=== PATIENT | male | born 1960 | race African-American/Black ===

== ENCOUNTER 2019-06-09 19:47 | Emergency (ER) | payer OTHER ==
--- OUTSIDE RECORDS SUMMARY | 2019-06-09 19:51 | XMS REPORT | Summary of Care ---
:1960 Author Organization [facility] [place] [address] Care Team Providers Name Role Phone Negro Harkins MD Primary Care Provider Reason for Visit Reason Comments Prostate Cancer Encounter Details Date Type Department Care Team Description 01/19/2019 Office Visit [facility] Blas Murillo MD Prostate Cancer Medicine Urology [address] [place] [address] [address]LO[address], [address], [place] [address] [place] [id number] Allergies No Known Allergiesdocumented as of this encounter (statuses as of 01/19/2019) Medications Medication Sig Dispensed Refills Start Date End Date Status losartan (COZAAR) 25 MG Take 25 mg by 0 Active tablet mouth. tadalafil (CIALIS) 5 MG Take 1 Tab by 30 Tab 5 12/05/2018 Active tablet mouth daily. documented as of this encounter (statuses as of 01/19/2019) Active Problems Not on filedocumented as of this encounter (statuses as of 01/19/2019) Social History Tobacco Use Types Packs/Day Years Used Date Current Every Day Smoker Cigarettes 30 Smokeless Tobacco: Never Used Alcohol Use Drinks/Week oz/Week Comments Yes 24 Standard drinks or equivalent 14.4 Sex Assigned at Date Recorded Not on file Job Start Date Occupation Industry Not on file Not on file Not on file Travel History Travel Start Travel End No recent travel history available. documented as of this encounter Last Filed Vital Signs Not on filedocumented in this encounter Progress Notes Blas Murillo MD - 01/19/2019 1:45 PM CDT12/27/2018 - RALP + PLND, DK / Morris A, 2+ / 2+ PATH - GL 3+4, 40 G prostate, 15% cancer ( - ) LN - 0 / 16 ( - ) SV ( + ) SM - apex Post - op - Shelley fell out and replaced by nurse at local ER Came back to the hospital with genital swelling and extravasation from the anastomosis on CG All this resolved Cystogram in the office today - 120 ml contrast - no extravasation ( received Gentamicin 160 mg IM pre study ) Shelley removed Levaquin Rx for 3 days P: FU - 3 months documented in this encounter Plan of Treatment Date Type Specialty Care Team Description 02/06/2019 Office Visit Urology Dov Francois PA [id number] [id number] [phone] 04/20/2019 Office Visit Urology Blas Murillo MD [address] [facility] [address], [address] [place], [place] [id number] Health Maintenance Due Date Last Done Comments COLON CANCER SCREENING: COLONOSCOPY 1960 MEDICARE AWV 1960 TETANUS SHOT (ADULT) 12/01/1975 BMI FOLLOW UP PLAN 1978 HEPATITIS C SCREENING 1978 HIV SCREENING 1978 FLU VACCINE > 6 MONTHS 01/04/2019 documented as of this encounter Results Not on filedocumented in this encounter Visit Diagnoses Diagnosis Prostate cancer - Primary Malignant neoplasm of prostate documented in this encounter Insurance Payer Benefit Plan / Subscriber ID Effective Phone Address Type Group Dates [place] [employer] xxxxxxxxxxx 2018-Pres [address] [employer] - ent [id number] [place] [address] MEDICAID [facility]-MEDICAID - xxxxxxxxx 2014-Pres [address] Medicaid MEDICAID ent [id number] [place] [address] documented as of this encounter
--- OUTSIDE RECORDS SUMMARY | 2019-06-09 19:51 | XMS REPORT ---
:1960 [facility] [address] [place] [address] Care Team Providers Name Role Phone MATTI ANDERSON Unavailable Unavailable ROXANNE, BLAS Unavailable Unavailable Payers Payer Name Policy Type Policy Number Effective Date Expiration Date Problems This patient has no known problems. Allergies, Adverse Reactions, Alerts Allergy Allergy Status Severity Reaction(s) Onset Inactive Treating Comments Name Type Date Date Clinician No Known DA Active U 2018-12 Allergies 28 00:00:0 0 Medications This patient has no known medications. Results Test Description Test Time Test Comments Text Results Atomic Results Result Comments BASIC METABOLIC PANEL 2019-01-08 06:51:00 Test Item Value Reference Range Comments SODIUM (BEAKER) (test 138 meq/L 136-145 yrvn=409) POTASSIUM (BEAKER) (test 3.8 meq/L 3.5-5.1 eele=374) CHLORIDE (BEAKER) (test 106 meq/L 98-107 cebt=079) CO2 (BEAKER) (test 23 meq/L 22-29 ddzu=607) BLOOD UREA NITROGEN 8 mg/dL 7-21 (BEAKER) (test zzsm=949) CREATININE (BEAKER) (test 0.79 mg/dL 0.57-1.25 kaur=186) GLUCOSE RANDOM (BEAKER) 98 mg/dL 70-105 (test sztu=527) CALCIUM (BEAKER) (test 9.0 mg/dL 8.4-10.2 wfsu=752) EGFR (BEAKER) (test 122 mL/min/1.73 sq m ESTIMATED GFR IS NOT hzaf=4847) ACCURATE CREATININE CLEARANCE IN PREDICTING GLOMERULAR FILTRATION RATE. ESTIMATED GFR IS NOT APPLICABLE FOR DIALYSIS PATIENTS. CBC (HEMOGRAM ONLY)2019-01-08 05:48:00 Test Item Value Reference Range Comments WHITE BLOOD CELL COUNT (BEAKER) (test hvry=810) 8.4 K/ L 3.5-10.5 RED BLOOD CELL COUNT (BEAKER) (test ridt=351) 3.09 M/ L 4.63-6.08 HEMOGLOBIN (BEAKER) (test dtwf=890) 10.5 GM/DL 13.7-17.5 HEMATOCRIT (BEAKER) (test kfhv=622) 32.1 % 40.1-51.0 MEAN CORPUSCULAR VOLUME (BEAKER) (test kncd=419) 103.9 fL 79.0-92.2 MEAN CORPUSCULAR HEMOGLOBIN (BEAKER) (test 34.0 pg 25.7-32.2 vvdy=073) MEAN CORPUSCULAR HEMOGLOBIN CONC (BEAKER) (test 32.7 GM/DL 32.3-36.5 ywjv=334) RED CELL DISTRIBUTION WIDTH (BEAKER) (test 13.7 % 11.6-14.4 qumy=233) PLATELET COUNT (BEAKER) (test gbxu=150) 433 K/CU MM 150-450 MEAN PLATELET VOLUME (BEAKER) (test vvce=342) 9.0 fL 9.4-12.4 NUCLEATED RED BLOOD CELLS (BEAKER) (test 0 /100 WBC 0-0 polr=472) BASIC METABOLIC [id number] 10:29:00 Test Item Value Reference Range Comments SODIUM (BEAKER) (test 138 meq/L 136-145 vpmr=523) POTASSIUM (BEAKER) (test 4.1 meq/L 3.5-5.1 Specimen slightly mwir=851) hemolyzed CHLORIDE (BEAKER) (test 104 meq/L 98-107 aydt=268) CO2 (BEAKER) (test 25 meq/L 22-29 jxrh=654) BLOOD UREA NITROGEN 10 mg/dL 7-21 (BEAKER) (test auzc=161) CREATININE (BEAKER) (test 0.84 mg/dL 0.57-1.25 Specimen slightly hsxz=235) hemolyzed GLUCOSE RANDOM (BEAKER) 131 mg/dL 70-105 (test fyys=779) CALCIUM (BEAKER) (test 9.4 mg/dL 8.4-10.2 etwr=721) EGFR (BEAKER) (test 114 mL/min/1.73 sq m ESTIMATED GFR IS NOT mela=4594) ACCURATE CREATININE CLEARANCE IN PREDICTING GLOMERULAR FILTRATION RATE. ESTIMATED GFR IS NOT APPLICABLE FOR DIALYSIS PATIENTS. CBC (HEMOGRAM ONLY)2019-01-07 06:52:00 Test Item Value Reference Range Comments WHITE BLOOD CELL COUNT (BEAKER) (test uwoi=021) 7.7 K/ L 3.5-10.5 RED BLOOD CELL COUNT (BEAKER) (test qcwr=349) 2.98 M/ L 4.63-6.08 HEMOGLOBIN (BEAKER) (test eczq=427) 10.3 GM/DL 13.7-17.5 HEMATOCRIT (BEAKER) (test sepn=476) 31.1 % 40.1-51.0 MEAN CORPUSCULAR VOLUME (BEAKER) (test smek=810) 104.4 fL 79.0-92.2 MEAN CORPUSCULAR HEMOGLOBIN (BEAKER) (test 34.6 pg 25.7-32.2 fbmc=903) MEAN CORPUSCULAR HEMOGLOBIN CONC (BEAKER) (test 33.1 GM/DL 32.3-36.5 ggfm=079) RED CELL DISTRIBUTION WIDTH (BEAKER) (test 13.3 % 11.6-14.4 xuyu=154) PLATELET COUNT (BEAKER) (test vzre=129) 385 K/CU MM 150-450 MEAN PLATELET VOLUME (BEAKER) (test fjrc=455) 9.1 fL 9.4-12.4 NUCLEATED RED BLOOD CELLS (BEAKER) (test 0 /100 WBC 0-0 jemc=314) CBC (HEMOGRAM ONLY)2019-01-06 06:40:00 Test Item Value Reference Range Comments WHITE BLOOD CELL COUNT (BEAKER) (test angt=228) 7.1 K/ L 3.5-10.5 RED BLOOD CELL COUNT (BEAKER) (test xlua=624) 3.16 M/ L 4.63-6.08 HEMOGLOBIN (BEAKER) (test gfnx=352) 10.8 GM/DL 13.7-17.5 HEMATOCRIT (BEAKER) (test kqow=129) 33.7 % 40.1-51.0 MEAN CORPUSCULAR VOLUME (BEAKER) (test uolz=293) 106.6 fL 79.0-92.2 MEAN CORPUSCULAR HEMOGLOBIN (BEAKER) (test 34.2 pg 25.7-32.2 vnta=283) MEAN CORPUSCULAR HEMOGLOBIN CONC (BEAKER) (test 32.0 GM/DL 32.3-36.5 uzcm=168) RED CELL DISTRIBUTION WIDTH (BEAKER) (test 13.1 % 11.6-14.4 renx=821) PLATELET COUNT (BEAKER) (test expn=498) 322 K/CU MM 150-450 MEAN PLATELET VOLUME (BEAKER) (test uwck=583) 9.3 fL 9.4-12.4 NUCLEATED RED BLOOD CELLS (BEAKER) (test 0 /100 WBC 0-0 sunn=766) BASIC METABOLIC [id number] 07:16:00 Test Item Value Reference Range Comments SODIUM (BEAKER) (test 138 meq/L 136-145 adto=905) POTASSIUM (BEAKER) (test 3.2 meq/L 3.5-5.1 mcwt=202) CHLORIDE (BEAKER) (test 102 meq/L 98-107 wdoc=387) CO2 (BEAKER) (test 30 meq/L 22-29 dfqi=014) BLOOD UREA NITROGEN 5 mg/dL 7-21 (BEAKER) (test ntjy=816) CREATININE (BEAKER) (test 0.81 mg/dL 0.57-1.25 zblk=594) GLUCOSE RANDOM (BEAKER) 96 mg/dL 70-105 (test vpts=343) CALCIUM (BEAKER) (test 8.7 mg/dL 8.4-10.2 acrx=440) EGFR (BEAKER) (test 119 mL/min/1.73 sq m ESTIMATED GFR IS NOT rhly=1673) ACCURATE CREATININE CLEARANCE IN PREDICTING GLOMERULAR FILTRATION RATE. ESTIMATED GFR IS NOT APPLICABLE FOR DIALYSIS PATIENTS. CBC (HEMOGRAM ONLY)2019-01-05 05:18:00 Test Item Value Reference Range Comments WHITE BLOOD CELL COUNT (BEAKER) (test oyjy=379) 7.1 K/ L 3.5-10.5 RED BLOOD CELL COUNT (BEAKER) (test nrto=299) 3.00 M/ L 4.63-6.08 HEMOGLOBIN (BEAKER) (test oczh=711) 10.2 GM/DL 13.7-17.5 HEMATOCRIT (BEAKER) (test raqk=885) 31.4 % 40.1-51.0 MEAN CORPUSCULAR VOLUME (BEAKER) (test bymd=913) 104.7 fL 79.0-92.2 MEAN CORPUSCULAR HEMOGLOBIN (BEAKER) (test 34.0 pg 25.7-32.2 udew=241) MEAN CORPUSCULAR HEMOGLOBIN CONC (BEAKER) (test 32.5 GM/DL 32.3-36.5 nqip=270) RED CELL DISTRIBUTION WIDTH (BEAKER) (test 12.8 % 11.6-14.4 clfl=791) PLATELET COUNT (BEAKER) (test majr=072) 287 K/CU MM 150-450 MEAN PLATELET VOLUME (BEAKER) (test krka=273) 9.1 fL 9.4-12.4 NUCLEATED RED BLOOD CELLS (BEAKER) (test 0 /100 WBC 0-0 xlnq=328) BASIC METABOLIC [id number] 06:42:00 Test Item Value Reference Range Comments SODIUM (BEAKER) (test 134 meq/L 136-145 qwen=086) POTASSIUM (BEAKER) (test 3.3 meq/L 3.5-5.1 hcfc=213) CHLORIDE (BEAKER) (test 100 meq/L 98-107 urcm=009) CO2 (BEAKER) (test 29 meq/L 22-29 ayun=472) BLOOD UREA NITROGEN 5 mg/dL 7-21 (BEAKER) (test mdsv=924) CREATININE (BEAKER) (test 0.77 mg/dL 0.57-1.25 qeoc=919) GLUCOSE RANDOM (BEAKER) 96 mg/dL 70-105 (test rcch=134) CALCIUM (BEAKER) (test 8.1 mg/dL 8.4-10.2 uoqr=886) EGFR (BEAKER) (test 126 mL/min/1.73 sq m ESTIMATED GFR IS NOT uduk=0490) ACCURATE CREATININE CLEARANCE IN PREDICTING GLOMERULAR FILTRATION RATE. ESTIMATED GFR IS NOT APPLICABLE FOR DIALYSIS PATIENTS. CBC (HEMOGRAM ONLY)2019-01-04 05:36:00 Test Item Value Reference Range Comments WHITE BLOOD CELL COUNT (BEAKER) (test aswp=297) 6.9 K/ L 3.5-10.5 RED BLOOD CELL COUNT (BEAKER) (test ydbc=143) 2.93 M/ L 4.63-6.08 HEMOGLOBIN (BEAKER) (test vhfe=824) 10.4 GM/DL 13.7-17.5 HEMATOCRIT (BEAKER) (test gwxw=961) 31.2 % 40.1-51.0 MEAN CORPUSCULAR VOLUME (BEAKER) (test lloh=282) 106.5 fL 79.0-92.2 MEAN CORPUSCULAR HEMOGLOBIN (BEAKER) (test 35.5 pg 25.7-32.2 eghk=009) MEAN CORPUSCULAR HEMOGLOBIN CONC (BEAKER) (test 33.3 GM/DL 32.3-36.5 bbts=908) RED CELL DISTRIBUTION WIDTH (BEAKER) (test 12.8 % 11.6-14.4 gxcc=755) PLATELET COUNT (BEAKER) (test scwm=686) 264 K/CU MM 150-450 MEAN PLATELET VOLUME (BEAKER) (test vgpw=990) 9.0 fL 9.4-12.4 NUCLEATED RED BLOOD CELLS (BEAKER) (test 0 /100 WBC 0-0 zugv=801) FL, CYSTOGRAM, [id number] 15:59:00Reason for exam:->concern for urine leakFINAL REPORT Cystogram Clinical History: concern for urine leak Discussion: Approximately 120 cc of Isovue 300 is infused into the bladder via gravity through patient's indwelling Shelley catheter. Sequential images are obtained. There is contrast extravasation at the inferior aspect of the bladder primarily into extraperitoneal space, and there appears to be trace contrast entering the peritoneal space. Bladder contour is grossly normal. No vesicoureteral reflux is noted. Urethra is not evaluated. Note is also made of subcutaneous emphysema in the lower pelvic and perineal region. Fluoro time: 0.55 minutes Number of images obtained: 10 Impression: Contrast extravasation as described. Signed: Janey Iglesiasort Verified Date/Time: 01/03/2019 15:59: 13 Reading Location: [address] Consult Reading Room [id number] 08:26:00 Test Item Value Reference Range Comments PHOSPHORUS (BEAKER) (test vadw=962) 3.1 mg/dL 2.3-4.7 [id number] 08:26:00 Test Item Value Reference Range Comments MAGNESIUM (BEAKER) (test ppqj=154) 1.9 mg/dL 1.6-2.6 BASIC METABOLIC [id number] 08:26:00 Test Item Value Reference Range Comments SODIUM (BEAKER) (test 132 meq/L 136-145 ljur=632) POTASSIUM (BEAKER) (test 3.2 meq/L 3.5-5.1 owhm=607) CHLORIDE (BEAKER) (test 99 meq/L 98-107 swxc=235) CO2 (BEAKER) (test 27 meq/L 22-29 zeck=449) BLOOD UREA NITROGEN 7 mg/dL 7-21 (BEAKER) (test rxgc=700) CREATININE (BEAKER) (test 0.80 mg/dL 0.57-1.25 qpsy=042) GLUCOSE RANDOM (BEAKER) 108 mg/dL 70-105 (test nedp=109) CALCIUM (BEAKER) (test 8.5 mg/dL 8.4-10.2 eikm=295) EGFR (BEAKER) (test 120 mL/min/1.73 sq m ESTIMATED GFR IS NOT qdsj=5590) ACCURATE CREATININE CLEARANCE IN PREDICTING GLOMERULAR FILTRATION RATE. ESTIMATED GFR IS NOT APPLICABLE FOR DIALYSIS PATIENTS. CBC (HEMOGRAM ONLY)2019-01-03 06:57:00 Test Item Value Reference Range Comments WHITE BLOOD CELL COUNT (BEAKER) (test xgdq=159) 9.2 K/ L 3.5-10.5 RED BLOOD CELL COUNT (BEAKER) (test kkln=437) 3.03 M/ L 4.63-6.08 HEMOGLOBIN (BEAKER) (test rete=904) 10.5 GM/DL 13.7-17.5 HEMATOCRIT (BEAKER) (test vyhe=826) 32.3 % 40.1-51.0 MEAN CORPUSCULAR VOLUME (BEAKER) (test iupo=747) 106.6 fL 79.0-92.2 MEAN CORPUSCULAR HEMOGLOBIN (BEAKER) (test 34.7 pg 25.7-32.2 xwih=841) MEAN CORPUSCULAR HEMOGLOBIN CONC (BEAKER) (test 32.5 GM/DL 32.3-36.5 vimv=910) RED CELL DISTRIBUTION WIDTH (BEAKER) (test 12.9 % 11.6-14.4 mypj=088) PLATELET COUNT (BEAKER) (test zsax=705) 251 K/CU MM 150-450 MEAN PLATELET VOLUME (BEAKER) (test htds=816) 9.6 fL 9.4-12.4 NUCLEATED RED BLOOD CELLS (BEAKER) (test 0 /100 WBC 0-0 moik=971) TISSUE [id number] 17:00:00Surgical Pathology Report Case: [id number] Authorizing Provider: Blas Murillo MD Collected: 12/27/2018 1005 Ordering Location: [facility] Received: 12/27/2018 1445 SERVICES Pathologist: Nikita Mahajan MD Specimens: A) - Lymph Node, Periprostatic B) - Lymph Node, Pelvic, Right C) - LymphNode, Pelvic, Left D) - Soft Tissue, Other, Bladder Neck E) - Prostate, Prostate and Seminal Vesicles A. SOFT TISSUE, LABELED "KAMERON-PROSTATIC LYMPH NODE", EXCISION:- ADIPOSE TISSUE, NO LYMPH NODE SEENB. LYMPH NODES, PELVIC, RIGHT, DISSECTION:- ELEVEN BENIGN LYMPH NODES (0/11)C. LYMPH NODES, PELVIC, LEFT, DISSECTION:- FIVE BENIGN LYMPH NODES (0/5)D. SOFT TISSUE, BLADDER NECK, EXCISION:- FIBROADIPOSE TISSUE- NO MALIGNANCY SEENE. PROSTATE, RADICAL RETROPUBIC PROSTATECTOMY:- ADENOCARCINOMA , IMANI 3+4=7, FOCAL EXTRAPROSTATIC EXTENSION, SURGICAL MARGINS POSITIVE AT APEX SEMINAL VESICLES, RADICAL RETROPUBIC PROSTATECTOMY: - NO PATHOLOGIC DIAGNOSIS Signing Pathologist Direct Phone Line: Preliminary result electronically signed by Nikita Mahajan MD on at 4:01 PMSections show a very large bilateral anterior transition zone cancer with bilateral peripheral zone cancers. Tumor extends from the apex to the base and there is a positive surgical margin over a linear distance of organ confined tumor at the apical shave margin. Excellent preservation of the neurovascular bundles is noted from examination of the surgical sepcimen.PROSTATE GLAND: Radical Prostatectomy (Prostate Res - All Specimens) SPECIMEN Procedure: Radical prostatectomy Prostate Size: Prostate Weight (g): 40 g Prostate Greatest Dimension in Centimeters (cm) : 4.8 Centimeters (cm) Additional Dimension in Centimeters (cm): 3.4 Centimeters (cm) Additional Dimension in Centimeters (cm): 2.6 Centimeters (cm)TUMOR Histologic Type: Acinar adenocarcinoma Histologic Grade: Imani Pattern:Percentage of Pattern 4: 30 % Percentage of Pattern 5: 1 % Primary [place] Pattern: Pattern 3 Secondary Imani Pattern: Pattern 4 Tertiary Imani Pattern: Pattern 5 Total Imani Score: 7 Grade Group: 2 Intraductal Carcinoma (IDC): Present Tumor Extent: Tumor Quantitation: Estimated percentage of prostate involved by tumor: 15% % Extraprostatic Extension (EPE): Present, focal Location of Extraprostatic Extension: Left posterior Urinary Bladder Neck Invasion: Not identified Seminal Vesicle Invasion: Not identified Accessory Findings: Treatment Effect: No known presurgical therapy Lymphovascular Invasion: Not Identified Perineural Invasion: Present MARGINS Margins: Involved by invasive carcinoma : Non- limited (>=3 mm) Linear Length of Positive Margin(s) in Millimeters (mm) : 5 Millimeters (mm) Focality: Unifocal Location of Positive Margin(s): Right apical Location of Positive Margin(s): Left apical Margin Positivity in Area of Extraprostatic Extension (EPE): Not identified Imani Pattern at Positive Margin(s): Pattern 3 LYMPH NODES Number of Lymph Nodes Involved: 0 Number of Lymph Nodes Examined: 16 PATHOLOGIC STAGE CLASSIFICATION (pTNM, AJCC 8th Edition) TNM Descriptors: Not applicable Primary Tumor (pT): pT3a Regional Lymph Nodes (pN): pN0 Distant Metastasis (pM): Not applicable - pM cannot be determined from the submitted specimen(s) ADDITIONAL FINDINGS Additional Pathologic Findings: High-grade prostatic intraepithelial neoplasia (PIN) Additional Pathologic Findings: Nodular prostatic hyperplasia 92884, 53636 x 2, 51477 X 2Prostate cancerA. Periprostatic lymph node. B. Right pelvic lymph node. C. Left pelvic lymph node. D. Bladder neck. E. Prostate and seminal vesiclesA. Received in formalin labeled with the patient's name and "periprostatic lymph node" are four fibrofatty tissue fragments measuring in aggregate 5.5 x 2.5 x 1 cm disclosing a possible lymph node. The specimen is entirely submitted in A1- A3.B. Received in formalin labeled with the patient's name and "right pelvic lymph node" are two fibrofatty tissue fragments measuring in aggregate 4.5 x 4 x 1 cm disclosing multiple lymph nodes. Sections are submitted as follows:B1, one lymph node, bisected; B2, three lymph nodes; B3-B5, remainder, entirely submitted.C. Received in formalin labeled with the patient's name and "left pelvic lymph node" are two fibrofatty tissue fragments measuring in aggregate 5 x 3 x 1.2 cm disclosing two lymph nodes. Sections are submitted asfollows: C1, one lymph node bisected; C2-C3, one lymph node serially sectioned; C4-C5, remainder, entirely submitted.D. Received in formalin labeled with the patient' s name and "bladder neck" is a dark-brown tissue fragment measuring 0.6 x 0.5 x 0.3 cm; entirely submitted in D1. ?/ewSpecimen E: Received is a radical prostatectomy specimen in formalin with the patient's name (Christen Sheffield) with accession number [id number] is a prostate with bilateral seminal vesicles and vas deferentia.The prostate weighs 40.0 gm and measures 3.4 cm apex to base , 4.8 cm transversely and 2.6 cm anterior to posterior. The right and left seminal vesicles measure 4.0 x 2.0 x 0.5 cm and 3.5 x 2.0 x 1.0 cm respectively.The right and left vasa deferentia measure 7.0 cm and 5.0 cm in length respectively and 0.5 cm in diameter. The capsular surface of the prostate is purple-fuller to red, dusky, and focally ragged. Ink code: Right-black , left-blue. The prostate is serially sectioned from apex to base in entirety. The total number of slices including seminal vesicles and vas deferentia are 11.The sectioning of the prostate reveals pink-fuller to matos-white, homogeneous, focally nodular prostatic parenchyma throughout. No discrete masses are identified. The sectioning of the seminal vesicles reveals a pink-fuller unremarkable cut surface. Section code: Apical margins are submitted in cassette E1, bladder neck margins are submitted in cassette E2. The prostate slices are submitted as follows: Segment 1 in cassette E3, segment 2 in cassette E4, segment 3 subdivided, left cassette E5 and right portion submitted in cassette E6, segment 4 subdivided, left portion in cassette E7 and portion in cassette E8, segment 5 subdivided, left portion in cassette E9 and right portion in cassette E10, segment 6 submitted in cassette E11.Right and left seminal vesicles at the base of the prostate are submitted in cassette E12, seminal vesicle tips along with vas deferentia are submitted in cassette E13. SDH/ewPerformed.CT, [id number] 13:19:00Patient with significant scrotal swelling and subcutaneous air, also with ileus. Please perform withIV and PO contrastFINAL REPORT TECHNIQUE: CT of the abdomen and pelvis WITH intravenous contrast and WITHOUT oral contrast. Dose modulation, iterative reconstruction, and/or weight-based adjustment of the mA/kV was utilized to reduce the radiation dose to as low as reasonably achievable. INDICATION: 58-year-old man with postoperative infection. COMPARISON: Abdomen and pelvis CT 12/31/2018. FINDINGS: LOWER THORAX: Mild atelectasis in both lung bases. HEPATOBILIARY: No focal hepatic lesions. Gallbladder is unremarkable. No biliary ductal dilatation.SPLEEN: No splenomegaly.PANCREAS: No focal masses or ductal dilatation. ADRENALS: No adrenal nodules.KIDNEYS/URETERS: No hydronephrosis, stones, or solid mass lesions.PELVIC ORGANS/BLADDER: Recent prostatectomy. Catheter terminates in the urinary bladder. Air within the bladder, likely from catheterization. PERITONEUM/RETROPERITONEUM: Trace amount of air and fluid in the pelvis. Air and fluid collections along the pelvic side lee measure 3.9 x 2.2 cm on the right and 7.1 x 4 cm on the left; these collections exert mass effect on the adjacent bladder. Trace free fluid and free air in the abdomen.LYMPH NODES: Recent bilateral pelvic lymphadenectomies. No lymphadenopathy.VESSELS: Unremarkable. GI TRACT: Distention of the right colon up to 7.8 cmin diameter without transition point. No bowel wall thickening. BONES AND SOFT TISSUES: Bones are unremarkable. Diffuse scrotal wall edema. Air within the soft tissues of the abdominal wall tracks inferiorly into the inguinal canals bilaterally and surrounds the testicles. Air within the soft tissues of the penis. Mild soft tissue edema in the abdominal wall, groin, and bilateral proximal thighs. IMPRESSION:Soft tissue air and edema in the abdomen, groin, scrotum, and penis, likely related to recent prostatectomy. Trace ascites and pneumoperitoneum, also likely related to recent prostatectomy. Air- and fluid-containing collections along the pelvic sidewalls bilaterally, likely seromas or lymphoceles. Distention of the right colon without transition point, suggestive of ileus. Signed: Gayathri Bailey MDReport Verified Date/Time: 01/02/2019 13:19:12 Reading Location: [facility] ReadingRoom [id number] 07:00:00 Test Item Value Reference Range Comments PHOSPHORUS (BEAKER) (test kvjx=458) 3.3 mg/dL 2.3-4.7 [id number] 07:00:00 Test Item Value Reference Range Comments MAGNESIUM (BEAKER) (test vlda=547) 1.9 mg/dL 1.6-2.6 BASIC METABOLIC [id number] 07:00:00 Test Item Value Reference Range Comments SODIUM (BEAKER) (test 134 meq/L 136-145 gtct=477) POTASSIUM (BEAKER) (test 3.4 meq/L 3.5-5.1 gisj=763) CHLORIDE (BEAKER) (test 98 meq/L 98-107 blso=674) CO2 (BEAKER) (test 29 meq/L 22-29 ccbk=640) BLOOD UREA NITROGEN 8 mg/dL 7-21 (BEAKER) (test jkwa=687) CREATININE (BEAKER) (test 1.03 mg/dL 0.57-1.25 pfvq=227) GLUCOSE RANDOM (BEAKER) 115 mg/dL 70-105 (test zpjs=631) CALCIUM (BEAKER) (test 9.3 mg/dL 8.4-10.2 naam=483) EGFR (BEAKER) (test 90 mL/min/1.73 sq m ESTIMATED GFR IS NOT mukj=4840) ACCURATE CREATININE CLEARANCE IN PREDICTING GLOMERULAR FILTRATION RATE. ESTIMATED GFR IS NOT APPLICABLE FOR DIALYSIS PATIENTS. [id number] 04:40:00 Test Item Value Reference Range Comments PHOSPHORUS (BEAKER) (test bfnv=610) 2.9 mg/dL 2.3-4.7 [id number] 04:40:00 Test Item Value Reference Range Comments MAGNESIUM (BEAKER) (test gtkz=341) 1.8 mg/dL 1.6-2.6 BASIC METABOLIC [id number] 04:40:00 Test Item Value Reference Range Comments SODIUM (BEAKER) (test 136 meq/L 136-145 heyi=447) POTASSIUM (BEAKER) (test 3.6 meq/L 3.5-5.1 rsuy=031) CHLORIDE (BEAKER) (test 103 meq/L 98-107 gkmx=423) CO2 (BEAKER) (test 26 meq/L 22-29 zyti=113) BLOOD UREA NITROGEN 8 mg/dL 7-21 (BEAKER) (test filw=145) CREATININE (BEAKER) (test 0.75 mg/dL 0.57-1.25 fbco=289) GLUCOSE RANDOM (BEAKER) 107 mg/dL 70-105 (test cgwg=864) CALCIUM (BEAKER) (test 8.6 mg/dL 8.4-10.2 gmnl=121) EGFR (BEAKER) (test 130 mL/min/1.73 sq m ESTIMATED GFR IS NOT eufm=3637) ACCURATE CREATININE CLEARANCE IN PREDICTING GLOMERULAR FILTRATION RATE. ESTIMATED GFR IS NOT APPLICABLE FOR DIALYSIS PATIENTS. CBC W/PLT COUNT & AUTO [id number] 04:10:00 Test Item Value Reference Range Comments WHITE BLOOD CELL COUNT (BEAKER) (test vmxg=542) 7.8 K/ L 3.5-10.5 RED BLOOD CELL COUNT (BEAKER) (test lljl=589) 2.80 M/ L 4.63-6.08 HEMOGLOBIN (BEAKER) (test eode=119) 9.8 GM/DL 13.7-17.5 HEMATOCRIT (BEAKER) (test yfez=153) 29.2 % 40.1-51.0 MEAN CORPUSCULAR VOLUME (BEAKER) (test ozjh=616) 104.3 fL 79.0-92.2 MEAN CORPUSCULAR HEMOGLOBIN (BEAKER) (test 35.0 pg 25.7-32.2 fbxr=776) MEAN CORPUSCULAR HEMOGLOBIN CONC (BEAKER) (test 33.6 GM/DL 32.3-36.5 nfnk=638) RED CELL DISTRIBUTION WIDTH (BEAKER) (test 13.1 % 11.6-14.4 logi=162) PLATELET COUNT (BEAKER) (test fakk=805) 176 K/CU MM 150-450 MEAN PLATELET VOLUME (BEAKER) (test krgw=870) 9.5 fL 9.4-12.4 NUCLEATED RED BLOOD CELLS (BEAKER) (test 0 /100 WBC 0-0 xrkz=274) NEUTROPHILS RELATIVE PERCENT (BEAKER) (test 71 % hljw=923) LYMPHOCYTES RELATIVE PERCENT (BEAKER) (test 15 % jsme=987) MONOCYTES RELATIVE PERCENT (BEAKER) (test 11 % drsn=283) EOSINOPHILS RELATIVE PERCENT (BEAKER) (test 2 % mioq=190) BASOPHILS RELATIVE PERCENT (BEAKER) (test 0 % lbmk=573) NEUTROPHILS ABSOLUTE COUNT (BEAKER) (test 5.51 K/ L 1.78-5.38 otmp=652) LYMPHOCYTES ABSOLUTE COUNT (BEAKER) (test 1.20 K/ L 1.32-3.57 xfqm=051) MONOCYTES ABSOLUTE COUNT (BEAKER) (test 0.83 K/ L 0.30-0.82 opgz=316) EOSINOPHILS ABSOLUTE COUNT (BEAKER) (test 0.17 K/ L 0.04-0.54 rmuo=696) BASOPHILS ABSOLUTE COUNT (BEAKER) (test 0.03 K/ L 0.01-0.08 scfr=678) IMMATURE GRANULOCYTES-RELATIVE PERCENT (BEAKER) 0 % 0-1 (test gcip=1665) URINALYSIS W/ REFLEX URINE [id number] 18:55:00 Test Item Value Reference Range Comments COLOR (BEAKER) (test ryrg=929) Yellow CLARITY (BEAKER) (test otok=767) Hazy SPECIFIC GRAVITY UA (BEAKER) (test uivs=923) 1.016 1.001-1.035 PH UA (BEAKER) (test yccr=949) 6.0 5.0-8.0 PROTEIN UA (BEAKER) (test hhcw=365) 20 mg/dL Negative GLUCOSE UA (BEAKER) (test qwov=305) Negative Negative KETONES UA (BEAKER) (test uiuz=958) Negative Negative BILIRUBIN UA (BEAKER) (test ynln=885) Negative Negative BLOOD UA (BEAKER) (test xmjw=033) Moderate Negative NITRITE UA (BEAKER) (test bgjp=760) Negative Negative LEUKOCYTE ESTERASE UA (BEAKER) (test dfxv=029) Large Negative UROBILINOGEN UA (BEAKER) (test zaiy=048) 2.0 mg/dL 0.2-1.0 RBC UA (BEAKER) (test fkmm=037) 6 /HPF WBC UA (BEAKER) (test cvhl=461) 7 /HPF BACTERIA (BEAKER) (test rzev=541) Occasional MUCUS (BEAKER) (test xplw=3131) Few SQUAMOUS EPITHELIAL (BEAKER) (test ujbt=807) < /HPF SOURCE(BEAKER) (test yvqo=3854) CT, [id number] 18:21:00Reason for exam:->ABDOMINAL PAINWhat is the patient's sedation requirement?->No SedationFINAL REPORT CT, ABDOMEN \\T\\ PELVIS, WITHOUT IV CONTRAST CLINICAL HISTORY: Abdominal pain, unspecifiedABDOMINAL PAIN Technique: Multiple axial images of the abdomen and pelvis were performed without contrast. Coronal and sagittal reformats obtained. Oral contrast was not administered. This exam was performed according to our departmental dose-optimization program, which includes automated exposure control, adjustment of the mA and/or kV according to patient size and/or use of the iterative reconstruction technique. COMPARISON: None. FINDINGS:LOWER CHEST: By basilar subsegmental atelectasis. LIVER: No parenchymal abnormality.BILIARY SYSTEM: No abnormal ductal dilatation.PANCREAS: No acute findings. SPLEEN: No acute findings.ADRENAL GLANDS: Unremarkable.KIDNEYS URETERS: No acute findings. GASTROINTESTINAL/MESENTERY: No bowel obstruction or abnormal wall thickening. The stomach is unremarkable. URINARY BLADDER: Decompressed around Shelley catheter.REPRODUCTIVE ORGANS: Prostatectomy changes with complex collection within the prostate bed. PERITONEUM/RETROPERITONEUM: Retrovesicular space rim-enhancing collection 4 x 3 x 4.6 cm. Left pelvic sidewall poorly organized collection with punctate foci of trapped gas, 7.5 x 2.9 x 5 cm. Right pelvic sidewall collection, 4.2 x 2.2 x 4.2 cm with trapped gas and "fecal like "appearance. Scattered fluid and small volume pneumoperitoneum present.VESSELS: Within normal limits. LYMPH NODES: No abdominal or pelvic lymphadenopathy.SOFT TISSUES: Subcutaneous and intramuscular gas extends bilaterally through the inguinal region into the scrotum with moderate edema.BONES: No suspicious osseous lesion. Other: None IMPRESSION:Intra-abdominal/pelvic complex fluid collections concerning for abscesses. Rectovesicular space complex collection concerning for abscess versus postoperative hematoma/seroma. Subcutaneous edema, emphysema extending into the scrotum concerning for necrotizing fasciitis, gangrene versus postoperative gas. Small volume free fluid and pneumoperitoneum. Absence of IV contrast limits sensitivity of the examination. Findings discussed with the patient's care provider, MATTI ANDERSON, on 12/31/2018 6:18 PM. Signed: Archie Gibbsort Verified Date/Time: 12/31/2018 18:21:28 [facility] METABOLIC [id number] 18:15:00 Test Item Value Reference Range Comments SODIUM (BEAKER) (test 135 meq/L 136-145 pikd=920) POTASSIUM (BEAKER) (test 3.0 meq/L 3.5-5.1 htcq=980) CHLORIDE (BEAKER) (test 99 meq/L 98-107 yoie=124) CO2 (BEAKER) (test 27 meq/L 22-29 bdpk=833) BLOOD UREA NITROGEN 7 mg/dL 7-21 (BEAKER) (test tuyp=593) CREATININE (BEAKER) (test 0.93 mg/dL 0.57-1.25 bkoz=909) GLUCOSE RANDOM (BEAKER) 90 mg/dL 70-105 (test elrq=772) CALCIUM (BEAKER) (test 9.5 mg/dL 8.4-10.2 agck=693) EGFR (BEAKER) (test 101 mL/min/1.73 sq m ESTIMATED GFR IS NOT huxd=8321) ACCURATE CREATININE CLEARANCE IN PREDICTING GLOMERULAR FILTRATION RATE. ESTIMATED GFR IS NOT APPLICABLE FOR DIALYSIS PATIENTS. CBC W/PLT COUNT & AUTO [id number] 17:59:00 Test Item Value Reference Range Comments WHITE BLOOD CELL COUNT (BEAKER) (test sslk=753) 11.1 K/ L 3.5-10.5 RED BLOOD CELL COUNT (BEAKER) (test rcbg=158) 3.18 M/ L 4.63-6.08 HEMOGLOBIN (BEAKER) (test jdyl=320) 11.2 GM/DL 13.7-17.5 HEMATOCRIT (BEAKER) (test stnw=158) 33.4 % 40.1-51.0 MEAN CORPUSCULAR VOLUME (BEAKER) (test wkkd=050) 105.0 fL 79.0-92.2 MEAN CORPUSCULAR HEMOGLOBIN (BEAKER) (test 35.2 pg 25.7-32.2 vryh=815) MEAN CORPUSCULAR HEMOGLOBIN CONC (BEAKER) (test 33.5 GM/DL 32.3-36.5 lsba=789) RED CELL DISTRIBUTION WIDTH (BEAKER) (test 13.0 % 11.6-14.4 xdlv=975) PLATELET COUNT (BEAKER) (test cdws=392) 202 K/CU MM 150-450 MEAN PLATELET VOLUME (BEAKER) (test vgxe=336) 8.9 fL 9.4-12.4 NUCLEATED RED BLOOD CELLS (BEAKER) (test 0 /100 WBC 0-0 tlzo=179) NEUTROPHILS RELATIVE PERCENT (BEAKER) (test 77 % jaht=759) LYMPHOCYTES RELATIVE PERCENT (BEAKER) (test 13 % zxly=090) MONOCYTES RELATIVE PERCENT (BEAKER) (test 7 % lteh=152) EOSINOPHILS RELATIVE PERCENT (BEAKER) (test 2 % fuiq=776) BASOPHILS RELATIVE PERCENT (BEAKER) (test 0 % vaue=640) NEUTROPHILS ABSOLUTE COUNT (BEAKER) (test 8.61 K/ L 1.78-5.38 chla=275) LYMPHOCYTES ABSOLUTE COUNT (BEAKER) (test 1.45 K/ L 1.32-3.57 yphw=573) MONOCYTES ABSOLUTE COUNT (BEAKER) (test 0.78 K/ L 0.30-0.82 izkb=007) EOSINOPHILS ABSOLUTE COUNT (BEAKER) (test 0.19 K/ L 0.04-0.54 yilc=766) BASOPHILS ABSOLUTE COUNT (BEAKER) (test 0.04 K/ L 0.01-0.08 aexs=158) IMMATURE GRANULOCYTES-RELATIVE PERCENT (BEAKER) 1 % 0-1 (test riqw=1151) UA RFLX MICR CULT IF [id number] 08:59:00 Test Item Value Reference Range Comments UA COLOR (test code=COLU) YELLOW YELLOW UA APPEARANCE (test code=APPU) CLEAR CLEAR UA GLUCOSE DIPSTICK (test NORMAL MG/DL NORMAL code=DGLUU) UA BILIRUBIN DIPSTICK (test NEGATIVE MG/DL NEGATIVE code=BILU) UA KETONE DIPSTICK (test NEGATIVE MG/DL NEGATIVE code=KETU) UA SPECIFIC GRAVITY (test 1.025 1.003-1.030 code=SGU) UA BLOOD DIPSTICK (test code=AYSEHA) 250 Mayo/mm3 NEGATIVE UA PH DIPSTICK (test code=OLY) 5.0 5.0-9.0 UA PROTEIN DIPSTICK (test 30 MG/DL NEGATIVE code=PROU) UA UROBILINIOGEN DIPSTICK (test NORMAL MG/DL NORMAL code=URO) UA NITRITE DIPSTICK (test NEGATIVE NEGATIVE code=BEST) UA LEUKOCYTE ESTERASE DIPSTICK 100 /mm3 NEGATIVE (test code=LEUU) UA CULTURE NEEDED? (test YES,WBC>10 & EPI<25 Culture Chk code=UACULT) Criteria SOURCE OF URINE: CLEAN CATCHIndication for culture: Dysuria/FrequencyUA [id number] 08:59:00 Test Item Value Reference Range Comments UA RBC (test code=RBCU) 20-30 RBC/HPF 0-3 UA WBC (test code=XWBCU) 20-30 WBC/HPF 0-5 UA EPITHELIAL CELLS (test code=EPIU) FEW EPI/HPF FEW UA BACTERIA (test code=XBACU) FEW NONE SOURCE OF URINE: CLEAN CATCHIndication for culture: Dysuria/FrequencyUA RFLX MICR CULT IF [id number] 08:50:00 Test Item Value Reference Range Comments UA COLOR (test code=COLU) YELLOW YELLOW UA APPEARANCE (test code=APPU) CLEAR CLEAR UA GLUCOSE DIPSTICK (test code=DGLUU) NORMAL MG/DL NORMAL UA BILIRUBIN DIPSTICK (test code=BILU) NEGATIVE MG/DL NEGATIVE UA KETONE DIPSTICK (test code=KETU) NEGATIVE MG/DL NEGATIVE UA SPECIFIC GRAVITY (test code=SGU) 1.025 1.003-1.030 UA BLOOD DIPSTICK (test code=AYESHA) 250 Mayo/mm3 NEGATIVE UA PH DIPSTICK (test code=OLY) 5.0 5.0-9.0 UA PROTEIN DIPSTICK (test code=PROU) 30 MG/DL NEGATIVE UA UROBILINIOGEN DIPSTICK (test code=URO) NORMAL MG/DL NORMAL UA NITRITE DIPSTICK (test code=BEST) NEGATIVE NEGATIVE UA LEUKOCYTE ESTERASE DIPSTICK (test 100 /mm3 NEGATIVE code=LEUU) UA CULTURE NEEDED? (test code=UACULT) Criteria Culture Chk SOURCE OF URINE: CLEAN CATCHIndication for culture: Dysuria/FrequencyUA [id number] 08:50:00 Test Item Value Reference Range Comments UA RBC (test code=RBCU) RBC/HPF 0-3 UA WBC (test code=XWBCU) WBC/HPF 0-5 UA EPITHELIAL CELLS (test code=EPIU) EPI/HPF FEW UA BACTERIA (test code=XBACU) NONE SOURCE OF URINE: CLEAN CATCHIndication for culture: Dysuria/FrequencyUA RFLX MICR CULT IF [id number] 08:50:00 Test Item Value Reference Range Comments UA COLOR (test code=COLU) YELLOW YELLOW UA APPEARANCE (test code=APPU) CLEAR CLEAR UA GLUCOSE DIPSTICK (test code=DGLUU) NORMAL MG/DL NORMAL UA BILIRUBIN DIPSTICK (test code=BILU) NEGATIVE MG/DL NEGATIVE UA KETONE DIPSTICK (test code=KETU) NEGATIVE MG/DL NEGATIVE UA SPECIFIC GRAVITY (test code=SGU) 1.025 1.003-1.030 UA BLOOD DIPSTICK (test code=AYESHA) 250 Mayo/mm3 NEGATIVE UA PH DIPSTICK (test code=OLY) 5.0 5.0-9.0 UA PROTEIN DIPSTICK (test code=PROU) 30 MG/DL NEGATIVE UA UROBILINIOGEN DIPSTICK (test code=URO) NORMAL MG/DL NORMAL UA NITRITE DIPSTICK (test code=BEST) NEGATIVE NEGATIVE UA LEUKOCYTE ESTERASE DIPSTICK (test 100 /mm3 NEGATIVE code=LEUU) UA CULTURE NEEDED? (test code=UACULT) Criteria Culture Chk SOURCE OF URINE: CLEAN CATCHIndication for culture: Dysuria/FrequencyUA [id number] 08:50:00 Test Item Value Reference Range Comments UA RBC (test code=RBCU) RBC/HPF 0-3 UA WBC (test code=XWBCU) WBC/HPF 0-5 UA EPITHELIAL CELLS (test code=EPIU) EPI/HPF FEW UA BACTERIA (test code=XBACU) NONE SOURCE OF URINE: CLEAN CATCHIndication for culture: Dysuria/ FrequencyCREATININE, BODY [id number] 12:28:00 Test Item Value Reference Range Comments CREATININE FLUID (BEAKER) (test cnsy=107) 0.60 mg/dL Reference Range: No Normals Assay performance has not been validated for this type of specimen.BASIC METABOLIC [id number] 06:24:00 Test Item Value Reference Range Comments SODIUM (BEAKER) (test 135 meq/L 136-145 kkrz=188) POTASSIUM (BEAKER) (test 3.7 meq/L 3.5-5.1 kuxs=550) CHLORIDE (BEAKER) (test 104 meq/L 98-107 icda=649) CO2 (BEAKER) (test 26 meq/L 22-29 boxh=696) BLOOD UREA NITROGEN 4 mg/dL 7-21 (BEAKER) (test ylrg=797) CREATININE (BEAKER) (test 0.75 mg/dL 0.57-1.25 zwpk=395) GLUCOSE RANDOM (BEAKER) 110 mg/dL 70-105 (test mvqu=624) CALCIUM (BEAKER) (test 8.3 mg/dL 8.4-10.2 yicp=032) EGFR (BEAKER) (test 130 mL/min/1.73 sq m ESTIMATED GFR IS NOT wiex=5514) ACCURATE CREATININE CLEARANCE IN PREDICTING GLOMERULAR FILTRATION RATE. ESTIMATED GFR IS NOT APPLICABLE FOR DIALYSIS PATIENTS. HEMOGLOBIN AND [id number] 05:28:00 Test Item Value Reference Range Comments HEMOGLOBIN (BEAKER) (test ytar=462) 10.5 GM/DL 13.7-17.5 HEMATOCRIT (BEAKER) (test zlsh=704) 31.9 % 40.1-51.0 BASIC METABOLIC [id number] 07:27:00 Test Item Value Reference Range Comments SODIUM (BEAKER) (test 134 meq/L 136-145 pugi=893) POTASSIUM (BEAKER) (test 3.0 meq/L 3.5-5.1 zlbv=539) CHLORIDE (BEAKER) (test 102 meq/L 98-107 ksgz=811) CO2 (BEAKER) (test 26 meq/L 22-29 wlps=516) BLOOD UREA NITROGEN 4 mg/dL 7-21 (BEAKER) (test rbss=376) CREATININE (BEAKER) (test 0.79 mg/dL 0.57-1.25 gojc=286) GLUCOSE RANDOM (BEAKER) 117 mg/dL 70-105 (test lmhx=235) CALCIUM (BEAKER) (test 7.9 mg/dL 8.4-10.2 oxqs=673) EGFR (BEAKER) (test 122 mL/min/1.73 sq m ESTIMATED GFR IS NOT nsqa=4571) ACCURATE CREATININE CLEARANCE IN PREDICTING GLOMERULAR FILTRATION RATE. ESTIMATED GFR IS NOT APPLICABLE FOR DIALYSIS PATIENTS. HEMOGLOBIN AND [id number] 06:44:00 Test Item Value Reference Range Comments HEMOGLOBIN (BEAKER) (test uwea=026) 10.8 GM/DL 13.7-17.5 HEMATOCRIT (BEAKER) (test ftwq=031) 32.2 % 40.1-51.0 BASIC METABOLIC [id number] 07:35:00 Test Item Value Reference Range Comments SODIUM (BEAKER) (test 136 meq/L 136-145 cwbh=091) POTASSIUM (BEAKER) (test 3.7 meq/L 3.5-5.1 afwo=843) CHLORIDE (BEAKER) (test 105 meq/L 98-107 lcjd=772) CO2 (BEAKER) (test 24 meq/L 22-29 aslc=604) BLOOD UREA NITROGEN 7 mg/dL 7-21 (BEAKER) (test wsem=923) CREATININE (BEAKER) (test 0.96 mg/dL 0.57-1.25 dltd=094) GLUCOSE RANDOM (BEAKER) 106 mg/dL 70-105 (test hjel=644) CALCIUM (BEAKER) (test 7.6 mg/dL 8.4-10.2 zbwg=350) EGFR (BEAKER) (test 98 mL/min/1.73 sq m ESTIMATED GFR IS NOT syaf=8582) ACCURATE CREATININE CLEARANCE IN PREDICTING GLOMERULAR FILTRATION RATE. ESTIMATED GFR IS NOT APPLICABLE FOR DIALYSIS PATIENTS. HEMOGLOBIN AND [id number] 06:43:00 Test Item Value Reference Range Comments HEMOGLOBIN (BEAKER) (test wybn=391) 11.8 GM/DL 13.7-17.5 HEMATOCRIT (BEAKER) (test kbgd=675) 36.2 % 40.1-51.0 HEMOGLOBIN AND [id number] 15:37:00 Test Item Value Reference Range Comments HEMOGLOBIN (BEAKER) (test gnqh=204) 13.6 GM/DL 13.7-17.5 HEMATOCRIT (BEAKER) (test esxf=914) 41.9 % 40.1-51.0 BASIC METABOLIC [id number] 15:25:00 Test Item Value Reference Range Comments SODIUM (BEAKER) (test 143 meq/L 136-145 ttvo=054) POTASSIUM (BEAKER) (test 4.3 meq/L 3.5-5.1 Specimen slightly ntkz=548) hemolyzed CHLORIDE (BEAKER) (test 110 meq/L 98-107 ehey=228) CO2 (BEAKER) (test 24 meq/L 22-29 bezw=636) BLOOD UREA NITROGEN 13 mg/dL 7-21 (BEAKER) (test ivvy=716) CREATININE (BEAKER) (test 1.10 mg/dL 0.57-1.25 Specimen slightly wisl=028) hemolyzed GLUCOSE RANDOM (BEAKER) 102 mg/dL 70-105 (test xejw=493) CALCIUM (BEAKER) (test 8.0 mg/dL 8.4-10.2 cfre=600) EGFR (BEAKER) (test 83 mL/min/1.73 sq m ESTIMATED GFR IS NOT ulag=9202) ACCURATE CREATININE CLEARANCE IN PREDICTING GLOMERULAR FILTRATION RATE. ESTIMATED GFR IS NOT APPLICABLE FOR DIALYSIS PATIENTS. BASIC METABOLIC [id number] 07:20:00 Test Item Value Reference Range Comments SODIUM (BEAKER) (test 143 meq/L 136-145 focb=957) POTASSIUM (BEAKER) (test 4.0 meq/L 3.5-5.1 Specimen slightly ycib=742) hemolyzed CHLORIDE (BEAKER) (test 110 meq/L 98-107 jjun=223) CO2 (BEAKER) (test 23 meq/L 22-29 jjay=864) BLOOD UREA NITROGEN 11 mg/dL 7-21 (BEAKER) (test abxd=834) CREATININE (BEAKER) (test 0.89 mg/dL 0.57-1.25 Specimen slightly gain=785) hemolyzed GLUCOSE RANDOM (BEAKER) 86 mg/dL 70-105 (test blwv=713) CALCIUM (BEAKER) (test 9.0 mg/dL 8.4-10.2 bmvr=524) EGFR (BEAKER) (test 106 mL/min/1.73 sq m ESTIMATED GFR IS NOT vceg=8628) ACCURATE CREATININE CLEARANCE IN PREDICTING GLOMERULAR FILTRATION RATE. ESTIMATED GFR IS NOT APPLICABLE FOR DIALYSIS PATIENTS. COMPREHENSIVE METABOLIC [id number] 15:49:00 Test Item Value Reference Range Comments TOTAL PROTEIN (BEAKER) 8.3 gm/dL 6.0-8.3 Specimen markedly (test vzlf=823) hemolyzed ALBUMIN (BEAKER) (test 4.0 g/dL 3.5-5.0 Specimen markedly jtnj=4920) hemolyzed ALKALINE PHOSPHATASE 57 U/L 40-150 (BEAKER) (test fkyx=478) BILIRUBIN TOTAL (BEAKER) 0.3 mg/dL 0.2-1.2 Specimen markedly (test zccr=986) hemolyzed SODIUM (BEAKER) (test 136 meq/L 136-145 bago=576) POTASSIUM (BEAKER) (test 4.7 meq/L 3.5-5.1 Specimen markedly hcbd=978) hemolyzed CHLORIDE (BEAKER) (test 103 meq/L 98-107 bfor=332) CO2 (BEAKER) (test 21 meq/L 22-29 cbgm=835) BLOOD UREA NITROGEN 10 mg/dL 7-21 (BEAKER) (test pcyq=154) CREATININE (BEAKER) (test 1.05 mg/dL 0.57-1.25 Specimen markedly odpk=865) hemolyzed GLUCOSE RANDOM (BEAKER) 97 mg/dL 70-105 (test qyyb=993) CALCIUM (BEAKER) (test 8.9 mg/dL 8.4-10.2 zcqm=126) AST (SGOT) (BEAKER) (test 42 U/L 5-34 Specimen markedly gejp=596) hemolyzed ALT (SGPT) (BEAKER) (test 20 U/L 6-55 Specimen markedly leel=288) hemolyzed EGFR (BEAKER) (test 88 mL/min/1.73 sq m ESTIMATED GFR IS NOT zkpu=4354) ACCURATE CREATININE CLEARANCE IN PREDICTING GLOMERULAR FILTRATION RATE. ESTIMATED GFR IS NOT APPLICABLE FOR DIALYSIS PATIENTS. Specimen slightly [id number] 13:53:00 Test Item Value Reference Range Comments PARTIAL THROMBOPLASTIN TIME (BEAKER) (test 25.8 seconds 22.5-36.0 umgk=615) PROTHROMBIN TIME/[id number] 13:52:00 Test Item Value Reference Range Comments PROTIME (BEAKER) (test hqum=774) 13.7 seconds 11.9-14.2 INR (BEAKER) (test rcfu=462) 1.1 <=5.9 Effective 11/01/2018: PT Reference Range ChangeNew: 11.9-14.2 Previous: 11.7- 14.7RECOMMENDED COUMADIN/WARFARIN INR THERAPY RANGESSTANDARD DOSE: 2.0-3.0 Includes: PROPHYLAXIS for venous thrombosis, systemic embolization; TREATMENT for venous thrombosis and/or pulmonary embolus.HIGH RISK: Target INR is2.5-3.5 for patients wiht mechanical heart valves.BASIC METABOLIC [id number] 13:51: 00 Test Item Value Reference Range Comments SODIUM (BEAKER) (test 134 meq/L 136-145 isuf=819) POTASSIUM (BEAKER) (test 4.6 meq/L 3.5-5.1 Specimen markedly pyxb=651) hemolyzed CHLORIDE (BEAKER) (test 102 meq/L 98-107 nlip=163) CO2 (BEAKER) (test 21 meq/L 22-29 czkv=344) BLOOD UREA NITROGEN 10 mg/dL 7-21 (BEAKER) (test rzyv=395) CREATININE (BEAKER) (test 1.04 mg/dL 0.57-1.25 Specimen markedly hbvl=087) hemolyzed GLUCOSE RANDOM (BEAKER) 96 mg/dL 70-105 (test lrrq=261) CALCIUM (BEAKER) (test 8.9 mg/dL 8.4-10.2 emlp=696) EGFR (BEAKER) (test 89 mL/min/1.73 sq m ESTIMATED GFR IS NOT ncga=3305) ACCURATE CREATININE CLEARANCE IN PREDICTING GLOMERULAR FILTRATION RATE. ESTIMATED GFR IS NOT APPLICABLE FOR DIALYSIS PATIENTS. CBC W/PLT COUNT & AUTO [id number] 13:35:00 Test Item Value Reference Range Comments WHITE BLOOD CELL COUNT (BEAKER) (test ijzp=617) 8.4 K/ L 3.5-10.5 RED BLOOD CELL COUNT (BEAKER) (test jeso=975) 3.93 M/ L 4.63-6.08 HEMOGLOBIN (BEAKER) (test xmow=157) 13.3 GM/DL 13.7-17.5 HEMATOCRIT (BEAKER) (test vmze=269) 39.2 % 40.1-51.0 MEAN CORPUSCULAR VOLUME (BEAKER) (test hvao=142) 99.7 fL 79.0-92.2 MEAN CORPUSCULAR HEMOGLOBIN (BEAKER) (test 33.8 pg 25.7-32.2 aaul=508) MEAN CORPUSCULAR HEMOGLOBIN CONC (BEAKER) (test 33.9 GM/DL 32.3-36.5 lzbk=133) RED CELL DISTRIBUTION WIDTH (BEAKER) (test 13.2 % 11.6-14.4 ikwf=319) PLATELET COUNT (BEAKER) (test bktu=139) 190 K/CU MM 150-450 MEAN PLATELET VOLUME (BEAKER) (test vdpy=017) 9.0 fL 9.4-12.4 NUCLEATED RED BLOOD CELLS (BEAKER) (test 0 /100 WBC 0-0 qjcp=050) NEUTROPHILS RELATIVE PERCENT (BEAKER) (test 70 % upik=014) LYMPHOCYTES RELATIVE PERCENT (BEAKER) (test 21 % vbhl=503) MONOCYTES RELATIVE PERCENT (BEAKER) (test 6 % tfwy=345) EOSINOPHILS RELATIVE PERCENT (BEAKER) (test 2 % mttz=212) BASOPHILS RELATIVE PERCENT (BEAKER) (test 1 % xzzb=151) NEUTROPHILS ABSOLUTE COUNT (BEAKER) (test 5.93 K/ L 1.78-5.38 ados=660) LYMPHOCYTES ABSOLUTE COUNT (BEAKER) (test 1.81 K/ L 1.32-3.57 slus=009) MONOCYTES ABSOLUTE COUNT (BEAKER) (test 0.51 K/ L 0.30-0.82 vacg=111) EOSINOPHILS ABSOLUTE COUNT (BEAKER) (test 0.13 K/ L 0.04-0.54 ykdo=500) BASOPHILS ABSOLUTE COUNT (BEAKER) (test 0.04 K/ L 0.01-0.08 duqg=458) IMMATURE GRANULOCYTES-RELATIVE PERCENT (BEAKER) 0 % 0-1 (test aqwi=9360)
--- OUTSIDE RECORDS SUMMARY | 2019-06-09 19:51 | XMS REPORT | Summary of Care ---
:1960 Author Organization [facility] Address [address] [id number] Care Team Providers Name Role Phone Negro Harkins MD Primary Care Provider Reason for Referral Radiology Services (Routine) Status Reason Specialty Diagnoses / Referred By Contact Referred To Contact Procedures Pending Radiology Diagnoses Prostate cancer Blas Murillo MD Kristie, Radiology Procedures [place] CYSTOGRAM [facility] [address], [place] [address] Reason for Visit Reason Comments Post-op Follow-up Consult, Test & Treat (Routine) Status Reason Specialty Diagnoses / Referred By Referred To Contact Procedures Contact Incomplete Urology Diagnoses hospital follow up- prostate cancer Negro Harkins Kadmon, Dov, MD Procedures ESTABLISHED OFFICE VISIT [address] [place] [address] [address], [place] [id number] Phone: Encounter Details Date Type Department Care Team Description 01/15/2019 Office Visit [place] Department of Blas Murillo MD Post-op Follow-up Urology at [address], [address] [place] [address] [place] [address], [address] [phone] [place] [id number] [phone] Allergies No Known Allergiesdocumented as of this encounter (statuses as of 01/15/2019) Medications Medication Sig Dispensed Refills Start Date End Date Status losartan (COZAAR) 25 MG Take 25 mg by 0 Active tablet mouth. tadalafil (CIALIS) 5 MG Take 1 Tab by 30 Tab 5 12/05/2018 Active tablet mouth daily. documented as of this encounter (statuses as of 01/15/2019) Active Problems Not on filedocumented as of this encounter (statuses as of 01/15/2019) Social History Tobacco Use Types Packs/Day Years [...] of this encounter Last Filed Vital Signs Vital Sign Reading Time Taken Comments Blood Pressure 134/75 01/15/2019 3:28 PM CDT Pulse 99 01/15/2019 3:28 PM CDT Temperature - - Respiratory Rate - - Oxygen Saturation - - Inhaled Oxygen Concentration - - Weight 83.9 kg (185 lb) 01/15/2019 3:28 PM CDT Height 180.3 cm (5' 11") 01/15/2019 3:28 PM CDT Body Mass Index 25.8 01/15/2019 3:28 PM CDT documented in this encounter Progress Notes Blas Murillo MD - 01/15/2019 3:30 PM CDTHere for post - op check Urine per Shelley - clear GI function - normal Genital swelling - resolved P: Cystogram Tuesday, if OK - DC Shelley Will come upstairs for IM Gentamicin 160 mg prior to cystogram documented in this encounter Plan of Treatment Date Type Specialty Care Team Description 01/19/2019 Office Visit Urology Blas Murillo MD [address] [facility] [address], [place] [address] 02/06/2019 Office Visit Urology Dov Francois PA [address] [place] [address] [phone] Name Type Priority Associated Diagnoses Order Schedule [place] CYSTOGRAM Imaging Routine Prostate cancer Expected: 01/19/2019, Expires: 08/16/2019 Health Maintenance Due Date Last Done Comments [...] 2018-Pres [address] [employer] - ent [id number] [place] [address] MEDICAID [facility]-MEDICAID - xxxxxxxxx 2014-Pres [address] Medicaid MEDICAID ent [id number] [place] [address] documented as of this encounter
[2019-06-09] MEDS ORDERED: IBUPROFEN 200 MG TAB PO ONE (21:30)
[2019-06-09] MEDS ORDERED: IBUPROFEN 400 MG TAB ONE (21:30)
[2019-06-09] MEDS ORDERED: HYDROCODONE/APAP 10/325 TAB ONE (21:30)
--- NOTE | 2019-06-09 21:56 | EDPHYS ---
Physician Documentation [facility] Name: Arturo Harkins Age: 58 yrs Sex: Male : 1960 Arrival Date: 06/09/2019 Time: 19:49 Bed 10 Private MD: ED Physician Darryl Hester HPI: 06/09 21:16 This 58 yrs old Black Male presents to ER via Wheelchair with complaints of Left Knee pm1 Injury, Right Ankle Injury. 21:16 The patient presents with pain, that is acute. The complaints affect the left knee, pm1 right ankle. Context: The problem was sustained at a sports field or court, resulted from playing sports, basketball, the patient can partially bear weight, Walking on right leg with turned ankle. Pain to left knee with bearing weight. Onset: The symptoms/episode began/occurred today. Modifying factors: The symptoms are alleviated by elevating leg, the symptoms are aggravated by weight bearing. Associated signs and symptoms: Pertinent positives: swelling, Pertinent negatives calf tenderness, numbness, tingling. Treatment prior to arrival includes: no previous treatment. Severity of symptoms: in the emergency department the symptoms are unchanged. fracture to right ankle in the past. It is unknown whether or not the patient has recently seen a physician. 21:19 Patient taking a jump shot and then landed wrong on his right ankle, turning inward and pm1 then he felt his left knee buckle. Historical: - Allergies: 20:38 No Known Allergies; ph - PMHx: 20:38 Hypertension; ph - PSHx: 20:38 prostate; ph - Immunization history:: Adult Immunizations unknown. - Social history:: Smoking status: Patient uses tobacco products, unknown amount. - Ebola Screening: : Patient negative for fever greater than or equal to 101.5 degrees Fahrenheit, and additional compatible Ebola Virus Disease symptoms Patient denies exposure to infectious person Patient denies travel to an Ebola-affected area in the 21 days before illness onset No symptoms or risks identified at this time. ROS: 21:16 Constitutional: Negative for fever, chills, and weight loss, Cardiovascular: Negative pm1 for chest pain, palpitations, and edema, Respiratory: Negative for shortness of breath, cough, wheezing, and pleuritic chest pain, Abdomen/GI: Negative for abdominal pain, nausea, vomiting, diarrhea, and constipation, Back: Negative for injury and pain. 21:16 Skin: Negative for injury, rash, and discoloration, Neuro: Negative for headache, weakness, numbness, tingling, and seizure. 21:16 MS/extremity: Positive for pain, swelling, of the right ankle, pain to left knee, Negative for deformity. Exam: 21:16 Constitutional: This is a well developed, well nourished patient who is awake, alert, pm1 and in no acute distress. Head/Face: Normocephalic, atraumatic. Neck: Trachea midline, no thyromegaly or masses palpated, and no cervical lymphadenopathy. Supple, full range of motion without nuchal rigidity, or vertebral point tenderness. No Meningismus. Chest/axilla: Normal chest wall appearance and motion. Nontender with no deformity. No lesions are appreciated. Cardiovascular: Regular rate and rhythm with a normal S1 and S2. No gallops, murmurs, or rubs. Normal PMI, no JVD. No pulse deficits. Respiratory: Lungs have equal breath sounds bilaterally, clear to auscultation and percussion. No rales, rhonchi or wheezes noted. No increased work of breathing, no retractions or nasal flaring. Back: No spinal tenderness. No costovertebral tenderness. Full range of motion. Skin: Warm, dry with normal turgor. Normal color with no rashes, no lesions, and no evidence of cellulitis. 21:16 Musculoskeletal/extremity: Extremities: grossly normal except: noted in the right ankle: swelling, tenderness, There is no evidence of deformity, noted in the left knee: tenderness, no evidence of decreased ROM, deformity. 21:16 Neuro: Orientation: is normal, Motor: is normal, moves all fours, Sensation: is normal, no obvious gross deficits. Vital Signs: 20:38 BP 154 / 82; Pulse 81; Resp 18; Temp 98.4; Pulse Ox 97% on R/A; Weight 81.65 kg; Height ph 5 ft. 8 in. (172.72 cm); Pain 9/10; 20:38 Body Mass Index 27.37 (81.65 kg, 172.72 cm) ph MDM: 21:04 Patient medically screened. pm1 21:19 Data reviewed: vital signs. Data interpreted: Pulse oximetry: on room air is 97 %. pm1 Interpretation: normal. 21:53 Counseling: I had a detailed discussion with the patient and/or guardian regarding: the pm1 historical points, exam findings, and any diagnostic results supporting the discharge/admit diagnosis, radiology results, the need for outpatient follow up, for definitive care, a orthopedic surgeon, to return to the emergency department if symptoms worsen or persist or if there are any questions or concerns that arise at home. 06/09 21:04 Order name: Ankle Right 3 View XRAY pm1 06/09 21:04 Order name: Knee Left 3 View XRAY pm1 06/09 21:10 Order name: Crutches; Complete Time: 22:15 pm1 06/09 21:10 Order name: Jorge Wrap: right ankle; Complete Time: 22:15 pm1 06/09 21:11 Order name: Knee Immobilizer: Left knee; Complete Time: 22:15 pm1 Administered Medications: 21:30 Drug: [place] 10 mg-325 mg 1 tabs Route: PO; dm5 06/10 05:49 Follow up: Response: No adverse reaction; Pain is decreased; RASS on admin - Alertcalm 0dm5 06/09 21:30 Drug: Ibuprofen 600 mg Route: PO; dm5 22:10 Follow up: Response: No adverse reaction; Pain is decreased dm5 06/10 05:49 Follow up: Response: No adverse reaction; Pain is decreased dm5 Disposition: 07:00 Co-signature as Attending Physician, Darryl Hester MD Available for consultation at ps1 all times. Signing chart for administrative purposes. Not an endorsement of care. . Disposition: 06/09/19 21:54 Discharged to Home. Impression: Pain in left knee, Pain in right ankle and joints of right foot. - Condition is Stable. - Discharge Instructions: Elastic Bandage and RICE, Cast or Splint Care, Adult, Crutch Use, Knee Immobilizer, Knee Pain, Ankle Pain. - Prescriptions for Diclofenac Sodium 75 mg Oral Tablet Sustained Release - take 1 tablet by ORAL route 2 times per day; 30 tablet. Tramadol 50 mg Oral Tablet - take 1 tablet by ORAL route every 8 hours as needed; 20 tablet. - Work release form, Medication Reconciliation Form, Thank You Letter, Antibiotic Education, Prescription Opioid Use form. - Follow up: Emergency Department; When: As needed; Reason: Worsening of condition. Follow up: Private Physician; When: 2 - 3 days; Reason: Recheck today's complaints, Continuance of care, Re-evaluation by your physician. Follow up: Maximo Mcgarry MD; When: 2 - 3 days; Reason: Recheck today's complaints, Continuance of care, Re-evaluation by your physician. - Problem is new. - Symptoms have improved. Signatures: Dispatcher [employer] EDMN Anita Conti RN RN dm5 Julia Ospina RN RN Jesse Mckeon, CLOTH PICKER CLOTH PICKER pm1 Darryl Hester MD MD ps1 Corrections: (The following items were deleted from the chart) 06/09 22:44 21:54 06/09/2019 21:54 Discharged to Home. Impression: Pain in left knee; Pain in right dm5 ankle and joints of right foot. Condition is Stable. Forms are Medication Reconciliation Form, Thank You Letter, Antibiotic Education, Prescription Opioid Use. Follow up: Emergency Department; When: As needed; Reason: Worsening of condition. Follow up: Private Physician; When: 2 - 3 days; Reason: Recheck today's complaints, Continuance of care, Re-evaluation by your physician. Follow up: Dr. Maximo Mcgarry; When: 2 - 3 days; Reason: Recheck today's complaints, Continuance of care, Re-evaluation by your physician. Problem is new. Symptoms have improved. pm1
--- NOTE | 2019-06-09 21:56 | ER ---
Nurse's Notes [facility] Name: Arturo Harkins Age: 58 yrs Sex: Male : 1960 Arrival Date: 06/09/2019 Time: 19:49 Bed 10 Private MD: Diagnosis: Pain in left knee;Pain in right ankle and joints of right foot Presentation: 06/09 20:35 Presenting complaint: Patient states: Injured R ankle and L knee while playing ph basketball. Transition of care: patient was not received from another setting of care. Onset of symptoms was June 09, 2019. Risk Assessment: Do you want to hurt yourself or someone else? Patient reports no desire to harm self or others. Initial Sepsis Screen: Does the patient meet any 2 criteria? No. Patient's initial sepsis screen is negative. Does the patient have a suspected source of infection? No. Patient's initial sepsis screen is negative. Care prior to arrival: None. 20:35 Method Of Arrival: Wheelchair ph 20:35 Acuity: RICHAR 4 ph Triage Assessment: 21:45 General: Appears in no apparent distress. Behavior is calm, cooperative. Injury dm5 Description: possible soft tissue damage. Historical: - Allergies: 20:38 No Known Allergies; ph - PMHx: 20:38 Hypertension; ph - PSHx: 20:38 prostate; ph - Immunization history:: Adult Immunizations unknown. - Social history:: Smoking status: Patient uses tobacco products, unknown amount. - Ebola Screening: : Patient negative for fever greater than or equal to 101.5 degrees Fahrenheit, and additional compatible Ebola Virus Disease symptoms Patient denies exposure to infectious person Patient denies travel to an Ebola-affected area in the 21 days before illness onset No symptoms or risks identified at this time. Screenin:15 Abuse screen: Denies threats or abuse. Denies injuries from another. Nutritional dm5 screening: No deficits noted. Tuberculosis screening: No symptoms or risk factors identified. Fall Risk Fall in past 12 months (25 points). No secondary diagnosis (0 pts). No IV (0 pts). Ambulatory Aid- Crutches/Cane/Walker (15 pts). Gait- Impaired (20 pts.). Mental Status- Oriented to own ability (0 pts). Total Figueroa Fall Scale indicates High Risk Score (45 or more points). Family Present and informed to notify staff if the need to leave the bedside As available patient and family educated on Fall Prevention Program and Strategies. Assessment: 21:15 General: Appears in no apparent distress. uncomfortable, Behavior is calm, cooperative. dm5 Pain: Complains of pain in left knee and right ankle Pain currently is 9 out of 10 on a pain scale. Neuro: Level of Consciousness is awake, alert, obeys commands, Oriented to person, place, time. Respiratory: Airway is patent Respiratory effort is even, unlabored, relaxed, Respiratory pattern is regular, symmetrical. Musculoskeletal: Circulation, motion, and sensation intact. Range of motion: intact in all extremities, Swelling present in left knee Reports pain in right ankle and left knee. Vital Signs: 20:38 BP 154 / 82; Pulse 81; Resp 18; Temp 98.4; Pulse Ox 97% on R/A; Weight 81.65 kg; Height ph 5 ft. 8 in. (172.72 cm); Pain 9/10; 20:38 Body Mass Index 27.37 (81.65 kg, 172.72 cm) ph ED Course: 19:49 Patient arrived in ED. cf2 20:37 Triage completed. ph 21:04 Jeses Mckeon NP is PHCP. pm1 21:04 Darryl Hester MD is Attending Physician. pm1 21:15 Patient has correct armband on for positive identification. dm5 21:15 No provider procedures requiring assistance completed. Patient did not have IV access dm5 during this emergency room visit. 21:17 Anita Conti, RN is Primary Nurse. dm5 21:44 Ankle Right 3 View XRAY In Process Unspecified. EDMS 21:44 Knee Left 3 View XRAY In Process Unspecified. EDMS 21:45 Arm band placed on. dm5 21:54 Maximo Mcgarry MD is Referral Physician. pm1 Administered Medications: 21:30 Drug: [place] 10 mg-325 mg 1 tabs Route: PO; dm5 06/10 05:49 Follow up: Response: No adverse reaction; Pain is decreased; RASS on admin - [place]calm 0dm5 06/09 21:30 Drug: Ibuprofen 600 mg Route: PO; dm5 22:10 Follow up: Response: No adverse reaction; Pain is decreased dm5 06/10 05:49 Follow up: Response: No adverse reaction; Pain is decreased dm5 Intake: Outcome: 06/09 21:54 Discharge ordered by MD. pm1 22:44 Patient left the ED. dm5 22:44 Discharged to home with crutches, with family. dm5 22:44 Condition: good 22:44 Discharge instructions given to patient, family, Instructed on discharge instructions, follow up and referral plans. medication usage, crutch walking, Demonstrated understanding of instructions, follow-up care, medications, crutch walking, Prescriptions given X 2. Signatures: Dispatcher [employer] Anita Raymundo RN RN dm5 Julia Ospina RN RN ph Marinas, Patrick, LIS LINTER OPERATOR pm1 Sandra Clayton 2
[2019-06-09 22:52] VITALS: BP 154/82; TEMP 98.4; O2SAT 97
--- NOTE | 2019-06-10 11:32 | RAD REPORT ---
EXAM DESCRIPTION: RAD - Knee Left 3 View - 06/09/2019 9:47 pm CLINICAL HISTORY: PAIN COMPARISON: No comparisons FINDINGS: No acute fracture or dislocation is seen. Small suprapatellar joint effusion.
--- NOTE | 2019-06-10 11:36 | RAD REPORT ---
EXAM DESCRIPTION: RAD - Ankle Right 3 View - 06/09/2019 9:49 pm CLINICAL HISTORY: PAIN COMPARISON: No comparisons FINDINGS: No fracture or dislocation seen. Small calcaneal spur is evident.
== END 2019-06-09 22:44 | disposition home or self-care (01) ==
LOC: ER 19:47
DX: M25.562 Pain in left knee (principal); M25.571 Pain in right ankle and joints of right foot; Y93.67 Activity, basketball; Z72.0 Tobacco use
CPT/HCPCS: 99284

== ENCOUNTER 2019-08-01 20:12 | Emergency (ER) | payer OTHER ==
--- OUTSIDE RECORDS SUMMARY | 2019-08-01 20:15 | XMS REPORT | Summary of Care ---
:1960 Author Organization [facility] Address [address] [place] [id number] Care Team Providers Name Role Phone Pcp, Patient Does Not Have A Primary Care Provider Reason for Referral MRI/CAT Scan (Routine) Status Reason Specialty Diagnoses / Referred By Referred To Procedures Contact Contact Closed Diagnostic Diagnoses Acute pain of right knee Miah Elam Radiology Procedures MR KNEE LEFT WO CONTRAST MD Maxine [address] [place] [address] Reason for Visit MRI/CAT Scan (Routine) Status Reason Specialty Diagnoses / Referred By Referred To Procedures Contact Contact Closed Diagnostic Diagnoses Acute pain of right knee Miah Elam Radiology Procedures MR KNEE LEFT WO CONTRAST MD Maxine [address] [place] [address] Encounter Details Date Type Department Care Team Description 07/26/2019 Hospital Encounter [facility] Miah Elam, Camila Gilbert MRI [address] [facility] [address] [place] [address] [address] [phone] [place] [address] Allergies No Known Allergiesdocumented as of this encounter (statuses as of 07/27/2019) Medications Medication Sig Dispensed Refills Start Date End Date Status tiZANidine (ZANAFLEX) TK 1 T PO HS PRF 1 03/03/2016 Active 4 mg tablet MUSCLE SPASM. HYDROcodone-acetaminop TK 1 T PO QID FOR 0 03/29/2016 Active hen (NORCO) 10-325 mg PAIN tablet LYRICA 75 mg capsule TK 1 C PO HS. 1 03/03/2016 Active DULoxetine (CYMBALTA) TK 1 C PO BID. 1 03/03/2016 Active 60 mg capsule losartan 25 mg tablet Take 25 mg by 0 Active mouth daily. diclofenac 75 mg EC 0 06/12/2019 Active tablet omeprazole 40 mg Take 40 mg by 0 Active capsule mouth. tadalafil 5 mg tablet Take 5 mg by 0 12/05/2018 Active mouth. traMADol 50 mg tablet 0 06/12/2019 Active losartan 50 mg tablet Take 50 mg by 0 Active mouth. documented as of this encounter (statuses as of 07/27/2019) Active Problems Not on filedocumented as of this encounter (statuses as of 07/27/2019) Social History Tobacco Use Types Packs/Day Years Used Date Current Every Day Smoker Smokeless Tobacco: Never Used Alcohol Use Drinks/Week oz/Week Comments Not Asked 0 Standard drinks or equivalent 0.0 Sex Assigned at Date Recorded Not on file Job Start Date Occupation Industry Not on file Not on file Not on file Travel History Travel Start Travel End No recent travel history available. documented as of this encounter Last Filed Vital Signs Not on filedocumented in this encounter Plan of Treatment Date Type Specialty Care Team Description 07/27/2019 Office Visit Orthopedic Surgery Miah Elam MD [address] [place] [id number] Health Maintenance Due Date Last Done Comments HEPATITIS C (HCV) SCREEN 1960 PNEUMOCOCCAL 0-64 YEARS COMBINED 1966 SERIES (1 of 1 - PPSV23) DTaP,Tdap,and Td Vaccines (1 - Tdap) 12/01/1971 Zoster Recombinant Vaccine 2010 (SHINGRIX) (1 of 2) LUNG CANCER SCREEN: Recommended for 12/01/2015 age 55-80 with 30 + pack year history INFLUENZA VACCINE (#1) 2019 COLONOSCOPY Discontinued 01/17/1917 (Previously completed) documented as of this encounter Procedures Procedure Name Priority Date/Time Associated Diagnosis Comments MR KNEE LEFT WO Routine 07/26/2019 9:40 AM Acute pain of right Results for this CONTRAST ENTERPRISE SYSTEMS ENGINEER knee procedure are in the results section. documented in this encounter Results MR KNEE LEFT WO CONTRAST (07/26/2019 9:40 AM ENTERPRISE SYSTEMS ENGINEER) Specimen Narrative Performed At HISTORY: Pain in the left knee. PACS/VR/DOSE TECHNIQUE: MR imaging of the left knee was done in multiple projections using 1.5T MR unit and standard protocol. FINDINGS: BONE AND JOINT: Patellar tendon is very long, resulting in to high riding laterally tracking patella lula with focal grade III\grade IV chondromalacia patella noted near the apex. Fixating also seen in the cartilage lining in the apex of the patella. Mild, grade III chondromalacia detected in the lateral knee. Minimal chondromalacia seen in the medial knee joint. Small knee joint effusion is present with an irregular shaped 3 x less than 1 cm Lua's cyst. MENISCI: Medial meniscus showed no displaced tear. Lateral meniscus showed linear, horizontal tear with minimal deformity noted in the tibial surface of the posterior horn of the lateral meniscus at the tear site. LIGAMENTS AND TENDONS: Patellar tendon, quadriceps complex, cruciate ligaments and collateral ligaments are intact. Subcentimeter synovial cysts are seen intertwined between ACL and PCL. CONCLUSIONS: 1. Small left knee joint effusion, small irregular shaped Lua's cyst, high riding laterally tracking patella lula with fissuring of the cartilage lining in the apex of the patella, up to grade IV chondromalacia patella, less severe chondromalacia in the lateral knee joint. Minimal chondromalacia in the rest of the knee. 2. Nondisplaced tear in the posterior horn of the lateral meniscus. Procedure Note [facility], Radiant Results Inft User - 07/26/2019 10:25 AM ENTERPRISE SYSTEMS ENGINEER HISTORY: Pain in the left knee. TECHNIQUE: MR imaging of the left knee was done in multiple projections using 1.5T MR unit and standard protocol. FINDINGS: BONE AND JOINT: Patellar tendon is very long, resulting in to high riding laterally tracking patella lula with focal grade III\grade IV chondromalacia patella noted near the apex. Fixating also seen in the cartilage lining in the apex of the patella. Mild, grade III chondromalacia detected in the lateral knee. Minimal chondromalacia seen in the medial knee joint. Small knee joint effusion is present with an irregular shaped 3 x less than 1 cm Lua's cyst. MENISCI: Medial meniscus showed no displaced tear. Lateral meniscus showed linear, horizontal tear with minimal deformity noted in the tibial surface of the posterior horn of the lateral meniscus at the tear site. LIGAMENTS AND TENDONS: Patellar tendon, quadriceps complex, cruciate ligaments and collateral ligaments are intact. Subcentimeter synovial cysts are seen intertwined between ACL and PCL. CONCLUSIONS: 1. Small left knee joint effusion, small irregular shaped Lua's cyst, high riding laterally tracking patella lula with fissuring of the cartilage lining in the apex of the patella, up to grade IV chondromalacia patella, less severe chondromalacia in the lateral knee joint. Minimal chondromalacia in the rest of the knee. 2. Nondisplaced tear in the posterior horn of the lateral meniscus. Performing Organization Address City/State/Zipcode Phone Number PACS/VR/DOSE documented in this encounter Visit Diagnoses Diagnosis Acute pain of right knee documented in this encounter Insurance Payer Benefit Plan Subscriber ID Effective Phone Address Type / Group Dates [employer] [id number] 2015-Prese Medicare [facility] MEDICAID OF xxxxxxxxx 2016-Pres [phone] Medicaid [place] [id number] [place] [address] documented as of this encounter
--- OUTSIDE RECORDS SUMMARY | 2019-08-01 20:15 | XMS REPORT ---
:1960 [facility] Address [address] [place] [address] Care Team Providers Name Role Phone MATTI [...] Comments SODIUM (BEAKER) (test 138 meq/L 136-145 vizx=253) POTASSIUM (BEAKER) (test 3.8 meq/L 3.5-5.1 eqwp=392) CHLORIDE (BEAKER) (test 106 meq/L 98-107 usvc=881) CO2 (BEAKER) (test 23 meq/L 22-29 hpgu=609) BLOOD UREA NITROGEN 8 mg/dL 7-21 (BEAKER) (test gzsx=596) CREATININE (BEAKER) (test 0.79 mg/dL 0.57-1.25 hkaw=794) GLUCOSE RANDOM (BEAKER) 98 mg/dL 70-105 (test axny=003) CALCIUM (BEAKER) (test 9.0 mg/dL 8.4-10.2 tzpr=845) EGFR (BEAKER) (test 122 mL/min/1.73 sq m ESTIMATED GFR IS NOT bxxg=5172) ACCURATE CREATININE CLEARANCE IN PREDICTING GLOMERULAR FILTRATION RATE. ESTIMATED GFR IS NOT APPLICABLE FOR DIALYSIS PATIENTS. CBC (HEMOGRAM ONLY)2019-01-08 05:48:00 Test Item Value Reference Range Comments WHITE BLOOD CELL COUNT (BEAKER) (test boja=462) 8.4 K/ L 3.5-10.5 RED BLOOD CELL COUNT (BEAKER) (test cbla=396) 3.09 M/ L 4.63-6.08 HEMOGLOBIN (BEAKER) (test akfv=493) 10.5 GM/DL 13.7-17.5 HEMATOCRIT (BEAKER) (test acca=884) 32.1 % 40.1-51.0 MEAN CORPUSCULAR VOLUME (BEAKER) (test vbuk=502) 103.9 fL 79.0-92.2 MEAN CORPUSCULAR HEMOGLOBIN (BEAKER) (test 34.0 pg 25.7-32.2 fhcd=314) MEAN CORPUSCULAR HEMOGLOBIN CONC (BEAKER) (test 32.7 GM/DL 32.3-36.5 radv=189) RED CELL DISTRIBUTION WIDTH (BEAKER) (test 13.7 % 11.6-14.4 pzle=253) PLATELET COUNT (BEAKER) (test yrzn=808) 433 K/CU MM 150-450 MEAN PLATELET VOLUME (BEAKER) (test afsf=255) 9.0 fL 9.4-12.4 NUCLEATED RED BLOOD CELLS (BEAKER) (test 0 /100 WBC 0-0 srwe=785) BASIC METABOLIC [id number] 10:29:00 Test Item Value Reference Range Comments SODIUM (BEAKER) (test 138 meq/L 136-145 swxj=318) POTASSIUM (BEAKER) (test 4.1 meq/L 3.5-5.1 Specimen slightly ixtp=436) hemolyzed CHLORIDE (BEAKER) (test 104 meq/L 98-107 xqji=787) CO2 (BEAKER) (test 25 meq/L 22-29 yrgh=540) BLOOD UREA NITROGEN 10 mg/dL 7-21 (BEAKER) (test othk=335) CREATININE (BEAKER) (test 0.84 mg/dL 0.57-1.25 Specimen slightly hjxj=486) hemolyzed GLUCOSE RANDOM (BEAKER) 131 mg/dL 70-105 (test ijbe=937) CALCIUM (BEAKER) (test 9.4 mg/dL 8.4-10.2 zrqr=747) EGFR (BEAKER) (test 114 mL/min/1.73 sq m ESTIMATED GFR IS NOT zvvs=8939) ACCURATE CREATININE CLEARANCE IN PREDICTING GLOMERULAR FILTRATION RATE. ESTIMATED GFR IS NOT APPLICABLE FOR DIALYSIS PATIENTS. CBC (HEMOGRAM ONLY)2019-01-07 06:52:00 Test Item Value Reference Range Comments WHITE BLOOD CELL COUNT (BEAKER) (test lonu=534) 7.7 K/ L 3.5-10.5 RED BLOOD CELL COUNT (BEAKER) (test bikz=721) 2.98 M/ L 4.63-6.08 HEMOGLOBIN (BEAKER) (test kxnt=985) 10.3 GM/DL 13.7-17.5 HEMATOCRIT (BEAKER) (test plbi=375) 31.1 % 40.1-51.0 MEAN CORPUSCULAR VOLUME (BEAKER) (test qmue=272) 104.4 fL 79.0-92.2 MEAN CORPUSCULAR HEMOGLOBIN (BEAKER) (test 34.6 pg 25.7-32.2 ylhx=600) MEAN CORPUSCULAR HEMOGLOBIN CONC (BEAKER) (test 33.1 GM/DL 32.3-36.5 lxll=291) RED CELL DISTRIBUTION WIDTH (BEAKER) (test 13.3 % 11.6-14.4 kthk=095) PLATELET COUNT (BEAKER) (test vgim=409) 385 K/CU MM 150-450 MEAN PLATELET VOLUME (BEAKER) (test qkgm=382) 9.1 fL 9.4-12.4 NUCLEATED RED BLOOD CELLS (BEAKER) (test 0 /100 WBC 0-0 sbwy=958) CBC (HEMOGRAM ONLY)2019-01-06 06:40:00 Test Item Value Reference Range Comments WHITE BLOOD CELL COUNT (BEAKER) (test vwrn=920) 7.1 K/ L 3.5-10.5 RED BLOOD CELL COUNT (BEAKER) (test odia=499) 3.16 M/ L 4.63-6.08 HEMOGLOBIN (BEAKER) (test wzdc=994) 10.8 GM/DL 13.7-17.5 HEMATOCRIT (BEAKER) (test dews=706) 33.7 % 40.1-51.0 MEAN CORPUSCULAR VOLUME (BEAKER) (test onoz=670) 106.6 fL 79.0-92.2 MEAN CORPUSCULAR HEMOGLOBIN (BEAKER) (test 34.2 pg 25.7-32.2 mvci=929) MEAN CORPUSCULAR HEMOGLOBIN CONC (BEAKER) (test 32.0 GM/DL 32.3-36.5 igmk=464) RED CELL DISTRIBUTION WIDTH (BEAKER) (test 13.1 % 11.6-14.4 qted=331) PLATELET COUNT (BEAKER) (test horn=262) 322 K/CU MM 150-450 MEAN PLATELET VOLUME (BEAKER) (test oral=234) 9.3 fL 9.4-12.4 NUCLEATED RED BLOOD CELLS (BEAKER) (test 0 /100 WBC 0-0 poas=079) BASIC METABOLIC [id number] 07:16:00 Test Item Value Reference Range Comments SODIUM (BEAKER) (test 138 meq/L 136-145 pkas=413) POTASSIUM (BEAKER) (test 3.2 meq/L 3.5-5.1 qcfs=129) CHLORIDE (BEAKER) (test 102 meq/L 98-107 ryog=210) CO2 (BEAKER) (test 30 meq/L 22-29 wkjm=650) BLOOD UREA NITROGEN 5 mg/dL 7-21 (BEAKER) (test ohoy=136) CREATININE (BEAKER) (test 0.81 mg/dL 0.57-1.25 kazs=063) GLUCOSE RANDOM (BEAKER) 96 mg/dL 70-105 (test noye=065) CALCIUM (BEAKER) (test 8.7 mg/dL 8.4-10.2 ydsr=237) EGFR (BEAKER) (test 119 mL/min/1.73 sq m ESTIMATED GFR IS NOT jscr=7231) ACCURATE CREATININE CLEARANCE IN PREDICTING GLOMERULAR FILTRATION RATE. ESTIMATED GFR IS NOT APPLICABLE FOR DIALYSIS PATIENTS. CBC (HEMOGRAM ONLY)2019-01-05 05:18:00 Test Item Value Reference Range Comments WHITE BLOOD CELL COUNT (BEAKER) (test ffzk=369) 7.1 K/ L 3.5-10.5 RED BLOOD CELL COUNT (BEAKER) (test qpaa=127) 3.00 M/ L 4.63-6.08 HEMOGLOBIN (BEAKER) (test tqfu=471) 10.2 GM/DL 13.7-17.5 HEMATOCRIT (BEAKER) (test ocok=109) 31.4 % 40.1-51.0 MEAN CORPUSCULAR VOLUME (BEAKER) (test wwwd=912) 104.7 fL 79.0-92.2 MEAN CORPUSCULAR HEMOGLOBIN (BEAKER) (test 34.0 pg 25.7-32.2 rizq=489) MEAN CORPUSCULAR HEMOGLOBIN CONC (BEAKER) (test 32.5 GM/DL 32.3-36.5 vrtd=081) RED CELL DISTRIBUTION WIDTH (BEAKER) (test 12.8 % 11.6-14.4 oblp=199) PLATELET COUNT (BEAKER) (test snim=614) 287 K/CU MM 150-450 MEAN PLATELET VOLUME (BEAKER) (test qnnm=482) 9.1 fL 9.4-12.4 NUCLEATED RED BLOOD CELLS (BEAKER) (test 0 /100 WBC 0-0 bnnd=186) BASIC METABOLIC [id number] 06:42:00 Test Item Value Reference Range Comments SODIUM (BEAKER) (test 134 meq/L 136-145 pbaa=790) POTASSIUM (BEAKER) (test 3.3 meq/L 3.5-5.1 vhtt=003) CHLORIDE (BEAKER) (test 100 meq/L 98-107 fdib=326) CO2 (BEAKER) (test 29 meq/L 22-29 zvka=756) BLOOD UREA NITROGEN 5 mg/dL 7-21 (BEAKER) (test fkfz=600) CREATININE (BEAKER) (test 0.77 mg/dL 0.57-1.25 ldef=053) GLUCOSE RANDOM (BEAKER) 96 mg/dL 70-105 (test npzu=359) CALCIUM (BEAKER) (test 8.1 mg/dL 8.4-10.2 zzsj=430) EGFR (BEAKER) (test 126 mL/min/1.73 sq m ESTIMATED GFR IS NOT ankk=8828) ACCURATE CREATININE CLEARANCE IN PREDICTING GLOMERULAR FILTRATION RATE. ESTIMATED GFR IS NOT APPLICABLE FOR DIALYSIS PATIENTS. CBC (HEMOGRAM ONLY)2019-01-04 05:36:00 Test Item Value Reference Range Comments WHITE BLOOD CELL COUNT (BEAKER) (test mcip=131) 6.9 K/ L 3.5-10.5 RED BLOOD CELL COUNT (BEAKER) (test sjvp=878) 2.93 M/ L 4.63-6.08 HEMOGLOBIN (BEAKER) (test oacs=385) 10.4 GM/DL 13.7-17.5 HEMATOCRIT (BEAKER) (test sdtz=729) 31.2 % 40.1-51.0 MEAN CORPUSCULAR VOLUME (BEAKER) (test nxkt=199) 106.5 fL 79.0-92.2 MEAN CORPUSCULAR HEMOGLOBIN (BEAKER) (test 35.5 pg 25.7-32.2 jnbz=079) MEAN CORPUSCULAR HEMOGLOBIN CONC (BEAKER) (test 33.3 GM/DL 32.3-36.5 wrlx=154) RED CELL DISTRIBUTION WIDTH (BEAKER) (test 12.8 % 11.6-14.4 brrl=030) PLATELET COUNT (BEAKER) (test imwa=776) 264 K/CU MM 150-450 MEAN PLATELET VOLUME (BEAKER) (test xplj=935) 9.0 fL 9.4-12.4 NUCLEATED RED BLOOD CELLS (BEAKER) (test 0 /100 WBC 0-0 ntqf=540) FL, CYSTOGRAM, [id number] 15:59:00Reason for exam:->concern for urine leakFINAL REPORT [...] Date/Time: 01/03/2019 15:59: 13 Reading Location: [address] Consult Reading Room [id number] 08:26:00 Test Item Value Reference Range Comments PHOSPHORUS (BEAKER) (test kvvc=346) 3.1 mg/dL 2.3-4.7 [id number] 08:26:00 Test Item Value Reference Range Comments MAGNESIUM (BEAKER) (test tglc=849) 1.9 mg/dL 1.6-2.6 BASIC METABOLIC [id number] 08:26:00 Test Item Value Reference Range Comments SODIUM (BEAKER) (test 132 meq/L 136-145 jzia=865) POTASSIUM (BEAKER) (test 3.2 meq/L 3.5-5.1 wipi=745) CHLORIDE (BEAKER) (test 99 meq/L 98-107 xpmo=284) CO2 (BEAKER) (test 27 meq/L 22-29 fbon=676) BLOOD UREA NITROGEN 7 mg/dL 7-21 (BEAKER) (test qgop=258) CREATININE (BEAKER) (test 0.80 mg/dL 0.57-1.25 tqby=625) GLUCOSE RANDOM (BEAKER) 108 mg/dL 70-105 (test jlii=440) CALCIUM (BEAKER) (test 8.5 mg/dL 8.4-10.2 ujpb=521) EGFR (BEAKER) (test 120 mL/min/1.73 sq m ESTIMATED GFR IS NOT pqxl=8380) ACCURATE CREATININE CLEARANCE IN PREDICTING GLOMERULAR FILTRATION RATE. ESTIMATED GFR IS NOT APPLICABLE FOR DIALYSIS PATIENTS. CBC (HEMOGRAM ONLY)2019-01-03 06:57:00 Test Item Value Reference Range Comments WHITE BLOOD CELL COUNT (BEAKER) (test tnnm=188) 9.2 K/ L 3.5-10.5 RED BLOOD CELL COUNT (BEAKER) (test alzm=438) 3.03 M/ L 4.63-6.08 HEMOGLOBIN (BEAKER) (test qnfo=869) 10.5 GM/DL 13.7-17.5 HEMATOCRIT (BEAKER) (test xdub=460) 32.3 % 40.1-51.0 MEAN CORPUSCULAR VOLUME (BEAKER) (test mcsu=194) 106.6 fL 79.0-92.2 MEAN CORPUSCULAR HEMOGLOBIN (BEAKER) (test 34.7 pg 25.7-32.2 shkb=829) MEAN CORPUSCULAR HEMOGLOBIN CONC (BEAKER) (test 32.5 GM/DL 32.3-36.5 tnxe=506) RED CELL DISTRIBUTION WIDTH (BEAKER) (test 12.9 % 11.6-14.4 qfzh=083) PLATELET COUNT (BEAKER) (test twvd=712) 251 K/CU MM 150-450 MEAN PLATELET VOLUME (BEAKER) (test brld=408) 9.6 fL 9.4-12.4 NUCLEATED RED BLOOD CELLS (BEAKER) (test 0 /100 WBC 0-0 nscf=457) TISSUE [id number] 17:00:00Surgical Pathology Report Case: [id number] Authorizing Provider: Blas Murillo MD Collected: 12/27/2018 1005 Ordering Location: [facility] Received: 12/27/2018 1445 SERVICES Pathologist: Nikita [...] Percentage of Pattern 5: 1 % Primary Imani Pattern: Pattern 3 Secondary Whitehall Pattern: Pattern 4 Tertiary Whitehall Pattern: Pattern 5 Total Whitehall Score: 7 Grade Group: 2 Intraductal Carcinoma [...] (PIN) Additional Pathologic Findings: Nodular prostatic hyperplasia 02274, 31359 x 2, 72906 X 2Prostate cancerA. Periprostatic lymph node. B. [...] patient's name (Christen Sheffield) with accession number [id number] is a prostate with bilateral seminal vesicles [...] deferentia are submitted in cassette E13. SDH/ewPerformed.CT, [id number] 13:19:00Patient with significant scrotal swelling and subcutaneous [...] MDReport Verified Date/Time: 01/02/2019 13:19:12 Reading Location: [facility] C013Y NC Body ReadingRoom [id number] 07:00:00 Test Item Value Reference Range Comments PHOSPHORUS (BEAKER) (test scsz=516) 3.3 mg/dL 2.3-4.7 [id number] 07:00:00 Test Item Value Reference Range Comments MAGNESIUM (BEAKER) (test nlte=539) 1.9 mg/dL 1.6-2.6 BASIC METABOLIC [id number] 07:00:00 Test Item Value Reference Range Comments SODIUM (BEAKER) (test 134 meq/L 136-145 tcgp=344) POTASSIUM (BEAKER) (test 3.4 meq/L 3.5-5.1 xfkk=571) CHLORIDE (BEAKER) (test 98 meq/L 98-107 jhch=639) CO2 (BEAKER) (test 29 meq/L 22-29 tqjg=335) BLOOD UREA NITROGEN 8 mg/dL 7-21 (BEAKER) (test mppb=467) CREATININE (BEAKER) (test 1.03 mg/dL 0.57-1.25 omja=533) GLUCOSE RANDOM (BEAKER) 115 mg/dL 70-105 (test psdo=259) CALCIUM (BEAKER) (test 9.3 mg/dL 8.4-10.2 nnhr=184) EGFR (BEAKER) (test 90 mL/min/1.73 sq m ESTIMATED GFR IS NOT cjze=0714) ACCURATE CREATININE CLEARANCE IN PREDICTING GLOMERULAR FILTRATION RATE. ESTIMATED GFR IS NOT APPLICABLE FOR DIALYSIS PATIENTS. [id number] 04:40:00 Test Item Value Reference Range Comments PHOSPHORUS (BEAKER) (test lxbv=308) 2.9 mg/dL 2.3-4.7 [id number] 04:40:00 Test Item Value Reference Range Comments MAGNESIUM (BEAKER) (test dnic=821) 1.8 mg/dL 1.6-2.6 BASIC METABOLIC [id number] 04:40:00 Test Item Value Reference Range Comments SODIUM (BEAKER) (test 136 meq/L 136-145 lurg=062) POTASSIUM (BEAKER) (test 3.6 meq/L 3.5-5.1 rire=473) CHLORIDE (BEAKER) (test 103 meq/L 98-107 pcci=147) CO2 (BEAKER) (test 26 meq/L 22-29 vtjl=372) BLOOD UREA NITROGEN 8 mg/dL 7-21 (BEAKER) (test qfxk=262) CREATININE (BEAKER) (test 0.75 mg/dL 0.57-1.25 gtmd=717) GLUCOSE RANDOM (BEAKER) 107 mg/dL 70-105 (test ugab=132) CALCIUM (BEAKER) (test 8.6 mg/dL 8.4-10.2 bxyy=286) EGFR (BEAKER) (test 130 mL/min/1.73 sq m ESTIMATED GFR IS NOT bjrk=0962) ACCURATE CREATININE CLEARANCE IN PREDICTING GLOMERULAR FILTRATION RATE. ESTIMATED GFR IS NOT APPLICABLE FOR DIALYSIS PATIENTS. CBC W/PLT COUNT & AUTO [id number] 04:10:00 Test Item Value Reference Range Comments WHITE BLOOD CELL COUNT (BEAKER) (test dqca=782) 7.8 K/ L 3.5-10.5 RED BLOOD CELL COUNT (BEAKER) (test uhlx=055) 2.80 M/ L 4.63-6.08 HEMOGLOBIN (BEAKER) (test udao=841) 9.8 GM/DL 13.7-17.5 HEMATOCRIT (BEAKER) (test rble=200) 29.2 % 40.1-51.0 MEAN CORPUSCULAR VOLUME (BEAKER) (test qgan=563) 104.3 fL 79.0-92.2 MEAN CORPUSCULAR HEMOGLOBIN (BEAKER) (test 35.0 pg 25.7-32.2 lucm=593) MEAN CORPUSCULAR HEMOGLOBIN CONC (BEAKER) (test 33.6 GM/DL 32.3-36.5 cnux=862) RED CELL DISTRIBUTION WIDTH (BEAKER) (test 13.1 % 11.6-14.4 ujsq=985) PLATELET COUNT (BEAKER) (test rcex=041) 176 K/CU MM 150-450 MEAN PLATELET VOLUME (BEAKER) (test zvtp=006) 9.5 fL 9.4-12.4 NUCLEATED RED BLOOD CELLS (BEAKER) (test 0 /100 WBC 0-0 hvze=280) NEUTROPHILS RELATIVE PERCENT (BEAKER) (test 71 % zipa=296) LYMPHOCYTES RELATIVE PERCENT (BEAKER) (test 15 % kyzf=251) MONOCYTES RELATIVE PERCENT (BEAKER) (test 11 % yjqr=294) EOSINOPHILS RELATIVE PERCENT (BEAKER) (test 2 % mqws=281) BASOPHILS RELATIVE PERCENT (BEAKER) (test 0 % mhag=432) NEUTROPHILS ABSOLUTE COUNT (BEAKER) (test 5.51 K/ L 1.78-5.38 kknt=282) LYMPHOCYTES ABSOLUTE COUNT (BEAKER) (test 1.20 K/ L 1.32-3.57 sxgs=334) MONOCYTES ABSOLUTE COUNT (BEAKER) (test 0.83 K/ L 0.30-0.82 jwvy=500) EOSINOPHILS ABSOLUTE COUNT (BEAKER) (test 0.17 K/ L 0.04-0.54 vwpy=952) BASOPHILS ABSOLUTE COUNT (BEAKER) (test 0.03 K/ L 0.01-0.08 nzhl=328) IMMATURE GRANULOCYTES-RELATIVE PERCENT (BEAKER) 0 % 0-1 (test mqsw=6918) URINALYSIS W/ REFLEX URINE [id number] 18:55:00 Test Item Value Reference Range Comments COLOR (BEAKER) (test evmq=119) Yellow CLARITY (BEAKER) (test zszg=177) Hazy SPECIFIC GRAVITY UA (BEAKER) (test crvp=330) 1.016 1.001-1.035 PH UA (BEAKER) (test caal=413) 6.0 5.0-8.0 PROTEIN UA (BEAKER) (test hpsn=116) 20 mg/dL Negative GLUCOSE UA (BEAKER) (test gtng=897) Negative Negative KETONES UA (BEAKER) (test nfni=240) Negative Negative BILIRUBIN UA (BEAKER) (test hyha=688) Negative Negative BLOOD UA (BEAKER) (test hjap=787) Moderate Negative NITRITE UA (BEAKER) (test trck=973) Negative Negative LEUKOCYTE ESTERASE UA (BEAKER) (test mvkr=982) Large Negative UROBILINOGEN UA (BEAKER) (test lkgs=566) 2.0 mg/dL 0.2-1.0 RBC UA (BEAKER) (test mgnu=051) 6 /HPF WBC UA (BEAKER) (test ehrq=161) 7 /HPF BACTERIA (BEAKER) (test bzwm=724) Occasional MUCUS (BEAKER) (test odec=8427) Few SQUAMOUS EPITHELIAL (BEAKER) (test khle=475) < /HPF SOURCE(BEAKER) (test rvcq=6206) CT, [id number] 18:21:00Reason for exam:->ABDOMINAL PAINWhat is the patient's [...] Signed: Archie Gibbsort Verified Date/Time: 12/31/2018 18:21:28 [facility] METABOLIC [id number] 18:15:00 Test Item Value Reference Range Comments SODIUM (BEAKER) (test 135 meq/L 136-145 ddli=376) POTASSIUM (BEAKER) (test 3.0 meq/L 3.5-5.1 paxn=377) CHLORIDE (BEAKER) (test 99 meq/L 98-107 izvd=648) CO2 (BEAKER) (test 27 meq/L 22-29 sqot=429) BLOOD UREA NITROGEN 7 mg/dL 7-21 (BEAKER) (test nniu=349) CREATININE (BEAKER) (test 0.93 mg/dL 0.57-1.25 tymb=636) GLUCOSE RANDOM (BEAKER) 90 mg/dL 70-105 (test neqj=137) CALCIUM (BEAKER) (test 9.5 mg/dL 8.4-10.2 zxdy=819) EGFR (BEAKER) (test 101 mL/min/1.73 sq m ESTIMATED GFR IS NOT adcw=0160) ACCURATE CREATININE CLEARANCE IN PREDICTING GLOMERULAR FILTRATION RATE. ESTIMATED GFR IS NOT APPLICABLE FOR DIALYSIS PATIENTS. CBC W/PLT COUNT & AUTO [id number] 17:59:00 Test Item Value Reference Range Comments WHITE BLOOD CELL COUNT (BEAKER) (test fsch=487) 11.1 K/ L 3.5-10.5 RED BLOOD CELL COUNT (BEAKER) (test ndml=235) 3.18 M/ L 4.63-6.08 HEMOGLOBIN (BEAKER) (test czsh=194) 11.2 GM/DL 13.7-17.5 HEMATOCRIT (BEAKER) (test uywe=480) 33.4 % 40.1-51.0 MEAN CORPUSCULAR VOLUME (BEAKER) (test ksbz=732) 105.0 fL 79.0-92.2 MEAN CORPUSCULAR HEMOGLOBIN (BEAKER) (test 35.2 pg 25.7-32.2 eqdo=857) MEAN CORPUSCULAR HEMOGLOBIN CONC (BEAKER) (test 33.5 GM/DL 32.3-36.5 vzul=441) RED CELL DISTRIBUTION WIDTH (BEAKER) (test 13.0 % 11.6-14.4 judd=744) PLATELET COUNT (BEAKER) (test gzqo=790) 202 K/CU MM 150-450 MEAN PLATELET VOLUME (BEAKER) (test hwhw=662) 8.9 fL 9.4-12.4 NUCLEATED RED BLOOD CELLS (BEAKER) (test 0 /100 WBC 0-0 nplg=520) NEUTROPHILS RELATIVE PERCENT (BEAKER) (test 77 % vkbr=509) LYMPHOCYTES RELATIVE PERCENT (BEAKER) (test 13 % zvue=376) MONOCYTES RELATIVE PERCENT (BEAKER) (test 7 % rhqq=061) EOSINOPHILS RELATIVE PERCENT (BEAKER) (test 2 % wvoy=209) BASOPHILS RELATIVE PERCENT (BEAKER) (test 0 % oort=093) NEUTROPHILS ABSOLUTE COUNT (BEAKER) (test 8.61 K/ L 1.78-5.38 ccqc=453) LYMPHOCYTES ABSOLUTE COUNT (BEAKER) (test 1.45 K/ L 1.32-3.57 jhvk=205) MONOCYTES ABSOLUTE COUNT (BEAKER) (test 0.78 K/ L 0.30-0.82 disg=216) EOSINOPHILS ABSOLUTE COUNT (BEAKER) (test 0.19 K/ L 0.04-0.54 rqli=544) BASOPHILS ABSOLUTE COUNT (BEAKER) (test 0.04 K/ L 0.01-0.08 yzok=260) IMMATURE GRANULOCYTES-RELATIVE PERCENT (BEAKER) 1 % 0-1 (test bctr=1660) UA RFLX MICR CULT IF [id number] 08:59:00 Test Item Value Reference Range Comments UA COLOR (test code=COLU) YELLOW YELLOW UA APPEARANCE (test code=APPU) CLEAR CLEAR UA GLUCOSE DIPSTICK (test NORMAL MG/DL NORMAL code=DGLUU) UA BILIRUBIN DIPSTICK (test NEGATIVE MG/DL NEGATIVE code=BILU) UA KETONE DIPSTICK (test NEGATIVE MG/DL NEGATIVE code=KETU) UA SPECIFIC GRAVITY (test 1.025 1.003-1.030 code=SGU) UA BLOOD DIPSTICK (test code=AYESHA) 250 Mayo/mm3 [...] OF URINE: CLEAN CATCHIndication for culture: Dysuria/FrequencyUA [id number] 08:59:00 Test Item Value Reference Range Comments UA RBC (test code=RBCU) 20-30 RBC/HPF 0-3 UA WBC (test code=XWBCU) 20-30 WBC/HPF 0-5 UA EPITHELIAL CELLS (test code=EPIU) FEW EPI/HPF FEW UA BACTERIA (test code=XBACU) FEW NONE SOURCE OF URINE: CLEAN CATCHIndication for culture: Dysuria/FrequencyUA RFLX MICR CULT IF [id number] 08:50:00 Test Item Value Reference Range Comments [...] OF URINE: CLEAN CATCHIndication for culture: Dysuria/FrequencyUA [id number] 08:50:00 Test Item Value Reference Range Comments UA RBC (test code=RBCU) RBC/HPF 0-3 UA WBC (test code=XWBCU) WBC/HPF 0-5 UA EPITHELIAL CELLS (test code=EPIU) EPI/HPF FEW UA BACTERIA (test code=XBACU) NONE SOURCE OF URINE: CLEAN CATCHIndication for culture: Dysuria/FrequencyUA RFLX MICR CULT IF [id number] 08:50:00 Test Item Value Reference Range Comments [...] OF URINE: CLEAN CATCHIndication for culture: Dysuria/FrequencyUA [id number] 08:50:00 Test Item Value Reference Range Comments UA RBC (test code=RBCU) RBC/HPF 0-3 UA WBC (test code=XWBCU) WBC/HPF 0-5 UA EPITHELIAL CELLS (test code=EPIU) EPI/HPF FEW UA BACTERIA (test code=XBACU) NONE SOURCE OF URINE: CLEAN CATCHIndication for culture: Dysuria/ FrequencyCREATININE, BODY [id number] 12:28:00 Test Item Value Reference Range Comments CREATININE FLUID (BEAKER) (test cfdi=841) 0.60 mg/dL Reference Range: No Normals Assay performance has not been validated for this type of specimen.BASIC METABOLIC [id number] 06:24:00 Test Item Value Reference Range Comments SODIUM (BEAKER) (test 135 meq/L 136-145 tkza=109) POTASSIUM (BEAKER) (test 3.7 meq/L 3.5-5.1 qbzq=733) CHLORIDE (BEAKER) (test 104 meq/L 98-107 snos=208) CO2 (BEAKER) (test 26 meq/L 22-29 pcfe=290) BLOOD UREA NITROGEN 4 mg/dL 7-21 (BEAKER) (test gike=522) CREATININE (BEAKER) (test 0.75 mg/dL 0.57-1.25 mptf=382) GLUCOSE RANDOM (BEAKER) 110 mg/dL 70-105 (test pesa=652) CALCIUM (BEAKER) (test 8.3 mg/dL 8.4-10.2 qgvw=712) EGFR (BEAKER) (test 130 mL/min/1.73 sq m ESTIMATED GFR IS NOT srvm=7160) ACCURATE CREATININE CLEARANCE IN PREDICTING GLOMERULAR FILTRATION RATE. ESTIMATED GFR IS NOT APPLICABLE FOR DIALYSIS PATIENTS. HEMOGLOBIN AND [id number] 05:28:00 Test Item Value Reference Range Comments HEMOGLOBIN (BEAKER) (test ikxm=715) 10.5 GM/DL 13.7-17.5 HEMATOCRIT (BEAKER) (test alni=054) 31.9 % 40.1-51.0 BASIC METABOLIC [id number] 07:27:00 Test Item Value Reference Range Comments SODIUM (BEAKER) (test 134 meq/L 136-145 gxsu=543) POTASSIUM (BEAKER) (test 3.0 meq/L 3.5-5.1 cmvy=391) CHLORIDE (BEAKER) (test 102 meq/L 98-107 qait=472) CO2 (BEAKER) (test 26 meq/L 22-29 dmoj=834) BLOOD UREA NITROGEN 4 mg/dL 7-21 (BEAKER) (test oulq=813) CREATININE (BEAKER) (test 0.79 mg/dL 0.57-1.25 zplo=028) GLUCOSE RANDOM (BEAKER) 117 mg/dL 70-105 (test eiud=266) CALCIUM (BEAKER) (test 7.9 mg/dL 8.4-10.2 obbp=084) EGFR (BEAKER) (test 122 mL/min/1.73 sq m ESTIMATED GFR IS NOT xvca=9546) ACCURATE CREATININE CLEARANCE IN PREDICTING GLOMERULAR FILTRATION RATE. ESTIMATED GFR IS NOT APPLICABLE FOR DIALYSIS PATIENTS. HEMOGLOBIN AND [id number] 06:44:00 Test Item Value Reference Range Comments HEMOGLOBIN (BEAKER) (test hopc=610) 10.8 GM/DL 13.7-17.5 HEMATOCRIT (BEAKER) (test uyrs=729) 32.2 % 40.1-51.0 BASIC METABOLIC [id number] 07:35:00 Test Item Value Reference Range Comments SODIUM (BEAKER) (test 136 meq/L 136-145 dolm=885) POTASSIUM (BEAKER) (test 3.7 meq/L 3.5-5.1 xcxj=888) CHLORIDE (BEAKER) (test 105 meq/L 98-107 hedd=743) CO2 (BEAKER) (test 24 meq/L 22-29 gwso=039) BLOOD UREA NITROGEN 7 mg/dL 7-21 (BEAKER) (test vqhb=495) CREATININE (BEAKER) (test 0.96 mg/dL 0.57-1.25 baow=431) GLUCOSE RANDOM (BEAKER) 106 mg/dL 70-105 (test mxcq=282) CALCIUM (BEAKER) (test 7.6 mg/dL 8.4-10.2 ookn=407) EGFR (BEAKER) (test 98 mL/min/1.73 sq m ESTIMATED GFR IS NOT wrrz=4182) ACCURATE CREATININE CLEARANCE IN PREDICTING GLOMERULAR FILTRATION RATE. ESTIMATED GFR IS NOT APPLICABLE FOR DIALYSIS PATIENTS. HEMOGLOBIN AND [id number] 06:43:00 Test Item Value Reference Range Comments HEMOGLOBIN (BEAKER) (test vskd=616) 11.8 GM/DL 13.7-17.5 HEMATOCRIT (BEAKER) (test rmbq=759) 36.2 % 40.1-51.0 HEMOGLOBIN AND [id number] 15:37:00 Test Item Value Reference Range Comments HEMOGLOBIN (BEAKER) (test xfjo=448) 13.6 GM/DL 13.7-17.5 HEMATOCRIT (BEAKER) (test uprq=897) 41.9 % 40.1-51.0 BASIC METABOLIC [id number] 15:25:00 Test Item Value Reference Range Comments SODIUM (BEAKER) (test 143 meq/L 136-145 lqvy=026) POTASSIUM (BEAKER) (test 4.3 meq/L 3.5-5.1 Specimen slightly zamy=527) hemolyzed CHLORIDE (BEAKER) (test 110 meq/L 98-107 pcwn=047) CO2 (BEAKER) (test 24 meq/L 22-29 rujg=011) BLOOD UREA NITROGEN 13 mg/dL 7-21 (BEAKER) (test tcax=787) CREATININE (BEAKER) (test 1.10 mg/dL 0.57-1.25 Specimen slightly chzg=786) hemolyzed GLUCOSE RANDOM (BEAKER) 102 mg/dL 70-105 (test hzqk=323) CALCIUM (BEAKER) (test 8.0 mg/dL 8.4-10.2 tlaz=879) EGFR (BEAKER) (test 83 mL/min/1.73 sq m ESTIMATED GFR IS NOT ifsn=9802) ACCURATE CREATININE CLEARANCE IN PREDICTING GLOMERULAR FILTRATION RATE. ESTIMATED GFR IS NOT APPLICABLE FOR DIALYSIS PATIENTS. BASIC METABOLIC [id number] 07:20:00 Test Item Value Reference Range Comments SODIUM (BEAKER) (test 143 meq/L 136-145 pajz=546) POTASSIUM (BEAKER) (test 4.0 meq/L 3.5-5.1 Specimen slightly bmlx=187) hemolyzed CHLORIDE (BEAKER) (test 110 meq/L 98-107 iahj=771) CO2 (BEAKER) (test 23 meq/L 22-29 jzrt=042) BLOOD UREA NITROGEN 11 mg/dL 7-21 (BEAKER) (test jtwr=633) CREATININE (BEAKER) (test 0.89 mg/dL 0.57-1.25 Specimen slightly zkuc=996) hemolyzed GLUCOSE RANDOM (BEAKER) 86 mg/dL 70-105 (test gdua=260) CALCIUM (BEAKER) (test 9.0 mg/dL 8.4-10.2 bedl=829) EGFR (BEAKER) (test 106 mL/min/1.73 sq m ESTIMATED GFR IS NOT fbdn=7937) ACCURATE CREATININE CLEARANCE IN PREDICTING GLOMERULAR FILTRATION RATE. ESTIMATED GFR IS NOT APPLICABLE FOR DIALYSIS PATIENTS. COMPREHENSIVE METABOLIC [id number] 15:49:00 Test Item Value Reference Range Comments TOTAL PROTEIN (BEAKER) 8.3 gm/dL 6.0-8.3 Specimen markedly (test tofs=597) hemolyzed ALBUMIN (BEAKER) (test 4.0 g/dL 3.5-5.0 Specimen markedly tbqu=5415) hemolyzed ALKALINE PHOSPHATASE 57 U/L 40-150 (BEAKER) (test pirp=577) BILIRUBIN TOTAL (BEAKER) 0.3 mg/dL 0.2-1.2 Specimen markedly (test hmpj=421) hemolyzed SODIUM (BEAKER) (test 136 meq/L 136-145 dmmb=164) POTASSIUM (BEAKER) (test 4.7 meq/L 3.5-5.1 Specimen markedly qngx=015) hemolyzed CHLORIDE (BEAKER) (test 103 meq/L 98-107 lywk=298) CO2 (BEAKER) (test 21 meq/L 22-29 ehdu=381) BLOOD UREA NITROGEN 10 mg/dL 7-21 (BEAKER) (test sumc=481) CREATININE (BEAKER) (test 1.05 mg/dL 0.57-1.25 Specimen markedly oycp=352) hemolyzed GLUCOSE RANDOM (BEAKER) 97 mg/dL 70-105 (test gqnk=159) CALCIUM (BEAKER) (test 8.9 mg/dL 8.4-10.2 scqj=504) AST (SGOT) (BEAKER) (test 42 U/L 5-34 Specimen markedly ysom=429) hemolyzed ALT (SGPT) (BEAKER) (test 20 U/L 6-55 Specimen markedly jcdl=186) hemolyzed EGFR (BEAKER) (test 88 mL/min/1.73 sq m ESTIMATED GFR IS NOT nlxc=9422) ACCURATE CREATININE CLEARANCE IN PREDICTING GLOMERULAR FILTRATION RATE. ESTIMATED GFR IS NOT APPLICABLE FOR DIALYSIS PATIENTS. Specimen slightly [id number] 13:53:00 Test Item Value Reference Range Comments PARTIAL THROMBOPLASTIN TIME (BEAKER) (test 25.8 seconds 22.5-36.0 qmgy=612) PROTHROMBIN TIME/[id number] 13:52:00 Test Item Value Reference Range Comments PROTIME (BEAKER) (test tnvz=737) 13.7 seconds 11.9-14.2 INR (BEAKER) (test cdtp=609) 1.1 <=5.9 Effective 11/01/2018: PT Reference Range ChangeNew: 11.9-14.2 Previous: 11.7- 14.7RECOMMENDED COUMADIN/WARFARIN INR THERAPY RANGESSTANDARD DOSE: 2.0-3.0 Includes: PROPHYLAXIS for venous thrombosis, systemic embolization; TREATMENT for venous thrombosis and/or pulmonary embolus.HIGH RISK: Target INR is2.5-3.5 for patients wiht mechanical heart valves.BASIC METABOLIC [id number] 13:51: 00 Test Item Value Reference Range Comments SODIUM (BEAKER) (test 134 meq/L 136-145 fjca=845) POTASSIUM (BEAKER) (test 4.6 meq/L 3.5-5.1 Specimen markedly gqee=592) hemolyzed CHLORIDE (BEAKER) (test 102 meq/L 98-107 joty=869) CO2 (BEAKER) (test 21 meq/L 22-29 menj=928) BLOOD UREA NITROGEN 10 mg/dL 7-21 (BEAKER) (test plge=279) CREATININE (BEAKER) (test 1.04 mg/dL 0.57-1.25 Specimen markedly yjjt=555) hemolyzed GLUCOSE RANDOM (BEAKER) 96 mg/dL 70-105 (test pyau=877) CALCIUM (BEAKER) (test 8.9 mg/dL 8.4-10.2 svvt=911) EGFR (BEAKER) (test 89 mL/min/1.73 sq m ESTIMATED GFR IS NOT tfum=4976) ACCURATE CREATININE CLEARANCE IN PREDICTING GLOMERULAR FILTRATION RATE. ESTIMATED GFR IS NOT APPLICABLE FOR DIALYSIS PATIENTS. CBC W/PLT COUNT & AUTO [id number] 13:35:00 Test Item Value Reference Range Comments WHITE BLOOD CELL COUNT (BEAKER) (test wlqe=897) 8.4 K/ L 3.5-10.5 RED BLOOD CELL COUNT (BEAKER) (test keop=347) 3.93 M/ L 4.63-6.08 HEMOGLOBIN (BEAKER) (test qxfk=755) 13.3 GM/DL 13.7-17.5 HEMATOCRIT (BEAKER) (test fqfc=213) 39.2 % 40.1-51.0 MEAN CORPUSCULAR VOLUME (BEAKER) (test ubxi=095) 99.7 fL 79.0-92.2 MEAN CORPUSCULAR HEMOGLOBIN (BEAKER) (test 33.8 pg 25.7-32.2 qdnr=852) MEAN CORPUSCULAR HEMOGLOBIN CONC (BEAKER) (test 33.9 GM/DL 32.3-36.5 enqi=826) RED CELL DISTRIBUTION WIDTH (BEAKER) (test 13.2 % 11.6-14.4 ylvt=835) PLATELET COUNT (BEAKER) (test hamu=915) 190 K/CU MM 150-450 MEAN PLATELET VOLUME (BEAKER) (test squl=924) 9.0 fL 9.4-12.4 NUCLEATED RED BLOOD CELLS (BEAKER) (test 0 /100 WBC 0-0 uyxa=759) NEUTROPHILS RELATIVE PERCENT (BEAKER) (test 70 % tzxw=826) LYMPHOCYTES RELATIVE PERCENT (BEAKER) (test 21 % hzzx=637) MONOCYTES RELATIVE PERCENT (BEAKER) (test 6 % avka=526) EOSINOPHILS RELATIVE PERCENT (BEAKER) (test 2 % gqnk=421) BASOPHILS RELATIVE PERCENT (BEAKER) (test 1 % mnxv=625) NEUTROPHILS ABSOLUTE COUNT (BEAKER) (test 5.93 K/ L 1.78-5.38 cbji=555) LYMPHOCYTES ABSOLUTE COUNT (BEAKER) (test 1.81 K/ L 1.32-3.57 piqv=646) MONOCYTES ABSOLUTE COUNT (BEAKER) (test 0.51 K/ L 0.30-0.82 ifkh=543) EOSINOPHILS ABSOLUTE COUNT (BEAKER) (test 0.13 K/ L 0.04-0.54 esfw=574) BASOPHILS ABSOLUTE COUNT (BEAKER) (test 0.04 K/ L 0.01-0.08 unkr=560) IMMATURE GRANULOCYTES-RELATIVE PERCENT (BEAKER) 0 % 0-1 (test rssy=6063)
[2019-08-01] MEDS ORDERED: FLUORESCEIN SODIUM 1 MG/WRAP ONE (20:55)
[2019-08-01] MEDS ORDERED: TETRACAINE HCL 0.5% 4ML OPTH ONE (20:55)
[2019-08-01] MEDS ORDERED: HYDROCODONE/APAP 10/325 TAB ONE (21:24)
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
[2019-08-01 22:50] VITALS: TEMP 97.6; O2SAT 99
[2019-08-01 22:52] VITALS: BP 110/74
--- NOTE | 2019-08-02 10:04 | RAD REPORT ---
EXAM DESCRIPTION: CT - Orbits Wo Con W/ Mpr - 08/02/2019 6:56 am CLINICAL HISTORY: 58 years Male eye pain/trauma, pain with EOM COMPARISON: None TECHNIQUE: Images were obtained in axial, sagittal, and coronal planes. This exam was performed according to our departmental dose-optimization program which includes use of Automated Exposure Control, adjustment of the mA and/or kV according to patient size and/or use of i terative reconstruction technique. FINDINGS: Mild left periorbital soft tissue swelling. No radiopaque foreign body seen. Intact lobes bilaterally. No intraconal or extraconal abnormalities bilaterally. Optic nerves intact bilaterally. No abnormal fluid collections seen. Unremarkable lateral glands bilaterally. No abnormal subperiosteal fluid collections within the orbits bilaterally. Mild mucosal thickening et hmoid sinuses bilaterally. Otherwise unremarkable paranasal sinuses. No air-fluid levels seen. Mild mucosal thickening nasal turbinates bilaterally. No acute fracture seen. IMPRESSION: Mild left periorbital soft tissue swelling. No radiopaque foreign body seen. No fracture or dislocation noted. No abnormal fluid collections seen. No abnormality extra ocular musculature bilaterally. Electronically signed by: Jazlyn Dahl MD 08/01/2019 9:41 PM [facility] Due to temporary technical issues with the PACS/Fluency reporting system, reports are being signed by the in house radiologist as a courtesy to ensure prompt reporting. The interpreting radiologist is f ully responsible for the content of the report.
== END 2019-08-01 22:39 | disposition home or self-care (01) ==
LOC: ER 20:12
DX: S05.01XA Injury of conjunctiva and corneal abrasion without foreign body, right eye, initial encounter (principal); W22.8XXA Striking against or struck by other objects, initial encounter; Y93.89 Activity, other specified; Y92.9 Unspecified place or not applicable; I10 Essential (primary) hypertension; F17.210 Nicotine dependence, cigarettes, uncomplicated
CPT/HCPCS: 70480; 76377; 99283

== ENCOUNTER 2019-10-23 09:23 | Emergency (ER) | payer OTHER ==
[2019-10-23] MEDS ORDERED: TETRACAINE HCL 0.5% 4ML OPTH ONE (10:01)
[2019-10-23] MEDS ORDERED: FLUORESCEIN SODIUM 1 MG/WRAP ONE (10:01)
[2019-10-23] MEDS ORDERED: FENTANYL CITR 100 MCG/2 ML ONE (10:16)
--- NOTE | 2019-10-23 10:21 | EDPHYS ---
Physician Documentation [facility] Name: Arturo Harkins Age: 58 yrs Sex: Male : 1960 Arrival Date: 10/23/2019 Time: : Bed 16 Private MD: Negro Harkins E ED Physician Huseyin Victor HPI: 10/22 10:15 This 58 yrs old Black Male presents to ER via Ambulatory with complaints of Eye Problem.snw 10:15 The patient is experiencing blurred vision, pain, redness, tearing, The patient snw sustained None. to the right eye, caused by an unknown mechanism. Onset: The symptoms/episode began/occurred suddenly, today. Duration: the symptoms are continuous. Aggravated by blinking, light, opening eye, pressure. Associated signs and symptoms: Pertinent positives: None. Patient does not utilize any form of vision correction. Severity of symptoms: At their worst the symptoms were severe in the emergency department the symptoms are unchanged Pain is currently a 10 / 10. The patient has not experienced similar symptoms in the past. sees Dr. Harkins. hx of htn, never been dx with glaucoma, denies trauma. Historical: - Allergies: 09:48 No Known Allergies; ph - PMHx: 09:47 Hypertension; ph 09:48 Cancer, Prostate; ph - PSHx: 09:47 prostate; ph - Immunization history:: Adult Immunizations unknown. - Social history:: Smoking status: Patient reports the use of cigarette tobacco products, smokes one-half pack cigarettes per day. ROS: 10:14 Constitutional: Negative for fever, chills, and weight loss, Eyes: right eye tearing, snw unable to see, extremely painful ENT: Negative for injury, pain, and discharge, Neck: Negative for injury, pain, and swelling, Cardiovascular: Negative for chest pain, palpitations, and edema, Respiratory: Negative for shortness of breath, cough, wheezing, and pleuritic chest pain, Abdomen/GI: Negative for abdominal pain, nausea, vomiting, diarrhea, and constipation, Back: Negative for injury and pain, : Negative for injury, bleeding, discharge, and swelling, MS/Extremity: Negative for injury and deformity, Skin: Negative for injury, rash, and discoloration, Neuro: Negative for headache, weakness, numbness, tingling, and seizure, Psych: Negative for depression, anxiety, suicide ideation, homicidal ideation, and hallucinations. Exam: 10:11 Visual Acuity: unable to see chart with right. snw 10:11 Constitutional: This is a well developed, well nourished patient who is awake, alert, and in no acute distress. Head/Face: Normocephalic, atraumatic. ENT: Nares patent. No nasal discharge, no septal abnormalities noted. Tympanic membranes are normal and external auditory canals are clear. Oropharynx with no redness, swelling, or masses, exudates, or evidence of obstruction, uvula midline. Mucous membranes moist. Neck: Trachea midline, no thyromegaly or masses palpated, and no cervical lymphadenopathy. Supple, full range of motion without nuchal rigidity, or vertebral point tenderness. No Meningismus. Chest/axilla: Normal chest wall appearance and motion. Nontender with no deformity. No lesions are appreciated. Cardiovascular: Regular rate and rhythm with a normal S1 and S2. No gallops, murmurs, or rubs. Normal PMI, no JVD. No pulse deficits. Respiratory: Lungs have equal breath sounds bilaterally, clear to auscultation and percussion. No rales, rhonchi or wheezes noted. No increased work of breathing, no retractions or nasal flaring. Abdomen/GI: Soft, non-tender, with normal bowel sounds. No distension or tympany. No guarding or rebound. No evidence of tenderness throughout. Back: No spinal tenderness. No costovertebral tenderness. Full range of motion. Skin: Warm, dry with normal turgor. Normal color with no rashes, no lesions, and no evidence of cellulitis. MS/ Extremity: Pulses equal, no cyanosis. Neurovascular intact. Full, normal range of motion. Neuro: Awake and alert, GCS 15, oriented to person, place, time, and situation. Cranial nerves II-XII grossly intact. Motor strength 5/5 in all extremities. Sensory grossly intact. Cerebellar exam normal. Normal gait. Psych: Awake, alert, with orientation to person, place and time. Behavior, mood, and affect are within normal limits. 10:11 Eyes: Periorbital structures: appear normal, Pupils: right pupil is approximately 2 mm(s), left pupil is approximately 2 mm(s), Extraocular movements: significantly painful to right , Conjunctiva: injected, bilaterally, greater on the right, tearing noted, in right eye, Corneas: a fluorescein strip employed to appreciate the findings, Sclera: area between sclera and iris blurred, oval black area at 10 o'clock next to iris, Nystagmus: is not appreciated, Intraocular pressure: right eye = 21mmHg. 10:11 ENT: External ear(s): are unremarkable, Ear canal(s): are normal. Vital Signs: 09:46 BP 165 / 87; Pulse 83; Resp 18; Temp 97.3; Pulse Ox 100% on R/A; Weight 84.82 kg; ph Height 5 ft. 11 in. (180.34 cm); 09:46 Body Mass Index 26.08 (84.82 kg, 180.34 cm) ph MDM: 09:44 Patient medically screened. snw 10:17 Data reviewed: vital signs, nurses notes. Data interpreted: Pulse oximetry: on room air snw is 100 %. Interpretation: normal. Counseling: I had a detailed discussion with the patient and/or guardian regarding: the historical points, exam findings, and any diagnostic results supporting the discharge/admit diagnosis, the need for outpatient follow up, for definitive care, an opthalmologist, arrangements made to go to Dr. Fuchs's office now. Physician consultation: arrangements for Dr. Escobedo's staff to fax referral to Dr. Fuchs's for appt now. Special discussion: I have referred the patient to see his PCP for further evaluation of high blood pressure. Based on the history and exam findings, there is no indication for further emergent testing or inpatient evaluation. I discussed with the patient/guardian the need to see the opthamologist for further evaluation of the symptoms. 10/22 09:52 Order name: Eye Tray; Complete Time: 10:00 snw Administered Medications: 09:59 Drug: Fluorescein Strip 1 strip Route: Ophthalmic; Site: right eye; tw2 10:30 Drug: fentaNYL (PF) 50 mcg {Note: RASS 0.} Route: IM; Site: right deltoid; tw2 10:56 Follow up: Response: No adverse reaction; Pain is decreased; RASS: Alert and Calm (0) tw2 Disposition: 16:12 Co-signature as Attending Physician, Huseyin Victor MD I agree with the assessment and kdr plan of care. Disposition: 10/23/19 10:20 Discharged to Home. Impression: Ocular pain, right eye. - Condition is Stable. - Discharge Instructions: Pain Without a Known Cause. - Medication Reconciliation Form, Thank You Letter, Antibiotic Education, Prescription Opioid Use form. - Follow up: Miah Fuchs MD; When: now; Reason: Recheck today's complaints, Continuance of care. Signatures: Huseyin Victor MD MD kdr Therrien, Shelly, CONTACT CENTER SPECIALIST-C CONTACT CENTER SPECIALIST-Csnw Julia Ospina, RN RN Aida Shirley RN RN tw2 Corrections: (The following items were deleted from the chart) 10:58 10:20 10/23/2019 10:20 Discharged to Home. Impression: Ocular pain, right eye. tw2 Condition is Stable. Forms are Medication Reconciliation Form, Thank You Letter, Antibiotic Education, Prescription Opioid Use. Follow up: Miah Fuchs; When: now; Reason: Recheck today's complaints, Continuance of care. snw
--- NOTE | 2019-10-23 10:21 | ER ---
Nurse's Notes [facility] Name: Arturo Harkins Age: 58 yrs Sex: Male : 1960 Arrival Date: 10/23/2019 Time: : Bed 16 Private MD: Negro Harkins E Diagnosis: Ocular pain, right eye Presentation: 10/22 09:46 Chief complaint: Patient states: R eye pain, watering, and photosensitivity since last ph night, redness noted. Coronavirus screen: Patient denies a cough. Patient denies shortness of breath or difficulty breathing. Patient denies measured and/or subjective temperature greater than 100.4F prior to today's visit. Patient denies travel on a cruise ship or to a country the [facility] currently lists as an affected area. Patient denies contact with known and/or suspected case of COVID-19. Ebola Screen: No symptoms or risks identified at this time. Initial Sepsis Screen: Does the patient meet any 2 criteria? No. Patient's initial sepsis screen is negative. Does the patient have a suspected source of infection? No. Patient's initial sepsis screen is negative. Risk Assessment: Do you want to hurt yourself or someone else? Patient reports no desire to harm self or others. Onset of symptoms was October 23, 2019. 09:46 Method Of Arrival: Ambulatory ph 09:46 Acuity: RICHAR 4 ph Historical: - Allergies: 09:48 No Known Allergies; ph - PMHx: 09:47 Hypertension; ph 09:48 Cancer, Prostate; ph - PSHx: 09:47 prostate; ph - Immunization history:: Adult Immunizations unknown. - Social history:: Smoking status: Patient reports the use of cigarette tobacco products, smokes one-half pack cigarettes per day. Screenin:56 Abuse screen: Denies threats or abuse. Nutritional screening: No deficits noted. tw2 Tuberculosis screening: No symptoms or risk factors identified. Fall Risk None identified. Assessment: 10:00 General: Appears uncomfortable, well groomed, Behavior is calm, cooperative, tw2 appropriate for age. Pain: Complains of pain in right eye. Neuro: Level of Consciousness is awake, alert, obeys commands, Oriented to person, place. Cardiovascular: Patient's skin is warm and dry. Respiratory: Airway is patent Respiratory effort is even, unlabored, Respiratory pattern is regular, symmetrical. GI: No signs and/or symptoms were reported involving the gastrointestinal system. EENT: redness noted to right eye, pt states it is very painful and light sensitive, pt states it started bothering him last night and has just gotten worse.. Musculoskeletal: Range of motion: intact in all extremities. 15:54 Reassessment: Patient appears in no apparent distress at this time. Patient and/or tw2 family updated on plan of care and expected duration. Pain level reassessed. Patient is alert, oriented x 3, equal unlabored respirations, skin warm/dry/pink. Patient states feeling better. Vital Signs: 09:46 BP 165 / 87; Pulse 83; Resp 18; Temp 97.3; Pulse Ox 100% on R/A; Weight 84.82 kg; ph Height 5 ft. 11 in. (180.34 cm); 09:46 Body Mass Index 26.08 (84.82 kg, 180.34 cm) ph ED Course: 09:27 Patient arrived in ED. mr 09:27 Negro Harkins MD is Private Physician. mr 09:35 Bed in low position. Call light in reach. tw2 09:44 Tali Boswell FNP-C is [facility]. snw 09:44 Huseyin Victor MD is Attending Physician. snw 09:47 Triage completed. ph 09:48 Arm band placed on Patient placed in an exam room. ph 09:59 Aida Shirley, LIOR is Primary Nurse. tw2 10:19 Miah Fuchs MD is Referral Physician. snw 10:56 No provider procedures requiring assistance completed. Patient did not have IV access tw2 during this emergency room visit. Administered Medications: 09:59 Drug: Fluorescein Strip 1 strip Route: Ophthalmic; Site: right eye; tw2 10:30 Drug: fentaNYL (PF) 50 mcg {Note: RASS 0.} Route: IM; Site: right deltoid; tw2 10:56 Follow up: Response: No adverse reaction; Pain is decreased; RASS: Alert and Calm (0) tw2 Outcome: 10:20 Discharge ordered by . snw 10:56 Discharged to home ambulatory. tw2 10:56 Condition: stable 10:56 Discharge instructions given to patient, family, Instructed on discharge instructions, follow up and referral plans. to go directly to Dr. Fuchs's office, address given, pt states is driving him Demonstrated understanding of instructions, follow-up care. 10:58 Patient left the ED. tw2 Signatures: Tali Boswell, HENNY GRAPHIC USER INTERFACE DESIGNER-Pattiew Karen العلي mr Julia Ospina, RN RN Shirley, Aida RN RN tw2
--- OUTSIDE RECORDS SUMMARY | 2019-10-23 10:22 | XMS REPORT | Continuity of Care Document ---
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 ARM PAIN Active 04/18/20 [facility] 18 Noe Chest pain, 11/03/19 11/05/[address] unspecified 18 [place] Nicotine 11/03/19 11/05/2017 [facility] dependence, 18 [place] unspecified, uncomplicated Anemia, 11/03/19 11/05/2017 [facility] unspecified 18 [place] Other chest pain 11/03/19 11/05/2017 [facility] 18 [place] CHEST PAIN Active 11/02/19 [facility] [place] Radial styloid 12/17/19 12/19/2016 [place] tenosynovitis [de 17 Quervain] HAND AND KNEE Active 12/16/19 [facility] PAIN 17 [place] Localized 11/05/[address] swelling, mass and lump, left lower limb Essential 11/05/2018 (primary) [facility] Personal history 11/05/2018 CARLOS Child of malignant neoplasm of prostate Ingrowing nail Active Problem 05/13/2015 [facility] Onychomycosis Active Problem 05/13/2015 [facility] Abscess/celluliti Active Problem 05/13/2015 [facility] Contusion/hematom Active Problem 05/13/2015 [facility] Medications Medication Details Route Status Patient Ordering Order Source Instructions Provider Date Acetaminophen 1 tab, PO, No Longer 300 MG / Q6H, PRN Active 018 Mateusz Codeine Pain, X 3 Phosphate 30 MG day, # 12 Oral Tablet tab, 0 [Tylenol with Refill(s) Codeine #3] {21 See Active (Methylpredniso Instructions 018 [place] lone 4 MG Oral , PO, Take Tablet by mouth as [Medrol]) } directed on Pack [Medrol label., # 1 Dosepak] Pack, 0 Refill(s) Ibuprofen 800 800 mg = 1 No Longer MH MG Oral Tablet tab, PO, Active 018 [place] [Motrin] Q8H, PRN Pain, Take with food, X 10 day, # 30 tab, 0 Refill(s) Ibuprofen Notes: (Same Inactive as: Motrin) 018 [place] "Do Not Crush" Take with food. Acetaminophen 1 - 2 tab, Active 300 MG / PO, Q6H, PRN 018 [facility] Codeine Pain, X 3 [place] Phosphate 30 MG day, # 15 Oral Tablet tab, 0 [Tylenol with Refill(s) Codeine #3] Methocarbamol 1- 2 tab, Active 750 MG Oral PO, TID, PRN 018 [facility] Tablet Muscle [place] [Robaxin] Spasms, X 5 day, # 20 tab, 0 Refill(s) Acetaminophen 1 tab, Inactive 325 MG / Route: PO, 018 [facility] Hydrocodone Drug Form: [facility] Bitartrate 5 MG TAB, Dosing Oral Tablet Weight [Wirt 5/325] 79.955, kg, ONCE, STAT, Start date: 11/02/17 3:16:00 CDT, Stop date: 11/02/17 3:16:00 CDT Robaxin Notes: (Same Inactive as:Robaxin) 018 [facility] [place] Omnipaque 350 100 mL, Inactive Route: IV, 018 [facility] Dosing [place] Weight 79.955, kg, ONCE, Start date: 11/02/17 2:27:00 CDT, Stop date: 11/02/17 2:27:00 CDT Omnipaque 300 Notes: (Same Inactive as:Omnipaque 018 [facility] 300). [place] WASTE: F/P - Black; E - [facility] Ketorolac 4 days Inactive 018 [facility] MEDICATION [place] WASTE Product Size: 30 mg Product Wasted: ___ mg Zofran ODT Notes: (Same Inactive as: Zofran 018 [facility] ODT) [facility] Morphine Notes: (Same Inactive as:MORPhine 018 [facility] Sulfate) [facility] Sodium Chloride 500 mL, 500 Inactive 0.9% (Bolus) IV ml/hr, 018 [facility] Infuse Over: [place] 1 hr, Route: IV, 500, Drug form: INJ, ONCE, Priority: STAT, Dosing Weight 79.955 kg, Start date: 11/02/17 1:06:00 CDT, Stop date: 11/02/17 1:06:00 CDT Saline Flush Notes: Same No Longer 0.9% as: BD Active 018 [facility] Posiflush [facility] Sterile Motrin 800 mg 800 mg = 1 Active oral tablet tab, PO, 017 [place] Q8H, PRN Pain, Take with food, X 7 day, # 21 tab, 0 Refill(s) Lamisil 1 tablet Orally Active 250 MG Orally [facility] [place] Once a day 015 [facility] Hydrocodone-Jorge Unknown NA Active [facility] taminophen [facility] Lyrica Unknown NA Active [facility] Allergies, Adverse Reactions, Alerts Substance Category Reaction Severity Reaction Status Date Comments S ource type Reported N.K.D.A. Adverse Info Not Adverse Active Spri ng Reaction Available Reaction 5 [facility] No Known Assertion Drug Medication allergy Khadijah and Allergies Immunizations No Data Provided for This Section Results Order Name Results Value Reference Date Interpretation Comments Octavia rce Range CARDIAC Total CK 181 12 - 191 11/02[facility] CARDIAC Troponin-I <0.02 0.00 - 0.40 ENZYMES [facility] CARDIAC CK MB 1.8 0.5 - 3.6 ENZYMES [facility] CARDIAC CK MB Index 1.0 0.0 - 2.5 ENZYMES [facility] CARDIAC CK MB Index 0.9 0.0 - 2.5 ENZYMES 2017 [facility] CARDIAC Total CK 209 12 - 191 ENZYMES 2017 [facility] CARDIAC CK MB 1.9 0.5 - 3.6 ENZYMES 2018 [facility] CARDIAC Troponin-I <0.02 0.00 - 0.40 05 ENZYMES [facility] CHEM PANEL eGFR 80 2017 Comment: The [facility] eGFR is [place] calculated using the CKD-EPI formula. In most young, healthy individuals the eGFR will be >90 mL/min/1.73m2 . The eGFR declines with age. An eGFR of 60-89 may be normal in some populations, particularly the elderly, for whom the CKD-EPI formula has not been extensively validated. Use of the eGFR is not recommended in the following populations:< br/>
Sabi viduals with unstable creatinine concentration s, including patients and those with serious co-morbid conditions.<b r/>
Patie nts with extremes in muscle mass or diet.

The data above are obtained from the National Kidney Disease Education Program (NKDEP) which additionally recommends that when the eGFR is used in patients with extremes of body mass index for purposes of drug dosing, the eGFR should be multiplied by the estimated BMI. CHEM PANEL A/G Ratio 0.9 0.7 - 1.6 [facility] CHEM PANEL ALT 30 0 - 65 [facility] CHEM PANEL Albumin Lvl 3.7 3.5 - 5.0 2017 [facility] CHEM PANEL Calcium Lvl 8.3 8.5 - 10.5 2017 [facility] CHEM PANEL Total Protein 7.6 6.4 - 8.4 2017 [facility] CHEM PANEL CO2 24 24 - 32 2017 [facility] CHEM PANEL Chloride Lvl 106 95 - 109 2017 [facility] CHEM PANEL Globulin 3.9 2.7 - 4.2 2017 [facility] CHEM PANEL AGAP 12.9 10.0 - 20.0 2017 [facility] CHEM PANEL B/C Ratio 16 6 - 25 2017 [facility] CHEM PANEL Alk Phos 57 39 - 136 2017 [facility] CHEM PANEL Bili Total 0.2 0.2 - 1.3 2017 [facility] CHEM PANEL AST 33 0 - 37 2017 [facility] CHEM PANEL BUN 19 7 - 22 2017 [facility] CHEM PANEL Glucose Lvl 103 70 - 99 2017 [facility] CHEM PANEL Creatinine 1.17 0.50 - 1.40 Lvl 2018 [facility] CHEM PANEL Sodium Lvl 139 135 - 145 2017 [facility] CHEM PANEL Potassium Lvl 3.9 3.5 - 5.1 2017 [facility] HEMATOLOGY Lymphocytes # 2.1 1.0 - 5.5 2017 [facility] HEMATOLOGY Eosinophils 2.6 0.0 - 4.0 2017 [facility] HEMATOLOGY Segs-Bands # 4.6 1.5 - 8.1 2017 [facility] HEMATOLOGY Basophils 0.9 0.0 - 1.0 2017 [facility] HEMATOLOGY Monocytes 7.4 2.0 - 12.0 2017 [facility] HEMATOLOGY Eosinophils # 0.2 0.0 - 0.5 2017 [facility] HEMATOLOGY Monocytes # 0.6 0.0 - 0.8 2017 [facility] HEMATOLOGY Macrocyte 1+ None Seen *ABN* 2017 [facility] (11/01/17 11:53 PM) [facility] HEMATOLOGY Basophils # 0.1 0.0 - 0.2 2017 [facility] HEMATOLOGY Segs 60.6 45.0 - 75.0 2017 [facility] HEMATOLOGY Lymphocytes 28.5 20.0 - 40.0 2017 [facility] HEMATOLOGY MCV 101.7 80.0 - 94.0 2017 [facility] HEMATOLOGY Hgb 13.2 14.0 - 18.0 2017 [facility] HEMATOLOGY Hct 37.4 42.0 - 54.0 2017 [facility] HEMATOLOGY WBC 7.5 3.7 - 10.4 2017 [facility] HEMATOLOGY RBC 3.68 4.70 - 6.10 2017 [facility] HEMATOLOGY MCHC 35.4 32.0 - 36.0 2017 [facility] HEMATOLOGY MCH 36.0 27.0 - 31.0 2017 [facility] HEMATOLOGY Platelet 194 133 - 450 2017 [facility] HEMATOLOGY MPV 7.8 7.4 - 10.4 2017 [facility] HEMATOLOGY RDW 13.3 11.5 - 14.5 2017 [facility] Pathology Reports No Data Provided for This Section Diagnostic Reports Report Value Date Source Elbow 3 views DX Left elbow 3 views: There is no fracture or dislocation. There are no other significant osseous, articular or soft tissue abnormalities. 04/18/2018 [facility] IMPRESSION: No acute radiographic abnormalities of the left elbow. SL DLAWRENCE-PC Chest Pulmonary CTA CHEST WITH CONTRAST 11/02/2017 [facility] Embolism CTA INDICATION: Evaluate for PE, - right sided chest pain, rule out PE vs METS - patient is a heavy smoker, CT dose DLP 849.37 COMPARISON: Chest radiograph 11/01/2017 TECHNIQUE: CTA of the chest was performed after administration of intravenous contrast. Coronal, sagittal, and 3-D reformatted images were utilized. DISCUSSION: No pulmonary emboli are visi ble. The ascending aorta is mildly dilated, measuring 3.9 cm in diameter. The aorta is patent, without evidence of dissection. The heart is grossly normal in size. Mild coronary artery calcifications are noted. There is no consolidation, p leural effusion, or pneumothorax. No pulmonary nodules are identified. The trachea and major bronchi are clear. No suspicious lymphadenopathy is seen. Mild bilateral gynecomastia is noted. Limited evaluation of the upper abdominal struct ures is grossly unremarkable. BONES: No acute bony abnormalities are seen. No suspicious osseous lesions are identified. IMPRESSION: 1. No evidence of pulmonary embolism. 2. Mild dilatation of the ascending aorta. 3. Otherwise, no acute intra thoracic abnormalities or metastatic disease are visualized. SL:16 Chest 1view DX Clinical Indication: - chest pain 11/02/2017 [facility] Comparison: None FINDINGS: AP chest radiograph was obtained. MEDIASTINUM: The cardiac mj houette is normal in size. The aorta is unremarkable. LUNGS: Lung volumes are main tained. There are no focal infiltrates or effusions. There are no pneumothoraces noted. BONES: The visualized osseous structures are unr emarkable. IMPRESSION: No acute infiltrates or effusions. SL: [id number] Hand 3 views DX Patient Name: CHRISTEN SHEFFIELD 12/15/2016 [facility] humberto Noe : 1960; Age: 56 years y/o Male MR: [id number] Study: 3 view examination of the left hand dated 12/15/2016. Clinical Indication: Left hand pain no trauma; Comparison: None No fracture, dislocation or radiopaque foreign b bret. SL: CSODERSTROM- Consultation Notes No Data Provided for This Section Discharge Summaries No Data Provided for This Section History and Physicals No Data Provided for This Section Vital Signs Vital Sign Value Date Comments Source Systolic (mm Hg) 138 04/19/2018 [place] Diastolic (mm Hg) 92 04/19/2018 [place] [facility] Heart Rate 90 04/19/2018 [facility] Respitory Rate 16 04/19/2018 [place] Temperature Oral (F) 98.5 F 04/19/2018 [place] Weight 88.01 04/19/2018 [facility] [place] Temperature Oral (F) 98.3 F 04/19/2018 [facility] [place] Respitory Rate 17 04/19/2018 [facility] [place] Heart Rate 89 04/19/2018 [place] Systolic (mm Hg) 124 04/19/2018 [place] Diastolic (mm Hg) 73 04/19/2018 [place] Systolic (mm Hg) 132 11/02/2017 [facility] Diastolic (mm Hg) 91 11/02/2017 [facility] Temperature Oral (F) 98.2 F 11/02/2017 [facility] Respitory Rate 13 11/02/2017 [facility] Respitory Rate 13 11/02/2017 [facility] Systolic (mm Hg) 135 11/02/2017 [facility] [place] Diastolic (mm Hg) 87 11/02/2017 [facility] [place] Systolic (mm Hg) 140 11/02/2017 [facility] [place] Diastolic (mm Hg) 73 11/02/2017 [facility] Respitory Rate 14 11/02/2017 [facility] Temperature Oral (F) 98.3 F 11/02/2017 [facility] Weight 79.955 11/02/2017 [facility] Heart Rate 99 11/02/2017 [facility] [place] Heart Rate 76 12/16/2016 [place] Respitory Rate 15 12/16/2016 [facility] [place] Systolic (mm Hg) 115 12/16/2016 [facility] [place] Diastolic (mm Hg) 84 12/16/2016 [facility] [place] Systolic (mm Hg) 118 12/16/2016 [facility] [place] Diastolic (mm Hg) 72 12/16/2016 [place] Heart Rate 83 12/16/2016 [place] Temperature Oral (F) 98.2 F 12/16/2016 [place] Respitory Rate 16 12/16/2016 [facility] [place] Weight 89.545 12/16/2016 [facility] Weight 190 02/27/2015 [facility] Height 71 02/27/2015 [facility] Heart Rate 81 02/27/2015 [facility] Diastolic (mm Hg) 84 02/27/2015 [facility] Systolic (mm Hg) 132 02/27/2015 [facility] Pod[facility]ry Encounters Location Location Encounter Encounter Reason Attending ADM DC Stat us Source Details Type Number For Provider Date Date Visit [place] NEW PT: [id number] 02/27 02/27 [facility] Possible -[id number] /2014 [facility] In[facility], [id number] Podiatry Rt [facility] [place] NEW PT: [id number] 02/27 02/27 [facility] Possible -[id number] /2014 [facility] Infection, [id number] Podiatry Rt [facility] [place] NEW PT: [id number] 02/27 02/27 [facility] Possible -[id number] /2014 [facility] Infection, [id number] Podiatry Rt [facility] [place] Results: [id number] 03/03 03/03 [facility] LFT's -[id number] /2014 [facility] (Round 1) [id number] P [place]diatry [place] Results: [id number] 03/03 03/03 [facility] LFT's -[id number] /2014 [facility] (Round 1) [id number] [facility] [place] [place] Results: [id number] 03/03 03/03 [facility] LFT's -[id number] /2014 [facility] (Round 1) [id number] [place]di[facility]ry [place] Re-Check: [id number] 04/02 04/02 [place] LFT's -[id number] /2014 [facility] (Round 2) [id number] [facility] [place] [place] Re-Check: [id number] 04/02 04/02 [place] LFT's -[id number] /2014 [facility] (Round 2) [id number] [facility] [place]ry [place] Re-Check: [id number] 04/02 04/02 [place] LFT's -[id number] /2014 [facility] (Round 2) [id number] [place]di[facility]ry [place] Results: [id number] 04/09 04/09 S [facility] LFT's -[id number] /2014 [facility] (Round 2) [id number] [place]di[facility]ry [place] Results: [id number] 04/09 [id number] (Round 2) [id number] [facility] [place]ry [place] Results: [id number] 04/09 04/09 [id number] /2014 [facility] (Round 2) [id number] [place]diatry [place] Re-Check: [id number] 05[facility]12 [id number] (Round 3) [id number] P odiatry [facility] Emergency [id number] Michael Goldberg 12/16 12/16 Noe /2016 [facility] Emergency [id number] Abbie 11/02 11/02 Noe Matias /2017 [facility] Emergency [id number] Terrence Woodruff 04/19 04/19 Noe /2017 [facility] Procedures No Data Provided for This Section Assessment and Plan No Data Provided for This Section Plan of Care No Data Provided for This Section Social History Social History Date Source Social History TypeResponse 04/19/2018 [facility] Smoking Status Never smoker; Concerns about tobacco use in household: No; Exposure to Tobacco Smoke None; Cigarette Smoking Last 365 Days No; Reg Smoking Cessation Counseling No entered on: 04/18/18 Social History TypeResponse 11/02/2017 [facility] Smoking Status Never smoker; Concerns about tobacco use in household: No; Exposure to Tobacco Smoke None; Cigarette Smoking Last 365 Days No; Reg Smoking Cessation Counseling No entered on: 11/02/17 Social History ElementQualifiersDate Reported 02/27/2015 [facility] Tobacco Use: . Are you a:: current smoker Feb 27, 2015 Family History No Data Provided for This Section Advance Directives No Data Provided for This Section Functional Status No Data Provided for This Section
--- OUTSIDE RECORDS SUMMARY | 2019-10-23 10:22 | XMS REPORT | Clinical Summary ---
:1960 Author Organization [facility] Address [address] [place] [address] Care Team Providers Name Role Phone Darien Harkins MD Primary Care Provider Allergies No Known Allergies Medications Medication Sig Dispensed Refills Start Date End Date Status losartan (COZAAR) Take 50 mg by 0 Active 50 MG tablet mouth daily. omeprazole Take 40 mg by 0 Activ e (PRILOSEC) 40 MG mouth daily. capsule tadalafil (CIALIS) Take 5 mg by 0 12/05/2018 Active 5 MG tablet mouth daily. acetaminophen-code Take 1 tablet by 30 tablet 0 12/29/201810/23 ine (TYLENOL #3) mouth every 4 19 300-30 mg per (four) hours as tablet needed for up to 10 days. Max Daily Amount: 6 tablets docusate sodium Take 1 capsule 20 capsule 0 12/29/2018 0 (COLACE) 100 MG (100 mg total) by 19 capsule mouth 2 (two) times daily for 10 days. ciprofloxacin HCl Take 1 tablet 6 tablet 0 12/29/2018 0 Discontinued (CIPRO) 500 MG (500 mg total) by 19 tablet mouth 2 (two) times daily for 3 days Start taking day before follow up appt. oxybutynin Take 1 tablet (5 30 tablet 0 12/29/2018 01/09/20 E xpired (DITROPAN) 5 MG mg total) by 19 tablet mouth 3 (three) times daily as needed (Bladder pain) for up to 10 days. traMADol (ULTRAM) Take 1 tablet (50 30 tablet 0 01/07/2019 50 mg tablet mg total) by 19 mouth every 6 (six) hours as needed for up to 10 days. Max Daily Amount: 200 mg sulfamethoxazole-t Take 1 tablet (80 20 tablet 0 01/07/2019 rimethoprim mg of 19 (BACTRIM,SEPTRA) trimethoprim 400-80 mg per total) by mouth 2 tablet (two) times daily for 10 days. polyethylene Take 17 g by 255 g 0 01/07/2019 01/11/20 Exp ired glycol (GLYCOLAX) mouth daily for 3 19 17 gram/dose days. powder Active Problems Problem Noted Date Penile swelling 01/02/2019 Prostate cancer 12/27/2018 Urinary tract infection without hematuria, site unspec ified 12/27/2018 Malignant neoplasm of prostate 12/27/2018 Encounters Date Type Specialty Care Team Description 01/16/2019 Outside Orders Central Scheduling Blas Murillo MD Pros alberto cancer (HCC) (Primary Dx) 01/15/2019 Outside Orders Central Scheduling Blas Murillo MD Pros alberto cancer (HCC) (Primary Dx) 12/31/2018 - Hospital Encounter General Internal Matti Rivas MD Penile swelling (Primary Dx); 01/08/2019 Medicine Blas Murillo MD Scrotal swel ling; Suprapubic abdo jan pain; S/P prostatecto my; Malignant neopl asm of prostate (HCC); Prostate cancer (HCC); Postoperative i leus (HCC); Current smoker; Hypertension, u nspecified type 12/31/2018 Travel 12/27/2018 Anesthesia Event Norma Munoz MD 12/27/2018 Surgery Blas Murillo MD ROBOTIC LAPAROSCOPY,PRO STATEC MIK W/ PELVIC LYMPH NODE DISSECTION 12/27/2018 - Hospital Encounter General Internal Blas Murillo MD Ur inary tract 12/30/2018 Medicine infection witho ut hematuria, site unspecified (Pr imary Dx) 11/09/2018 Hospital Encounter Pre-Admission Blas Murillo MD Testing 11/08/2018 Hospital Encounter Pre-Admission Testing 11/06/2018 Orders Only Urology Blas Murillo MD Urinary trac t infection witho ut hematuria, site unspecified (Pr imary Dx) after 10/22/2018 Social History Tobacco Use Types Packs/Day Years Used Date Current Every Day Smoker 0.5 40 Smokeless Tobacco: Never Used Alcohol Use Drinks/Week oz/Week Comments Yes 40 Cans of beer 24.0 Sex Assigned at Date Recorded Not on file Job Start Date Occupation Industry Not on file Not on file Not on file Travel History Travel Start Travel End No recent travel history available. Last Filed Vital Signs Vital Sign Reading Time Taken Blood Pressure 118/67 01/08/2019 8:14 AM CDT Pulse 87 01/08/2019 8:14 AM CDT Temperature 36.7 C (98 F) 01/08/2019 8:14 AM CDT Respiratory Rate 18 01/08/2019 8:14 AM CDT Oxygen Saturation 99% 01/08/2019 8:14 AM CDT Inhaled Oxygen Concentration - - Weight 83.9 kg (185 lb) 12/31/2018 9:00 PM CDT Height 180.3 cm (5' 11") 12/31/2018 9:00 PM CDT Body Mass Index 25.8 12/31/2018 9:00 PM CDT Plan of Treatment Not on file Procedures Procedure Name Priority Date/Time Associated Comments Diagnosis BASIC METABOLIC PANEL STAT 01/08/2019 4:23 Re sults for this (7) AM CDT procedure are i n the results section. CBC (HEMOGRAM ONLY) STAT 01/08/2019 4:23 Resu lts for this AM CDT procedure are i n the results section. BASIC METABOLIC PANEL STAT 01/07/2019 9:32 Re sults for this (7) AM CDT procedure are i n the results section. CBC (HEMOGRAM ONLY) STAT 01/07/2019 5:14 Resu lts for this AM CDT procedure are i n the results section. CBC (HEMOGRAM ONLY) STAT 01/06/2019 6:06 Resu lts for this AM CDT procedure are i n the results section. BASIC METABOLIC PANEL STAT 01/05/2019 6:27 Re sults for this (7) AM CDT procedure are i n the results section. CBC (HEMOGRAM ONLY) STAT 01/05/2019 4:34 Resu lts for this AM CDT procedure are i n the results section. BASIC METABOLIC PANEL STAT 01/04/2019 5:48 Re sults for this (7) AM CDT procedure are i n the results section. CBC (HEMOGRAM ONLY) STAT 01/04/2019 4:50 Resu lts for this AM CDT procedure are i n the results section. FL CYSTOGRAM STATIC Routine 01/03/2019 2:35 Resu lts for this PM CDT procedure are i n the results section. CBC (HEMOGRAM ONLY) STAT 01/03/2019 6:03 Resu lts for this AM CDT procedure are i n the results section. PHOSPHORUS Routine 01/03/2019 5:02 Results for this AM CDT procedure are i n the results section. MAGNESIUM Routine 01/03/2019 5:02 Results for this AM CDT procedure are i n the results section. BASIC METABOLIC PANEL Routine 01/03/2019 5:02 Re sults for this (7) AM CDT procedure are i n the results section. CT ABDOMEN/PELVIS SUZANNE 01/02/2019 10:50 Result s for this WITH IV CONTRAST AM CDT procedure a re in the results section. PHOSPHORUS Routine 01/02/2019 5:44 Results for this AM CDT procedure are i n the results section. MAGNESIUM Routine 01/02/2019 5:44 Results for this AM CDT procedure are i n the results section. BASIC METABOLIC PANEL Routine 01/02/2019 5:44 Re sults for this (7) AM CDT procedure are i n the results section. CBC W/PLT COUNT & Routine 01/01/2019 3:31 Result s for this AUTO DIFFERENTIAL AM CDT procedure are in the results section. CBC W/PLT COUNT & Routine 01/01/2019 3:31 Result s for this AUTO DIFFERENTIAL AM CDT procedure are in the results section. PHOSPHORUS Routine 01/01/2019 3:31 Results for this AM CDT procedure are i n the results section. MAGNESIUM Routine 01/01/2019 3:31 Results for this AM CDT procedure are i n the results section. BASIC METABOLIC PANEL Routine 01/01/2019 3:31 Re sults for this (7) AM CDT procedure are i n the results section. URINALYSIS W/ REFLEX STAT 12/31/2018 6:39 Res ults for this URINE CULTURE PM CDT procedure are in the results section. CT ABDOMEN/PELVIS STAT 12/31/2018 6:09 Result s for this WITHOUT IV CONTRAST PM CDT procedur e are in the results section. CBC W/PLT COUNT & STAT 12/31/2018 5:42 Result s for this AUTO DIFFERENTIAL PM CDT procedure are in the results section. BASIC METABOLIC PANEL STAT 12/31/2018 5:42 Re sults for this (7) PM CDT procedure are i n the results section. CBC W/PLT COUNT & STAT 12/31/2018 5:42 Result s for this AUTO DIFFERENTIAL PM CDT procedure are in the results section. CREATININE, BODY STAT 12/30/2018 11:47 Results for this FLUID AM CDT procedure are i n the results section. HEMOGLOBIN AND Routine 12/30/2018 4:57 Results f or this HEMATOCRIT AM CDT procedure are i n the results section. BASIC METABOLIC PANEL Routine 12/30/2018 4:57 Re sults for this (7) AM CDT procedure are i n the results section. HEMOGLOBIN AND Routine 12/29/2018 6:32 Results f or this HEMATOCRIT AM CDT procedure are i n the results section. BASIC METABOLIC PANEL Routine 12/29/2018 6:32 Re sults for this (7) AM CDT procedure are i n the results section. TRANSFUSION SERVICE 12/28/2018 6:00 REPORT - SCAN PM CDT HEMOGLOBIN AND Routine 12/28/2018 6:02 Results f or this HEMATOCRIT AM CDT procedure are i n the results section. BASIC METABOLIC PANEL Routine 12/28/2018 6:02 Re sults for this (7) AM CDT procedure are i n the results section. HEMOGLOBIN AND Routine 12/27/2018 2:50 Results f or this HEMATOCRIT PM CDT procedure are i n the results section. BASIC METABOLIC PANEL Routine 12/27/2018 2:50 Re sults for this (7) PM CDT procedure are i n the results section. TISSUE EXAM AP Routine 12/27/2018 10:05 Results for this AM CDT procedure are i n the results section. PROCEDURE W/ DAVINCI 12/27/2018 8:00 Prostate cancer AM CDT (HCC) Case Notes 4 HRS PER RICO Special Needs (DAVINCI) ROBOTIC LAPAROSCOPY,PROSTATECTOMY W/ 12/27/2018 8:00 AM CDT Prostate cancer PELVIC LYMPH NODE DISSECTION (HCC) Case Notes 4 HRS PER RICO Special Needs (DAVINCI) TYPE AND SCREEN, AUTOMATED STAT 12/27/2018 6:57 AM CDT Results for this procedure are i n the results section . BASIC METABOLIC PANEL (7) STAT 12/27/2018 6:57 AM CDT Results for this procedure are i n the results section . TRANSFUSION SERVICE REPORT - 11/10/2018 5:54 PM CDT SCAN CBC W/PLT COUNT & AUTO Routine 11/09/2018 1:12 PM CDT Results for this DIFFERENTIAL procedure are i n the results section . TYPE AND SCREEN, AUTOMATED Routine 11/09/2018 1:12 PM CDT Results for this procedure are i n the results section . COMPREHENSIVE METABOLIC Routine 11/09/2018 1:12 PM CDT Results for this PANEL procedure are i n the results section . PROTHROMBIN TIME/INR Routine 11/09/2018 1:12 PM CDT Results for this procedure are i n the results section . CBC W/PLT COUNT & AUTO Routine 11/09/2018 1:12 PM CDT Results for this DIFFERENTIAL procedure are i n the results section . BASIC METABOLIC PANEL (7) Routine 11/09/2018 1:12 PM CDT Results for this procedure are i n the results section . APTT Routine 11/09/2018 1:12 PM CDT Resu lts for this procedure are i n the results section . after 10/22/2018 Results CBC (Hemogram only) (01/08/2019 4:23 AM CDT)Only the most recent of6 results within the time period is included. WBC 8.4 3.5 - 10.5 K/L [facility] RBC 3.09 (L) 4.63 - 6.08 M/L [facility] Hemoglobin 10.5 (L) 13.7 - 17.5 GM/DL [facility] Hematocrit 32.1 (L) 40.1 - 51.0 % [facility] MCV 103.9 (H) 79.0 - 92.2 fL [facility] MCH 34.0 (H) 25.7 - 32.2 pg [facility] MCHC 32.7 32.3 - 36.5 GM/DL [facility] RDW 13.7 11.6 - 14.4 % [facility] Platelets 433 150 - 450 K/CU MM [facility] MPV 9.0 (L) 9.4 - 12.4 fL [facility] nRBC 0 0 - 0 /100 WBC [facility] Specimen Blood Performing Organization Address City/[facility]/Zipcode Phone Number [facility] [address] [place] [address] [place] Basic Metabolic Panel (01/08/2019 4:23 AM CDT)Only the most recent of14 results within the time period is included. Sodium 138 136 - 145 meq/L [facility] Potassium 3.8 3.5 - 5.1 meq/L [facility] Chloride 106 98 - 107 meq/L [facility] CO2 23 22 - 29 meq/L [facility] BUN 8 7 - 21 mg/dL [facility] Creatinine 0.79 0.57 - 1.25 mg/dL [facility] Glucose 98 70 - 105 mg/dL [facility] Calcium 9.0 8.4 - 10.2 mg/dL [facility] EGFR 122Comment: ESTIMATED GFR IS mL/min/1.73 sq m CH I [facility] NOT ACCURATE CREATININE [facility] CLEARANCE IN PREDICTING GLOMERULAR FILTRATION RATE. ESTIMATED GFR IS NOT APPLICABLE FOR DIALYSIS PATIENTS. Specimen Blood Performing Organization Address City/[facility]/Zipcode Phone Number [facility] [address] [place] [address] [place] cystogram static (01/03/2019 2:35 PM CDT) Specimen Narrative Performed At FINAL REPORT Viptable Cystogram Clinical History: concern for urine leak Discussion: Approximately 120 cc of Isovue 300 is in fused into the bladder via gravity through patient's indwelling Fol ey catheter. Sequential images are obtained. There is contrast e xtravasation at the inferior aspect of the bladder primarily into ext raperitoneal space, and there appears to be trace contrast entering th e peritoneal space. Bladder contour is grossly normal.No vesicou reteral reflux is noted. Urethra is not evaluated. Note is also made of subcutaneous emphys luc in the lower pelvic and perineal region. Fluoro time:0.55 minutes Number of images obtained: 10 Impression: Contrast extravasation as described. Signed: Janey Iglesias MD Report Verified Date/Time:01/03/2019 15:59:13 Reading Location: [address] Reading Room Procedure Note Interface, External Ris In - 01/03/2019 4:01 PM CDT FINAL REPORT Cystogram Clinical History: concern for urine leak Discussion: Approximately 120 cc of Isovue 300 is in fused into the bladder via gravity through patient's indwelling Fol ey catheter. Sequential images are obtained. There is contrast e xtravasation at the inferior aspect of the bladder primarily into ext raperitoneal space, and there appears to be trace contrast entering th e peritoneal space. Bladder contour is grossly normal. No vesicoure teral reflux is noted. Urethra is not evaluated. Note is also made of subcutaneous emphys luc in the lower pelvic and perineal region. Fluoro time: 0.55 minutes Number of images obtained: 10 Impression: Contrast extravasation as described. Signed: Janey Iglesias MD Report Verified Date/Time: 01/03/2019 1 5:59:13 Reading Location: [facility] C013X [facility] Reading Room Performing Organization Address City/State/Zipcode Phone Number RIS Phosphorus (01/03/2019 5:02 AM CDT)Only the most recent of3 resultswithin the time period is included. Phosphorus 3.1 2.3 - 4.7 mg/dL [facility] Specimen Blood Performing Organization Address City/[facility]/Zipcode Phone Number [facility] [address] [place] [address] CENTER Magnesium (01/03/2019 5:02 AM CDT)Only the most recent of3 resultswithin the time period is included. Magnesium 1.9 1.6 - 2.6 mg/dL [facility] Specimen Blood Performing Organization Address City/State/Zipcode Phone Number [facility] [address] [place] [address] abdomen/pelvis with IV contrast (01/02/2019 10:50 AM CDT) Specimen Narrative Performed At FINAL REPORT Nitric Bio TECHNIQUE: CT of the abdomen and pelvis WITH intravenous contrast and WITHOUT oral contrast. Dose modulation, iterative reconstruction, and/or weight-based adjustment of the mA /kV was utilized to reduce the radiation dose to as low as reasonab ly achievable. INDICATION: 58-year-old man with postope rative infection. COMPARISON: Abdomen and pelvis CT 019. FINDINGS: LOWER THORAX: Mild atelectasis in both l meredith bases. HEPATOBILIARY: No focal hepatic lesions. Gallbladder is unremarkable. No biliary ductal dilatation. SPLEEN: No splenomegaly. PANCREAS: No focal masses or ductal dila tation. ADRENALS: No adrenal nodules. KIDNEYS/URETERS: No hydronephrosis, ston es, or solid mass lesions. PELVIC ORGANS/BLADDER: Recent prostatect audra. Catheter terminates in the urinary bladder. Air within the blad carmen, likely from catheterization. PERITONEUM/RETROPERITONEUM: Trace amount of air and fluid in the pelvis. Air and fluid collections along the pelvic side lee measure 3.9 x 2.2 cm on the right and 7.1 x 4 cm on the left; these collections exert mass effect on the adj acent bladder. Trace free fluid and free air in the abdomen. LYMPH NODES: Recent bilateral pelvic lym phadenectomies. No lymphadenopathy. VESSELS: Unremarkable. GI TRACT: Distention of the right colon up to 7.8 cm in diameter without transition point. No bowel wall thickening. BONES AND SOFT TISSUES: Bones are unrema rkable. Diffuse scrotal wall edema. Air within the soft tissues of th e abdominal wall tracks inferiorly into the inguinal canals bila terally and surrounds the testicles. Air within the soft tissues o f the penis. Mild soft tissue edema in the abdominal wall, groin, and bilateral proximal thighs. IMPRESSION: Soft tissue air and edema in the abdomen , groin, scrotum, and penis, likely related to recent prostatectomy. Trace ascites and pneumoperitoneum, also likely related to recent prostatectomy. Air- and fluid-containing collections al harjit the pelvic sidewalls bilaterally, likely seromas or lymphocel es. Distention of the right colon without tr ansition point, suggestive of ileus. Signed: Gayathri Trinh MD Report Verified Date/Time:01/02/2019 13:19:12 Reading Location: [facility] B1 C013Y CT Body R eading Room Procedure Note Interface, External Ris In - 01/02/2019 1:21 PM CDT FINAL REPORT TECHNIQUE: CT of the abdomen and pelvis WITH intravenous contrast and WITHOUT oral contrast. Dose modulation, iterative reconstruction, and/or weight-based adjustment of the mA /kV was utilized to reduce the radiation dose to as low as reasonab ly achievable. INDICATION: 58-year-old man with postope rative infection. COMPARISON: Abdomen and pelvis CT 019. FINDINGS: LOWER THORAX: Mild atelectasis in both l meredith bases. HEPATOBILIARY: No focal hepatic lesions. Gallbladder is unremarkable. No biliary ductal dilatation. SPLEEN: No splenomegaly. PANCREAS: No focal masses or ductal dila tation. ADRENALS: No adrenal nodules. KIDNEYS/URETERS: No hydronephrosis, ston es, or solid mass lesions. PELVIC ORGANS/BLADDER: Recent prostatect audra. Catheter terminates in the urinary bladder. Air within the blad carmen, likely from catheterization. PERITONEUM/RETROPERITONEUM: Trace amount of air and fluid in the pelvis. Air and fluid collections along the pelvic side lee measure 3.9 x 2.2 cm on the right and 7.1 x 4 cm on the left; these collections exert mass effect on the adj acent bladder. Trace free fluid and free air in the abdomen. LYMPH NODES: Recent bilateral pelvic lym phadenectomies. No lymphadenopathy. VESSELS: Unremarkable. GI TRACT: Distention of the right colon up to 7.8 cm in diameter without transition point. No bowel wall thickening. BONES AND SOFT TISSUES: Bones are unrema rkable. Diffuse scrotal wall edema. Air within the soft tissues of th e abdominal wall tracks inferiorly into the inguinal canals bila terally and surrounds the testicles. Air within the soft tissues o f the penis. Mild soft tissue edema in the abdominal wall, groin, and bilateral proximal thighs. IMPRESSION: Soft tissue air and edema in the abdomen , groin, scrotum, and penis, likely related to recent prostatectomy. Trace ascites and pneumoperitoneum, also likely related to recent prostatectomy. Air- and fluid-containing collections al harjit the pelvic sidewalls bilaterally, likely seromas or lymphocel es. Distention of the right colon without tr ansition point, suggestive of ileus. Signed: Gayathri Trinh MD Report Verified Date/Time: 01/02/2019 1 3:19:12 Reading Location: [facility] B1 C013Y CT Body R eading Room Performing Organization Address City/State/Zipcode Phone Number [facility] RIS CBC with platelet count + automated diff (01/01/2019 3:31 AM CDT)Only the most recent of3 resultswithin the time period is included. WBC 7.8 3.5 - 10.5 K/L [facility] RBC 2.80 (L) 4.63 - 6.08 M/L [facility] Hemoglobin 9.8 (L) 13.7 - 17.5 GM/DL [facility] Hematocrit 29.2 (L) 40.1 - 51.0 % [facility] MCV 104.3 (H) 79.0 - 92.2 fL [facility] MCH 35.0 (H) 25.7 - 32.2 pg [facility] MCHC 33.6 32.3 - 36.5 GM/DL [facility] RDW 13.1 11.6 - 14.4 % [facility] Platelets 176 150 - 450 K/CU MM [facility] MPV 9.5 9.4 - 12.4 fL [facility] nRBC 0 0 - 0 /100 [address] [facility] % Neutros 71 % [facility] % Lymphs 15 % [facility] % Monos 11 % [facility] % Eos 2 % [facility] % Baso 0 % [facility] # Neutros 5.51 (H) 1.78 - 5.38 K/L [facility] # Lymphs 1.20 (L) 1.32 - 3.57 K/L [facility] # Monos 0.83 (H) 0.30 - 0.82 K/L [facility] # Eos 0.17 0.04 - 0.54 K/L [facility] # Baso 0.03 0.01 - 0.08 K/L [facility] Immature 0 0 - 1 % [facility] Granulocytes-Relative MEDICAL CE NTER Specimen Blood Performing Organization Address City/State/Zipcode Phone Number [facility] [address] [place] [address] CENTER Urinalysis w/Microscopic + Reflex to Culture (12/31/2018 6:39 PM CDT) Color, UA Yellow [facility] Clarity, UA Hazy [facility] Specific [place], UA 1.016 1.001 - 1.035 [facility] pH, UA 6.0 5.0 - 8.[address] [facility] Protein, UA 20 mg/dL (A) Negative [facility] Glucose, UA Negative Negative [facility] Ketones, UA Negative Negative [facility] Bilirubin, UA Negative Negative [facility] Blood, UA Moderate (A) Negative [facility] Nitrite, UA Negative Negative [facility] Leukocytes, UA Large (A) Negative [facility] Urobilinogen, UA 2.0 (H) 0.2 - 1.0 mg/dL [facility] RBC, UA 6 /HPF [facility] WBC, UA 7 /HPF [facility] Bacteria, UA Occasional [facility] Mucus Few [facility] Squam Epithel, UA <1 /HPF [facility] Specimen Source [facility] Specimen Urine Performing Organization Address City/State/Zipcode Phone Number [facility] [address] [place] [address] abdomen pelvis without contrast (12/31/2018 6:09 PM CDT) Specimen Narrative Performed At FINAL REPORT [facility] CT, ABDOMEN \\T\\ PELVIS, WITHOUT IV CONTR AST CLINICAL HISTORY: Abdominal pain, unspec ified ABDOMINAL PAIN Technique: Multiple axial images of the abdomen and pelvis were performed without contrast. Coronal and sagittal reformats obtained. Oral contrast was not administered. This exam was performed according to our departmental dose-optimization program, which include s automated exposure control, adjustment of the mA and/or kV according to patient size and/or use of the iterative reconstruction techniqu e. COMPARISON: None. FINDINGS: LOWER CHEST: By basilar subsegmental ate lectasis. LIVER: No parenchymal abnormality. BILIARY SYSTEM: No abnormal ductal dilat ation. PANCREAS: No acute findings. SPLEEN: No acute findings. ADRENAL GLANDS: Unremarkable. KIDNEYS URETERS: No acute findings. GASTROINTESTINAL/MESENTERY: No bowel obs truction or abnormal wall thickening. The stomach is unremarkable. URINARY BLADDER: Decompressed around Fol ey catheter. REPRODUCTIVE ORGANS: Prostatectomy roach es with complex collection within the prostate bed. PERITONEUM/RETROPERITONEUM: Retrovesicul ar space rim-enhancing collection 4 x 3 x 4.6 cm. Left pelvic s idewall poorly organized collection with punctate foci of trapped gas, 7.5 x 2.9 x 5 cm. Right pelvic sidewall collection, 4.2 x 2.2 x 4.2 cm with trapped gas and "fecal like "appearance. Scattered fluid and small volume pneumoperitoneum present. VESSELS: Within normal limits. LYMPH NODES: No abdominal or pelvic lymp hadenopathy. SOFT TISSUES: Subcutaneous and intramusc ular gas extends bilaterally through the inguinal region into the scr otum with moderate edema. BONES: No suspicious osseous lesion. Other: None IMPRESSION: Intra-abdominal/pelvic complex fluid col lections concerning for abscesses. Rectovesicular space complex collection concerning for abscess versus postoperative hematoma/se bailey. Subcutaneous edema, emphysema extending into the scrotum concerning for necrotizing fasciitis, gangrene vers us postoperative gas. Small volume free fluid and pneumoperito neum. Absence of IV contrast limits sensitivit y of the examination. Findings discussed with the patient's ca re provider, MATTI RIVAS, on 12/31/2018 6:18 PM. Signed: Archie Gibbs MD Report Verified Date/Time:12/31/2018 18:21:28 Procedure Note Interface, External Ris In - 12/31/2018 6:[address] PM [address]T FINAL REPORT CT, ABDOMEN \\T\\ PELVIS, WITHOUT IV CONTR AST CLINICAL HISTORY: Abdominal pain, unspec ified ABDOMINAL PAIN Technique: Multiple axial images of the abdomen and pelvis were performed without contrast. Coronal and sagittal reformats obtained. Oral contrast was not administered. This exam was performed according to our departmental dose-optimization program, which include s automated exposure control, adjustment of the mA and/or kV according to patient size and/or use of the iterative reconstruction techniqu e. COMPARISON: None. FINDINGS: LOWER CHEST: By basilar subsegmental ate lectasis. LIVER: No parenchymal abnormality. BILIARY SYSTEM: No abnormal ductal dilat ation. PANCREAS: No acute findings. SPLEEN: No acute findings. ADRENAL GLANDS: Unremarkable. KIDNEYS URETERS: No acute findings. GASTROINTESTINAL/MESENTERY: No bowel obs truction or abnormal wall thickening. The stomach is unremarkable. URINARY BLADDER: Decompressed around Fol ey catheter. REPRODUCTIVE ORGANS: Prostatectomy roach es with complex collection within the prostate bed. PERITONEUM/RETROPERITONEUM: Retrovesicul ar space rim-enhancing collection 4 x 3 x 4.6 cm. Left pelvic s idewall poorly organized collection with punctate foci of trapped gas, 7.5 x 2.9 x 5 cm. Right pelvic sidewall collection, 4.2 x 2.2 x 4.2 cm with trapped gas and "fecal like "appearance. Scattered fluid and small volume pneumoperitoneum present. VESSELS: Within normal limits. LYMPH NODES: No abdominal or pelvic lymp hadenopathy. SOFT TISSUES: Subcutaneous and intramusc ular gas extends bilaterally through the inguinal region into the scr otum with moderate edema. BONES: No suspicious osseous lesion. Other: None IMPRESSION: Intra-abdominal/pelvic complex fluid col lections concerning for abscesses. Rectovesicular space complex collection concerning for abscess versus postoperative hematoma/se bailey. Subcutaneous edema, emphysema extending into the scrotum concerning for necrotizing fasciitis, gangrene vers us postoperative gas. Small volume free fluid and pneumoperito neum. Absence of IV contrast limits sensitivit y of the examination. Findings discussed with the patient's ca re provider, MATTI RIVAS, on 12/31/2018 6:18 PM. Signed: Archie Gibbs MD Report Verified Date/Time: 12/31/2018 1 8:21:28 Performing Organization Address City/State/Zipcode Phone Number [facility] Creatinine, body fluid (12/30/2018 11:47 AM CDT) Creat, Fluid 0.60 mg/dL [facility] Specimen Body Fluid Narrative Performed At Reference Range:No Normals [facility] Assay performance has not been validated for this type of specimen. Performing Organization Address City/State/Zipcode Phone Number [facility] [address] [place] [address] CENTER Hemoglobin and hematocrit (12/30/2018 4:57 AM CDT)Only the most recent of4 resultswithin the time period is included. Hemoglobin 10.5 (L) 13.7 - 17.5 GM/DL [facility] Hematocrit 31.9 (L) 40.1 - 51.0 % [facility] Specimen Blood Performing Organization Address City/State/Zipcode Phone Number [facility] [address] [place] [address] CENTER TRANSFUSION SERVICE REPORT - SCAN (12/28/2018 6:00 PM CDT)Only the most recent of2 resultswithin the time period is included. Narrative Performed At This result has an attachment that is no t available. Tissue Exam (12/27/2018 10:05 AM CDT) Case Report Surgical Pathology Report Case: [id number] [facility] Authorizing Provider:Blas Yen MDCollected: 12/27/2018 1005 [facility] Ordering Location: [facility] PERIOPERATIVE Received:12/27/2018 1445 SERVICES Pathologist: Nikita Mahajan MD Specimens: A) - Lymph No de, Periprostatic B) - Lymph Node, Pelvic, Right C) - Lymph Node, Pelvic, Left D) - Soft Tissue, Other, Bladder Neck E) - Prostate, Prostate and Seminal Vesicles DIAGNOSIS A. SOFT TISSUE, LABELED "KAMERON-PROSTATIC LYMPH NODE", EXCISION: [facility] - ADIPOSE TISSUE, NO LYMPH NODE SEEN [facility] B. LYMPH NODES, PELVIC, RIGHT, DISSECTION: - ELEVEN BENIGN LYMPH NODES (0/11) C. LYMPH NODES, PELVIC, LEFT, DISSECTION: - FIVE BENIGN LYMPH NODES (0/5) D. SOFT TISSUE, BLADDER NECK, EXCISION: - FIBROADIPOSE TISSUE - NO MALIGNANCY SEEN E. PROSTATE, RADICAL RETROPUBIC PROSTATECTOMY: - ADENOCARCINOMA, IMANI 3+4=7, FOCAL EXTRAPROS TATIC EXTENSION, SURGICAL MARGINS POSITIVE AT APEX SEMINAL VESICLES, RADICAL RETROPUBIC PROSTATEC MIK: - NO PATHOLOGIC DIAGNOSIS Signing Pathologist Direct Phone Line: [phone] COMMENT Sections show a very large [facility] bilateral anterior transition [facility] zone cancer with bilateral peripheral zone cancers. Tumor extends from the apex to the base and there is a positive surgical margin over a linear distance of organ confined tumor at the apical shave margin. Excellent preservation of the neurovascular bundles is noted from examination of the surgical sepcimen. SYNOPTIC REPORT PROSTATE GLAND: Radical Pros tatectomy(Prostate Res - All Specimens) [facility] SPECIMEN Procedure:Radical prostatectomy Prostate Size: Prostate Weight (g):40 g Prostate Greatest D imension in Centimeters (cm):4.8 Centimeters (cm) Additional Dimension in Centime ters (cm):3.4 Centimeters (cm) Additional Dimension in Centime ters (cm):2.6 Centimeters (cm) TUMOR Histologic Type:Acinar adenocarcino ma Histologic Grade: Imani Pattern: Percentage of Pattern 4:30 % Percentage of Pattern 5:1 % Primary [place] Pattern:Pat tern 3 Secondary Imani Pattern:P attern 4 Tertiary [place] Pattern:Pa ttern 5 Total [place] Score:7 Grade Group:2 Intraductal Carcinoma (IDC):Present Tumor Extent: Tumor Quantitation: Estimated percentage of prostate involved by tumor: 15% % Extraprostatic Extension (EPE): Present, focal Location of Extraprostatic Extensio n:Left posterior Urinary Bladder Neck Invasion:N ot identified Seminal Vesicle Invasion:Not id entified Accessory Findings: Treatment Effect:No known presu rgical therapy Lymphovascular Invasion:Not Aram ntified Perineural Invasion:Present MARGINS Margins:Involved by invasive carcin paulie :Non-limited (>= 3 mm) Linear Length of Po sitive Margin(s) in Millimeters (mm):5 Millimeters (mm) Focality:Unifocal Location of Positive Margin(s): Right apical Location of Positive Margin(s): Left apical Margin Positivity i n Area of Extraprostatic Extension (EPE):Not identified Imani Pattern at Positive Margin(s): Pattern 3 LYMPH NODES Number of Lymph Nodes Involved:0 Number of Lymph Nodes Examined:16 PATHOLOGIC STAGE CLASSIFICATION (pTNM, AJCC 8th Edition) TNM Descriptors:Not applicable Primary Tumor (pT):pT3a Regional Lymph Nodes (pN):pN0 Distant Metastasis (pM) :Not applicable - pM cannot be determined from the submitted specimen(s) ADDITIONAL FINDINGS Additional Pathologic F indings:High-grade prostatic intraepithelial neoplasia (PIN) Additional Pathologic Findings:Nodu lar prostatic hyperplasia CPT Code(s) 42504, 37710 x 2, 46386 X 2 [facility] CLINICAL HISTORY Prostate [facility] A. Periprostatic lymph node. [facility] B. Right pelvic lymph node. [facility] C. Left pelvic lymph node. D. Bladder neck. E. Prostate and seminal vesicles GROSS DESCRIPTION A. Received in formalin labe led with the patient's name and "periprostatic lymph node" are four fibrofatty tissue fragments measuring in aggregate 5.5 x 2.5 x 1 cm disclosing a possible lymph node. The specimen is entirely submitted in A1-A3. [facility] ER B. Received in formalin labe led with the patient's name and "right pelvic lymph node" are two fibrofatty tissue fragments measuring in aggregate 4.5 x 4 x 1 cm disclosing multiple lymph nodes. Sections are submitted as follows: B1 , one lymph node, bisected; B2, three lymph nodes; B3-B5, remainder, entirely submitted. C. Received in formalin labe led with the patient's name and "left pelvic lymph node" are two fibrofatty tissue fragments measuring in aggregate 5 x 3 x 1.2 cm disclosing two lymph nodes. Sections are magaña bmitted as follows: C1, one lymph node bisected; C2-C3, one lymph node serially sectioned; C4-C5, remainder, entirely submitted. D. Received in formalin labe led with the patient's name and "bladder neck" is a dark-brown tissue fragment measuring 0.6 x 0.5 x 0.3 cm; entirely submitted in D1. ?/ew Specimen E: Received is a ra dical prostatectomy specimen in formalin with the patient's name (Arturo Harkins) with accession number [id number] is a prostate with bilateral seminal vesicles and vas deferentia. The prostate weighs 40.0 gm and measures 3.4 cm apex to base, 4.8 cm transversely and 2.6 cm anterior to posterior. The right and left seminal v esicles measure 4.0 x 2.0 x 0.5 cm and 3.5 x 2.0 x 1.0 cm respectively. The right and left vasa defe rentia measure 7.0 cm and 5.0 cm in length respectively and 0.5 cm in diameter. The capsular surface of the prostate is purple-fuller to red, dusky, and focally ragged. Ink code: Right-black, left-blue. The prostate is serially sec tioned from apex to base in entirety. The total number of slices including seminal vesicles and vas deferentia are 11. The sectioning of the prosta te reveals pink-fuller to matos-white, homogeneous, focally nodular prostatic parenchyma throughout. No discrete masses are identified. The sectioning of the seminal vesicles reveals a pink-fuller unremarkable cut surface. Section code: Apical margins are submitted in cassette E1, bladder neck margins are submitted in cassette E2. The prostate slices are submitted as follows: Segment 1 in cassette E3, segment 2 in cassett e E4, segment 3 subdivided, left cassette E5 and right portion submitted in cassette E6, segment 4 subdivided, left portion in cassette E7 and portion in cassette E8, segment 5 subdivided, left portion in cassette E9 and right por tion in cassette E10, segment 6 submitted in cassette E11. Right and left seminal vesic les at the base of the prostate are submitted in cassette E12, seminal vesicle tips along with vas deferentia are submitted in cassette E13. SDH/ew MICROSCOPIC DESCRIPTION Performed. [facility] ER Specimen Tissue Tissue - Lymph Node, Pelvic, Right Tissue - Lymph Node, Pelvic, Left Tissue - Soft tissue (navigational yocasta pt) Tissue - Prostatic structure (body struc ture) Performing Organization Address [facility] Phone Number [address] [address] CENTER Type and screen, automated (12/27/2018 6:57 AM CDT)Only the most recent of2 resultswithin the time period is included. ABO/RH AUTOMATED (BEAKER) A POSITIVE [facility] Ab Scrn NEGATIVE [facility] Specimen Blood Performing Organization Address [facility]/Zipcode Phone Number [place] [phone] [place] [address] aPTT (11/09/2018 1:12 PM CDT) PTT 25.8 22.5 - 36.0 seconds [facility] Specimen Blood Performing Organization Address [facility]/Zipcode Phone Number [address] [address] CENTER Prothrombin time/INR (11/09/2018 1:12 PM CDT) Protime 13.7 11.9 - 14.2 seconds [facility] INR 1.1 <=5.9 [facility] Specimen Blood Narrative Performed At Effective 11/01/2018: PT Reference Range [facility] Change New: 11.9-14.2Previous: 11.7-14.7 RECOMMENDED COUMADIN/WARFARIN INR THERAPY RANGES STANDARD DOSE: 2.0-3.0Includes: PROPHYLAXIS for venous thrombosis, systemic embolization; TREATMENT for venous thrombosis and/or pulmonary embolus. HIGH RISK: Target INR is 2.5-3.5 for patients wiht mechanical heart valves. Performing Organization Address City/State/Zipcode Phone Number [facility] [address] [place] [address] CENTER Comprehensive metabolic panel (11/09/2018 1:12 PM CDT) Protein, Total 8.3Comment: Specimen 6.0 - 8.3 gm/dL [facility] markedly hemolyzed [facility] Albumin 4.0Comment: Specimen 3.5 - 5.0 g/dL [facility] markedly hemolyzed [facility] Alkaline Phosphatase 57 40 - 150 U/L [facility] ER Total Bilirubin 0.3Comment: Specimen 0.2 - 1.2 mg/dL [facility] markedly hemolyzed [facility] Sodium 136 136 - 145 meq/L [facility] ER Potassium 4.7Comment: Specimen 3.5 - 5.1 meq/L [facility] markedly hemolyzed [facility] Chloride 103 98 - 107 meq/L [facility] ER CO2 21 (L) 22 - 29 meq/L [facility] BUN 10 7 - 21 mg/dL [facility] Creatinine 1.05Comment: Specimen 0.57 - 1.25 mg/dL [facility] markedly hemolyzed [facility] Glucose 97 70 - 105 mg/dL [facility] VINELANDHarpreetS HE [facility]TH [facility] Calcium 8.9 8.4 - 10.2 mg/dL [facility] AST 42 (H)Comment: Specimen 5 - 34 U/L [facility] ST [facility] markedly hemolyzed [facility] ALT 20Comment: Specimen 6 - 55 U/L [facility] markedly hemolyzed [facility] EGFR 88Comment: ESTIMATED GFR mL/min/1.73 sq m [facility]ELANDHarpreetMEADV[facility] IS NOT ACCURATE [facility] CREATININE CLEARANCE IN PREDICTING GLOMERULAR FILTRATION RATE. ESTIMATED GFR IS NOT APPLICABLE FOR DIALYSIS PATIENTS. Specimen Blood Narrative Performed At Specimen slightly lipemic [facility] Performing Organization Address City/State/Zipcode Phone Number [facility] [address] [place] [address] CENTER after 10/22/2018 Insurance Payer Benefit Plan / Group Subscriber ID Type Phone A ddress [employer] xxxxxxxxxxx Maps Contracted MEDICAID [place] xxxxxxxxx Medicaid Advance Directives For more information, please contact:[facility] [place], [place] [phone] Code Status Date Activated Date Inactivated Comments Full Code 12/31/2018 7:10 PM 01/08/2019 12:59 PM This code status was determined by: Patient Full Code 12/27/2018 2:31 PM 12/30/2018 8:35 PM This code status was determined by: Patient
--- OUTSIDE RECORDS SUMMARY | 2019-10-23 10:23 | XMS REPORT ---
:1960 Author Organization eClinicalWorks Care Team Providers Name Role Phone Ugo Lopez Provider Role Unavailable Allergies, Adverse Reactions, Alerts Substance Reaction Event Type N.K.D.A. Info Not Available Non Drug Allergy Encounters Encounter Location Date NEW PT: Possible Infection, Rt [facility] Feb 27, 2015 Results: LFT's (Round 1) [facility] Mar 03 Re-Check: LFT's (Round 2) [facility] Apr 02 Results: LFT's (Round 2) [facility] Apr 09, 2015 Problems Problem Type Condition ICD-9 Code Onset Dates Condition Statu s Assessment Contusion/hematoma-toe 924.3 Activ e Problem Ingrowing nail 703.0 Active Problem Onychomycosis 110.1 Active Problem Abscess/cellulitis-toe 681.10 Activ e Assessment Ingrowing nail 703.0 Active Assessment Onychomycosis 110.1 Active Problem Contusion/hematoma-toe 924.3 Activ e Assessment Abscess/cellulitis-toe 681.10 Activ e Medications Medication Code System Code Instructions Start End Date Status Dos age Date Lamisil MEDISPAN 14935-235 250 MG Orally Feb 27, May 28, Active 1 tabl et 9-05 Once a day 2014 2014 Hydrocodone-Jorge MEDISPAN 84993-894 Active Unkno wn taminophen 2-10 Lyrica MEDISPAN 82374-434 Active Unknown 0-01 Social History Social History Element Qualifiers Date Reported Tobacco Use: . Are you a:: current smoker Feb 27, 2015 Vital Signs Date/Time: Feb 27, 2015 Weight 190 lbs Height 71 in Cardiac Monitoring Heart Rate 81 /min Blood Pressure Diastolic 84 mm Hg Blood Pressure Systolic 132 mm Hg Summary Purpose eClinicalWorks Submission
--- OUTSIDE RECORDS SUMMARY | 2019-10-23 10:23 | XMS REPORT | Summary of Care ---
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) - 04/18/18 Lesion of ulnar nerve, left upper limb (Final) - 04/21/18 Localized swelling, mass and lump, left lower limb (Final) - Essential (primary) hypertension (Final) - Personal history of malignant neoplasm of prostate (Final) - Discharge Disposition: Home or Self Care Attending Physician: Terrence Woodruff MD Vital Signs Most recent to oldest [Reference Range]: 1 2 Temperature Oral [96.4-99.1 DegF] 98.5 DegF 98.3 D egF (04/18/18 9:12 PM) (04/18/18 7:46 PM) Blood Pressure [90-140/60-90 mmHg] 138/92 mmHg 124/7 3 mmHg (04/18/18 9:12 PM) (04/18/18 7:46 PM) Respiratory Rate [14-20 BRMIN] 16 BRMIN 17 BRMIN (04/18/18 9:12 PM) (04/18/18 7:46 PM) Peripheral Pulse Rate [60-100 bpm] 90 bpm 89 bp m (04/18/18 9:12 PM) (04/18/18 7:46 PM) Weight 88.01 kg (04/18/18 7:46 PM) Problem List No data available for this section Allergies, Adverse Reactions, Alerts No Known Medication Allergies Medications ibuprofen 800 mg, 1 tab, Route: PO, Drug form: TAB, ONCE, Dosing Weight 88.01, kg, Priority: STAT, Start date:04/18/18 19:48:00 [employer], Stop date: 04/18/18 19:48:00 [employer] Notes: (Same as: Motrin)"Do Not Crush" Take with food. Start Date: 04/18/18 Stop Date: 04/18/18 Status: CompletedMedrol Dosepak 4 mg oral tablet See Instructions, PO, Take by mouth as directed on label., # 1 Pack, 0 Refill(s) Start Date: 04/18/18 Stop Date: 04/24/18 Status: OrderedMotrin 800 mg oral tablet 800 mg = 1 tab, PO, Q8H, PRN Pain, Take with food, X 10 day, # 30 tab, 0 Refill(s) Start Date: 04/18/18 Stop Date: 04/28/18 Status: CompletedTylenol with Codeine #3 oral tablet 1 tab, PO, Q6H, PRN Pain, X 3 day, # 12 tab, 0 Refill(s) Start Date: 04/18/18 Stop Date: 04/21/18 Status: Completed Results No data available for this section Immunizations No data available for this section Procedures No data available for this section Social History Social History Type Response Smoking Status Never smoker; Concerns about tobacco use in household: No; Exposure to Tobacco Smoke None; Cigarette Smoking Last 365 Days No; Reg Smoking Cessation Counseling No entered on: 04/18/18 Assessment and Plan No data available for this section
--- OUTSIDE RECORDS SUMMARY | 2019-10-23 10:23 | XMS REPORT ---
:1960 Author Organization eClinicalWorks Care Team Providers Name Role Phone Ugo Lopez Provider Role Unavailable Encounters Encounter Location Date Results: LFT's (Round 2) [facility] Apr 09, 2015 NEW PT: Possible Infection, Rt Hallux [facility] Feb 27, 2015 Results: LFT's (Round 1) [facility] Mar 03 5 Re-Check: LFT's (Round 2) [facility] Apr 02 5 Problems Problem Type Condition ICD-9 Code Onset Dates Condition Statu s Problem Ingrowing nail 703.0 Active Problem Onychomycosis 110.1 Active Problem Abscess/cellulitis-toe 681.10 Activ e Problem Contusion/hematoma-toe 924.3 Activ e Social History Social History Element Qualifiers Date Reported Tobacco Use: . Are you a:: current smoker Feb 27, 2015 Summary Purpose eClinicalWorks Submission
--- OUTSIDE RECORDS SUMMARY | 2019-10-23 10:23 | XMS REPORT ---
:1960 Author Organization eClinicalWorks Care Team Providers Name Role Phone Ugo Lopez Provider Role Unavailable Encounters Encounter Location Date NEW PT: Possible Infection, Rt Hall[facility] Feb 27, 2015 Re-Check: LFT's (Round 3) [facility] May 12 Results: LFT's (Round 1) [facility] Mar 03 Re-Check: LFT's (Round 2) [facility] Apr 02 Results: LFT's (Round 2) [facility] Apr 09, 2015 Problems Problem Type [...]
--- OUTSIDE RECORDS SUMMARY | 2019-10-23 10:23 | XMS REPORT | Summary of Care ---
:1960 Author Organization [facility] Address [address] [place] [id number] Encounter HQ Declan(FIN) [phone] Date(s): 11/01/17 - 11/02/17 [facility] [address] [place] [phone]- Encounter Diagnosis Chronic hypertension (Discharge Diagnosis) - 11/02/17 Right-sided chest pain. (Discharge Diagnosis) - 11/02/17 Current every day smoker (Discharge Diagnosis) - 11/02/17 Mild anemia (Discharge Diagnosis) - 11/02/17 Chest pain, atypical (Discharge Diagnosis) - 11/02/17 Discharge Disposition: Home or Self Care Attending Physician: Abbie Matias MD Vital Signs Most recent to oldest 1 2 3 [Reference Range]: Temperature Oral [96.4-99.1 98.2 DegF 98.3 DegF DegF] (11/02/17 4:31 AM) (11/01/17 11:29 PM) Blood Pressure [90-140/60-90 132/91 mmHg 135/87 mmHg 140 /73 mmHg mmHg] (11/02/17 4:31 AM) (11/02/17 3:48 AM) (11/02/17 3:2 5 AM) Respiratory Rate [14-20 13 BRMIN 13 BRMIN 14 BRMIN BRMIN] *LOW* *LOW* (11/02/17 3:25 AM ) (11/02/17 4:31 AM) (11/02/17 3:48 AM) Peripheral Pulse Rate [60-100 99 bpm bpm] (11/01/17 11:29 PM) Weight 79.955 kg (11/01/17 11:29 PM) Problem List No data available for this section Allergies, Adverse Reactions, Alerts Substance Reaction Severity Status NKDA Active Medications ketOROLAC 15 mg, 0.5 mL, Route: IVP, Drug form: INJ, ONCE, Dosing Weight 79.955, kg, Priority: STAT, Start date: 11/02/17 1:07:00 CDT, Stop date: 11/02/17 1:07:00 CDT Notes: (Same as:Toradol) IV bolus must be given >15 seconds. Give IM administration slowly and deeply into the muscle.Not for use > 4 days MEDICATION WASTE Product Size: 30 mgProduct Wasted: ___ mg Start Date: 11/02/17 Stop Date: 11/02/17 Status: Completedmorphine Sulfate 4 mg, 1 mL, Route: IVP, Drug form: SOLN, ONCE, Dosing Weight 79.955, kg, Priority: STAT, Start date:11/02/17 1:06:00 CDT, Stop date: 11/02/17 1:06:00 CDT Notes: (Same as:MORPhine Sulfate) Start Date: 11/02/17 Stop Date: 11/02/17 Status: CompletedNorco 5/325 oral tablet 1 tab, Route: PO, Drug Form: TAB, Dosing Weight 79.955, kg, ONCE, STAT, Start date: 11/02/17 3:16:00CDT, Stop date: 11/02/17 3:16:00 CDT Start Date: 11/02/17 Stop Date: 11/02/17 Status: CompletedOmnipaque 300 100 mL, 100 ml/hr, Route: IV, Drug Form: SOLN, Dosing Weight 79.955, kg, ONCE, Start date: 11/02/17 2:12:00 CDT, Stop date: 11/02/17 2:12:00 CDT Notes: (Same as:Omnipaque 300).WASTE: F/P - Black; E - Municipal Trash Bin Start Date: 11/02/17 Stop Date: 11/02/17 Status: DiscontinuedOmnipaque 350 100 mL, Route: IV, Dosing Weight 79.955, kg, ONCE, Start date: 11/02/17 2:27:00 CDT, Stop date: 11/02/17 2:27:00 CDT Start Date: 11/02/17 Stop Date: 11/02/17 Status: CompletedRobaxin + Sodium Chloride 0.9% IV 100 mL 1,000 mg, 10 mL, Route: IVPB, ONCE, Dosing Weight 79.955, kg, Start date: 11/02/17 2:44:00 CDT, Stopdate: 11/02/17 2:44:00 CDT Notes: (Same as:Robaxin) Start Date: 11/02/17 Stop Date: 11/02/17 Status: CompletedRobaxin-750 oral tablet 1- 2 tab, PO, TID, PRN Muscle Spasms, X 5 day, # 20 tab, 0 Refill(s) Start Date: 11/02/17 Stop Date: 11/07/17 Status: OrderedSaline Flush 0.9% 10 mL, Route: IVP, Drug Form: INJ, Dosing Weight 89.545, kg, PRN, PRN Line Flush, Start date: 11/01/17 23:24:00 CDT, Duration: 30 day, Stop date: 12/01/17 23:23:00 CDT Notes: Same as: BD Posiflush Sterile Start Date: 11/01/17 Stop Date: 11/02/17 Status: DiscontinuedSodium Chloride 0.9% (Bolus) IV 500 mL, 500 ml/hr, Infuse Over: 1 hr, Route: IV, 500, Drug form: INJ, ONCE, Priority: STAT, Dosing Weight 79.955 kg, Start date: 11/02/17 1:06:00 CDT, Stop date: 11/02/17 1:06:00 CDT Start Date: 11/02/17 Stop Date: 11/02/17 Status: CompletedTylenol with Codeine #3 oral tablet 1 - 2 tab, PO, Q6H, PRN Pain, X 3 day, # 15 tab, 0 Refill(s) Start Date: 11/02/17 Stop Date: 11/05/17 Status: OrderedZofran ODT 4 mg, 1 tab, Route: PO, Drug form: TABDIS, ONCE, Dosing Weight 79.955, kg, Priority: STAT, Start date: 11/02/17 1:06:00 CDT, Stop date: 11/02/17 1:06:00 CDT Notes: (Same as: Zofran ODT) Start Date: 11/02/17 Stop Date: 11/02/17 Status: Completed Results ELECTROLYTES Most recent to oldest [Reference Range]: 1 2 Sodium Lvl [135-145 mEq/L] 139 mEq/L (11/01/17 11:53 PM) Potassium Lvl [3.5-5.1 mEq/L] 3.9 mEq/L (11/01/17 11:53 PM) Chloride Lvl [95-109 mEq/L] 106 mEq/L (11/01/17 11:53 PM) CO2 [24-32 mEq/L] 24 mEq/L (11/01/17 11:53 PM) AGAP [10.0-20.0 mEq/L] 12.9 mEq/L (11/01/17 11:53 PM) CHEM PANEL Most recent to oldest [Reference Range]: 1 2 Creatinine Lvl [0.50-1.40 mg/dL] 1.17 mg/dL (11/01/17 11:53 PM) eGFR 80 mL/min/1.73m2 1 *NA* (11/01/17 11:53 PM) BUN [7-22 mg/dL] 19 mg/dL (11/01/17 11:53 PM) B/C Ratio [6-25] 16 (11/01/17 11:53 PM) Glucose Lvl [70-99 mg/dL] 103 mg/dL *HI* (11/01/17 11:53 PM) Total Protein [6.4-8.4 g/dL] 7.6 g/dL (11/01/17 11:53 PM) Albumin Lvl [3.5-5.0 g/dL] 3.7 g/dL (11/01/17 11:53 PM) Globulin [2.7-4.2 g/dL] 3.9 g/dL (11/01/17 11:53 PM) A/G Ratio [0.7-1.6] 0.9 (11/01/17 11:53 PM) Calcium Lvl [8.5-10.5 mg/dL] 8.3 mg/dL *LOW* (11/01/17 11:53 PM) ALT [0-65 unit/L] 30 unit/L (11/01/17 11:53 PM) AST [0-37 unit/L] 33 unit/L (11/01/17 11:53 PM) Alk Phos [39-136 unit/L] 57 unit/L (11/01/17 11:53 PM) Bili Total [0.2-1.3 mg/dL] 0.2 mg/dL (11/01/17 11:53 PM) 1Result Comment: The eGFR is calculated using the CKD-EPI formula. In most young, healthy individualsthe eGFR will be >90 mL/min/1.73m2. The eGFR declines with age. An eGFR of 60-89 may be normal insome populations, particularly the elderly, for whom the CKD-EPI formula has not been extensively validated. Use of the eGFR is not recommended in the following populations: Individuals with unstable creatinine concentrations, including patients and those with serious co-morbid conditions. Patients with extremes in muscle mass or diet. The data above are obtained from the National Kidney Disease Education Program (NKDEP) which additionally recommends that when the eGFR is used in patients with extremes of body mass index for purposesof drug dosing, the eGFR should be multiplied by the estimated BMI.CARDIAC ENZYMES Most recent to oldest [Reference Range]: 1 2 Total CK [12-191 unit/L] 181 unit/L 209 unit/L (11/02/17 2:54 AM) *HI* (11/01/17 11:53 PM) CK MB [0.5-3.6 ng/mL] 1.8 ng/mL 1.9 ng/mL (11/02/17 2:54 AM) (11/01/17 11:53 PM) CK MB Index [0.0-2.5] 1.0 0.9 (11/02/17 2:54 AM) (11/01/17 11:53 PM) Troponin-I [0.00-0.40 ng/mL] <0.02 ng/mL <0.02 ng/mL (11/02/17 2:54 AM) (11/01/17 11:53 PM) HEMATOLOGY Most recent to oldest [Reference Range]: 1 2 WBC [3.7-10.4 K/CMM] 7.5 K/CMM (11/01/17 11:53 PM) RBC [4.70-6.10 M/CMM] 3.68 M/CMM *LOW* (11/01/17 11:53 PM) Hgb [14.0-18.0 g/dL] 13.2 g/dL *LOW* (11/01/17 11:53 PM) Hct [42.0-54.0 %] 37.4 % *LOW* (11/01/17 11:53 PM) MCV [80.0-94.0 fL] 101.7 fL *HI* (11/01/17 11:53 PM) MCH [27.0-31.0 pg] 36.0 pg *HI* (11/01/17 11:53 PM) MCHC [32.0-36.0 g/dL] 35.4 g/dL (11/01/17 11:53 PM) RDW [11.5-14.5 %] 13.3 % (11/01/17 11:53 PM) MPV [7.4-10.4 fL] 7.8 fL (11/01/17 11:53 PM) Platelet [133-450 K/CMM] 194 K/CMM (11/01/17 11:53 PM) Segs [45.0-75.0 %] 60.6 % (11/01/17 11:53 PM) Lymphocytes [20.0-40.0 %] 28.5 % (11/01/17 11:53 PM) Monocytes [2.0-12.0 %] 7.4 % (11/01/17 11:53 PM) Eosinophils [0.0-4.0 %] 2.6 % (11/01/17 11:53 PM) Basophils [0.0-1.0 %] 0.9 % (11/01/17 11:53 PM) Segs-Bands # [1.5-8.1 K/CMM] 4.6 K/CMM (11/01/17 11:53 PM) Lymphocytes # [1.0-5.5 K/CMM] 2.1 K/CMM (11/01/17 11:53 PM) Monocytes # [0.0-0.8 K/CMM] 0.6 K/CMM (11/01/17 11:53 PM) Eosinophils # [0.0-0.5 K/CMM] 0.2 K/CMM (11/01/17 11:53 PM) Basophils # [0.0-0.2 K/CMM] 0.1 K/CMM (11/01/17 11:53 PM) Macrocyte [None Seen] 1+ *ABN* (11/01/17 11:53 PM) Immunizations No data available for this section Procedures No data available for this section Social History Social History Type Response Smoking Status Never smoker; Concerns about tobacco use in household: No; Exposure to Tobacco Smoke None; Cigarette Smoking Last 365 Days No; Reg Smoking Cessation Counseling No entered on: 11/02/17 Assessment and Plan No data available for this section
--- OUTSIDE RECORDS SUMMARY | 2019-10-23 10:23 | XMS REPORT | Summary of Care ---
:1960 Author Organization [facility] Address [address] [place] [address]- Encounter HQ Wilian_alistair(FIN) [phone] Date(s): 12/15/16 - 12/16/16 [facility] [id number] [place] [phone]- [phone] Discharge Diagnosis: De Quervain's tenosynovitis Discharge Disposition: Home or Self Care Attending Physician: Michael Goldberg MD Vital Signs Most recent to oldest [Reference Range]: 1 2 Temperature Oral [96.4-99.1 DegF] 98.2 DegF (12/15/16 9:23 PM) Blood Pressure [90-140/60-90 mmHg] 115/84 mmHg 118/7 2 mmHg (12/16/16 12:46 AM) (12/15/16 9:23 PM) Respiratory Rate [14-20 BRMIN] 15 BRMIN 16 BRMIN (12/16/16 12:46 AM) (12/15/16 9:23 PM) Peripheral Pulse Rate [60-100 bpm] 76 bpm 83 bp m (12/16/16 12:46 AM) (12/15/16 9:23 PM) Weight 89.545 kg (12/15/16 9:23 PM) Problem List No data available for this section Allergies, Adverse Reactions, Alerts Substance Reaction Severity Status NKDA Active Medications Motrin 800 mg oral tablet 800 mg = 1 tab, PO, Q8H, PRN Pain, Take with food, X 7 day, # 21 tab, 0 Refill(s) Start Date: 12/16/16 Stop Date: 12/23/16 Status: Ordered Results No data available for this section Immunizations No data available for this section Procedures No data available for this section Social History Social History Type Response Smoking Status Never smoker; Concerns about tobacco use in household: No; Exposure to Tobacco Smoke No ne; Cigarette Smoking Last 365 Days No; Reg Smoking Cessation Co unseling No Assessment and Plan No data available for this section
--- OUTSIDE RECORDS SUMMARY | 2019-10-23 10:24 | XMS REPORT ---
:1960 Author Organization [facility] t Address [address] [place] [address] Care Team Providers Name Role Phone Savanna Brown Attending Clinician Chidi MCCOY Attending Clinician MONICA Attending Clinician Unavailable CHIDI Attending Clinician Unavailable Seth Woodruff Attending Clinician Amanda Matias Attending Clinician Nel Goldberg Attending Clinician CHIDI Admitting Clinician Unavailable Payers Payer Name Policy Type Policy Number Effective Date Expiration Date S ource Problems This patient has no known problems. Allergies, Adverse Reactions, Alerts Allergy Allergy Status Severity Reaction(s) Onset Inactive Treating Comm ents Source Name Type Date Date Clinician No Known DA Active U [facility] All[facility]ie 12-31 00:00: [address] Medications This patient has no known medications. Procedures This patient has no known procedures. Encounters Start End Encounter Admission Attending Care Care Encounter Source Date/Time Date/Time Type Type Clinicians Facility Department ID 2019-08-15 2019-08-15 Office CHRIS Lua [id number] 13:29:49 14:15:25 Visit [facility] [id number] Surgical 4.2.7.2.686 Special [id number] [address] [place] 2019-01-19 2019-01-19 Office Blas Murillo BC [id number] 09:27:34 10:39:25 Visit AMBULATOR 350.1.13.21 Y 0.2.7.2.686 [id number] 300 2019-01-15 2019-01-15 Office Blas Murillo BC [id number] 15:22:05 16:02:23 Visit AMBULATOR 350.1.13.21 Y 0.2.7.2.686 [id number] 300 2018-04-18 2018-04-[address] [facility] [id number] [facility] 19:27:00 21:48:00 [facility] 2017-11-01 2017-11-02 [facility] [id number] 23:07:00 04:33:00 Abbie Patel 01 [facility] 2016-12-15 2016-12-[address] [facility] [id number] [place] 21:18:00 00:50:00 Dacecilian 00 [facility] 2015-05-12 2015-05-12 Outpatient [facility] [id number] [place] 13:34:00 13:34:00 [facility] 2015-04-09 2015-04-09 Outpatient [facility] [id number] [place] 17:51:00 17:51:00 [facility] Podiat r y 2015-02-27 2015-02-27 Outpatient [facility] [id number] [place] 11:00:00 11:00:00 [facility] Podiatry Podiat r y Results Test Description Test Time Test Comments Results Result Comments Source BASIC METABOLIC PANEL 2019-01-08 06:51:00 Test Item Value Reference Range Interpretation Comme nts SODIUM (BEAKER) (test code 138 meq/L 136-145 = 381) POTASSIUM (BEAKER) (test 3.8 meq/L 3.5-5.1 code = 379) CHLORIDE (BEAKER) (test 106 meq/L 98-107 code = 382) CO2 (BEAKER) (test code = 23 meq/L 22-29 355) BLOOD UREA NITROGEN 8 mg/dL 7-21 (BEAKER) (test code = 354) CREATININE (BEAKER) (test 0.79 mg/dL 0.57-1.25 code = 358) GLUCOSE RANDOM (BEAKER) 98 mg/dL 70-105 (test code = 652) CALCIUM (BEAKER) (test 9.0 mg/dL 8.4-10.2 code = 697) EGFR (BEAKER) (test code = 122 mL/min/1.73 sq m ESTIMATED GFR IS NOT 1092) ACCURATE CRE ATININE CLEARANCE IN AR EDICTING GLOMERULAR FILT RATION RATE. ESTIMATED GFR IS NOT APPLICABLE FOR DIALYSIS PATIENTS. CBC (HEMOGRAM ONLY)2019-01-08 05:48:00 Test Item Value Reference Range Interpretation Comments WHITE BLOOD CELL COUNT (BEAKER) 8.4 K/ L 3.5-10.5 (test code = 775) RED BLOOD CELL COUNT (BEAKER) 3.09 M/ L 4.63-6.08 L (test code = 761) HEMOGLOBIN (BEAKER) (test code = 10.5 GM/DL 13.7-17.5 L 410) HEMATOCRIT (BEAKER) (test code = 32.1 % 40.1-51.0 L 411) MEAN CORPUSCULAR VOLUME (BEAKER) 103.9 fL 79.0-92.2 H (test code = 753) MEAN CORPUSCULAR HEMOGLOBIN 34.0 pg 25.7-32.2 H (BEAKER) (test code = 751) MEAN CORPUSCULAR HEMOGLOBIN CONC 32.7 GM/DL 32.3-36.5 (BEAKER) (test code = 752) RED CELL DISTRIBUTION WIDTH 13.7 % 11.6-14.4 (BEAKER) (test code = 412) PLATELET COUNT (BEAKER) (test 433 K/CU MM 150-450 code = 756) MEAN PLATELET VOLUME (BEAKER) 9.0 fL 9.4-12.4 L (test code = 754) NUCLEATED RED BLOOD CELLS 0 /100 WBC 0-0 (BEAKER) (test code = 413) BASIC METABOLIC [id number] 10:29:00 Test Item Value Reference Range Interpretation Comments SODIUM (BEAKER) 138 meq/L 136-145 (test code = 381) POTASSIUM (BEAKER) 4.1 meq/L 3.5-5.1 Specimen slightly (test code = 379) hemolyzed CHLORIDE (BEAKER) 104 meq/L 98-107 (test code = 382) CO2 (BEAKER) (test 25 meq/L 22-29 code = 355) BLOOD UREA NITROGEN 10 mg/dL 7-21 (BEAKER) (test code = 354) CREATININE (BEAKER) 0.84 mg/dL 0.57-1.25 Specimen slightly (test code = 358) hemolyzed GLUCOSE RANDOM 131 mg/dL 70-105 H (BEAKER) (test code = 652) CALCIUM (BEAKER) 9.4 mg/dL 8.4-10.2 (test code = 697) EGFR (BEAKER) (test 114 mL/min/1.73 ESTIM ATED GFR IS code = 1092) sq m NOT ACCURATE CREATININE CLEARANCE IN PREDICTING GLOMERULAR FILTRATION RATE . ESTIMATED GFR I S NOT APPLICABLE FOR DIALYSIS PATIEN TS. CBC (HEMOGRAM ONLY)2019-01-07 06:52:00 Test Item Value Reference Range Interpretation Comments WHITE BLOOD CELL COUNT (BEAKER) 7.7 K/ L 3.5-10.5 (test code = 775) RED BLOOD CELL COUNT (BEAKER) 2.98 M/ L 4.63-6.08 L (test code = 761) HEMOGLOBIN (BEAKER) (test code = 10.3 GM/DL 13.7-17.5 L 410) HEMATOCRIT (BEAKER) (test code = 31.1 % 40.1-51.0 L 411) MEAN CORPUSCULAR VOLUME (BEAKER) 104.4 fL 79.0-92.2 H (test code = 753) MEAN CORPUSCULAR HEMOGLOBIN 34.6 pg 25.7-32.2 H (BEAKER) (test code = 751) MEAN CORPUSCULAR HEMOGLOBIN CONC 33.1 GM/DL 32.3-36.5 (BEAKER) (test code = 752) RED CELL DISTRIBUTION WIDTH 13.3 % 11.6-14.4 (BEAKER) (test code = 412) PLATELET COUNT (BEAKER) (test 385 K/CU MM 150-450 code = 756) MEAN PLATELET VOLUME (BEAKER) 9.1 fL 9.4-12.4 L (test code = 754) NUCLEATED RED BLOOD CELLS 0 /100 WBC 0-0 (BEAKER) (test code = 413) CBC (HEMOGRAM ONLY)2019-01-06 06:40:00 Test Item Value Reference Range Interpretation Comments WHITE BLOOD CELL COUNT (BEAKER) 7.1 K/ L 3.5-10.5 (test code = 775) RED BLOOD CELL COUNT (BEAKER) 3.16 M/ L 4.63-6.08 L (test code = 761) HEMOGLOBIN (BEAKER) (test code = 10.8 GM/DL 13.7-17.5 L 410) HEMATOCRIT (BEAKER) (test code = 33.7 % 40.1-51.0 L 411) MEAN CORPUSCULAR VOLUME (BEAKER) 106.6 fL 79.0-92.2 H (test code = 753) MEAN CORPUSCULAR HEMOGLOBIN 34.2 pg 25.7-32.2 H (BEAKER) (test code = 751) MEAN CORPUSCULAR HEMOGLOBIN CONC 32.0 GM/DL 32.3-36.5 L (BEAKER) (test code = 752) RED CELL DISTRIBUTION WIDTH 13.1 % 11.6-14.4 (BEAKER) (test code = 412) PLATELET COUNT (BEAKER) (test 322 K/CU MM 150-450 code = 756) MEAN PLATELET VOLUME (BEAKER) 9.3 fL 9.4-12.4 L (test code = 754) NUCLEATED RED BLOOD CELLS 0 /100 WBC 0-0 (BEAKER) (test code = 413) BASIC METABOLIC [id number] 07:16:00 Test Item Value Reference Range Interpretation Comments SODIUM (BEAKER) 138 meq/L 136-145 (test code = 381) POTASSIUM (BEAKER) 3.2 meq/L 3.5-5.1 L (test code = 379) CHLORIDE (BEAKER) 102 meq/L 98-107 (test code = 382) CO2 (BEAKER) (test 30 meq/L 22-29 H code = 355) BLOOD UREA NITROGEN 5 mg/dL 7-21 L (BEAKER) (test code = 354) CREATININE (BEAKER) 0.81 mg/dL 0.57-1.25 (test code = 358) GLUCOSE RANDOM 96 mg/dL 70-105 (BEAKER) (test code = 652) CALCIUM (BEAKER) 8.7 mg/dL 8.4-10.2 (test code = 697) EGFR (BEAKER) (test 119 mL/min/1.73 ESTIM ATED GFR IS code = 1092) sq m NOT ACCURATE CREATININE CLEARANCE IN PREDICTING GLOMERULAR FILTRATION RATE . ESTIMATED GFR I S NOT APPLICABLE FOR DIALYSIS PATIEN TS. CBC (HEMOGRAM ONLY)2019-01-05 05:18:00 Test Item Value Reference Range Interpretation Comments WHITE BLOOD CELL COUNT (BEAKER) 7.1 K/ L 3.5-10.5 (test code = 775) RED BLOOD CELL COUNT (BEAKER) 3.00 M/ L 4.63-6.08 L (test code = 761) HEMOGLOBIN (BEAKER) (test code = 10.2 GM/DL 13.7-17.5 L 410) HEMATOCRIT (BEAKER) (test code = 31.4 % 40.1-51.0 L 411) MEAN CORPUSCULAR VOLUME (BEAKER) 104.7 fL 79.0-92.2 H (test code = 753) MEAN CORPUSCULAR HEMOGLOBIN 34.0 pg 25.7-32.2 H (BEAKER) (test code = 751) MEAN CORPUSCULAR HEMOGLOBIN CONC 32.5 GM/DL 32.3-36.5 (BEAKER) (test code = 752) RED CELL DISTRIBUTION WIDTH 12.8 % 11.6-14.4 (BEAKER) (test code = 412) PLATELET COUNT (BEAKER) (test 287 K/CU MM 150-450 code = 756) MEAN PLATELET VOLUME (BEAKER) 9.1 fL 9.4-12.4 L (test code = 754) NUCLEATED RED BLOOD CELLS 0 /100 WBC 0-0 (BEAKER) (test code = 413) BASIC METABOLIC [id number] 06:42:00 Test Item Value Reference Range Interpretation Comments SODIUM (BEAKER) 134 meq/L 136-145 L (test code = 381) POTASSIUM (BEAKER) 3.3 meq/L 3.5-5.1 L (test code = 379) CHLORIDE (BEAKER) 100 meq/L 98-107 (test code = 382) CO2 (BEAKER) (test 29 meq/L 22-29 code = 355) BLOOD UREA NITROGEN 5 mg/dL 7-21 L (BEAKER) (test code = 354) CREATININE (BEAKER) 0.77 mg/dL 0.57-1.25 (test code = 358) GLUCOSE RANDOM 96 mg/dL 70-105 (BEAKER) (test code = 652) CALCIUM (BEAKER) 8.1 mg/dL 8.4-10.2 L (test code = 697) EGFR (BEAKER) (test 126 mL/min/1.73 ESTIM ATED GFR IS code = 1092) sq m NOT ACCURATE CREATININE CLEARANCE IN PREDICTING GLOMERULAR FILTRATION RATE . ESTIMATED GFR I S NOT APPLICABLE FOR DIALYSIS PATIEN TS. CBC (HEMOGRAM ONLY)2019-01-04 05:36:00 Test Item Value Reference Range Interpretation Comments WHITE BLOOD CELL COUNT (BEAKER) 6.9 K/ L 3.5-10.5 (test code = 775) RED BLOOD CELL COUNT (BEAKER) 2.93 M/ L 4.63-6.08 L (test code = 761) HEMOGLOBIN (BEAKER) (test code = 10.4 GM/DL 13.7-17.5 L 410) HEMATOCRIT (BEAKER) (test code = 31.2 % 40.1-51.0 L 411) MEAN CORPUSCULAR VOLUME (BEAKER) 106.5 fL 79.0-92.2 H (test code = 753) MEAN CORPUSCULAR HEMOGLOBIN 35.5 pg 25.7-32.2 H (BEAKER) (test code = 751) MEAN CORPUSCULAR HEMOGLOBIN CONC 33.3 GM/DL 32.3-36.5 (BEAKER) (test code = 752) RED CELL DISTRIBUTION WIDTH 12.8 % 11.6-14.4 (BEAKER) (test code = 412) PLATELET COUNT (BEAKER) (test 264 K/CU MM 150-450 code = 756) MEAN PLATELET VOLUME (BEAKER) 9.0 fL 9.4-12.4 L (test code = 754) NUCLEATED RED BLOOD CELLS 0 /100 WBC 0-0 (BEAKER) (test code = 413) FL, CYSTOGRAM, [id number] 15:59:00Reason for exam:->concern for urine leakFINAL REPORT [...] Contrast extravasation as described. Signed: Janey Iglesias MDReport Verified Date/Time: 01/03/2019 15:59:13 Reading Location: [address] Consult Reading Room [id number] 08:26:00 Test Item Value Reference Range Interpretation Comments PHOSPHORUS (BEAKER) (test code = 3.1 mg/dL 2.3-4.7 604) [id number] 08:26:00 Test Item Value Reference Range Interpretation Comments MAGNESIUM (BEAKER) (test code = 1.9 mg/dL 1.6-2.6 627) BASIC METABOLIC [id number] 08:26:00 Test Item Value Reference Range Interpretation Comments SODIUM (BEAKER) 132 meq/L 136-145 L (test code = 381) POTASSIUM (BEAKER) 3.2 meq/L 3.5-5.1 L (test code = 379) CHLORIDE (BEAKER) 99 meq/L 98-107 (test code = 382) CO2 (BEAKER) (test 27 meq/L 22-29 code = 355) BLOOD UREA NITROGEN 7 mg/dL 7-21 (BEAKER) (test code = 354) CREATININE (BEAKER) 0.80 mg/dL 0.57-1.25 (test code = 358) GLUCOSE RANDOM 108 mg/dL 70-105 H (BEAKER) (test code = 652) CALCIUM (BEAKER) 8.5 mg/dL 8.4-10.2 (test code = 697) EGFR (BEAKER) (test 120 mL/min/1.73 ESTIM ATED GFR IS code = 1092) sq m NOT ACCURATE CREATININE CLEARANCE IN PREDICTING GLOMERULAR FILTRATION RATE . ESTIMATED GFR I S NOT APPLICABLE FOR DIALYSIS PATIEN TS. CBC (HEMOGRAM ONLY)2019-01-03 06:57:00 Test Item Value Reference Range Interpretation Comments WHITE BLOOD CELL COUNT (BEAKER) 9.2 K/ L 3.5-10.5 (test code = 775) RED BLOOD CELL COUNT (BEAKER) 3.03 M/ L 4.63-6.08 L (test code = 761) HEMOGLOBIN (BEAKER) (test code = 10.5 GM/DL 13.7-17.5 L 410) HEMATOCRIT (BEAKER) (test code = 32.3 % 40.1-51.0 L 411) MEAN CORPUSCULAR VOLUME (BEAKER) 106.6 fL 79.0-92.2 H (test code = 753) MEAN CORPUSCULAR HEMOGLOBIN 34.7 pg 25.7-32.2 H (BEAKER) (test code = 751) MEAN CORPUSCULAR HEMOGLOBIN CONC 32.5 GM/DL 32.3-36.5 (BEAKER) (test code = 752) RED CELL DISTRIBUTION WIDTH 12.9 % 11.6-14.4 (BEAKER) (test code = 412) PLATELET COUNT (BEAKER) (test 251 K/CU MM 150-450 code = 756) MEAN PLATELET VOLUME (BEAKER) 9.6 fL 9.4-12.4 (test code = 754) NUCLEATED RED BLOOD CELLS 0 /100 WBC 0-0 (BEAKER) (test code = 413) TISSUE [id number] 17:00:00Surgical Pathology Report Case: [id number] Authorizing Provider: Blas Murillo MD Collected: 12/27/2018 1005 Ordering Location: [facility] PERIOPER[facility]IVE Received: 12/27/2018 1445 SERVICES Pathologist: Nikita Mahajan MD Specimens: A) -Lymph Node, Periprostatic B) - Lymph Node, Pelvic, [...] NO MALIGNANCY SEENE. 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, FOCAL EXTRAPROSTATIC EXTENSION, SURGICAL MARGINS POSITIVE AT APEX SEMINAL VESICLES, RADICAL RETROPUBIC PROSTATECTOMY: - NO PATHOLOGIC DIAGNOSIS Signing Pathologist Direct Phone Line: [phone] signed by Nikita Mahajan MD on 01/02/2019 at 5:00 PMPreliminary result electronically signed by Nikita Mahajan MD on 12/29/2018 at 4:01 PMSections show a very large [...] GLAND: Radical Prostatectomy (Prostate Res - All Specimens)SPECIMEN Procedure: Radical prostatectomy Prostate Size: Prostate Weight (g): 40 g Prostate Greatest Dimension in Centimeters (cm): 4.8 Centimeters (cm) Additional Dimension in Centimeters (cm): 3.4 Centimeters (cm) Additional Dimension in Centimeters (cm): 2.6 Centimeters (cm)TUMOR Histologic Type: Acinar adenocarcinoma Histologic Grade: Imani Pattern:Percentage of Pattern 4: 30 % Percentage of Pattern 5: 1 % Primary Jefferson Pattern: Pattern 3 Secondary Imani Pattern: Pattern 4 Tertiary Jefferson Pattern: Pattern 5 Total Imani Score: 7 [...] MARGINS Margins: Involved by invasive carcinoma : Non-limited (>= 3 mm) Linear Length of Positive Margin(s) in Millimeters (mm): 5 Millimeters (mm) Focality: Unifocal Location of Positive Margin(s): Right apical Location of Positive Margin(s): Left apical Margin Positivity in Area of Extraprostatic Extension (EPE): Not identified Jefferson Pattern atPositive Margin(s): Pattern 3 LYMPH NODES Number of [...] (PIN) Additional Pathologic Findings: Nodular prostatic hyperplasia 95690, 50441 x 2, 37592 X 2Prostate cancerA. Periprostatic lymph node. B. Right pelvic lymph node. C. Left pelvic lymph node. D. Bladder neck. E. Prostate and seminal vesiclesA. Received in formalin labeled with the patient's name and "periprostatic lymph node" are four fibrofatty tissue fragments measuring in aggregate 5.5 x 2.5 x 1 cm disclosing a possible lymph node. The specimen is entirely submitted in A1-A3.B. Received in formalin labeled with the patient's name and "right pelvic lymph node" are two fibrofatty tissue fragments measuring in aggregate 4.5 x 4 x 1 cm disclosing multiple lymph nodes. Sections are submitted as follows: B1, one lymph node, bisected; B2, three lymph nodes; B3-B5, remainder, entirely submitted.C. Received in formalin labeled with the patient's name and "left pelvic lymph node" are two fibrofatty tissuefragments measuring in aggregate 5 x 3 x 1.2 cm disclosing two lymph nodes. Sections are submitted as follows: C1, one lymph node bisected; C2-C3, one lymph node serially sectioned; C4-C5, remainder, entirely submitted.D. Received in formalin labeled with the patient's name and "bladder neck" is a dark-brown tissue fragment measuring 0.6 x 0.5 x 0.3 cm; entirely submitted in D1. ?/ewSpecimen E: Received is a radical prostatectomy specimen in formalin with the patient's name (Christen Harkins) with accession number [id number] is a prostate with bilateral seminal vesicles [...] cm in length respectively and 0.5 cm indiameter. The capsular surface of the prostate is purple-fuller to red, dusky, and focally ragged. Ink code: Right-black, left-blue. The prostate is serially sectioned from apex to base in entirety. The total number of slices including seminal vesicles and vas deferentia are 11.The sectioning of the prostate reveals pink- fuller to matos-white, homogeneous, focally nodular prostatic parenchyma throughout. Nodiscrete masses are identified. The sectioning of the [...] in cassette E11. Right and left seminal vesicles at the base of the prostate are submitted in cassette E12, seminal v esicle tips along with vas deferentia are submitted in cassette E13. SDH/ewPerformed.CT, [id number] 13:19:00Patient with significant scrotal swelling and subcutaneous [...] bladder, likely from catheterization. PERITONEUM/RETROPERITONEUM: Trace amount o f air and fluid in the pelvis. Air [...] transition point, suggestive of ileus. Signed: Gayathri Trinh MDReport Verified Date/Time: 01/02/2019 13:19:12 Reading Location: [facility] C013Y CT Body ReadingRoom [id number] 07:00:00 Test Item Value Reference Range Interpretation Comments PHOSPHORUS (BEAKER) (test code = 3.3 mg/dL 2.3-4.7 604) [id number] 07:00:00 Test Item Value Reference Range Interpretation Comments MAGNESIUM (BEAKER) (test code = 1.9 mg/dL 1.6-2.6 627) BASIC METABOLIC [id number] 07:00:00 Test Item Value Reference Range Interpretation Comments SODIUM (BEAKER) 134 meq/L 136-145 L (test code = 381) POTASSIUM (BEAKER) 3.4 meq/L 3.5-5.1 L (test code = 379) CHLORIDE (BEAKER) 98 meq/L 98-107 (test code = 382) CO2 (BEAKER) (test 29 meq/L 22-29 code = 355) BLOOD UREA NITROGEN 8 mg/dL 7-21 (BEAKER) (test code = 354) CREATININE (BEAKER) 1.03 mg/dL 0.57-1.25 (test code = 358) GLUCOSE RANDOM 115 mg/dL 70-105 H (BEAKER) (test code = 652) CALCIUM (BEAKER) 9.3 mg/dL 8.4-10.2 (test code = 697) EGFR (BEAKER) (test 90 mL/min/1.73 ESTIMA MAXWELL GFR IS code = 1092) sq m NOT ACCURATE CREATININE CLEARANCE IN PREDICTING GLOMERULAR FILTRATION RATE . ESTIMATED GFR I S NOT APPLICABLE FOR DIALYSIS PATIEN TS. [id number] 04:40:00 Test Item Value Reference Range Interpretation Comments PHOSPHORUS (BEAKER) (test code = 2.9 mg/dL 2.3-4.7 604) [id number] 04:40:00 Test Item Value Reference Range Interpretation Comments MAGNESIUM (BEAKER) (test code = 1.8 mg/dL 1.6-2.6 627) BASIC METABOLIC [id number] 04:40:00 Test Item Value Reference Range Interpretation Comments SODIUM (BEAKER) 136 meq/L 136-145 (test code = 381) POTASSIUM (BEAKER) 3.6 meq/L 3.5-5.1 (test code = 379) CHLORIDE (BEAKER) 103 meq/L 98-107 (test code = 382) CO2 (BEAKER) (test 26 meq/L - code = 355) BLOOD UREA NITROGEN 8 mg/dL 7-21 (BEAKER) (test code = 354) CREATININE (BEAKER) 0.75 mg/dL 0.57-1.25 (test code = 358) GLUCOSE RANDOM 107 mg/dL 70-105 H (BEAKER) (test code = 652) CALCIUM (BEAKER) 8.6 mg/dL 8.4-10.2 (test code = 697) EGFR (BEAKER) (test 130 mL/min/1.73 ESTIM ATED GFR IS code = 1092) sq m NOT ACCURATE CREATININE CLEARANCE IN PREDICTING GLOMERULAR FILTRATION RATE . ESTIMATED GFR I S NOT APPLICABLE FOR DIALYSIS PATIEN TS. CBC W/PLT COUNT & AUTO [id number] 04:10:00 Test Item Value Reference Range Interpretation Comments WHITE BLOOD CELL COUNT (BEAKER) 7.8 K/ L 3.5-10.5 (test code = 775) RED BLOOD CELL COUNT (BEAKER) 2.80 M/ L 4.63-6.08 L (test code = 761) HEMOGLOBIN (BEAKER) (test code = 9.8 GM/DL 13.7-17.5 L 410) HEMATOCRIT (BEAKER) (test code = 29.2 % 40.1-51.0 L 411) MEAN CORPUSCULAR VOLUME (BEAKER) 104.3 fL 79.0-92.2 H (test code = 753) MEAN CORPUSCULAR HEMOGLOBIN 35.0 pg 25.7-32.2 H (BEAKER) (test code = 751) MEAN CORPUSCULAR HEMOGLOBIN CONC 33.6 GM/DL 32.3-36.5 (BEAKER) (test code = 752) RED CELL DISTRIBUTION WIDTH 13.1 % 11.6-14.4 (BEAKER) (test code = 412) PLATELET COUNT (BEAKER) (test 176 K/CU MM 150-450 code = 756) MEAN PLATELET VOLUME (BEAKER) 9.5 fL 9.4-12.4 (test code = 754) NUCLEATED RED BLOOD CELLS 0 /100 WBC 0-0 (BEAKER) (test code = 413) NEUTROPHILS RELATIVE PERCENT 71 % (BEAKER) (test code = 429) LYMPHOCYTES RELATIVE PERCENT 15 % (BEAKER) (test code = 430) MONOCYTES RELATIVE PERCENT 11 % (BEAKER) (test code = 431) EOSINOPHILS RELATIVE PERCENT 2 % (BEAKER) (test code = 432) BASOPHILS RELATIVE PERCENT 0 % (BEAKER) (test code = 437) NEUTROPHILS ABSOLUTE COUNT 5.51 K/ L 1.78-5.38 H (BEAKER) (test code = 670) LYMPHOCYTES ABSOLUTE COUNT 1.20 K/ L 1.32-3.57 L (BEAKER) (test code = 414) MONOCYTES ABSOLUTE COUNT (BEAKER) 0.83 K/ L 0.30-0.82 H (test code = 415) EOSINOPHILS ABSOLUTE COUNT 0.17 K/ L 0.04-0.54 (BEAKER) (test code = 416) BASOPHILS ABSOLUTE COUNT (BEAKER) 0.03 K/ L 0.01-0.08 (test code = 417) IMMATURE GRANULOCYTES-RELATIVE 0 % 0-1 PERCENT (BEAKER) (test code = 2801) URINALYSIS W/ REFLEX URINE [id number] 18:55:00 Test Item Value Reference Range Interpretation Comments COLOR (BEAKER) (test code = 470) Yellow CLARITY (BEAKER) (test code = 469) Hazy SPECIFIC GRAVITY UA (BEAKER) (test 1.016 1.001-1.035 code = 468) PH UA (BEAKER) (test code = 467) 6.0 5.0-8.0 PROTEIN UA (BEAKER) (test code = 20 mg/dL Negative A 464) GLUCOSE UA (BEAKER) (test code = Negative Negative 365) KETONES UA (BEAKER) (test code = Negative Negative 371) BILIRUBIN UA (BEAKER) (test code = Negative Negative 462) BLOOD UA (BEAKER) (test code = Moderate Negative A 461) NITRITE UA (BEAKER) (test code = Negative Negative 465) LEUKOCYTE ESTERASE UA (BEAKER) Large Negative A (test code = 466) UROBILINOGEN UA (BEAKER) (test 2.0 mg/dL 0.2-1.0 H code = 463) RBC UA (BEAKER) (test code = 519) 6 /HPF WBC UA (BEAKER) (test code = 520) 7 /HPF BACTERIA (BEAKER) (test code = Occasional 517) MUCUS (BEAKER) (test code = 1574) Few SQUAMOUS EPITHELIAL (BEAKER) (test < /HPF code = 516) SOURCE(BEAKER) (test code = 2795) CT, [id number] 18:21:00Reason for exam:->ABDOMINAL PAINWhat is the patient's [...] within the prostate bed. PERITONEUM/RETROPERITONEUM: Retrovesicular space rim- enhancing collection 4 x 3 x 4.6 cm. [...] ANDERSON, on 12/31/2018 6:18 PM. Signed: Archie Gibbs MDReport Verified Date/Time: 12/31/2018 18:21:28 [facility] METABOLIC PANEL 2018-12-31 18:15:00 Test Item Value Reference Range Interpretation Comments SODIUM (BEAKER) 135 meq/L 136-145 L (test code = 381) POTASSIUM (BEAKER) 3.0 meq/L 3.5-5.1 L (test code = 379) CHLORIDE (BEAKER) 99 meq/L 98-107 (test code = 382) CO2 (BEAKER) (test 27 meq/L 22-29 code = 355) BLOOD UREA NITROGEN 7 mg/dL 7-21 (BEAKER) (test code = 354) CREATININE (BEAKER) 0.93 mg/dL 0.57-1.25 (test code = 358) GLUCOSE RANDOM 90 mg/dL 70-105 (BEAKER) (test code = 652) CALCIUM (BEAKER) 9.5 mg/dL 8.4-10.2 (test code = 697) EGFR (BEAKER) (test 101 mL/min/1.73 ESTIM ATED GFR IS code = 1092) sq m NOT ACCURATE CREATININE CLEARANCE IN PREDICTING GLOMERULAR FILTRATION RATE . ESTIMATED GFR I S NOT APPLICABLE FOR DIALYSIS PATIEN TS. CBC W/PLT COUNT & AUTO [id number] 17:59:00 Test Item Value Reference Range Interpretation Comments WHITE BLOOD CELL COUNT (BEAKER) 11.1 K/ L 3.5-10.5 H (test code = 775) RED BLOOD CELL COUNT (BEAKER) 3.18 M/ L 4.63-6.08 L (test code = 761) HEMOGLOBIN (BEAKER) (test code = 11.2 GM/DL 13.7-17.5 L 410) HEMATOCRIT (BEAKER) (test code = 33.4 % 40.1-51.0 L 411) MEAN CORPUSCULAR VOLUME (BEAKER) 105.0 fL 79.0-92.2 H (test code = 753) MEAN CORPUSCULAR HEMOGLOBIN 35.2 pg 25.7-32.2 H (BEAKER) (test code = 751) MEAN CORPUSCULAR HEMOGLOBIN CONC 33.5 GM/DL 32.3-36.5 (BEAKER) (test code = 752) RED CELL DISTRIBUTION WIDTH 13.0 % 11.6-14.4 (BEAKER) (test code = 412) PLATELET COUNT (BEAKER) (test 202 K/CU MM 150-450 code = 756) MEAN PLATELET VOLUME (BEAKER) 8.9 fL 9.4-12.4 L (test code = 754) NUCLEATED RED BLOOD CELLS 0 /100 WBC 0-0 (BEAKER) (test code = 413) NEUTROPHILS RELATIVE PERCENT 77 % (BEAKER) (test code = 429) LYMPHOCYTES RELATIVE PERCENT 13 % (BEAKER) (test code = 430) MONOCYTES RELATIVE PERCENT 7 % (BEAKER) (test code = 431) EOSINOPHILS RELATIVE PERCENT 2 % (BEAKER) (test code = 432) BASOPHILS RELATIVE PERCENT 0 % (BEAKER) (test code = 437) NEUTROPHILS ABSOLUTE COUNT 8.61 K/ L 1.78-5.38 H (BEAKER) (test code = 670) LYMPHOCYTES ABSOLUTE COUNT 1.45 K/ L 1.32-3.57 (BEAKER) (test code = 414) MONOCYTES ABSOLUTE COUNT (BEAKER) 0.78 K/ L 0.30-0.82 (test code = 415) EOSINOPHILS ABSOLUTE COUNT 0.19 K/ L 0.04-0.54 (BEAKER) (test code = 416) BASOPHILS ABSOLUTE COUNT (BEAKER) 0.04 K/ L 0.01-0.08 (test code = 417) IMMATURE GRANULOCYTES-RELATIVE 1 % 0-1 PERCENT (BEAKER) (test code = 2801) UA RFLX MICR CULT IF [id number] 08:59:00 Test Item Value Reference Range Interpretation Comments UA COLOR (test code = YELLOW YELLOW COLU) UA APPEARANCE (test code CLEAR CLEAR = APPU) UA GLUCOSE DIPSTICK (test NORMAL MG/DL NORMAL code = DGLUU) UA BILIRUBIN DIPSTICK NEGATIVE MG/DL NEGATIVE (test code = BILU) UA KETONE DIPSTICK (test NEGATIVE MG/DL NEGATIVE code = KETU) UA SPECIFIC GRAVITY (test 1.025 1.003-1.030 N code = SGU) UA BLOOD DIPSTICK (test 250 Mayo/mm3 NEGATIVE A code = AYESHA) UA PH DIPSTICK (test code 5.0 5.0-9.0 N = OLY) UA PROTEIN DIPSTICK (test 30 MG/DL NEGATIVE A code = PROU) UA UROBILINIOGEN DIPSTICK NORMAL MG/DL NORMAL (test code = URO) UA NITRITE DIPSTICK (test NEGATIVE NEGATIVE code = BEST) UA LEUKOCYTE ESTERASE 100 /mm3 NEGATIVE A DIPSTICK (test code = LEUU) UA CULTURE NEEDED? (test YES,WBC>10 & EPI<25 Culture Chk code = UACULT) Criteria SOURCE OF URINE: CLEAN CATCHIndication for culture: Dysuria/FrequencyUA [id number] 08:59:00 Test Item Value Reference Range Interpretation Comments UA RBC (test code = RBCU) 20-30 RBC/HPF 0-3 A UA WBC (test code = XWBCU) 20-30 WBC/HPF 0-5 A UA EPITHELIAL CELLS (test code FEW EPI/HPF FEW = EPIU) UA BACTERIA (test code = XBACU) FEW NONE SOURCE OF URINE: CLEAN CATCHIndication for culture: Dysuria/FrequencyUA RFLX MICR CULT IF [id number] 08:50:00 Test Item Value Reference Range Interpretation Comments UA COLOR (test code = COLU) YELLOW YELLOW UA APPEARANCE (test code = CLEAR CLEAR APPU) UA GLUCOSE DIPSTICK (test code NORMAL MG/DL NORMAL = DGLUU) UA BILIRUBIN DIPSTICK (test NEGATIVE MG/DL NEGATIVE code = BILU) UA KETONE DIPSTICK (test code NEGATIVE MG/DL NEGATIVE = KETU) UA SPECIFIC GRAVITY (test code 1.025 1.003-1.030 N = SGU) UA BLOOD DIPSTICK (test code = 250 Mayo/mm3 NEGATIVE A AYESHA) UA PH DIPSTICK (test code = 5.0 5.0-9.0 N OLY) UA PROTEIN DIPSTICK (test code 30 MG/DL NEGATIVE A = PROU) UA UROBILINIOGEN DIPSTICK NORMAL MG/DL NORMAL (test code = URO) UA NITRITE DIPSTICK (test code NEGATIVE NEGATIVE = BEST) UA LEUKOCYTE ESTERASE DIPSTICK 100 /mm3 NEGATIVE A (test code = LEUU) UA CULTURE NEEDED? (test code Criteria Culture Chk = UACULT) SOURCE OF URINE: CLEAN CATCHIndication for culture: Dysuria/FrequencyUA [id number] 08:50:00 Test Item Value Reference Range Interpretation Comments UA RBC (test code = RBCU) RBC/HPF 0-3 UA WBC (test code = XWBCU) WBC/HPF 0-5 UA EPITHELIAL CELLS (test code = EPI/HPF FEW EPIU) UA BACTERIA (test code = XBACU) NONE SOURCE OF URINE: CLEAN CATCHIndication for culture: Dysuria/FrequencyUA RFLX MICR CULT IF [id number] 08:50:00 Test Item Value Reference Range Interpretation Comments UA COLOR (test code = COLU) YELLOW YELLOW UA APPEARANCE (test code = CLEAR CLEAR APPU) UA GLUCOSE DIPSTICK (test code NORMAL MG/DL NORMAL = DGLUU) UA BILIRUBIN DIPSTICK (test NEGATIVE MG/DL NEGATIVE code = BILU) UA KETONE DIPSTICK (test code NEGATIVE MG/DL NEGATIVE = KETU) UA SPECIFIC GRAVITY (test code 1.025 1.003-1.030 N = SGU) UA BLOOD DIPSTICK (test code = 250 Mayo/mm3 NEGATIVE A AYESHA) UA PH DIPSTICK (test code = 5.0 5.0-9.0 N OLY) UA PROTEIN DIPSTICK (test code 30 MG/DL NEGATIVE A = PROU) UA UROBILINIOGEN DIPSTICK NORMAL MG/DL NORMAL (test code = URO) UA NITRITE DIPSTICK (test code NEGATIVE NEGATIVE = BEST) UA LEUKOCYTE ESTERASE DIPSTICK 100 /mm3 NEGATIVE A (test code = LEUU) UA CULTURE NEEDED? (test code Criteria Culture Chk = UACULT) SOURCE OF URINE: CLEAN CATCHIndication for culture: Dysuria/FrequencyUA [id number] 08:50:00 Test Item Value Reference Range Interpretation Comments UA RBC (test code = RBCU) RBC/HPF 0-3 UA WBC (test code = XWBCU) WBC/HPF 0-5 UA EPITHELIAL CELLS (test code = EPI/HPF FEW EPIU) UA BACTERIA (test code = XBACU) NONE SOURCE OF URINE: CLEAN CATCHIndication for culture: Dysuria/Frequency CREATININE, BODY [id number] 12:28:00 Test Item Value Reference Range Interpretation Comments CREATININE FLUID (BEAKER) (test 0.60 mg/dL code = 677) Reference Range: No Normals Assay performance has not been validated for this type of specimen.BASIC METABOLIC [id number] 06:24:00 Test Item Value Reference Range Interpretation Comments SODIUM (BEAKER) 135 meq/L 136-145 L (test code = 381) POTASSIUM (BEAKER) 3.7 meq/L 3.5-5.1 (test code = 379) CHLORIDE (BEAKER) 104 meq/L 98-107 (test code = 382) CO2 (BEAKER) (test 26 meq/L 22-29 code = 355) BLOOD UREA NITROGEN 4 mg/dL 7-21 L (BEAKER) (test code = 354) CREATININE (BEAKER) 0.75 mg/dL 0.57-1.25 (test code = 358) GLUCOSE RANDOM 110 mg/dL 70-105 H (BEAKER) (test code = 652) CALCIUM (BEAKER) 8.3 mg/dL 8.4-10.2 L (test code = 697) EGFR (BEAKER) (test 130 mL/min/1.73 ESTIM ATED GFR IS code = 1092) sq m NOT ACCURATE CREATININE CLEARANCE IN PREDICTING GLOMERULAR FILTRATION RATE . ESTIMATED GFR I S NOT APPLICABLE FOR DIALYSIS PATIEN TS. HEMOGLOBIN AND [id number] 05:28:00 Test Item Value Reference Range Interpretation Comments HEMOGLOBIN (BEAKER) (test code = 10.5 GM/DL 13.7-17.5 L 410) HEMATOCRIT (BEAKER) (test code = 31.9 % 40.1-51.0 L 411) BASIC METABOLIC [id number] 07:27:00 Test Item Value Reference Range Interpretation Comments SODIUM (BEAKER) 134 meq/L 136-145 L (test code = 381) POTASSIUM (BEAKER) 3.0 meq/L 3.5-5.1 L (test code = 379) CHLORIDE (BEAKER) 102 meq/L 98-107 (test code = 382) CO2 (BEAKER) (test 26 meq/L 22-29 code = 355) BLOOD UREA NITROGEN 4 mg/dL 7-21 L (BEAKER) (test code = 354) CREATININE (BEAKER) 0.79 mg/dL 0.57-1.25 (test code = 358) GLUCOSE RANDOM 117 mg/dL 70-105 H (BEAKER) (test code = 652) CALCIUM (BEAKER) 7.9 mg/dL 8.4-10.2 L (test code = 697) EGFR (BEAKER) (test 122 mL/min/1.73 ESTIM ATED GFR IS code = 1092) sq m NOT ACCURATE CREATININE CLEARANCE IN PREDICTING GLOMERULAR FILTRATION RATE . ESTIMATED GFR I S NOT APPLICABLE FOR DIALYSIS PATIEN TS. HEMOGLOBIN AND [id number] 06:44:00 Test Item Value Reference Range Interpretation Comments HEMOGLOBIN (BEAKER) (test code = 10.8 GM/DL 13.7-17.5 L 410) HEMATOCRIT (BEAKER) (test code = 32.2 % 40.1-51.0 L 411) BASIC METABOLIC [id number] 07:35:00 Test Item Value Reference Range Interpretation Comments SODIUM (BEAKER) 136 meq/L 136-145 (test code = 381) POTASSIUM (BEAKER) 3.7 meq/L 3.5-5.1 (test code = 379) CHLORIDE (BEAKER) 105 meq/L 98-107 (test code = 382) CO2 (BEAKER) (test 24 meq/L 22-29 code = 355) BLOOD UREA NITROGEN 7 mg/dL 7-21 (BEAKER) (test code = 354) CREATININE (BEAKER) 0.96 mg/dL 0.57-1.25 (test code = 358) GLUCOSE RANDOM 106 mg/dL 70-105 H (BEAKER) (test code = 652) CALCIUM (BEAKER) 7.6 mg/dL 8.4-10.2 L (test code = 697) EGFR (BEAKER) (test 98 mL/min/1.73 ESTIMA MAXWELL GFR IS code = 1092) sq m NOT ACCURATE CREATININE CLEARANCE IN PREDICTING GLOMERULAR FILTRATION RATE . ESTIMATED GFR I S NOT APPLICABLE FOR DIALYSIS PATIEN TS. HEMOGLOBIN AND [id number] 06:43:00 Test Item Value Reference Range Interpretation Comments HEMOGLOBIN (BEAKER) (test code = 11.8 GM/DL 13.7-17.5 L 410) HEMATOCRIT (BEAKER) (test code = 36.2 % 40.1-51.0 L 411) HEMOGLOBIN AND [id number] 15:37:00 Test Item Value Reference Range Interpretation Comments HEMOGLOBIN (BEAKER) (test code = 13.6 GM/DL 13.7-17.5 L 410) HEMATOCRIT (BEAKER) (test code = 41.9 % 40.1-51.0 411) BASIC METABOLIC [id number] 15:25:00 Test Item Value Reference Range Interpretation Comments SODIUM (BEAKER) 143 meq/L 136-145 (test code = 381) POTASSIUM (BEAKER) 4.3 meq/L 3.5-5.1 Specimen slightly (test code = 379) hemolyzed CHLORIDE (BEAKER) 110 meq/L 98-107 H (test code = 382) CO2 (BEAKER) (test 24 meq/L 22-29 code = 355) BLOOD UREA NITROGEN 13 mg/dL 7-21 (BEAKER) (test code = 354) CREATININE (BEAKER) 1.10 mg/dL 0.57-1.25 Specimen slightly (test code = 358) hemolyzed GLUCOSE RANDOM 102 mg/dL 70-105 (BEAKER) (test code = 652) CALCIUM (BEAKER) 8.0 mg/dL 8.4-10.2 L (test code = 697) EGFR (BEAKER) (test 83 mL/min/1.73 ESTIMA MAXWELL GFR IS code = 1092) sq m NOT ACCURATE CREATININE CLEARANCE IN PREDICTING GLOMERULAR FILTRATION RATE . ESTIMATED GFR I S NOT APPLICABLE FOR DIALYSIS PATIEN TS. BASIC METABOLIC [id number] 07:20:00 Test Item Value Reference Range Interpretation Comments SODIUM (BEAKER) 143 meq/L 136-145 (test code = 381) POTASSIUM (BEAKER) 4.0 meq/L 3.5-5.1 Specimen slightly (test code = 379) hemolyzed CHLORIDE (BEAKER) 110 meq/L 98-107 H (test code = 382) CO2 (BEAKER) (test 23 meq/L 22-29 code = 355) BLOOD UREA NITROGEN 11 mg/dL 7-21 (BEAKER) (test code = 354) CREATININE (BEAKER) 0.89 mg/dL 0.57-1.25 Specimen slightly (test code = 358) hemolyzed GLUCOSE RANDOM 86 mg/dL 70-105 (BEAKER) (test code = 652) CALCIUM (BEAKER) 9.0 mg/dL 8.4-10.2 (test code = 697) EGFR (BEAKER) (test 106 mL/min/1.73 ESTIM ATED GFR IS code = 1092) sq m NOT ACCURATE CREATININE CLEARANCE IN PREDICTING GLOMERULAR FILTRATION RATE . ESTIMATED GFR I S NOT APPLICABLE FOR DIALYSIS PATIEN TS. COMPREHENSIVE METABOLIC [id number] 15:49:00 Test Item Value Reference Range Interpretation Comments TOTAL PROTEIN 8.3 gm/dL 6.0-8.3 Specimen marke dly (BEAKER) (test code = hemoly zed 770) ALBUMIN (BEAKER) 4.0 g/dL 3.5-5.0 Specimen ma rkedly (test code = 1145) hemolyzed ALKALINE PHOSPHATASE 57 U/L 40-150 (BEAKER) (test code = 346) BILIRUBIN TOTAL 0.3 mg/dL 0.2-1.2 Specimen mar kedly (BEAKER) (test code = hemoly zed 377) SODIUM (BEAKER) (test 136 meq/L 136-145 code = 381) POTASSIUM (BEAKER) 4.7 meq/L 3.5-5.1 Specimen markedly (test code = 379) hemolyzed CHLORIDE (BEAKER) 103 meq/L 98-107 (test code = 382) CO2 (BEAKER) (test 21 meq/L 22-29 L code = 355) BLOOD UREA NITROGEN 10 mg/dL 7-21 (BEAKER) (test code = 354) CREATININE (BEAKER) 1.05 mg/dL 0.57-1.25 Specimen markedly (test code = 358) hemolyzed GLUCOSE RANDOM 97 mg/dL 70-105 (BEAKER) (test code = 652) CALCIUM (BEAKER) 8.9 mg/dL 8.4-10.2 (test code = 697) AST (SGOT) (BEAKER) 42 U/L 5-34 H Specimen markedly (test code = 353) hemolyzed ALT (SGPT) (BEAKER) 20 U/L 6-55 Specimen markedly (test code = 347) hemolyzed EGFR (BEAKER) (test 88 mL/min/1.73 ESTIMA MAXWELL GFR IS code = 1092) sq m NOT ACCURATE CREATININE CLEARANCE IN PREDICTING GLOMERULAR FILTRATION RATE . ESTIMATED GFR I S NOT APPLICABLE FOR DIALYSIS PATIEN TS. Specimen slightly [id number] 13:53:00 Test Item Value Reference Range Interpretation Comments PARTIAL THROMBOPLASTIN TIME 25.8 seconds 22.5-36.0 (BEAKER) (test code = 760) PROTHROMBIN [id number] 13:52:00 Test Item Value Reference Range Interpretation Comments PROTIME (BEAKER) (test code = 13.7 seconds 11.9-14.2 759) INR (BEAKER) (test code = 370) 1.1 <=5.9 Effective 11/01/2018: PT Reference Range ChangeNew: 11.9-14.2 Previous: 11.7- 14.7RECOMMENDED COUMADIN/WARFARIN INR THERAPY RANGESSTANDARD DOSE: 2.0-3.0 Includes: PROPHYLAXIS for venous thrombosis, systemic embolization; TREATMENT for venous thrombosis and/or pulmonary embolus.HIGH RISK: Target INR is2.5-3.5 for patients wiht mechanical heart valves.BASIC METABOLIC [id number] 13:51:00 Test Item Value Reference Range Interpretation Comments SODIUM (BEAKER) 134 meq/L 136-145 L (test code = 381) POTASSIUM (BEAKER) 4.6 meq/L 3.5-5.1 Specimen markedly (test code = 379) hemolyzed CHLORIDE (BEAKER) 102 meq/L 98-107 (test code = 382) CO2 (BEAKER) (test 21 meq/L 22-29 L code = 355) BLOOD UREA NITROGEN 10 mg/dL 7-21 (BEAKER) (test code = 354) CREATININE (BEAKER) 1.04 mg/dL 0.57-1.25 Specimen markedly (test code = 358) hemolyzed GLUCOSE RANDOM 96 mg/dL 70-105 (BEAKER) (test code = 652) CALCIUM (BEAKER) 8.9 mg/dL 8.4-10.2 (test code = 697) EGFR (BEAKER) (test 89 mL/min/1.73 ESTIMA MAXWELL GFR IS code = 1092) sq m NOT ACCURATE CREATININE CLEARANCE IN PREDICTING GLOMERULAR FILTRATION RATE . ESTIMATED GFR I S NOT APPLICABLE FOR DIALYSIS PATIEN TS. CBC W/PLT COUNT & AUTO [id number] 13:35:00 Test Item Value Reference Range Interpretation Comments WHITE BLOOD CELL COUNT (BEAKER) 8.4 K/ L 3.5-10.5 (test code = 775) RED BLOOD CELL COUNT (BEAKER) 3.93 M/ L 4.63-6.08 L (test code = 761) HEMOGLOBIN (BEAKER) (test code = 13.3 GM/DL 13.7-17.5 L 410) HEMATOCRIT (BEAKER) (test code = 39.2 % 40.1-51.0 L 411) MEAN CORPUSCULAR VOLUME (BEAKER) 99.7 fL 79.0-92.2 H (test code = 753) MEAN CORPUSCULAR HEMOGLOBIN 33.8 pg 25.7-32.2 H (BEAKER) (test code = 751) MEAN CORPUSCULAR HEMOGLOBIN CONC 33.9 GM/DL 32.3-36.5 (BEAKER) (test code = 752) RED CELL DISTRIBUTION WIDTH 13.2 % 11.6-14.4 (BEAKER) (test code = 412) PLATELET COUNT (BEAKER) (test 190 K/CU MM 150-450 code = 756) MEAN PLATELET VOLUME (BEAKER) 9.0 fL 9.4-12.4 L (test code = 754) NUCLEATED RED BLOOD CELLS 0 /100 WBC 0-0 (BEAKER) (test code = 413) NEUTROPHILS RELATIVE PERCENT 70 % (BEAKER) (test code = 429) LYMPHOCYTES RELATIVE PERCENT 21 % (BEAKER) (test code = 430) MONOCYTES RELATIVE PERCENT 6 % (BEAKER) (test code = 431) EOSINOPHILS RELATIVE PERCENT 2 % (BEAKER) (test code = 432) BASOPHILS RELATIVE PERCENT 1 % (BEAKER) (test code = 437) NEUTROPHILS ABSOLUTE COUNT 5.93 K/ L 1.78-5.38 H (BEAKER) (test code = 670) LYMPHOCYTES ABSOLUTE COUNT 1.81 K/ L 1.32-3.57 (BEAKER) (test code = 414) MONOCYTES ABSOLUTE COUNT (BEAKER) 0.51 K/ L 0.30-0.82 (test code = 415) EOSINOPHILS ABSOLUTE COUNT 0.13 K/ L 0.04-0.54 (BEAKER) (test code = 416) BASOPHILS ABSOLUTE COUNT (BEAKER) 0.04 K/ L 0.01-0.08 (test code = 417) IMMATURE GRANULOCYTES-RELATIVE 0 % 0-1 PERCENT (BEAKER) (test code = 7145)
[2019-10-23 11:08] VITALS: BP 165/87; TEMP 97.3; O2SAT 100
== END 2019-10-23 10:58 | disposition home or self-care (01) ==
LOC: ER 09:23
DX: H57.11 Ocular pain, right eye (principal); I10 Essential (primary) hypertension; F17.210 Nicotine dependence, cigarettes, uncomplicated; Z85.46 Personal history of malignant neoplasm of prostate
CPT/HCPCS: 96372; 99283; J3010

== ENCOUNTER 2020-01-02 19:30 | Emergency (ER) | payer OTHER ==
--- OUTSIDE RECORDS SUMMARY | 2020-01-02 19:32 | XMS REPORT | Clinical Summary ---
:1960 [address] [facility] Address [address] [place] [address] Care Team Providers Name Role Phone [place] [...] Description 01/16/2019 Outside Orders Central Scheduling Blas Murillo, Prostat e cancer ([facility]) (Primary Dx) 01/15/2019 Outside Orders Central Scheduling Blas Murillo, Prostat e cancer ([facility]) (Primary Dx) 12/31/2018 - Hospital Encounter General Internal Rob, Arif, Penil e swelling (Primary Dx); 01/08/2019 Medicine Scrotal swelling; Blas Murillo, Suprapubic abdo jan pain; MD S/P prostatecto my; Malignant neopl asm of prostate (HCC); Prostate cancer (HCC); Postoperative i leus (HCC); Current smoker; Hypertension, u nspecified type after 01/01/2019 Social History Tobacco Use Types Packs/Day Years [...] CDT Inhaled Oxygen Concentration - - Weight - - Height - - Body Mass Index - - Plan of Treatment Not on file Procedures [...] procedure are i n the results section. after 01/01/2019 Results CBC (Hemogram only) (01/08/2019 4:23 AM CDT)Only the most recent of6 results within the time period is included. WBC 8.4 3.5 - 10.5 K/L [facility] RBC 3.09 (L) 4.63 - 6.08 M/L [facility] Hemoglobin 10.5 (L) 13.7 - 17.5 GM/DL [facility] Hematocrit 32.1 (L) 40.1 - 51.0 % [facility] MCV 103.9 (H) 79.0 - 92.2 fL [facility] MCH 34.0 (H) 25.7 - 32.2 pg [facility] MCHC 32.7 32.3 - 36.5 GM/DL [facility] RDW 13.7 11.6 - 14.4 % [facility] Platelets 433 150 - 450 K/CU MM [facility] MPV 9.0 (L) 9.4 - 12.4 fL [facility] nRBC 0 0 - 0 /100 WBC [facility] Specimen Blood Performing Organization Address City/State/Zipcode Phone Number [facility] [address] [place] [address] [place] Basic Metabolic Panel (01/08/2019 4:23 AM CDT)Only the most recent of7 results within the time period is included. Sodium 138 136 - 145 meq/L [facility] Potassium 3.8 3.5 - 5.1 meq/L [facility] Chloride 106 98 - 107 meq/L [facility] CO2 23 22 - 29 meq/L [facility] BUN 8 7 - 21 mg/dL [facility] Creatinine 0.79 0.57 - 1.25 mg/dL [facility] Glucose 98 70 - 105 mg/dL [facility] Calcium 9.0 8.4 - 10.2 mg/dL [facility] EGFR 122Comment: ESTIMATED GFR IS mL/min/1.[address] [facility] NOT ACCURATE CREATININE [facility] CLEARANCE IN PREDICTING GLOMERULAR FILTRATION RATE. ESTIMATED GFR IS NOT APPLICABLE FOR DIALYSIS PATIENTS. Specimen Blood Performing Organization Address City/[facility]/Zipcode Phone Number [facility] [address] [place] [address] [place] cystogram static (01/03/2019 2:35 PM CDT) Specimen Narrative Performed At FINAL REPORT Mobile Pulse Cystogram Clinical History: concern for urine leak [...] MD Report Verified Date/Time:01/03/2019 15:59:13 Reading Location: [address] Reading Room Procedure Note Interface, External [...] Verified Date/Time: 01/03/2019 1 5:59:13 Reading Location: [facility] [address] [place] [address] Reading Room Performing Organization Address City/State/Zipcode Phone Number [facility] Phosphorus (01/03/2019 5:02 AM CDT)Only the most recent of3 resultswithin the time period is included. Phosphorus 3.1 2.3 - 4.7 mg/dL [facility] Specimen Blood Performing Organization Address City/State/Zipcode Phone Number [facility] MEDICAL [address] [place] [address] CENTER Magnesium (01/03/2019 5:02 AM CDT)Only the most recent of3 resultswithin the time period is included. Magnesium 1.9 1.6 - 2.6 mg/dL [facility] Specimen Blood Performing Organization Address City/State/Zipcode Phone Number [facility] [address] [place] [address] abdomen/pelvis with IV contrast (01/02/2019 10:50 AM CDT) Specimen Narrative Performed At FINAL REPORT Cyphoma TECHNIQUE: CT of the abdomen and pelvis [...] ansition point, suggestive of ileus. Signed: Gayathri Bailey MD Report Verified Date/Time:01/02/2019 13:19:12 Reading Location: [facility] C013Y CT Body R eading Room Procedure [...] ansition point, suggestive of ileus. Signed: Gayathri Bailey MD Report Verified Date/Time: 01/02/2019 1 3:19:12 Reading Location: [facility] B1 C013Y CT Body R eading Room Performing Organization Address City/State/Zipcode Phone Number [facility] CBC with platelet count + automated diff (01/01/2019 3:31 AM CDT) WBC 7.8 3.5 - 10.5 K/L [facility] RBC 2.80 (L) 4.63 - 6.08 M/L [facility] Hemoglobin 9.8 (L) 13.7 - 17.5 GM/DL [facility] Hematocrit 29.2 (L) 40.1 - 51.0 % [facility] MCV 104.3 (H) 79.0 - 92.2 fL [facility] MCH 35.0 (H) 25.7 - 32.2 pg [facility] MCHC 33.6 32.3 - 36.5 GM/DL [facility] RDW 13.1 11.6 - 14.4 % [facility] Platelets 176 150 - 450 K/CU MM [facility] MPV 9.5 9.4 - 12.4 fL [facility] nRBC 0 0 - 0 /100 WBC [facility] % Neutros 71 % [facility] % Lymphs 15 % [facility] % Monos 11 % [facility] % Eos 2 % [facility] % Baso 0 % [facility] # Neutros 5.51 (H) 1.78 - 5.38 K/L [facility] # Lymphs 1.20 (L) 1.32 - 3.57 K/L [facility] # Monos 0.83 (H) 0.30 - 0.82 K/L [facility] # Eos 0.17 0.04 - 0.54 K/L [facility] # Baso 0.03 0.01 - 0.08 K/L [facility] Immature 0 0 - 1 % [facility] Granulocytes-Relative MEDICAL CE NTER Specimen Blood Performing Organization Address City/State/Zipcode Phone Number [facility] [address] [place] [address] CENTER after 01/01/2019 Insurance Payer Benefit Plan / Group Subscriber ID Type Phone A [employer] xxxxxxxxxxx Maps Contracted MEDICAID MEDICAID [facility] xxxxxxxxx Medicaid Advance Directives For more information, please contact:[address] [phone] Code Status Date Activated Date Inactivated Comments Full Code 12/31/2018 7:10 PM 01/08/2019 12:59 PM This code status was determined by: Patient Full Code 12/27/2018 2:31 PM 12/30/2018 8:35 PM This code status was determined by: Patient
--- OUTSIDE RECORDS SUMMARY | 2020-01-02 19:33 | XMS REPORT | Continuity of Care Document ---
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 ARM PAIN Active 04/18/20 [facility] 18 Noe Chest pain, 11/03/19 11/05/[address] unspecified 18 [place] Nicotine 11/03/19 11/05/2017 [facility] dependence, 18 [place] unspecified, uncomplicated Anemia, 11/03/19 11/05/2017 [facility] unspecified [facility] [place] Other chest pain 11/03/19 11/05/2017 [facility] [place] CHEST PAIN Active 11/02/19 [facility] [place] Radial styloid 12/17/19 12/19/2016 [place] tenosynovitis [de 17 Quervain] HAND AND KNEE Active 12/16/19 [facility] 17 Noe Ingrowing nail Active Problem 05/13/2015 [facility] Onychomycosis Active Problem 05/13/2015 [facility] Abscess/celluliti Active Problem 05/13/2015 [facility] Contusion/hematom Active Problem 05/13/2015 [facility] Localized 11/05/[address] swelling, mass and lump, left lower limb Essential 11/05/2018 (primary) Ruma Child hypertension Greater [facility] Personal history 11/05/2018 CARLOS Child of malignant neoplasm of prostate Medications Medication Details Route Status Patient Ordering [...] MG Oral Tablet tab, PO, Active 018 [facility] [Motrin] Q8H, PRN Pain, Take with food, X 10 day, # 30 tab, 0 Refill(s) Ibuprofen Notes: (Same Inactive as: Motrin) 018 [facility] "Do Not Crush" Take with food. Acetaminophen [...] Route: PO, 018 [facility] Hydrocodone Drug Form: [facility] Bitartrate 5 MG TAB, Dosing Oral Tablet Weight [[place] 5/325] 79.955, kg, ONCE, STAT, Start date: [...] (Same Inactive as: Zofran 018 [facility] ODT) [facility] Morphine Notes: (Same Inactive as:MORPhine 018 [facility] Sulfate) [facility] Sodium Chloride 500 mL, 500 Inactive 0.9% (Bolus) IV ml/hr, 018 [facility] Infuse Over: [place] 1 hr, Route: IV, 500, Drug form: INJ, ONCE, Priority: STAT, Dosing Weight 79.955 kg, Start date: 11/02/17 1:06:00 CDT, Stop date: 11/02/17 1:06:00 CDT Saline Flush Notes: Same No Longer 0.9% as: BD Active 018 [facility] Posiflush [facility] Sterile Motrin 800 mg 800 mg = 1 Active oral tablet tab, PO, 017 [place] Q8H, PRN Pain, Take with food, X 7 day, # 21 tab, 0 Refill(s) Lamisil 1 tablet Orally Active 250 MG Orally [facility] [place] [facility] Once a day 015 [facility] Hydrocodone-Jorge Unknown NA Active [facility] taminophen [facility] Lyrica Unknown NA Active [facility] Allergies, Adverse Reactions, Alerts Substance Category [...] CARDIAC Total CK 181 12 - 191 11/02[facility] ENZYMES 2017 [facility] CARDIAC Troponin-I <0.02 0.00 - 0.40 ENZYMES 2017 [facility] CARDIAC CK MB 1.8 0.5 - 3.6 ENZYMES 2017 [facility] CARDIAC CK MB Index 1.0 0.0 - 2.5 ENZYMES 2017 [facility] CARDIAC CK MB Index 0.9 0.0 - 2.5 ENZYMES 2017 [facility] CARDIAC Total CK 209 12 - 191 ENZYMES 2017 [facility] CARDIAC CK MB 1.9 0.5 - 3.6 ENZYMES 2018 [facility] CARDIAC Troponin-I <0.02 0.00 - 0.40 05 ENZYMES 2018 [facility] CHEM PANEL eGFR 80 2017 Comment: The [...] A/G Ratio 0.9 0.7 - 1.6 2017 [facility] CHEM PANEL ALT 30 0 - 65 2017 [facility] CHEM PANEL Albumin Lvl 3.7 3.5 - 5.0 2017 [facility] CHEM PANEL Calcium Lvl 8.3 8.5 - 10.5 2017 [facility] CHEM PANEL Total Protein 7.6 6.4 - 8.4 2017 [facility] CHEM PANEL CO2 24 24 - 32 2017 [facility] CHEM PANEL Chloride Lvl 106 95 - 109 2017 [facility] CHEM PANEL Globulin 3.9 2.7 - 4.2 2017 [facility] CHEM PANEL AGAP 12.9 10.0 - 20.0 2017 [facility] CHEM PANEL B/C Ratio 16 6 - 25 2017 [facility] CHEM PANEL Alk Phos 57 39 - 136 2017 [facility] CHEM PANEL Bili Total 0.2 0.2 - 1.3 2017 [facility] CHEM PANEL AST 33 0 - 37 2017 [facility] CHEM PANEL BUN 19 7 - 22 2017 [facility] CHEM PANEL Glucose Lvl 103 70 - 99 2017 [facility] CHEM PANEL Creatinine 1.17 0.50 - 1.40 Lvl 2018 [facility] CHEM PANEL Sodium Lvl 139 135 - 145 2017 [facility] CHEM PANEL Potassium Lvl 3.9 3.5 - 5.1 2017 [facility] HEMATOLOGY Lymphocytes # 2.1 1.0 - 5.5 2017 [facility] HEMATOLOGY Eosinophils 2.6 0.0 - 4.0 2017 [facility] HEMATOLOGY Segs-Bands # 4.6 1.5 - 8.1 2017 [facility] HEMATOLOGY Basophils 0.9 0.0 - 1.0 2017 [facility] HEMATOLOGY Monocytes 7.4 2.0 - 12.0 2017 [facility] HEMATOLOGY Eosinophils # 0.2 0.0 - 0.5 2017 [facility] HEMATOLOGY Monocytes # 0.6 0.0 - 0.8 2017 [facility] HEMATOLOGY Macrocyte 1+ None Seen *ABN* 2017 [facility] (11/01/17 11:53 PM) [facility] HEMATOLOGY Basophils # 0.1 0.0 - 0.2 2017 [facility] HEMATOLOGY Segs 60.6 45.0 - 75.0 2017 [facility] HEMATOLOGY Lymphocytes 28.5 20.0 - 40.0 2017 [facility] HEMATOLOGY MCV 101.7 80.0 - 94.0 2017 [facility] HEMATOLOGY Hgb 13.2 14.0 - 18.0 2017 [facility] HEMATOLOGY Hct 37.4 42.0 - 54.0 2017 [facility] HEMATOLOGY WBC 7.5 3.7 - 10.4 2017 [facility] HEMATOLOGY RBC 3.68 4.70 - 6.10 2017 [facility] HEMATOLOGY MCHC 35.4 32.0 - 36.0 2017 [facility] HEMATOLOGY MCH 36.0 27.0 - 31.0 2017 [facility] HEMATOLOGY Platelet 194 133 - 450 2017 [facility] HEMATOLOGY MPV 7.8 7.4 - 10.4 2017 [facility] HEMATOLOGY RDW 13.3 11.5 - 14.5 2017 [facility] Pathology Reports No Data Provided for This Section Diagnostic Reports Report Value Date Source Elbow 3 views DX Left elbow 3 views: There is no fracture or dislocation. There are no other significant osseous, articular or soft tissue abnormalities. 04/18/2018 [facility] IMPRESSION: No acute radiographic abnormalities of the left elbow. SL DLAWRENCE-PC Chest Pulmonary CTA CHEST WITH CONTRAST 11/02/[address] [facility] Embolism CTA INDICATION: Evaluate for PE, [...] DX Clinical Indication: - chest pain 11/02/2017 [facility] Comparison: None FINDINGS: AP chest radiograph was obtained. MEDIASTINUM: The cardiac mj houette is normal in size. The aorta is unremarkable. LUNGS: Lung volumes are main tained. There are no focal infiltrates or effusions. There are no pneumothoraces noted. BONES: The visualized osseous structures are unr emarkable. IMPRESSION: No acute infiltrates or effusions. SL: [id number] Hand 3 views DX Patient Name: CHRISTEN SHEFFIELD 12/15/2016 [facility] [place] : 1960; Age: 56 years y/o Male MR: [id number] Study: 3 view examination of the left [...] Comments Source Systolic (mm Hg) 138 04/19/2018 [facility] Diastolic (mm Hg) 92 04/19/2018 [place] Heart Rate 90 04/19/2018 [facility] Respitory Rate 16 04/19/2018 [facility] Temperature Oral (F) 98.5 F 04/19/2018 [place] Weight 88.01 04/19/2018 [facility] Temperature Oral (F) 98.3 F 04/19/2018 [facility] [place] Respitory Rate 17 04/19/2018 [facility] Heart Rate 89 04/19/2018 [facility] Systolic (mm Hg) 124 04/19/2018 [facility] Diastolic (mm Hg) 73 04/19/2018 [place] Systolic (mm Hg) 132 11/02/2017 [facility] Diastolic (mm Hg) 91 11/02/2017 [facility] Temperature Oral (F) 98.2 F 11/02/[address] [facility] Respitory Rate 13 11/02/2017 [place] [facility] Respitory Rate 13 11/02/2017 [facility] Systolic (mm Hg) 135 11/02/2017 [facility] [place] Diastolic (mm Hg) 87 11/02/2017 [facility] Systolic (mm Hg) 140 11/02/2017 [facility] [place] Diastolic (mm Hg) 73 11/02/2017 [facility] Respitory Rate 14 11/02/2017 [facility] Temperature Oral (F) 98.3 F 11/02/[address] [facility] Weight 79.955 11/02/2017 [facility] Heart Rate 99 11/02/2017 [facility] [place] Heart Rate 76 12/16/2016 [facility] Respitory Rate 15 12/16/2016 [facility] Systolic (mm Hg) 115 12/16/2016 [facility] Diastolic (mm Hg) 84 12/16/2016 [facility] [place] Systolic (mm Hg) 118 12/16/2016 [facility] Diastolic (mm Hg) 72 12/16/2016 [place] Heart Rate 83 12/16/2016 [facility] Temperature Oral (F) 98.2 F 12/16/2016 [place] Respitory Rate 16 12/16/2016 [facility] [place] Weight 89.545 12/16/2016 [facility] Weight 190 02/27/2015 [facility] Height 71 02/27/2015 [facility] Heart Rate 81 02/27/2015 [facility] Diastolic (mm Hg) 84 02/27/2015 [facility] Systolic (mm Hg) 132 02/27/2015 [facility] Podiatry Encounters Location Location Encounter Encounter Reason Attending ADM DC Stat us Source Details Type Number For Provider Date Date Visit [place] NEW PT: [id number] 02/27 02/27 [facility] Possible -[id number] /2014 [facility] Infection, [id number] Podiatry Rt [facility] [place] NEW PT: [id number] 02/27 02/27 [facility] Possible -[id number] /2014 [facility] Infection, [id number] Podiatry Rt [facility] [place] NEW PT: [id number] 02/27 02/27 [facility] Possible -[id number] /2014 [facility] Infection, [id number] Podiatry Rt [facility] [place] Results: [id number] 03/03 03/03 [facility] LFT's -[id number] /2014 [facility] (Round 1) [id number] P odiatry [place] Results: [id number] 03/03 03/03 [facility] LFT's -[id number] /2014 [facility] (Round 1) [id number] P odiatry [place] Results: [id number] 03/03 03/03 [facility] LFT's -[id number] /2014 [facility] (Round 1) [id number] P odiatry [place] Re-Check: [id number] 04/02 04/02 [place] LFT's -[id number] /2014 [facility] (Round 2) [id number] P odiatry [place] Re-Check: [id number] 04/02 04/02 [place] LFT's -[id number] /2014 [facility] (Round 2) [id number] P odiatry [place] Re-Check: [id number] 04/02 04/02 [place] LFT's -[id number] /2014 [facility] (Round 2) [id number] P odiatry [place] Results: [id number] 04/09 04/09 S [facility] LFT's -[id number] /2014 [facility] (Round 2) [id number] P odiatry [place] Results: [id number] 04/09 04[id number] (Round 2) [id number] P odiatry [place] Results: [id number] 04/09 04/09 [id number] /2014 [facility] (Round 2) [id number] P odiatry [place] Re-Check: [id number] 05/12 [id number] (Round 3) [id number] P odiatry [facility] Emergency [id number] Michael Goldberg 12/16 12/16 Noe /2016 [facility] Emergency [id number] Abbie 11/02 11/02 Noe Matias /2017 [facility] Emergency [id number] Terrence Woodruff 04/19 04/19 Noe /2017 [facility] Procedures No Data Provided for This Section Assessment and Plan No Data Provided for This Section Plan of Care No Data Provided for This Section Social History Social History Date Source Social History TypeResponse 04/19/2018 [facility] Smoking Status Never smoker; Concerns about tobacco [...] on: 11/02/17 Social History ElementQualifiersDate Reported 02/27/2015 [facility] Tobacco Use: . Are you a:: current smoker Feb 27, 2015 Family History No Data Provided for This Section Advance Directives No Data Provided for This Section Functional Status No Data Provided for This Section
--- OUTSIDE RECORDS SUMMARY | 2020-01-02 19:35 | XMS REPORT | Continuity of Care Document ---
:1960 Author Organization [facility] t Address [address] [place] [address] Care Team Providers Name Role Phone Darien Harkins MD Primary Care Physician Stoney FRASER, S Attending Clinician Chidi MCCOY Attending Clinician Chidi MCCOY Attending Clinician Rob MCCOY Attending Clinician ROB Attending Clinician Unavailable CHIDI Attending Clinician Unavailable Seth Woodruff Attending Clinician Amanda Matias Attending Clinician Nel Goldberg Attending Clinician CHIDI Admitting Clinician Unavailable Payers Payer Name Policy Policy Number Effective Expiration Source Type Date Date CIGNA HEALTHSPRINGCIGNA xxxxxxxxxxx [facility] - ALLxxxxxxxxxxxMaps Medica l [facility] Center MEDICAIDMEDICAID OF xxxxxxxxx [facility] t [place] [facility] Problems Condition Condition Condition Status Onset Resolution Last Treating Co mments Source Name Details Category Date Date Treatment Clinician Date Penile Penile Disease Active [facility] swelling swelling 01[facility]02 [facility] Urinary Urinary Disease Active [facility] tract [facility]24 [facility] - infection infection 00:00: Medi radha without without 00 Center hematuria, hematuria, site site unspecifie unspecifie d d Malignant Malignant Disease Active [facility] neoplasm neoplasm [facility] - of of 00:00: Medical prostate prostate 00 Center ARM PAIN Diagnosis Active 2017-062018-04-19 M emoria 06-18 15:03:00 l ARM PAIN 00:00: Spencer n 00 Active 04/18/2018 [facility] Noe CHEST PAIN Diagnosis Active 2017-11-02 Memoria 11-01 01:31:00 l CHEST 00:00: Noe PAIN 00 Active 11/01/2017 [facility] HAND AND Diagnosis Active 2017-01-04 emoria KNEE PAIN 12-15 15:35:00 l HAND AND 00:00: Spencer n KNEE PAIN 00 Active 12/15/2016 [facility] Noe Localized Problem 2018-11-05 Me moria swelling, 14:05:51 l mass and [place] lump, left Localized lower limb swelling, mass and lump, left lower limb 11/05/2018 [place] Essential Problem 2018-11-05 Me moria (primary) 14:05:51 l hypertensi Spencer n on Essential (primary) hypertensi on 11/05/2018 Mateusz,M [facility] Personal Problem 2018-11-05 Mem oria history of 14:05:51 l malignant Personal Her garcia neoplasm history of of malignant prostate neoplasm of prostate 11/05/2018 Mateusz Ingrowing Problem Active 2015-05-13 Tn moria nail 03:05:35 l Noe [place] nail Active Problem 05/13/2015 [facility] Onychomyco Problem Active 2015-05-13 M emoria sis 03:05:35 l [place] Onychomyco sis Active Problem 05/13/2015 [facility] Abscess/ce Problem Active 2015-05-13 M emoria llulitis-t 03:05:35 l oe Noe Abscess/ce llulitis-t oe Active Problem 5 [facility] Contusion/ Problem Active 2015-05-13 M emoria hematoma-t 03:05:35 l oe [place] Contusion/ hematoma-t oe Active Problem 5 [facility] Lesion of Problem 2017-2018-11-05 2018-11-05 Memoria ulnar 1-13 14:05:51 14:05:51 l nerve, Lesion 06:00: [place] left upper of ulnar 00 limb nerve, left upper limb 04/18/2018 11/05/2018 [place] Chest Problem 2017-11-05 2017-11-05 M emoria pain, 11-02 03:37:57 03:37:57 l unspecifie Chest 05:00: Babita nn d pain, 00 unspecifie d 11/02/2017 11/05/2017 [facility] Nicotine Problem 2017-11-05 2017-11-05 Memoria dependence 11-02 03:37:57 03:37:57 l , Nicotine 05:00: Spencer strauss unspecifie dependence 00 d, , uncomplica unspecifie maxwell d, uncomplica maxwell 11/02/2017 11/05/2017 [facility] Anemia, Problem 2017-11-05 2017-11-05 Memoria unspecifie 11-02 03:37:57 03:37:57 l d Anemia, 05:00: Noe unspecifie 00 d 11/02/2017 11/05/2017 [facility] Other Problem 2017-11-05 2017-11-05 M emoria chest pain 11-02 03:37:57 03:37:57 l Other 05:00: Noe chest pain 00 11/02/2017 11/05/2017 [facility] Radial Problem 2016-12-19 2016-12-19 M emoria styloid 12-16 03:21:57 03:21:57 l tenosynovi Radial 05:00: Herm janey tis [de styloid 00 Quervain] tenosynovi tis [de Quervain] 12/16/2016 12/19/2016 [facility] Allergies, Adverse Reactions, Alerts Allergy Allergy Status Severity Reaction(s) Onset Inactive Treating Comm ents Source Name Type Date Date Clinician No Known DA Active [facility] Allergie 12-31 00:00: [address] N.K.D.A. N.K.D.A. Active Info Not Dane victor hugo Available 9-24 l 00:00: [place] 00 No Known No Known Active Memori a Medicati Medicati l on on [place] Ward Hopper s s Social History Social Habit Start Date Stop Date Quantity Comments Source Sex Assigned At [facility] Cigarettes smoked 2018-12-31 2018-12-31 [facility] - current (pack per 00:00:00 00:00:00 [facility] day) - Reported Cigarette pack-years 2018-12-31 2018-12-31 [facility] - 00:00:00 00:00:00 [facility] TobaccoUse: 2015-02-27 2015-02-27 [facility] janey 00:00:00 00:00:00 Smoking Status Start Date Stop Date Source Current every day smoker 2018-12-31 00:00:00 [facility] Social History [facility] Medications Ordered Filled Start Stop Current Ordering Indication Dosage Frequency Signature Comments Components Source Medication Medication Date Date Medication? Clinician (SIG) Name Name traMADol 2018- No 50mg Take 1 [facility] (ULTRAM) 50 01-07 tablet (50 L ukes - mg tablet 00:00: 23:59 mg total) Me dical 00 :00 by mouth Center every 6 (six) hours as needed for up to 10 days. Max Daily Amount: 200 mg sulfamethox 2018- No 80mg{tr Q.5D Take 1 [facility] azole-trime 01-07 imethop tablet (80 [facility] - thoprim 00:00: 23:59 rim} mg of Medical (BACTRIM,SE 00 :00 trimethopr Ce nter PTRA) im total) 400-80 mg by mouth 2 per tablet (two) times daily for 10 days. polyethylen 2018- No 17g QD Take [address] [facility] e glycol 01-07 by mouth [facility] - (GLYCOLAX) 00:00: 23:59 daily for M edical 17 00 :00 3 days. Center gram/dose powder acetaminoph 2018- No 1{tbl} Take [address] en-codeine 12-29 tablet by Kade es - (TYLENOL 00:00: 23:59 mouth Medical #3) 300-30 00 :00 every 4 Center mg per (four) tablet hours as needed for up to 10 days. Max Daily Amount: 6 tablets docusate 2018- No 100mg Q.5D Take 1 [facility] sodium 12-29 capsule [facility] - (COLACE) 00:00: 23:59 (100 mg Medic al 100 MG 00 :00 total) by Center capsule mouth 2 (two) times daily for 10 days. oxybutynin 2018- No 5mg Take [address] [facility] [facility] (DITROPAN) 12-29-05 tablet (5 Kade es - 5 MG tablet 00:00: 23:59 mg total) Medical 00 :00 by mouth 3 Center (three) times daily as needed (Bladder pain) for up to 10 days. ciprofloxac 2018- No 500mg Q.5D Take [address] in HCl 12-29 tablet [facility] - (CIPRO) 500 00:00: 00:00 (500 mg Me dical MG tablet 00 :00 total) by Cente r mouth 2 (two) times daily for 3 days Start taking day before follow up appt. tadalafil Yes 5mg QD Take [address] (CIALIS) 5 7-02 by mouth [facility] - MG tablet 00:00: daily. Medica l 00 [place] losartan Yes 50mg QD Take [address] (COZAAR) 50 6-05 by mouth Luke s - MG tablet 18:32: daily. Medica l 49 [place] omeprazole Yes 40mg QD Take [address] (PRILOSEC) 6-05 by mouth [facility] - 40 MG 18:32: daily. Medical capsule 49 [place] Acetaminoph 2017-06 No 1 tab, PO, Memoria en 300 MG / 1-14 Q6H, PRN l Codeine 03:19: Pain, X 3 Babita nn Phosphate 00 day, # 12 30 MG Oral tab, 0 Tablet Refill(s) [Tylenol with Codeine #3] {2017-06 Yes See Memoria (Methylpred 1-14 Instructio l nisolone 4 03:19: ns, PO, Herm janey MG Oral 00 Take by Tablet mouth as [Medrol]) } directed Pack on label., [Medrol # 1 Pack, Dosepak] 0 Refill(s) Ibuprofen 2017-06 No 800 mg = 1 Me moria 800 MG Oral 1-14 tab, PO, l Tablet 03:18: Q8H, PRN [place] [Motrin] 00 Pain, Take with food, X 10 day, # 30 tab, 0 Refill(s) Ibuprofen 2017-06 No Notes: Memori a 1-14 (Same as: l 01:48: Motrin) Noe 00 "Do Not Crush" Take with food. Acetaminoph Yes 1 - 2 tab, Memoria en 300 MG / 5-30 PO, Q6H, l Codeine 09:13: PRN Pain, Babita nn Phosphate 00 X 3 day, # 30 MG Oral 15 tab, 0 Tablet Refill(s) [Tylenol with Codeine #3] Methocarbam Yes 1- 2 tab, M emoria ol 750 MG 5-30 PO, TID, l Oral Tablet 09:13: PRN Muscle Noe [Robaxin] 00 Spasms, X 5 day, # 20 tab, 0 Refill(s) Acetaminoph No 1 tab, Dane victor hugo en 325 MG / 5-30 Route: PO, l Hydrocodone 08:16: Drug Form: [place] Bitartrate 00 TAB, 5 MG Oral Dosing Tablet Weight [[place] 79.955, 5/325] kg, ONCE, STAT, Start date: 11/02/17 3:16:00 CDT, Stop date: 11/02/17 3:16:00 CDT Robaxin No Notes: Memoria 5-30 (Same l 07:44: as:Robaxin ) Omnipaque No 100 mL, Memor ia 350 5-30 Route: IV, l 07:27: Dosing Noe 00 Weight 79.955, kg, ONCE, Start date: 11/02/17 2:27:00 CDT, Stop date: 11/02/17 2:27:00 CDT Omnipaque No Notes: Memori a 300 5-30 (Same l 07:12: as:Omnipaq ue 300). WASTE: F/P - Black; E - Municipal Trash Bin Ketorolac No 4 days Memor ia 5-30 l 06:07: MEDICATION WASTE Product Size: 30 mg Product Wasted: ___ mg Zofran ODT No Notes: Memor ia 5-30 (Same as: l 06:06: Zofran ODT) Morphine No Notes: Memoria 5-30 (Same l 06:06: as:MORPhin e Sulfate) Sodium No 500 mL, Memoria Chloride 5-30 500 ml/hr, l 0.9% 06:06: Infuse Noe (Bolus) IV 00 Over: 1 hr, Route: IV, 500, Drug form: INJ, ONCE, Priority: STAT, Dosing Weight 79.955 kg, Start date: 11/02/17 1:06:00 CDT, Stop date: 11/02/17 1:06:00 CDT Saline No Notes: Memoria Flush 0.9% 5-30 Same as: l 04:24: BD Posiflush Sterile Motrin 800 Yes 800 mg = 1 M emoria mg oral 7-13 tab, PO, l tablet 05:11: Q8H, PRN Pain, Take with food, X 7 day, # 21 tab, 0 Refill(s) Hydrocodone 2014-06 Yes Ugo Unknown Memoria -Acetaminop 1-13 John l hen 03:00: Lyrica 2014-06 Yes Ugo Unknown Memor ia 1-13 John l 03:00: Lamisil Yes Ugo 1 tablet Mem oria 9-24 John l 00:00: Vital Signs Vital Name Observation Time Observation Value Comments Source Systolic blood 2019-01-08 08:14:00 118 mm[Hg] [facility] Diastolic blood 2019-01-08 08:14:00 67 mm[Hg] [facility] Heart rate 2019-01-08 08:14:00 87 /min [facility] Body temperature 2019-01-08 08:14:00 36.67 Meri [facility] Respiratory rate 2019-01-08 08:14:00 18 /min [facility] Oxygen saturation in 2019-01-08 08:14:00 99 /min [facility] Arterial blood by Medical Ce nter Pulse oximetry Systolic (mm Hg) 2018-04-19 03:12:00 Dane rial Noe Diastolic (mm Hg) 2018-04-19 03:12:00 Mem orial [place] Heart Rate 2018-04-19 03:12:00 Memorial Noe Respitory Rate 2018-04-19 03:12:00 Memori al [place] Temperature Oral (F) 2018-04-19 03:12:00 98.5 F Memorial Noe Weight 2018-04-19 01:46:00 Memorial Noe Temperature Oral (F) 2018-04-19 01:46:00 98.3 F Memorial Noe Respitory Rate 2018-04-19 01:46:00 Memori al [place] Heart Rate 2018-04-19 01:46:00 Memorial Noe Systolic (mm Hg) 2018-04-19 01:46:00 Dane rial Noe Diastolic (mm Hg) 2018-04-19 01:46:00 Mem orial [place] Systolic (mm Hg) 2017-11-02 09:31:00 Dane rial Noe Diastolic (mm Hg) 2017-11-02 09:31:00 Mem orial Noe Temperature Oral (F) 2017-11-02 09:31:00 98.2 F Memorial Noe Respitory Rate 2017-11-02 09:31:00 Memori al Noe Respitory Rate 2017-11-02 08:48:00 Memori al [place] Systolic (mm Hg) 2017-11-02 08:48:00 Dane rial [place] Diastolic (mm Hg) 2017-11-02 08:48:00 Mem orial Noe Systolic (mm Hg) 2017-11-02 08:25:00 Dane rial [place] Diastolic (mm Hg) 2017-11-02 08:25:00 Mem orial Noe Respitory Rate 2017-11-02 08:25:00 Memori al [place] Temperature Oral (F) 2017-11-02 04:29:00 98.3 F Memorial Noe Weight 2017-11-02 04:29:00 Memorial [place] Heart Rate 2017-11-02 04:29:00 Memorial [place] Heart Rate 2016-12-16 05:46:00 Memorial [place] Respitory Rate 2016-12-16 05:46:00 Memori al Noe Systolic (mm Hg) 2016-12-16 05:46:00 Dane rial Noe Diastolic (mm Hg) 2016-12-16 05:46:00 Mem orial Noe Systolic (mm Hg) 2016-12-16 02:23:00 Dane rial [place] Diastolic (mm Hg) 2016-12-16 02:23:00 Mem orial [place] Heart Rate 2016-12-16 02:23:00 Memorial Noe Temperature Oral (F) 2016-12-16 02:23:00 98.2 F Memorial Noe Respitory Rate 2016-12-16 02:23:00 Memori al [place] Weight 2016-12-16 02:23:00 Memorial Noe Weight 2015-02-27 17:00:00 Memorial Noe Height 2015-02-27 17:00:00 Memorial Noe Heart Rate 2015-02-27 17:00:00 Memorial [place] Diastolic (mm Hg) 2015-02-27 17:00:00 Mem orial Noe Systolic (mm Hg) 2015-02-27 17:00:00 Dane rial Noe Procedures Procedure Date / Time Performed Performing Clinician [facility] e CBC (HEMOGRAM ONLY) 2019-01-08 04:23:00 [facility] BASIC METABOLIC PANEL 2019-01-08 04:23:00 Christen Villalba [address] BASIC METABOLIC PANEL 2019-01-07 09:32:00 [address] CBC (HEMOGRAM ONLY) 2019-01-07 05:14:00 [facility] CBC (HEMOGRAM ONLY) 2019-01-06 06:06:00 [facility] BASIC METABOLIC PANEL 2019-01-05 06:27:[address] CBC (HEMOGRAM ONLY) 2019-01-05 04:34:00 [facility] BASIC METABOLIC PANEL 2019-01-04 05:48:[address] CBC (HEMOGRAM ONLY) 2019-01-04 04:50:00 Antonio, Moustapha Claudio [facility] [place] CYSTOGRAM STATIC 2019-01-03 14:35:00 Wilver Berkowitz [facility] CBC (HEMOGRAM ONLY) 2019-01-03 06:03:00 Antonio [facility] BASIC METABOLIC PANEL 2019-01-03 05:02:00 [facility] () [facility] MAGNESIUM 2019-01-03 05:02:[address] [facility] PHOSPHORUS 2019-01-03 05:02:[address] [facility] CT ABDOMEN/PELVIS WITH 2019-01-02 10:50:00 [facility] BASIC METABOLIC PANEL 2019-01-02 05:44:00 [facility] () [facility] MAGNESIUM 2019-01-02 05:44:[address] [facility] PHOSPHORUS 2019-01-02 05:44:[address] [facility] BASIC METABOLIC PANEL 2019-01-01 03:31:00 [facility] () [facility] MAGNESIUM 2019-01-01 03:31:[address] [facility] PHOSPHORUS 2019-01-01 03:31:[address] [facility] CBC W/PLT COUNT & AUTO 2019-01-01 03:31:00 [facility] Encounters Start End Encounter Admission Attending Care Care Encounter Source Date/Time Date/Time Type Type Clinicians Facility Department ID 2019-08-15 2019-08-15 Office CHRIS Lua [id number] 13:29:49 14:15:25 [facility] [id number] Surgical [id number] Specialti [id number] es [address] [place] 2019-01-19 2019-01-19 Office Blas Murillo [id number] 09:27:34 10:39:25 Visit AMBULATOR 350.1.13.21 Y 0.2.7.2.686 [id number] 300 2019-01-15 2019-01-15 Office Blas Murillo [id number] 15:22:05 16:02:23 Visit AMBULATOR 350.1.13.21 Y 0.2.7.2.686 [id number] 300 2018-04-18 2018-04-18 Outpatient Terrence Woodruff [facility] [id number] 19:27:00 21:48:00 R 02 2017-11-01 2017-11-02 Outpatient Polly OSMANY [facility] [id number] 23:07:00 04:33:00 Abbie Patel 2016-12-15 2016-12-16 Outpatient Ashlyn Michael [facility] [id number] 21:18:00 00:50:00 Daeun 00 2015-05-12 2015-05-12 [facility] [id number] eClinic 13:34:00 13:34:00 [facility] Pod[facility]ry 2015-04-09 2015-04-09 [facility] [id number] eClinic 17:51:00 17:51:00 [facility] Podiatry 2015-02-27 2015-02-27 [facility] [id number] eClinic 11:00:00 11:00:00 [facility] Podiatry Results Test Description Test Time Test Comments Results Result Comments Source Basic Metabolic Panel 2019-01-08 06:51:00 Test Item Value Reference Range Interpretation Comme nts Sodium (test code = 2951-2) 138 meq/L 136-145 Potassium (test code = 3.8 meq/L 3.5-5.1 2823-3) Chloride (test code = 106 meq/L 98-107 5-0) CO2 (test code = 2027-9) 23 meq/L 22-29 BUN (test code = 3094-0) 8 mg/dL 7-21 Creatinine (test code = 0.79 mg/dL 0.57-1.25 2160-0) Glucose (test code = 2345-7) 98 mg/dL 70-105 Calcium (test code = 9.0 mg/dL 8.4-10.2 64409-0) EGFR (test code = 45280-6) 122 mL/min/1.73 sq m ESTIMATED GFR IS NOT ACCURATE CRE ATININE CLEARANCE IN DE EDICTING GLOMERULAR FILT RATION RATE. ESTIMATED GFR I S NOT APPLICABLE FOR DIALYSIS PATIENTS. [facility] METABOLIC [id number] 06:51:00 Test Item Value Reference Range Interpretation Comments SODIUM (BEAKER) 138 meq/L 136-145 (test code = 381) POTASSIUM (BEAKER) 3.8 meq/L 3.5-5.1 (test code = 379) CHLORIDE (BEAKER) 106 meq/L 98-107 (test code = 382) CO2 (BEAKER) (test 23 meq/L 22-29 code = 355) BLOOD UREA NITROGEN 8 mg/dL 7-21 (BEAKER) (test code = 354) CREATININE (BEAKER) 0.79 mg/dL 0.57-1.25 (test code = 358) GLUCOSE RANDOM 98 mg/dL 70-105 (BEAKER) (test code = 652) CALCIUM (BEAKER) 9.0 mg/dL 8.4-10.2 (test code = 697) EGFR (BEAKER) (test 122 mL/min/1.73 ESTIM ATED GFR IS code = 1092) sq m NOT ACCURATE CREATININE CLEARANCE IN PREDICTING GLOMERULAR FILTRATION RATE . ESTIMATED GFR I S NOT APPLICABLE FOR DIALYSIS PATIEN TS. CBC (Hemogram only)2019-01-08 05:48:00 Test Item Value Reference Range Interpretation Comments WBC (test code = 6690-2) 8.4 3.5- 10.5 K/L RBC (test code = 789-8) 3.09 4.63- 6.08 M/L L MCHC (test code = 786-4) 32.7 32.3- 36.5 GM/DL L Hematocrit (test code = 4544-3) 32.1 % 40.1-51 L MCV (test code = 787-2) 103.9 fL 79-92.2 H MCH (test code = 785-6) 34.0 pg 25.7-32.2 H RDW (test code = 788-0) 13.7 % 11.6-14.4 Platelets (test code = 777-3) 433 150- 450 K/CU MM MPV (test code = 34754-3) 9.0 fL 9.4-12.4 L nRBC (test code = 413) 0 0- 0 /100 WBC Lab Interpretation (test code = Abnormal 40034-0) [facility] (HEMOGRAM ONLY)2019-01-08 05:48:00 Test Item Value Reference [...] (BEAKER) (test code = 413) BASIC METABOLIC [id number] 10:29:00 Test Item Value Reference Range Interpretation [...] (BEAKER) (test code = 413) BASIC METABOLIC [id number] 07:16:00 Test Item Value Reference Range Interpretation [...] (BEAKER) (test code = 413) BASIC METABOLIC [id number] 06:42:00 Test Item Value Reference Range Interpretation [...] (BEAKER) (test code = 413) [place], CYSTOGRAM, [id number] 15:59:00Reason for exam:->concern for urine leakFINAL REPORT [...] Contrast extravasation as described. Signed: Janey Iglesias Verified Date/Time: 01/03/2019 15:59:13 Reading Location: [facility] C013X Ortho Consult Reading Room [place] cystogram [id number] 15:59:00Interface, External Ris In - 01/03/2019 4:01 PM CDTFINAL REPORT Cystogram Clinical History: concern for urine [...] Contrast extravasation as described. Signed: Janey Iglesias Verified Date/Time: 01/03/2019 15:59:13 Reading Location: [facility] C013X [facility] 08:[facility]00 Test Item Value Reference Range Interpretation Comments Magnesium (test code = 57559-8) 1.9 mg/dL 1.6-2.6 Lab Interpretation (test code = Normal 25352-0) [facility]00 Test Item Value Reference Range Interpretation Comments Phosphorus (test code = 2777-1) 3.1 mg/dL 2.3-4.7 Lab Interpretation (test code = Normal 40131-8) [facility] 08:26:00 Test Item Value Reference Range Interpretation Comments PHOSPHORUS (BEAKER) (test code = 3.1 mg/dL 2.3-4.7 604) [id number] 08:26:00 Test Item Value Reference Range Interpretation Comments MAGNESIUM (BEAKER) (test code = 1.9 mg/dL 1.6-2.6 627) BASIC METABOLIC [id number] 08:26:00 Test Item Value Reference Range Interpretation [...] 0-0 (BEAKER) (test code = 413) TISSUE [id number] 17:00:00Surgical Pathology Report Case: [id number] Authorizing Provider: Blas Murillo MD Collected: 12/27/2018 1005 Ordering Location: [facility] PERIOPERATIVE Received: 12/27/2018 1445 SERVICES Pathologist: Nikita Mahajan MD Specimens: A) -Lymph Node, Periprostatic B) - Lymph Node, Pelvic, Right C) - LymphNode, Pelvic, Left D) - Soft Tissue, Other, Bladder Neck E) - Prostate, Pr ostate and Seminal Vesicles A. SOFT TISSUE, LABELED [...] PATHOLOGIC DIAGNOSIS Signing Pathologist Direct Phone Line: [phone] signed by Nikita Mahajan MD on 01/02/2019 [...] (cm)TUMOR Histologic Type: Acinar adenocarcinoma Histologic Grade: [place] Pattern:Percentage of Pattern 4: 30 % Percentage of Pattern 5: 1 % Primary Imani Pattern: Pattern 3 Secondary Imani Pattern: Pattern 4 Tertiary [place] Pattern: Pattern 5 Total [place] Score: 7 Grade Group: 2 Intraductal Carcinoma (IDC): Present Tumor Extent: Tumor Quantitation: Estimated percentage of prostate involved by tu mor: 15% % Extraprostatic Extension (EPE): Present, focal Location of Extraprostatic Extension: Left posterior Urinary Bladder Neck Invasion: Not identified Seminal Vesicle Invasion: Not identified Accessory Findings: Treatment Effect: No known presurgical therapy Lymphovascular Invasion: Not Identified Perineural Invasion: Present MARGINS Margins: Involved by invasive carcinoma : Non- limited (>= 3 mm) Linear Length of Positive Margin(s) in Millimeters (mm): 5 Millimeters (mm) Focality: Unifocal Location of Positive Margin(s): Right apical Location of Positive Margin(s): Left apical Margin Positivity in Area of Extraprostatic Extension (EPE): Not identified Imani Pattern atPositive Margin(s): Pattern 3 LYMPH NODES [...] (PIN) Additional Pathologic Findings: Nodular prostatic hyperplasia 67949, 61479 x 2, 85930 X 2Prostate cancerA. Periprostatic lymph node. B. [...] three lymph nodes; B3-B5, remainder, entirely submitted.C. Receive d in formalin labeled with the patient's name [...] patient's name (Christen Harkins) with accession number [id number] is a prostate with bilateral seminal vesicles [...] deferentia are submitted in cassette E13. SDH/ewPerformed.CT, [id number] 13:19:00Patient with significant scrotal swelling and subcutaneous [...] lung bases. HEPATOBILIARY: No focal hepatic lesions. Gallb ladder is unremarkable. No biliary ductal dilatation.SPLEEN: No [...] thickening. BONES AND SOFT TISSUES: Bones are unr emarkable. Diffuse scrotal wall edema. Air within the soft tissues of the abdominal wall tracks inferiorly into the inguinal canals bilaterally and surrounds the testicles. Air within the soft tissues of the penis. Mild soft tissue edema in the abdominal wall, groin, and bilateral proximal thighs. IMP RESSION:Soft tissue air and edema in the abdomen, groin, scrotum, and penis, likely related to recent prostatectomy. Trace ascites and pneumoperitoneum, also likely related to recent prostatectomy. Air- and fluid-containing collections along the pelvic sidewalls bilaterally, likely seromas or lymphoceles. Distention of the right colon without transition point, suggestive of ileus. Signed: Gayathri Trinh MDReport Verified Date/Time: 01/02/2019 13:19:12 Reading Location: [facility] B1 C013Y CT Body ReadingRoom CT abdomen/pelvis with IV [id number] 13:19:00Interface, External Ris In - 01/02/2019 1:21 PM CDTFINAL REPORT TECHNIQUE: CT of the abdomen and pelvis WITH intravenous contrast and WITHOUT oral contrast. Dose modulation, iterative reconstruction, and/or weight-based adjustment of the mA/kV was utilized to reduce the radiation dose to as low as reasonably achievable. INDICATION: 58-year-old man with postoperative infection.COMPARISON: Abdomen and pelvis CT 12/31/2018. FINDINGS: LOWER [...] free fluid and free air in the abdome n.LYMPH NODES: Recent bilateral pelvic lymphadenectomies. No lymphadenopathy.VESSELS: [...] MDReport Verified Date/Time: 01/02/2019 13:19:12 Reading Location: [facility] B1 C013Y CT Body [facility]00 Test Item Value Reference Range Interpretation Comments PHOSPHORUS (BEAKER) (test code = 3.3 mg/dL 2.3-4.7 604) [id number] 07:00:00 Test Item Value Reference Range Interpretation Comments MAGNESIUM (BEAKER) (test code = 1.9 mg/dL 1.6-2.6 627) BASIC METABOLIC [id number] 07:00:00 Test Item Value Reference Range Interpretation [...] S NOT APPLICABLE FOR DIALYSIS PATIEN TS. [id number] 04:40:00 Test Item Value Reference Range Interpretation Comments PHOSPHORUS (BEAKER) (test code = 2.9 mg/dL 2.3-4.7 604) [id number] 04:40:00 Test Item Value Reference Range Interpretation Comments MAGNESIUM (BEAKER) (test code = 1.8 mg/dL 1.6-2.6 627) BASIC METABOLIC [id number] 04:40:00 Test Item Value Reference Range Interpretation [...] NOT APPLICABLE FOR DIALYSIS PATIEN TS. CBC with platelet count + automated [id number] 04:10:00 Test Item Value Reference Range Interpretation Comments WBC (test code = 6690-2) 7.8 3.5- 10.5 K/L RBC (test code = 789-8) 2.80 4.63- 6.08 M/L L MCHC (test code = 786-4) 33.6 32.3- 36.5 GM/DL L Hematocrit (test code = 4544-3) 29.2 % 40.1-51 L MCV (test code = 787-2) 104.3 fL 79-92.2 H MCH (test code = 785-6) 35.0 pg 25.7-32.2 H RDW (test code = 788-0) 13.1 % 11.6-14.4 Platelets (test code = 777-3) 176 150- 450 K/CU MM MPV (test code = 02887-4) 9.5 fL 9.4-12.4 nRBC (test code = 413) 0 0- 0 /100 WBC % Neutros (test code = 429) 71 % % Lymphs (test code = 430) 15 % % Monos (test code = 431) 11 % % Eos (test code = 432) 2 % % Baso (test code = 437) 0 % # Neutros (test code = 670) 5.51 1.78- 5.38 K/L H # Lymphs (test code = 414) 1.20 1.32- 3.57 K/L L # Monos (test code = 415) 0.83 0.30- 0.82 K/L H # Eos (test code = 416) 0.17 0.04- 0.54 K/L # Baso (test code = 417) 0.03 0.01- 0.08 K/L Immature Granulocytes-Relative 0 % 0-1 (test code = 2801) Lab Interpretation (test code = Abnormal 34393-3) [facility] W/PLT COUNT & AUTO [id number] 04:10:00 Test Item Value Reference Range Interpretation [...] code = 2801) URINALYSIS W/ REFLEX URINE [id number] 18:55:00 Test Item Value Reference Range Interpretation [...] 516) SOURCE(BEAKER) (test code = 2795) CT, [id number] 18:21:00Reason for exam:->ABDOMINAL PAINWhat is the patient's [...] Archie Gibbs MDReport Verified Date/Time: 12/31/2018 18:21:28 [facility] METABOLIC [id number] 18:15:00 Test Item Value Reference Range Interpretation [...] PATIEN TS. CBC W/PLT COUNT & AUTO [id number] 17:59:00 Test Item Value Reference Range Interpretation [...] = 2801) UA RFLX MICR CULT IF [id number] 08:59:00 Test Item Value Reference Range Interpretation [...] OF URINE: CLEAN CATCHIndication for culture: Dysuria/FrequencyUA [id number] 08:59:00 Test Item Value Reference Range Interpretation Comments UA RBC (test code = RBCU) 20-30 RBC/HPF 0-3 A UA WBC (test code = XWBCU) 20-30 WBC/HPF 0-5 A UA EPITHELIAL CELLS (test code FEW EPI/HPF FEW = EPIU) UA BACTERIA (test code = XBACU) FEW NONE SOURCE OF URINE: CLEAN CATCHIndication for culture: Dysuria/FrequencyUA RFLX MICR CULT IF [id number] 08:50:00 Test Item Value Reference Range Interpretation [...] OF URINE: CLEAN CATCHIndication for culture: Dysuria/FrequencyUA [id number] 08:50:00 Test Item Value Reference Range Interpretation Comments UA RBC (test code = RBCU) RBC/HPF 0-3 UA WBC (test code = XWBCU) WBC/HPF 0-5 UA EPITHELIAL CELLS (test code = EPI/HPF FEW EPIU) UA BACTERIA (test code = XBACU) NONE SOURCE OF URINE: CLEAN CATCHIndication for culture: Dysuria/FrequencyUA RFLX MICR CULT IF [id number] 08:50:00 Test Item Value Reference Range Interpretation [...] OF URINE: CLEAN CATCHIndication for culture: Dysuria/FrequencyUA [id number] 08:50:00 Test Item Value Reference Range Interpretation Comments UA RBC (test code = RBCU) RBC/HPF 0-3 UA WBC (test code = XWBCU) WBC/HPF 0-5 UA EPITHELIAL CELLS (test code = EPI/HPF FEW EPIU) UA BACTERIA (test code = XBACU) NONE SOURCE OF URINE: CLEAN CATCHIndication for culture: Dysuria/Frequency CREATININE, BODY [id number] 12:28:00 Test Item Value Reference Range Interpretation Comments CREATININE FLUID (BEAKER) (test 0.60 mg/dL code = 677) Reference Range: No Normals Assay performance has not been validated for this type of specimen.BASIC METABOLIC [id number] 06:24:00 Test Item Value Reference Range Interpretation [...] APPLICABLE FOR DIALYSIS PATIEN TS. HEMOGLOBIN AND [id number] 05:28:00 Test Item Value Reference Range Interpretation Comments HEMOGLOBIN (BEAKER) (test code = 10.5 GM/DL 13.7-17.5 L 410) HEMATOCRIT (BEAKER) (test code = 31.9 % 40.1-51.0 L 411) BASIC METABOLIC [id number] 07:27:00 Test Item Value Reference Range Interpretation [...] APPLICABLE FOR DIALYSIS PATIEN TS. HEMOGLOBIN AND [id number] 06:44:00 Test Item Value Reference Range Interpretation Comments HEMOGLOBIN (BEAKER) (test code = 10.8 GM/DL 13.7-17.5 L 410) HEMATOCRIT (BEAKER) (test code = 32.2 % 40.1-51.0 L 411) BASIC METABOLIC [id number] 07:35:00 Test Item Value Reference Range Interpretation [...] APPLICABLE FOR DIALYSIS PATIEN TS. HEMOGLOBIN AND [id number] 06:43:00 Test Item Value Reference Range Interpretation Comments HEMOGLOBIN (BEAKER) (test code = 11.8 GM/DL 13.7-17.5 L 410) HEMATOCRIT (BEAKER) (test code = 36.2 % 40.1-51.0 L 411) HEMOGLOBIN AND [id number] 15:37:00 Test Item Value Reference Range Interpretation Comments HEMOGLOBIN (BEAKER) (test code = 13.6 GM/DL 13.7-17.5 L 410) HEMATOCRIT (BEAKER) (test code = 41.9 % 40.1-51.0 411) BASIC METABOLIC [id number] 15:25:00 Test Item Value Reference Range Interpretation [...] APPLICABLE FOR DIALYSIS PATIEN TS. BASIC METABOLIC [id number] 07:20:00 Test Item Value Reference Range Interpretation [...] APPLICABLE FOR DIALYSIS PATIEN TS. COMPREHENSIVE METABOLIC [id number] 15:49:00 Test Item Value Reference Range Interpretation [...] APPLICABLE FOR DIALYSIS PATIEN TS. Specimen slightly [id number] 13:53:00 Test Item Value Reference Range Interpretation Comments PARTIAL THROMBOPLASTIN TIME 25.8 seconds 22.5-36.0 (BEAKER) (test code = 760) PROTHROMBIN TIME/[id number] 13:52:00 Test Item Value Reference Range Interpretation [...] for patients wiht mechanical heart valves.BASIC METABOLIC [id number] 13:51:00 Test Item Value Reference Range Interpretation [...] PATIEN TS. CBC W/PLT COUNT & AUTO [id number] 13:35:00 Test Item Value Reference Range Interpretation [...] 0-1 PERCENT (BEAKER) (test code = 2801) CARDIAC [id number] 07:54:71601Qlwzmgmx [facility] [id number] 07:54:00<0.02[facility] [id number] 07:54:001.8[facility] [id number] 07:54:00 Test Item Value Reference Range Interpretation Comments CK MB Index (test code = CK MB Index) 1.0 1 <=2.5 [facility] [id number] 04:53:00 Test Item Value Reference Range Interpretation Comments CK MB Index (test code = CK MB Index) 0.9 1 <=2.5 [facility] [id number] 04:53:94226Kgmdwkxs [facility] [id number] 04:53:001.9[facility]annCARDIAC [id number] 04:53:00 <0.02[facility]annCHEM [id number] 04:53:0080[facility]annCHEM [id number] 04:53:00 Test Item Value Reference Range Interpretation Comments A/G Ratio (test code = A/G Ratio) 0.9 1 0.7-1.6 [facility]annCHE[facility] [id number] 04:53:0030[facility]annCHEM PANEL 2017-11-02 04:53:003.7[facility]annCHEM [id number] 04:53:008.3[facility]annCHEM [id number] 04:53:007.6[facility]annCHEM [id number] 04:53:0024[facility]annCHEM [id number] 04:53:53044Xlnqpjoa [facility]annCHEM [id number] 04:53:003.9[facility]annCHE[facility] [id number] 04:53:0012.9 [facility] [id number] 04:53:00 Test Item Value Reference Range Interpretation Comments B/C Ratio (test code = B/C Ratio) 16 1 6-25 [facility] [id number] 04:53:0057[facility]annCHEM PANEL 2017-11-02 04:53:000.2[facility]annCHE[facility] [id number] 04:53:0033[facility]annCHE[facility] [id number] 04:53:0019[facility]annCHE[facility] [id number] 04:53:70243Ejyttqsg [facility]annCHE[facility] [id number] 04:53:001.17[facility]annCHEM [id number] 04:53:80048Pgoiatxa [facility]annCHEM [id number] 04:53:003.9 [facility] CtzoklyMVSMKOOBJL7338-46-84 04:53:002.1[facility] HermannHEMATOLOGY 2017-11-02 04:53:002.6[facility] EyzpkvmVACXGIUAIR3967-40-08 04:53:004.6[facility] MsmklvkXWHJAKELBC0578-31-34 04:53:000.9[facility] DuesqbmAFIZKPXTAD8454-84-31 04:53:007.4[facility] DutpjngRHMNOYXJUB6716-65-98 04:53:000.2[facility] BPLODFBNRT2038-04-66 04:53:000.6[facility] KreqlebZNGCIAYVQD5841-82-22 04:53:001+ *ABN*(11/01/17 11:53 PM)[facility] BamcybqAOTCWFQZGT6779-17-01 04:53:000.1[facility] OzzmylxXTZYJNWMPQ7767-21-37 04:53:0060.6[facility] PsouayfSDYRKRGPVY7520-79-47 04:53:0028.5[facility] QmsiiioGKGOWNSFSB7748-14-42 04:53:78530.7[facility] [place] LEBHWKXRNV3038-54-73 04:53:0013.2[facility] ZbnwxslGPGUVAAHQW6157-26-52 04:53:00 37.4[facility] FcoacldKHBTTAOTCM3303-90-61 04:53:007.5[facility] HermannHEMATOLOGY 2017-11-02 04:53:003.68[facility] RjuiiqzUPJRKAWQLF8469-03-86 04:53:0035.4[facility] [id number] 04:53:00 Test Item Value Reference Range Interpretation Comments MCH (test code = MCH) 36.0 pg 27.0-31.0 [facility]CzninngIOOJJHKJOX0591-54-11 04:53:29057Pwyucohg HermannHEMATOLOGY 2017-11-02 04:53:007.8[facility] TomballJtdfczeVOPPOLALPA2550-62-29 04:53:0013.3[facility]
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
[2020-01-02 20:52] VITALS: BP 146/78; O2SAT 100
[2020-01-02 20:53] VITALS: TEMP 98.3
== END 2020-01-02 20:46 | disposition home or self-care (01) ==
LOC: ER 19:30
DX: S02.2XXA Fracture of nasal bones, initial encounter for closed fracture (principal); W50.0XXA Accidental hit or strike by another person, initial encounter; Y93.9 Activity, unspecified; Y92.9 Unspecified place or not applicable; I10 Essential (primary) hypertension; Z85.46 Personal history of malignant neoplasm of prostate; F17.210 Nicotine dependence, cigarettes, uncomplicated

== ENCOUNTER 2020-06-18 20:41 | Emergency (ER) | payer OTHER ==
--- OUTSIDE RECORDS SUMMARY | 2020-06-18 20:43 | XMS REPORT | Clinical Summary ---
:1960 Author Organization [facility] Address [address] [place] [address] Care Team Providers Name Role Phone Darien Harkins MD Primary Care Provider Allergies No Known Allergies Medications Medication Sig Dispensed Refills Start Date End Date Status losartan (COZAAR) 50 MG Take 50 mg by 0 Active tablet mouth daily. omeprazole (PRILOSEC) Take 40 mg by 0 Active 40 MG capsule mouth daily. tadalafil (CIALIS) 5 MG Take 5 mg by 0 12/05/2018 Active tablet mouth daily. Active Problems Problem Noted Date Penile swelling 01/02/2019 Prostate cancer 12/27/2018 Urinary tract infection without hematuria, site unspec ified 12/27/2018 Malignant neoplasm of prostate 12/27/2018 Social History Tobacco Use Types Packs/Day Years Used Date Current Every Day Smoker 0.5 40 Smokeless Tobacco: Never Used Alcohol Use Drinks/Week oz/Week Comments Yes 40 Cans of beer 40.0 Sex Assigned at Date Recorded Not on file Last Filed Vital Signs Not on file Plan of Treatment Health Maintenance Due Date Last Done Comments COLON CANCER SCREENING COLONOSCOPY 1960 PNEUMOCOCCAL VACCINE 0-64 YRS (1 of 1 - PPSV23) 1966 LIPID PANEL 12/01/1995 MEDICARE ANNUAL WELLNESS (YEAR 2 or FIRST YEAR if no 06/07/2019 IPPE) INFLUENZA VACCINE (#1) 2020 Results Not on fileafter 06/18/2019 Insurance Payer Benefit Plan / Subscriber ID Effective Phone Address T ype Group Dates CIGNA CIGNA [id number] 2018-Pre Maps [facility] sent Contracted MEDICAID MEDICAID OF [id number] 2014-Pre Medic aid [place] sent Advance Directives For more information, please contact: [phone] Code Status Date Activated Date Inactivated Comments Full Code 12/31/2018 7:10 PM 01/08/2019 12:59 PM This code status was determined by: Patient Full Code 12/27/2018 2:31 PM 12/30/2018 8:35 PM This code status was determined by: Patient
--- OUTSIDE RECORDS SUMMARY | 2020-06-18 20:44 | XMS REPORT | Continuity of Care Document ---
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 Acetaminophen [...] Route: PO, 018 [facility] Hydrocodone Drug Form: [place] Bitartrate 5 MG TAB, Dosing Oral Tablet Weight [[place] 5/325] 79.955, kg, ONCE, STAT, Start date: [...] (Same Inactive as: Zofran 018 [facility] ODT) [facility] Morphine Notes: (Same Inactive as:MORPhine 018 [facility] Sulfate) [facility] Sodium Chloride 500 mL, 500 Inactive 0.9% (Bolus) IV ml/hr, 018 [facility] Infuse Over: [place] 1 hr, Route: IV, 500, Drug form: INJ, ONCE, Priority: STAT, Dosing Weight 79.955 kg, Start date: 11/02/17 1:06:00 CDT, Stop date: 11/02/17 1:06:00 CDT Saline Flush Notes: Same No Longer 0.9% as: BD Active 018 [facility] Posiflush [facility] Sterile Motrin 800 mg 800 mg = 1 Active oral tablet tab, PO, 017 [place] Q8H, PRN Pain, Take with food, X 7 day, # 21 tab, 0 Refill(s) Lamisil 1 tablet Orally Active 250 MG Orally [facility] [place] Once a day 015 [facility] Hydrocodone-Jorge Unknown NA Active [facility] taminophen [facility] Lyrica Unknown NA Active [facility] Allergies, Adverse Reactions, Alerts Substance Category [...] CARDIAC Total CK 181 12 - 191 ENZYMES 2017 [facility] CARDIAC Troponin-I <0.02 0.00 - 0.40 ENZYMES 2017 [facility] CARDIAC CK MB 1.8 0.5 - 3.6 ENZYMES 2018 [facility] CARDIAC CK MB Index 1.0 0.0 - 2.5 ENZYMES 2017 [facility] CARDIAC CK MB Index 0.9 0.0 - 2.5 ENZYMES 2017 [facility] CARDIAC Total CK 209 12 - 191 ENZYMES 2017 [facility] CARDIAC CK MB 1.9 0.5 - 3.6 ENZYMES 2018 [facility] CARDIAC Troponin-I <0.02 0.00 - 0.40 ENZYMES 2018 [facility] CHEM PANEL eGFR 80 2017 Comment: The [...] A/G Ratio 0.9 0.7 - 1.6 2017 [facility] CHEM PANEL ALT 30 0 - 65 2017 [facility] CHEM PANEL Albumin Lvl 3.7 3.5 - 5.0 2017 [facility] CHEM PANEL Calcium Lvl 8.3 8.5 - 10.5 2017 [facility] CHEM PANEL Total Protein 7.6 6.4 - 8.4 2017 [facility] CHEM PANEL CO2 24 24 - 32 2017 [facility] CHEM PANEL Chloride Lvl 106 95 - 109 2017 [facility] CHEM PANEL Globulin 3.9 2.7 - 4.2 2017 [facility] CHEM PANEL AGAP 12.9 10.0 - 20.0 2017 [facility] CHEM PANEL B/C Ratio 16 6 - 25 2017 [facility] CHEM PANEL Alk Phos 57 39 - 136 2017 [facility] CHEM PANEL Bili Total 0.2 0.2 - 1.3 2017 [facility] CHEM PANEL AST 33 0 - 37 2017 [facility] CHEM PANEL BUN 19 7 - 22 2017 [facility] CHEM PANEL Glucose Lvl 103 70 - 99 2017 [facility] CHEM PANEL Creatinine 1.17 0.50 - 1.40 Lvl 2018 [facility] CHEM PANEL Sodium Lvl 139 135 - 145 2017 [facility] CHEM PANEL Potassium Lvl 3.9 3.5 - 5.1 2017 [facility] HEMATOLOGY Lymphocytes # 2.1 1.0 - 5.5 2017 [facility] HEMATOLOGY Eosinophils 2.6 0.0 - 4.0 2017 [facility] HEMATOLOGY Segs-Bands # 4.6 1.5 - 8.1 2017 [facility] HEMATOLOGY Basophils 0.9 0.0 - 1.0 2017 [facility] HEMATOLOGY Monocytes 7.4 2.0 - 12.0 2017 [facility] HEMATOLOGY Eosinophils # 0.2 0.0 - 0.5 2017 [facility] HEMATOLOGY Monocytes # 0.6 0.0 - 0.8 2017 [facility] HEMATOLOGY Macrocyte 1+ None Seen *ABN* 2017 (11/01/17 11:53 PM) [facility] HEMATOLOGY Basophils # 0.1 0.0 - 0.2 2017 [facility] HEMATOLOGY Segs 60.6 45.0 - 75.0 2017 [facility] HEMATOLOGY Lymphocytes 28.5 20.0 - 40.0 2017 [facility] HEMATOLOGY MCV 101.7 80.0 - 94.0 2017 [facility] HEMATOLOGY Hgb 13.2 14.0 - 18.0 2017 [facility] HEMATOLOGY Hct 37.4 42.0 - 54.0 2017 [facility] HEMATOLOGY WBC 7.5 3.7 - 10.4 2017 [facility] HEMATOLOGY RBC 3.68 4.70 - 6.10 2017 [facility] HEMATOLOGY MCHC 35.4 32.0 - 36.0 2017 [facility] HEMATOLOGY MCH 36.0 27.0 - 31.0 2017 [facility] HEMATOLOGY Platelet 194 133 - 450 2017 [facility] HEMATOLOGY MPV 7.8 7.4 - 10.4 2017 [facility] HEMATOLOGY RDW 13.3 11.5 - 14.5 2017 [facility] Pathology Reports No Data Provided for This Section Diagnostic Reports Report Value Date Source Elbow 3 views DX Left elbow 3 views: There is no fracture or dislocation. There are no other significant osseous, articular or soft tissue abnormalities. 04/18/2018 [facility] IMPRESSION: No acute radiographic abnormalities of the left elbow. SL DLAWRENCE-PC Chest Pulmonary CTA CHEST WITH CONTRAST 11/02/2017 [facility] Embolism CTA INDICATION: Evaluate for PE, - [...] DX Clinical Indication: - chest pain 11/02/2017 [facility] Comparison: None FINDINGS: AP chest radiograph was obtained. MEDIASTINUM: The cardiac mj houette is normal in size. The aorta is unremarkable. LUNGS: Lung volumes are main tained. There are no focal infiltrates or effusions. There are no pneumothoraces noted. BONES: The visualized osseous structures are unr emarkable. IMPRESSION: No acute infiltrates or effusions. SL: [id number] Hand 3 views DX Patient Name: CHRISTEN SHEFFIELD 12/15/2016 [facility] [place] : 1960; Age: 56 years y/o Male MR: [id number] Study: 3 view examination of the left [...] Comments Source Systolic (mm Hg) 138 04/19/2018 [place] Diastolic (mm Hg) 92 04/19/2018 [place] Heart Rate 90 04/19/2018 [facility] [place] Respitory Rate 16 04/19/2018 [place] Temperature Oral (F) 98.5 F 04/19/2018 [place] Weight 88.01 04/19/2018 [facility] [place] Temperature Oral (F) 98.3 F 04/19/2018 [facility] [place] Respitory Rate 17 04/19/2018 [facility] [place] Heart Rate 89 04/19/2018 [place] Systolic (mm Hg) 124 04/19/2018 [place] Diastolic (mm Hg) 73 04/19/2018 [place] Systolic (mm Hg) 132 11/02/2017 [facility] Diastolic (mm Hg) 91 11/02/2017 [facility] Temperature Oral (F) 98.2 F 11/02/2017 [facility] Respitory Rate 13 11/02/2017 [facility] Respitory Rate 13 11/02/2017 [facility] Systolic (mm Hg) 135 11/02/2017 [facility] [place] Diastolic (mm Hg) 87 11/02/2017 [facility] Systolic (mm Hg) 140 11/02/2017 [facility] [place] Diastolic (mm Hg) 73 11/02/2017 [facility] [place] Respitory Rate 14 11/02/2017 [facility] Temperature Oral (F) 98.3 F 11/02/2017 [facility] Weight 79.955 11/02/2017 [facility] [place] Heart Rate 99 11/02/2017 [facility] [place] Heart Rate 76 12/16/2016 [place] Respitory Rate 15 12/16/2016 [facility] [place] Systolic (mm Hg) 115 12/16/2016 [facility] [place] Diastolic (mm Hg) 84 12/16/2016 [place] Systolic (mm Hg) 118 12/16/2016 [facility] [place] Diastolic (mm Hg) 72 12/16/2016 [place] Heart Rate 83 12/16/2016 [place] Temperature Oral (F) 98.2 F 12/16/2016 [place] Respitory Rate 16 12/16/2016 [facility] [place] Weight 89.545 12/16/2016 [facility] Weight 190 02/27/2015 [facility] Height 71 02/27/2015 [facility] Heart Rate 81 02/27/2015 [facility] Diastolic (mm Hg) 84 02/27/2015 [facility] Systolic (mm Hg) 132 02/27/2015 [facility] Podiatry Encounters Location Location Encounter Encounter Reason Attending ADM DC Stat us Source Details Type Number For Provider Date Date Visit [place] NEW PT: [id number] 02/27 02/27 [facility] Possible -[id number] /2014 [facility] Infection, [id number] Podiatry Rt [facility] [place] NEW PT: [id number] 02/27 02/27 [facility] Possible -[id number] /2014 [facility] Infection, [id number] Podiatry Rt [place] NEW PT: [id number] 02/27 02/27 [facility] Possible -[id number] /2014 [facility] Infection, [id number] Podiatry Rt [place] [place] Results: [id number] 03/03 03/03 [facility] LFT's -[id number] /2014 [facility] Podiatry (Round 1) [id number] P odiatry [place] Results: [id number] 03/03 03/03 [facility]FT's -[id number] /2014 [facility] Podiatry (Round 1) [id number] [place]diatry [place] Results: [id number] 03/03 03/03 [facility]FT's -[id number] /2014 [facility] Podiatry (Round 1) [id number] [place]diatry [place] Re-Check: [id number] 04/02 04/02 [place] [facility]FT's -[id number] /2014 [facility] Podiatry (Round 2) [id number] [place]diatry [place] Re-Check: [id number] 04/02 04/02 [place] LFT's -[id number] /2014 [facility] Podiatry (Round 2) [id number] P [place]diatry [place] Re-Check: [id number] 04/02 04/02 [place] LFT's -[id number] /2014 [facility] Podiatry (Round 2) [id number] P [place]diatry [place] Results: [id number] 04/09 04/09 [facility] LFT's -[id number] /2014 [facility] Podiatry (Round 2) [id number] P odiatry [place] Results: [id number] 04/09 04/09 [facility] LFT's -[id number] /2014 [facility] Podiatry (Round 2) [id number] P odiatry [place] Results: [id number] 04/09 [id number] Podiatry (Round 2) [id number] P odiatry [place] Re-Check: [id number] 05/12 05/12 [place] LFT's -[id number] /2014 [facility] Podiatry (Round 3) [id number] P odiatry [facility] Emergency [id number] Michael Goldberg 12/16 12/16 Noe /2016 [facility] Emergency [id number] Abbie 11/02 11/02 Noe Matias /2017 [facility] Emergency [id number] Terrence Woodruff 04/19 04/19 Noe /2017 [facility] Procedures No Data Provided for This Section Assessment and Plan No Data Provided for This Section Plan of Care No Data Provided for This Section Social History Social History Date Source Social History TypeResponse 04/19/2018 [facility] Smoking Status Never smoker; Concerns about tobacco [...] on: 11/02/17 Social History ElementQualifiersDate Reported 02/27/2015 [place] [facility] [place] [facility] Tobacco Use: . Are you a:: current smoker Feb 27, 2015 Family History No Data Provided for This Section Advance Directives No Data Provided for This Section Functional Status No Data Provided for This Section
--- OUTSIDE RECORDS SUMMARY | 2020-06-18 20:46 | XMS REPORT | Continuity of Care Document ---
:1960 Author Organization [facility] t Address [address] [place] [address] Care Team Providers Name Role Phone Darien Harkins MD Primary Care Physician Stoney PAC, S Attending Clinician Chidi MCCOY Attending Clinician MONICA Attending Clinician Unavailable CHIDI Attending Clinician Unavailable Seth Woodruff Attending Clinician Amanda Matias Attending Clinician Nel Goldberg Attending Clinician CHIDI Admitting Clinician Unavailable Payers Payer Name Policy Type Policy Number Effective Date Expiration Date S ource Problems Condition Condition Condition Status Onset Resolution Last Treating Co mments Source Name Details Category Date Date Treatment Clinician Date Penile Penile Disease Active [facility] Urinary Urinary Disease Active [facility] tract [facility] infection infection 00:00: Medi radha without without 00 Center hematuria, hematuria, site site unspecifie unspecifie d d Malignant Malignant Disease Active [facility] neoplasm [facility]oplasm [facility] - of of 00:00: Medical prostate prostate 00 Center ARM PAIN Diagnosis Active 2017-062018-04-19 M emoria 06-18 15:03:00 l ARM PAIN 00:00: Spencer n 00 Active 04/18/2018 [facility] CHEST PAIN Diagnosis Active 2017-11-02 Memoria 5 01:31:00 l CHEST 00:00: Noe PAIN 00 Active 11/01/2017 [facility] HAND AND Diagnosis Active 2017-01-04 M emoria KNEE PAIN 12-15 15:35:00 l HAND AND 00:00: Spencer n KNEE PAIN 00 Active 12/15/2016 [facility] Localized Problem 2018-11-05 Me moria swelling, 14:05:51 l mass and [place] lump, left Localized lower limb swelling, mass and lump, left lower limb 11/05/2018 [facility] Essential Problem 2018-11-05 Me moria (primary) 14:05:51 l hypertensi Spencer n on Essential (primary) hypertensi on 11/05/2018 [facility] Personal Problem 2018-11-05 Mem oria history of 14:05:51 l malignant Personal Her garcia neoplasm history of of malignant prostate neoplasm of prostate 11/05/2018 [facility] Ingrowing Problem Active 2015-05-13 [facility] nail 03:05:35 l [place] Ingrowing nail Active Problem 05/13/2015 [facility] Onychomyco Problem Active 2015-05-13 M emoria sis 03:05:35 l Noe Onychomyco sis Active Problem 05/13/2015 [facility] Abscess/ce Problem Active 2015-05-13 M emoria llulitis-t 03:05:35 l oe [place] Abscess/ce llulitis-t oe Active Problem 5 [facility] Contusion/ Problem Active 2015-05-13 M emoria hematoma-t 03:05:35 l oe [place] Contusion/ hematoma-t oe Active Problem 5 [facility] Lesion of Problem 2017-062018-11-05 2018-11-05 Memoria ulnar 06-18 14:05:51 14:05:51 l nerve, Lesion 06:00: [place] left upper of ulnar 00 limb nerve, left upper limb 04/18/2018 11/05/2018 [facility] Chest Problem 2017-11-05 2017-11-05 M emoria pain, 11-02 03:37:57 03:37:57 l unspecifie Chest 05:00: Babita nn d pain, 00 unspecifie d 11/02/2017 11/05/2017 [facility] Nicotine Problem 2017-11-05 2017-11-05 Memoria dependence 11-02 03:37:57 03:37:57 l , Nicotine 05:00: Spencer n unspecifie dependence 00 d, , uncomplica unspecifie maxwell d, uncomplica maxwell 11/02/2017 11/05/2017 [facility] Anemia, Problem 2017-11-05 2017-11-05 Memoria unspecifie 11-02 03:37:57 03:37:57 l d Anemia, 05:00: [place] unspecifie 00 d 11/02/2017 11/05/2017 [facility] Other Problem 2017-11-05 2017-11-05 M emoria chest pain 11-02 03:37:57 03:37:57 l Other 05:00: Noe chest pain 00 11/02/2017 11/05/2017 [facility] Radial Problem 2016-12-19 2016-12-19 M emoria styloid 12-16 03:21:57 03:21:57 l tenosynovi Radial 05:00: Herm janey tis [de styloid 00 Quervain] tenosynovi tis [de Quervain] 12/16/2016 12/19/2016 [facility] Allergies, Adverse Reactions, Alerts Allergy Allergy Status Severity Reaction(s) Onset Inactive Treating Comm ents Source Name Type Date Date Clinician No Known DA Active [facility] All[facility]ie 12-31 [place] s 00:00: [address] N.K.D.A. N.K.D.A. Active Info Not Dane victor hugo Available 9-24 l 00:00: Noe 00 No Known No Known Active Memori a Medicati Medicati l on on Noe Hopper Allergzhou s s Social History Social Habit Start Date Stop Date Quantity Comments Source Sex Assigned At [facility] Cigarettes smoked 2018-12-31 2018-12-31 [facility] - current (pack per 00:00:00 00:00:00 [facility] day) - Reported Cigarette 2018-12-31 2018-12-31 [facility] - pack-years 00:00:00 00:00:00 [facility] Tobacco use and 2018-12-31 2018-12-31 Never used ARIELLE Valdez Aylin kes - exposure 00:00:00 00:00:00 [facility] Alcohol intake 2018-12-31 2018-12-31 Current drinker ARIELLE perez [facility] - 00:00:00 00:00:00 of alcohol [facility] (finding) TobaccoUse: 2015-02-27 2015-02-27 [facility] 00:[facility] 00:00:00 Smoking Status Start Date Stop Date Source Current every day smoker 2018-12-31 00:00:00 [facility] Social History [facility] Medications Ordered Filled Start Stop Current Ordering Indication Dosage Frequency Signature Comments Components Source Medication Medication Date Date Medication? Clinician (SIG) Name Name losartan Yes 50mg QD Take [address] [facility] (COZAAR) 50 8-05 by mouth Luke s - MG tablet 10:59: daily. Medica l [address] omeprazole Yes 40mg QD Take [address] (PRILOSEC) 8-05 [facility] - 40 MG 10:59: daily. Medical capsule 48 [address] tadalafil Yes 5mg QD Take [address] (CIALIS) 5 7-02 by mouth [facility] - MG tablet 00:00: daily. Medica l 00 [place] Acetaminoph 2017-06 No 1 tab, PO, Memoria en 300 MG / 1-14 Q6H, PRN l Codeine 03:19: Pain, X 3 Babtia nn Phosphate 00 day, # 12 30 [...] tab, PO, l Tablet 03:18: Q8H, PRN Noe [Motrin] 00 Pain, Take with food, X 10 day, # 30 tab, 0 Refill(s) Ibuprofen 2017-06 No Notes: Memori a 1-14 (Same as: l 01:48: Motrin) [place] 00 "Do Not Crush" Take with food. [...] Route: PO, l Hydrocodone 08:16: Drug Form: Noe Bitartrate 00 TAB, 5 MG Oral Dosing Tablet Weight [[place] 79.955, 5/325] kg, ONCE, STAT, Start date: [...] days Memor ia 5-30 l 06:07: MEDICATION Noe 00 WASTE Product Size: 30 mg Product Wasted: ___ mg Zofran ODT No Notes: Memor ia 5-30 (Same as: l 06:06: Zofran [place] 00 ODT) Morphine No Notes: Memoria 5-30 (Same l 06:06: as:MORPhin [place] 00 e Sulfate) Sodium No 500 mL, Memoria Chloride 5-30 500 ml/hr, l 0.9% 06:06: Infuse Noe (Bolus) IV 00 Over: 1 hr, Route: IV, 500, Drug form: INJ, ONCE, Priority: STAT, Dosing Weight 79.955 kg, Start date: 11/02/17 1:06:00 CDT, Stop date: 11/02/17 1:06:00 CDT Saline No Notes: Memoria Flush 0.9% 5-30 Same as: l 04:24: BD Noe 00 Posiflush Sterile Motrin 800 Yes 800 mg = 1 M emoria mg oral 7-13 tab, PO, l tablet 05:11: Q8H, PRN [place] 00 Pain, Take with food, X 7 day, # 21 tab, 0 Refill(s) Hydrocodone 2014-06 Yes Ugo Unknown Memoria -Acetaminop 1-13 John l hen 03:00: Noe Lyrica 2014-06 Yes Ugo Unknown Memor ia 1-13 John l 03:00: Noe 06 Lamisil Yes Ugo 1 tablet Mem oria 9-24 John l 00:00: Noe 00 Vital Signs Vital Name Observation Time Observation Value Comments Source Systolic (mm Hg) 2018-04-19 03:12:00 Dane rial [place] Diastolic (mm Hg) 2018-04-19 03:12:00 Mem orial [place] Heart Rate 2018-04-19 03:12:00 [facility] Respitory Rate 2018-04-19 03:12:00 Memori al [place] Temperature Oral (F) 2018-04-19 03:12:00 98.5 F [facility] Noe Weight 2018-04-19 01:46:00 [facility] Temperature Oral (F) 2018-04-19 01:46:00 98.3 F [facility] Respitory Rate 2018-04-19 01:46:00 Memori al Noe Heart Rate 2018-04-19 01:46:00 [facility] Noe Systolic (mm Hg) 2018-04-19 01:46:00 Dane rial [place] Diastolic (mm Hg) 2018-04-19 01:46:00 Mem orial Noe Systolic (mm Hg) 2017-11-02 09:31:00 Dane rial [place] Diastolic (mm Hg) 2017-11-02 09:31:00 Mem orial [place] Temperature Oral (F) 2017-11-02 09:31:00 98.2 F [facility] Noe Respitory Rate 2017-11-02 09:31:00 Memori al Noe Respitory Rate 2017-11-02 08:48:00 Memori al [place] Systolic (mm Hg) 2017-11-02 08:48:00 Dane rial [place] Diastolic (mm Hg) 2017-11-02 08:48:00 Mem orial [place] Systolic (mm Hg) 2017-11-02 08:25:00 Dane rial Noe Diastolic (mm Hg) 2017-11-02 08:25:00 Mem orial Noe Respitory Rate 2017-11-02 08:25:00 Memori al [place] Temperature Oral (F) 2017-11-02 04:29:00 98.3 F [facility] Noe Weight 2017-11-02 04:29:00 [facility] Noe Heart Rate 2017-11-02 04:29:00 [facility] Noe Heart Rate 2016-12-16 05:46:00 [facility] Respitory Rate 2016-12-16 05:46:00 Memori al Noe Systolic (mm Hg) 2016-12-16 05:46:00 Dane rial Noe Diastolic (mm Hg) 2016-12-16 05:46:00 Mem orial Noe Systolic (mm Hg) 2016-12-16 02:23:00 Dane rial Noe Diastolic (mm Hg) 2016-12-16 02:23:00 Mem orial [place] Heart Rate 2016-12-16 02:23:00 [facility] Temperature Oral (F) 2016-12-16 02:23:00 98.2 F [facility] Noe Respitory Rate 2016-12-16 02:23:00 Memori al [place] Weight 2016-12-16 02:23:00 [facility] Weight 2015-02-27 17:00:00 [facility] Noe Height 2015-02-27 17:00:00 [facility] Heart Rate 2015-02-27 17:00:00 [facility] Noe Diastolic (mm Hg) 2015-02-27 17:00:00 Mem orial [place] Systolic (mm Hg) 2015-02-27 17:00:00 Dane rial [place] Procedures This patient has no known procedures. Plan of Care Planned Activity Planned Date Details Comments Source Future Scheduled 2020-02-05 INFLUENZA VACCINE (#1[facility]00 [code = INFLUENZA Medical Ce nter VACCINE (#1)] Future Scheduled 2019-06-[address] [facility] [facility] - Test 00:00:00 WELLNESS (YEAR 2 or Medical Center FIRST YEAR if no IPPE) [code = MEDICARE ANNUAL WELLNESS (YEAR 2 or FIRST YEAR if no IPPE)] Future Scheduled 1995-12-[address] - Test 00:00:00 (procedure) [code = [facility] [id number]] Future Scheduled [address] [facility] - Test 00:00:00 0-64 YRS (1 of 1 - Medical C enter PPSV23) [code = PNEUMOCOCCAL VACCINE 0-64 YRS (1 of 1 - PPSV23)] Future Scheduled [address] [facility] - Test 00:00:00 malignant neoplasm of Medica l Center colon (procedure) [code = 644877073] Encounters Start End Encounter Admission Attending Care Care Encounter Source Date/Time Date/Time Type Type Clinicians Facility Department ID 2019-08-15 2019-08-15 Office CHRIS Lua [id number] 13:29:49 14:15:25 Visit [facility] [id number] Surgical 4.2.7.2.686 Specialti [id number] Bode 2019-01-19 2019-01-19 Office Blas Murillo [id number] 09:27:34 10:39:25 Visit AMBULATOR 350.1.13.21 Y 0.2.7.2.686 [id number] 2019-01-15 2019-01-15 Office Blas Murillo [id number] 15:22:05 16:02:23 Visit AMBULATOR 350.1.13.21 Y 0.2.7.2.686 [id number] 2018-04-18 2018-04-18 Outpatient Terrence Woodruff [facility] [id number] 19:27:00 21:48:00 R 02 2017-11-01 2017-11-[address] [id number] 23:07:00 04:33:00 Abbie Patel 01 2016-12-15 2016-12-16 Outpatient Michael Goldberg [facility] [id number] 21:18:00 00:50:00 Daeun 00 2015-05-12 2015-05-12 Outpatient [facility] [id number] eClinic 13:34:00 13:34:00 [facility]ry Podiatry 2015-04-09 2015-04-09 Outpatient [facility] [id number] eClinic 17:51:00 17:51:00 [facility] Podiatry Podiatry 2015-02-27 2015-02-27 Outpatient [facility] [id number] eClinic 11:00:00 11:00:00 Branch Branch alWork s [...] NOT 1092) ACCURATE CRE ATININE CLEARANCE IN [place] EDICTING GLOMERULAR FILT RATION RATE. ESTIMATED GFR [...] (BEAKER) (test code = 413) BASIC METABOLIC [id number] 10:29:00 Test Item Value Reference Range Interpretation [...] (BEAKER) (test code = 413) BASIC METABOLIC [id number] 07:16:00 Test Item Value Reference Range Interpretation [...] (BEAKER) (test code = 413) BASIC METABOLIC [id number] 06:42:00 Test Item Value Reference Range Interpretation [...] (BEAKER) (test code = 413) FL, CYSTOGRAM, [id number] 15:59:00Reason for exam:->concern for urine leakFINAL REPORT [...] described. Signed: Janey Iglesiasort Verified Date/Time: 01/03/2019 15:59:13 Reading Location: [address] Reading Room [id number] 08:26:00 Test Item Value Reference Range Interpretation Comments PHOSPHORUS (BEAKER) (test code = 3.1 mg/dL 2.3-4.7 604) [id number] 08:26:00 Test Item Value Reference Range Interpretation Comments MAGNESIUM (BEAKER) (test code = 1.9 mg/dL 1.6-2.6 627) BASIC METABOLIC [id number] 08:26:00 Test Item Value Reference Range Interpretation [...] 0-0 (BEAKER) (test code = 413) TISSUE [id number] 17:00:00Surgical Pathology Report Case: [id number] Authorizing Provider: Blas Murillo MD Collected: 12/27/2018 1005 Ordering Location: [facility] Received: 12/27/2018 1445 SERVICES Pathologist: Nikita [...] PATHOLOGIC DIAGNOSIS Signing Pathologist Direct Phone Line: [phone] signed by Nikita Mahajan MD on 01/02/2019 [...] (cm)TUMOR Histologic Type: Acinar adenocarcinoma Histologic Grade: [place] Pattern:Percentage of Pattern 4: 30 % Percentage of Pattern 5: 1 % Primary Imani Pattern: Pattern 3 Secondary Imani Pattern: Pattern 4 Tertiary Imani Pattern: Pattern 5 Total [place] Score: 7 Grade Group: 2 Intraductal Carcinoma [...] (PIN) Additional Pathologic Findings: Nodular prostatic hyperplasia 85137, 00445 x 2, 36503 X 2Prostate cancerA. Periprostatic lymph node. B. [...] patient's name (Christen Harkins) with accession number [id number] is a prostate with bilateral seminal vesicles [...] deferentia are submitted in cassette E13. SDH/ewPerformed.CT, [id number] 13:19:00Patient with significant scrotal swelling and subcutaneous [...] MDReport Verified Date/Time: 01/02/2019 13:19:12 Reading Location: [facility] C013Y CT Body ReadingRoom [id number] 07:00:00 Test Item Value Reference Range Interpretation Comments PHOSPHORUS (BEAKER) (test code = 3.3 mg/dL 2.3-4.7 604) [id number] 07:00:00 Test Item Value Reference Range Interpretation Comments MAGNESIUM (BEAKER) (test code = 1.9 mg/dL 1.6-2.6 627) BASIC METABOLIC [id number] 07:00:00 Test Item Value Reference Range Interpretation [...] S NOT APPLICABLE FOR DIALYSIS PATIEN TS. [id number] 04:40:00 Test Item Value Reference Range Interpretation Comments PHOSPHORUS (BEAKER) (test code = 2.9 mg/dL 2.3-4.7 604) [id number] 04:40:00 Test Item Value Reference Range Interpretation Comments MAGNESIUM (BEAKER) (test code = 1.8 mg/dL 1.6-2.6 627) BASIC METABOLIC [id number] 04:40:00 Test Item Value Reference Range Interpretation [...] PATIEN TS. CBC W/PLT COUNT & AUTO [id number] 04:10:00 Test Item Value Reference Range Interpretation [...] code = 2801) URINALYSIS W/ REFLEX URINE [id number] 18:55:00 Test Item Value Reference Range Interpretation [...] 516) SOURCE(BEAKER) (test code = 2795) CT, [id number] 18:21:00Reason for exam:->ABDOMINAL PAINWhat is the patient's [...] Archie Gibbs MDReport Verified Date/Time: 12/31/2018 18:21:28 [facility] 2018-12-31 18:15:00 Test Item Value [...] PATIEN TS. CBC W/PLT COUNT & AUTO [id number] 17:59:00 Test Item Value Reference Range Interpretation [...] = 2801) UA RFLX MICR CULT IF [id number] 08:59:00 Test Item Value Reference Range Interpretation [...] OF URINE: CLEAN CATCHIndication for culture: Dysuria/FrequencyUA [id number] 08:59:00 Test Item Value Reference Range Interpretation Comments UA RBC (test code = RBCU) 20-30 RBC/HPF 0-3 A UA WBC (test code = XWBCU) 20-30 WBC/HPF 0-5 A UA EPITHELIAL CELLS (test code FEW EPI/HPF FEW = EPIU) UA BACTERIA (test code = XBACU) FEW NONE SOURCE OF URINE: CLEAN CATCHIndication for culture: Dysuria/FrequencyUA RFLX MICR CULT IF [id number] 08:50:00 Test Item Value Reference Range Interpretation [...] OF URINE: CLEAN CATCHIndication for culture: Dysuria/FrequencyUA [id number] 08:50:00 Test Item Value Reference Range Interpretation Comments UA RBC (test code = RBCU) RBC/HPF 0-3 UA WBC (test code = XWBCU) WBC/HPF 0-5 UA EPITHELIAL CELLS (test code = EPI/HPF FEW EPIU) UA BACTERIA (test code = XBACU) NONE SOURCE OF URINE: CLEAN CATCHIndication for culture: Dysuria/FrequencyUA RFLX MICR CULT IF [id number] 08:50:00 Test Item Value Reference Range Interpretation [...] OF URINE: CLEAN CATCHIndication for culture: Dysuria/FrequencyUA [id number] 08:50:00 Test Item Value Reference Range Interpretation Comments UA RBC (test code = RBCU) RBC/HPF 0-3 UA WBC (test code = XWBCU) WBC/HPF 0-5 UA EPITHELIAL CELLS (test code = EPI/HPF FEW EPIU) UA BACTERIA (test code = XBACU) NONE SOURCE OF URINE: CLEAN CATCHIndication for culture: Dysuria/Frequency CREATININE, BODY [id number] 12:28:00 Test Item Value Reference Range Interpretation Comments CREATININE FLUID (BEAKER) (test 0.60 mg/dL code = 677) Reference Range: No Normals Assay performance has not been validated for this type of specimen.BASIC METABOLIC [id number] 06:24:00 Test Item Value Reference Range Interpretation [...] APPLICABLE FOR DIALYSIS PATIEN TS. HEMOGLOBIN AND [id number] 05:28:00 Test Item Value Reference Range Interpretation Comments HEMOGLOBIN (BEAKER) (test code = 10.5 GM/DL 13.7-17.5 L 410) HEMATOCRIT (BEAKER) (test code = 31.9 % 40.1-51.0 L 411) BASIC METABOLIC [id number] 07:27:00 Test Item Value Reference Range Interpretation [...] APPLICABLE FOR DIALYSIS PATIEN TS. HEMOGLOBIN AND [id number] 06:44:00 Test Item Value Reference Range Interpretation Comments HEMOGLOBIN (BEAKER) (test code = 10.8 GM/DL 13.7-17.5 L 410) HEMATOCRIT (BEAKER) (test code = 32.2 % 40.1-51.0 L 411) BASIC METABOLIC [id number] 07:35:00 Test Item Value Reference Range Interpretation [...] APPLICABLE FOR DIALYSIS PATIEN TS. HEMOGLOBIN AND [id number] 06:43:00 Test Item Value Reference Range Interpretation Comments HEMOGLOBIN (BEAKER) (test code = 11.8 GM/DL 13.7-17.5 L 410) HEMATOCRIT (BEAKER) (test code = 36.2 % 40.1-51.0 L 411) HEMOGLOBIN AND [id number] 15:37:00 Test Item Value Reference Range Interpretation Comments HEMOGLOBIN (BEAKER) (test code = 13.6 GM/DL 13.7-17.5 L 410) HEMATOCRIT (BEAKER) (test code = 41.9 % 40.1-51.0 411) BASIC METABOLIC [id number] 15:25:00 Test Item Value Reference Range Interpretation [...] APPLICABLE FOR DIALYSIS PATIEN TS. BASIC METABOLIC [id number] 07:20:00 Test Item Value Reference Range Interpretation [...] APPLICABLE FOR DIALYSIS PATIEN TS. COMPREHENSIVE METABOLIC [id number] 15:49:00 Test Item Value Reference Range Interpretation [...] APPLICABLE FOR DIALYSIS PATIEN TS. Specimen slightly [id number] 13:53:00 Test Item Value Reference Range Interpretation Comments PARTIAL THROMBOPLASTIN TIME 25.8 seconds 22.5-36.0 (BEAKER) (test code = 760) PROTHROMBIN TIME/[id number] 13:52:00 Test Item Value Reference Range Interpretation [...] for patients wiht mechanical heart valves.BASIC METABOLIC [id number] 13:51:00 Test Item Value Reference Range Interpretation [...] PATIEN TS. CBC W/PLT COUNT & AUTO [id number] 13:35:00 Test Item Value Reference Range Interpretation [...] PERCENT (BEAKER) (test code = 2801) CARDIAC [id number] 07:54:10021Ruqypljx HermannCARDIAC [id number] 07:54:00<0.02[facility] HermannCARDIAC [id number] 07:54:001.8[facility] HermannCARDIAC [id number] 07:54:00 Test Item Value Reference Range Interpretation Comments CK MB Index (test code = CK MB Index) 1.0 1 <=2.5 [facility]annCARDIAC [id number] 04:53:00 Test Item Value Reference Range Interpretation Comments CK MB Index (test code = CK MB Index) 0.9 1 <=2.5 [facility]annCARDIAC [id number] 04:53:35056Ezrziqab HermannCARDIAC [id number] 04:53:001.9[facility] HermannCARDIAC [id number] 04:53:00 <0.02[facility] HermannCHEM [id number] 04:53:0080[facility] HermannCHEM [id number] 04:53:00 Test Item Value Reference Range Interpretation Comments A/G Ratio (test code = A/G Ratio) 0.9 1 0.7-1.6 [facility] HermannCHEM [id number] 04:53:0030[facility] HermannCHEM PANEL 2017-11-02 04:53:003.7[facility] HermannCHEM [id number] 04:53:008.3[facility] HermannCHEM [id number] 04:53:007.6[facility] HermannCHEM [id number] 04:53:0024[facility] HermannCHEM [id number] 04:53:56349Gcspaxqy HermannCHEM [id number] 04:53:003.9[facility] HermannCHEM [id number] 04:53:0012.9 [facility] HermannCHEM [id number] 04:53:00 Test Item Value Reference Range Interpretation Comments B/C Ratio (test code = B/C Ratio) 16 1 - [facility] HermannCHEM [id number] 04:53:0057Mem[facility] HermannCHEM PANEL 2017-11-02 04:53:000.2[facility] HermannCHEM [id number] 04:53:0033[facility] HermannCHEM [id number] 04:53:0019[facility] HermannCHEM [id number] 04:53:85662Zrubltzo HermannCHEM [id number] 04:53:001.17[facility] HermannCHEM [id number] 04:53:67783Mznmtpfk HermannCHEM [id number] 04:53:003.9 Memorial [id number] 04:53:002.1[facility] HermannHEMATOLOGY 2017-11-02 04:53:002.6[facility]orial KrtnbnqKUWVJNRUJR5311-33-22 04:53:004.6[facility] [id number] 04:53:000.9[facility] SothywpQJHPFGSSCO7485-10-14 04:53:007.4[facility] [id number] 04:53:000.2[facility] [id number] 04:53:000.emorial AgnunqoEYITGXCWHY5674-01-86 04:53:001+ *ABN*(11/01/17 11:53 PM)[facility] ZvktfefWZQAAUILIT1242-12-67 04:53:000.1[facility] [id number] 04:53:0060.6[facility] RmhvadiTCBCODWLLJ7989-24-17 04:53:0028.5[facility] KlamayvIWQSLIDBUN7263-29-62 04:53:88506.7[facility] Noe [id number] 04:53:0013.2[facility] [id number] 04:53:00 37.4[facility] [id number] 04:53:007.5[facility] HermannHEMATOLOGY 2017-11-02 04:53:003.68[facility] [id number] 04:53:0035.4[facility] [id number] 04:53:00 Test Item Value Reference Range Interpretation Comments MCH (test code = MCH) 36.0 pg 27.0-31.0 [facility] [id number] 04:53:05540Nlmoqpvz HermannHEMATOLOGY 2017-11-02 04:53:007.8[facility] ScugoeiLDYIEQYXAO2560-19-80 04:53:0013.3[facility]
[2020-06-18] MEDS ORDERED: HYDROCODONE/APAP 10/325 TAB ONE (21:39)
--- NOTE | 2020-06-18 22:51 | ER ---
Nurse's Notes [facility] Name: Arturo Harkins Age: 59 yrs Sex: Male : 1960 Arrival Date: 06/18/2020 Time: 20:42 Bed 17 Private MD: Negro Harkins E Diagnosis: Nondisplaced fracture of shaft of fourth metacarpal bone, left hand Presentation: 06/18 21:02 Chief complaint: Left hand pain that radiates to left arm after 2x6 fell on it today at work. Coronavirus screen: At this time, the client does not indicate any symptoms associated with coronavirus-19. Ebola Screen: No symptoms or risks identified at this time. Initial Sepsis Screen: Does the patient meet any 2 criteria? No. Patient's initial sepsis screen is negative. Does the patient have a suspected source of infection? No. Patient's initial sepsis screen is negative. Risk Assessment: Do you want to hurt yourself or someone else? Patient reports no desire to harm self or others. Onset of symptoms. 21:02 Method Of Arrival: Ambulatory 21:02 Acuity: RICHAR 4 hb Triage Assessment: 22:40 General: Appears in no apparent distress. uncomfortable, Behavior is calm, cooperative, ea appropriate for age. Injury Description: Deformity sustained to left hand. Historical: - Allergies: 21:04 No Known Allergies; hb - PMHx: 21:04 cancer, prostate; Hypertension; hb - PSHx: 21:04 back sx, prostate sx; hb - Immunization history:: Adult Immunizations. - Social history:: Smoking status: Patient reports the use of cigarette tobacco products, smokes one-half pack cigarettes per day. Screenin:55 Abuse screen: Denies threats or abuse. Nutritional screening: No deficits noted. ea Tuberculosis screening: No symptoms or risk factors identified. 22:55 Fall Risk None identified. ea Assessment: 22:40 General: Appears in no apparent distress. uncomfortable, Behavior is calm, cooperative, ea appropriate for age. 22:40 Pain: Complains of pain in dorsum of left hand Pain currently is 5 out of 10 on a pain ea scale. Quality of pain is described as aching, Pain began gradually, Is intermittent. Neuro: Level of Consciousness is awake, alert, obeys commands, Oriented to person, place, time, situation. Cardiovascular: Capillary refill < 3 seconds Patient's skin is warm and dry. Respiratory: Airway is patent Respiratory effort is even, unlabored, Respiratory pattern is regular, symmetrical. GI: No signs and/or symptoms were reported involving the gastrointestinal system. : No signs and/or symptoms were reported regarding the genitourinary system. EENT: No signs and/or symptoms were reported regarding the EENT system. Derm: Skin is intact, is healthy with good turgor, Skin temperature is warm. Musculoskeletal: Capillary refill < 3 seconds, Reports pain in left hand. 23:05 Reassessment: ED provider verified the splint. ea 23:10 Reassessment: Patient and/or family updated on plan of care and expected duration. Pain ea level reassessed. Patient is alert, oriented x 3, equal unlabored respirations, skin warm/dry/pink. Discharge instruction given to patient, verbalized the understanding of instruction. Vital Signs: 21:02 BP 114 / 71; Pulse 62; Resp 16; Temp 97.1; Pulse Ox 100% on R/A; Pain 8/10; hb 22:40 BP 115 / 70; Pulse 69; Resp 19; Pulse Ox 99% ; ea ED Course: 20:42 Patient arrived in ED. am2 20:42 Negro Harkins MD is Private Physician. am2 21:04 Triage completed. hb 21:04 Arm band placed on. hb 22:00 Patient has correct armband on for positive identification. Bed in low position. Call ea light in reach. 22:01 Hand Left 3 View XRAY In Process Unspecified. EDMS 22:21 Anthony Amador PA is PHCP. cp 22:21 Anthony Kee MD is Attending Physician. cp 22:42 Jamarcus Schulte, LIOR is Primary Nurse. rr5 22:49 Alphonse Toth MD is Referral Physician. cp 23:08 Orthoglass splint: Ulnar gutter/Boxer splint applied on left forearm. dh4 23:11 No provider procedures requiring assistance completed. Patient did not have IV access ea during this emergency room visit. Administered Medications: 21:29 Drug: [place] 10 mg-325 mg 1 tabs Route: PO; hb 23:09 Follow up: Response: No adverse reaction ea Outcome: 22:50 Discharge ordered by . cp 23:11 Discharged to home ambulatory, with family. ea 23:11 Condition: stable 23:11 Discharge instructions given to patient, Instructed on discharge instructions, follow up and referral plans. medication usage, Demonstrated understanding of instructions, follow-up care, medications, Prescriptions given X 2. 23:12 Patient left the ED. harsh Signatures: Dispatcher [employer] EDMS Anthony Amador PA PA cp Baxter, Heather RN RN Beata Abbott am2 Brenda Serrato RN RN Jamarcus Peterson RN RN rr5 David Velazquez 4
--- NOTE | 2020-06-18 22:51 | EDPHYS ---
Physician Documentation [facility] Name: Arturo Harkins Age: 59 yrs Sex: Male : 1960 Arrival Date: 06/18/2020 Time: 20:42 Bed 17 Private MD: Negro Harkins E ED Physician Anthony Kee HPI: 06/18 22:35 This 59 yrs old Black Male presents to ER via Ambulatory with complaints of Left Hand cp Injury. 22:36 The patient or guardian reports a contusion, injury. The complaints affect the left cp fourth metacarpal. Context: The problem was sustained at work, resulted from a direct blow, by a heavy object, 2 by 6 board. Onset: The symptoms/episode began/occurred today. Associated signs and symptoms: Pertinent positives: decreased sensation distally, Pertinent negatives: cyanosis distally. Severity of symptoms: in the emergency department the symptoms are unchanged, despite home interventions. Historical: - Allergies: 21:04 No Known Allergies; hb - PMHx: 21:04 cancer, prostate; Hypertension; hb - PSHx: 21:04 back sx, prostate sx; hb - Immunization history:: Adult Immunizations. - Social history:: Smoking status: Patient reports the use of cigarette tobacco products, smokes one-half pack cigarettes per day. ROS: 22:37 Constitutional: Negative for body aches, chills, fever, poor PO intake. cp 22:37 Neck: Negative for pain with movement, pain at rest, stiffness. 22:37 Respiratory: Negative for cough, shortness of breath, wheezing. 22:37 Abdomen/GI: Negative for abdominal pain, nausea, vomiting, and diarrhea. 22:37 MS/extremity: Positive for injury or acute deformity, decreased range of motion, pain, paresthesias, swelling, tenderness, of the left fourth metacarpal. 22:37 Neuro: Positive for numbness, of the left fourth finger. 22:37 All other systems are negative. Exam: 22:40 Constitutional: The patient appears in no acute distress, alert, awake, non-toxic, well cp developed, well nourished. 22:40 Musculoskeletal/extremity: Extremities: grossly normal except: noted in the dorsum of cp left hand fourth metacarpal: pain, swelling, tenderness, ROM: limited active range of motion due to pain, in the fingers of left hand, Perfusion: the extremity is normally perfused throughout, the distal phalanx left fourth finger decreased sensation. 22:40 Skin: cellulitis, is not appreciated, on the left hand, no rash present. on the left hand. Vital Signs: 21:02 BP 114 / 71; Pulse 62; Resp 16; Temp 97.1; Pulse Ox 100% on R/A; Pain 8/10; hb 22:40 BP 115 / 70; Pulse 69; Resp 19; Pulse Ox 99% ; ea Procedures: 23:15 Splinting: Splint applied to left hand using Orthoglass splint, sling, ulna gutter cp type. applied by tech. Examined by me, post splint application: neurovascular intact, Patient tolerated well. MDM: 22:22 Patient medically screened. cp 22:48 Test interpretation: by ED physician or midlevel provider: xrays of left hand show cp oblique fracture of left fourth metacarpal. Counseling: I had a detailed discussion with the patient and/or guardian regarding: the historical points, exam findings, and any diagnostic results supporting the discharge/admit diagnosis, radiology results, the need for outpatient follow up, for definitive care, a hand specialist, to return to the emergency department if symptoms worsen or persist or if there are any questions or concerns that arise at home. Response to treatment: the patient's symptoms have markedly improved after treatment, and as a result, I will discharge patient. 22:50 Data reviewed: vital signs, nurses notes, radiologic studies, plain films, and as a cp result, I will discharge patient. 06/18 21:04 Order name: Hand Left 3 View XRAY; Complete Time: 14:00 hb 06/19 14:00 Interpretation: Report reviewed. cp 06/18 22:41 Order name: Sling; Complete Time: 23:09 cp 06/18 22:41 Order name: Splint - Ulnar Gutter; Complete Time: 23:09 cp Administered Medications: 21:29 Drug: [place] 10 mg-325 mg 1 tabs Route: PO; hb 23:09 Follow up: Response: No adverse reaction ea Disposition: 23:15 Chart complete. 06/19 07:45 Co-signature as Attending Physician, Anthony Kee MD I agree with the assessment and adrienne plan of care. Disposition: 06/18/20 22:50 Discharged to Home. Impression: Nondisplaced fracture of shaft of fourth metacarpal bone, left hand. - Condition is Stable. - Discharge Instructions: Metacarpal Fracture. - Prescriptions for Ibuprofen 800 mg Oral Tablet - take 1 tablet by ORAL route every 8 hours As needed take with food; 30 tablet. Tylenol- Codeine #3 300-30 mg Oral Tablet - take 2 tablets by ORAL route every 6 hours As needed; 20 tablet. - Medication Reconciliation Form, Thank You Letter, Antibiotic Education, Prescription Opioid Use form. - Follow up: Alphonse Toth MD; When: 2 - 3 days; Reason: Recheck today's complaints. - Problem is new. - Symptoms have improved. Signatures: Dispatcher [employer] EDMS Behzad Poon RN RN Anthony Mclean MD MD cha Page, Corey, PA PA cp Maci Chand, RN RN Brenda Alvarado RN RN ea Corrections: (The following items were deleted from the chart) 06/18 23:12 22:50 06/18/2020 22:50 Discharged to Home. Impression: Nondisplaced fracture of shaft ea of fourth metacarpal bone, left hand. Condition is Stable. Forms are Medication Reconciliation Form, Thank You Letter, Antibiotic Education, Prescription Opioid Use. Follow up: Alphonse Toth; When: 2 - 3 days; Reason: Recheck today's complaints. Problem is new. Symptoms have improved. cp
[2020-06-18 23:40] VITALS: BP 114/71; TEMP 97.1; O2SAT 100
--- NOTE | 2020-06-19 09:00 | RAD REPORT ---
EXAM DESCRIPTION: RAD - Hand Left 3 View - 06/18/2020 10:01 pm CLINICAL HISTORY: PAIN COMPARISON: Hand Left 3 View dated 03/19/2016 FINDINGS: Mild radiocarpal joint arthritic changes are present. Oblique fracture is present involvin g the shaft of the fourth metacarpal.
== END 2020-06-18 23:12 | disposition home or self-care (01) ==
LOC: ER 20:41
PROC: 2W3DX1Z Immobilization of Left Lower Arm using Splint (ICD-10-PCS; principal; 2020-06-18)
DX: S62.355A Nondisplaced fracture of shaft of fourth metacarpal bone, left hand, initial encounter for closed fracture (principal); W20.8XXA Other cause of strike by thrown, projected or falling object, initial encounter; Y93.89 Activity, other specified; Y92.69 Other specified industrial and construction area as the place of occurrence of the external cause; Y99.0 Civilian activity done for income or pay; F17.210 Nicotine dependence, cigarettes, uncomplicated
CPT/HCPCS: 99284

== ENCOUNTER 2020-08-20 08:27 | Emergency (ER) | payer OTHER ==
--- OUTSIDE RECORDS SUMMARY | 2020-08-20 08:31 | XMS REPORT | Continuity of Care Document ---
:1960 Author Organization [facility] t Address [address] [place] [address] Care Team Providers Name Role Phone [place] [...] Urinary Disease Active [facility] infection infection 00:00: Medi radha without without 00 Center hematuria, hematuria, site site unspecifie unspecifie d d Malignant Malignant Disease Active [facility] neoplasm [facility]oplasm [facility] - of of 00:00: Medical prostate prostate 00 Center ARM PAIN Diagnosis Active 2017-062018-04-19 M emoria 1- 15:03:00 l ARM PAIN 00:00: Spencer n 00 Active 04/18/2018 [facility] [place] CHEST PAIN Diagnosis Active 2017-11-02 Memoria 11-01 01:31:00 l CHEST 00:00: [place] PAIN 00 Active 11/01/2017 [facility] HAND AND Diagnosis Active 2017-01-04 M emoria KNEE PAIN - 15:35:00 l HAND AND 00:00: Spencer n KNEE PAIN 00 Active 12/15/2016 [facility] Localized Problem 2018-11-05 Me moria swelling, 14:05:51 l mass and [place] lump, left Localized lower limb swelling, mass and lump, left lower limb 11/05/2018 Mateusz Essential Problem 2018-11-05 Me moria (primary) 14:05:51 l hypertensi Spencer n on Essential (primary) hypertensi on 11/05/2018 Mateusz,[facility] Personal Problem 2018-11-05 Mem oria history of 14:05:51 l malignant Personal Her garcia neoplasm history of of malignant prostate [facility]oplasm [facility] Active 2015-05-13 Fl moria nail 03:05:35 l Noe Ingrowing nail Active Problem 05/13/2015 [facility] Onychomyco Problem Active 2015-05-13 M emoria sis 03:05:35 l Noe Onychomyco sis Active Problem 05/13/2015 [facility] Abscess/ce Problem Active 2015-05-13 M emoria llulitis-t 03:05:35 l oe Noe Abscess/ce llulitis-t oe Active Problem [address] [place] [address] Podiatry Contusion/ Problem Active 2015-05-13 M emoria hematoma-t 03:05:35 l oe Noe Contusion/ hematoma-t oe Active Problem 5 [facility] History of Past Illness Condition Condition Condition Status Onset Resolution Last Treating Co mments Source Name Details Category Date Date Treatment Clinician Date Lesion of Problem 2017-062018-11-05 2018-11-05 Mem[facility] ulnar - 14:05:51 14:05:51 l nerve, Lesion 06:00: [place] left upper of ulnar 00 limb nerve, left upper limb 04/18/2018 11/05/2018 [facility] Chest Problem 2017-11-05 2017-11-05 M emoria pain, 11-02 03:37:57 03:37:57 l unspecifie Chest 05:00: Babita nn d pain, 00 unspecifie d 11/02/2017 11/05/2017 [facility] Nicotine Problem 2017-11-05 2017-11-05 Memoria dependence 11-02 03:37:57 03:37:57 l , Nicotine 05:00: Spencer n unspecifie dependence 00 d, , uncomplica unspecifie maxwell d, uncomplica maxwell 11/02/2017 11/05/2017 [facility] Anemia, Problem 2017-11-05 2017-11-05 Memoria unspecifie 11-02 03:37:57 03:37:57 l d Anemia, 05:00: [place] unspecifie 00 d 11/02/2017 11/05/2017 [facility] Other Problem 2017-11-05 2017-11-05 M emoria chest pain 11-02 03:37:57 03:37:57 l Other 05:00: Noe chest pain 00 11/02/2017 11/05/2017 [facility] Radial Problem 2016-12-19 2016-12-19 M emoria styloid 12-16 03:21:57 03:21:57 l tenosynovi Radial 05:00: Herm janey tis [de styloid 00 Quervain] tenosynovi tis [de Quervain] 12/16/2016 12/19/2016 [facility] Allergies, Adverse Reactions, Alerts Allergy Allergy Status Severity Reaction(s) Onset Inactive Treating Comm ents Source Name Type Date Date Clinician No Known DA Active [facility] Allergie 12-31 [place] 00:00: [address] N[address]K.EligioA. N.K.Judith.A. Active Info Not Dane victor hugo Available 9-24 l 00:00: [place] 00 No Known No Known Active Memori a Medicati Medicati l on on Noe Hopper s s Social History Social Habit Start Date Stop Date Quantity Comments Source Sex Assigned At [facility] Cigarettes smoked 2018-12-31 2018-12-[address] [facility] - current [facility]pack per 00:00[facility]00 [facility] - Reported Cigarette 2018-12-31 2018-12-[address] [facility] - pack-years 00:00:00 00:00:00 [facility] Tobacco use and 2018-12-31 2018-12-[address] [facility] kes - exposure 00:00:00 00:00:00 [facility] Alcohol intake 2018-12-31 2018-12-31 [facility]00 [facility] (finding) TobaccoUse: 2015-02-27 2015-02-27 [facility] Herm janey 00:00:00 00:00:00 Smoking Status Start Date Stop Date Source Current every day smoker 2018-12-31 00:00:00 [facility] Social History [facility] Medications Ordered Filled Start Stop Current Ordering Indication Dosage Frequency Signature Comments Components Source Medication Medication Date Date Medication? Clinician (SIG) Name Name losartan Yes 50mg QD Take [address] [facility] (COZAAR) 50 8-05 by mouth Luke s - MG tablet 10:59: daily. Medica l [address] [place] omeprazole Yes 40mg QD Take [address] (PRILOSEC) 8-05 [facility] - 40 MG 10:59: daily. Medical capsule [address] [place] tadalafil Yes 5mg QD Take [address] [facility] (CIALIS) 5 7-02 by mouth [facility] - MG tablet 00:00: daily. Medica l 00 [place] Acetaminoph 2017-06 No 1 tab, PO, Memoria [...] a 1-14 (Same as: l 01:48: Motrin) [place] "Do Not Crush" Take with food. Acetaminoph [...] TID, l Oral Tablet 09:13: PRN Muscle [place] [Robaxin] 00 Spasms, X 5 day, # 20 tab, 0 Refill(s) Acetaminoph No 1 tab, Dane victor hugo en 325 MG / 5-30 Route: PO, l Hydrocodone 08:16: Drug Form: Noe Bitartrate 00 TAB, 5 MG Oral Dosing Tablet Weight [[place] 79.955, 5/325] kg, ONCE, STAT, Start date: [...] a 300 5-30 (Same l 07:12: as:Omnipaq [place] 00 ue 300). WASTE: F/P - Black; E - Municipal Trash [employer] Ketorolac No 4 days Memor ia 5-30 l 06:07: MEDICATION [place] 00 WASTE Product Size: 30 mg Product Wasted: ___ mg Zofran ODT No Notes: Memor ia 5-30 (Same as: l 06:06: Zofran Noe 00 ODT) Morphine No Notes: Memoria 5-30 (Same l 06:06: as:MORPhin [place] 00 e Sulfate) Sodium No 500 mL, Memoria Chloride 5-30 500 ml/hr, l 0.9% 06:06: Infuse Noe (Bolus) IV 00 Over: 1 hr, Route: IV, 500, Drug form: INJ, ONCE, Priority: STAT, Dosing Weight 79.955 kg, Start date: 11/02/17 1:06:00 CDT, Stop date: 11/02/17 1:06:00 CDT Saline No Notes: Memoria Flush 0.9% 5-30 Same as: l 04:24: BD [place] 00 Posiflush Sterile Motrin 800 Yes 800 mg = 1 M emoria mg oral 7-13 tab, PO, l tablet 05:11: Q8H, PRN [place] 00 Pain, Take with food, X 7 day, # 21 tab, 0 Refill(s) Hydrocodone 2014-06 Yes Ugo Unknown Memoria -Acetaminop 1-13 John l hen 03:00: [place] Lyrica 2014-06 Yes Ugo Unknown Memor ia 1-13 John l 03:00: Noe 06 Lamisil Yes Ugo 1 tablet Mem oria 9-24 John l 00:00: Noe 00 Vital Signs Vital Name Observation Time Observation Value Comments Source Systolic (mm Hg) 2018-04-19 03:12:00 Dane rial Noe Diastolic (mm Hg) 2018-04-19 03:12:00 Mem orial Noe Heart Rate 2018-04-19 03:12:00 [facility] [place] Respitory Rate 2018-04-19 03:12:00 Memori al [place] Temperature Oral (F) 2018-04-19 03:12:00 98.5 F [facility] Weight 2018-04-19 01:46:00 [facility] [place] Temperature Oral (F) 2018-04-19 01:46:00 98.3 F [facility] Respitory Rate 2018-04-19 01:46:00 Memori al [place] Heart Rate 2018-04-19 01:46:00 [facility] [place] Systolic (mm Hg) 2018-04-19 01:46:00 Dane rial [place] Diastolic (mm Hg) 2018-04-19 01:46:00 Mem orial [place] Systolic (mm Hg) 2017-11-02 09:31:00 Dane rial Noe Diastolic (mm Hg) 2017-11-02 09:31:00 Mem orial [place] Temperature Oral (F) 2017-11-02 09:31:00 98.2 F [facility] [place] Respitory Rate 2017-11-02 09:31:00 Memori al [place] Respitory Rate 2017-11-02 08:48:00 Memori al Noe Systolic (mm Hg) 2017-11-02 08:48:00 Dane rial [place] Diastolic (mm Hg) 2017-11-02 08:48:00 Mem orial [place] Systolic (mm Hg) 2017-11-02 08:25:00 Dane rial Noe Diastolic (mm Hg) 2017-11-02 08:25:00 Mem orial [place] Respitory Rate 2017-11-02 08:25:00 [facility]ori al [place] Temperature Oral (F) 2017-11-02 04:29:00 98.3 F [facility] [place] Weight 2017-11-02 04:29:00 [facility] [place] Heart Rate 2017-11-02 04:29:00 [facility] [place] Heart Rate 2016-12-16 05:46:00 [facility] [place] Respitory Rate 2016-12-16 05:46:00 Memori al Noe Systolic (mm Hg) 2016-12-16 05:46:00 Dane rial Noe Diastolic (mm Hg) 2016-12-16 05:46:00 Mem orial Noe Systolic (mm Hg) 2016-12-16 02:23:00 Dane rial [place] Diastolic (mm Hg) 2016-12-16 02:23:00 Mem orial Noe Heart Rate 2016-12-16 02:23:00 [facility] [place] Temperature Oral (F) 2016-12-16 02:23:00 98.2 F [facility] [place] Respitory Rate 2016-12-16 02:23:00 Memori al [place] Weight 2016-12-16 02:23:00 [facility] [place] Weight 2015-02-27 17:00:00 [facility] [place] Height 2015-02-27 17:00:00 [facility] Heart Rate 2015-02-27 17:00:00 [facility] [place] Diastolic (mm Hg) 2015-02-27 17:00:00 Mem orial Noe Systolic (mm Hg) 2015-02-27 17:00:00 Dane rial Noe Procedures This patient has no known procedures. [...] s - Test 00:00:00 (procedure) [code = [facility] 98972141] Future Scheduled [address] [facility] - Test 00:00:00 0-64 YRS (1 of 1 - Medical C enter PPSV23) [code = PNEUMOCOCCAL VACCINE 0-64 YRS (1 of 1 - PPSV23)] Future Scheduled [address] - Test 00:00:00 malignant neoplasm of Medica l Center colon (procedure) [code = 550865538] Encounters Start End Encounter Admission Attending Care Care Encounter Source Date/Time Date/Time Type Type Clinicians Facility Department ID 2020-08-01 2020-08-01 [facility] [id number] 10:49:11 23:59:00 Encounter [facility] [id number] Surgical 4.2.7.2.686 Specialti [id number] es [address] [place] 2020-08-01 2020-08-01 Office Stoney [facility] [id number] 10:30:23 10:45:23 Visit [facility] [id number] Surgical 4.2.7.2.686 Specialti [id number] es [address] [place] 2019-01-19 2019-01-19 Office Blas Murillo BCM [id number] 09:27:34 10:39:25 Visit AMBULATOR 350.1.13.21 Y 0.2.7.2.686 [id number] 300 2019-01-15 2019-01-15 Office Blas Murillo BCRuma [id number] 15:22:05 16:02:23 Visit AMBULATOR 350.1.13.21 Y 0.2.7.2.686 [id number] 300 2018-04-18 2018-04-18 [id number] 19:27:00 21:48:00 R 02 2017-11-01 2017-11-02 Outpatient MARLENE Matias [facility] [id number] 23:07:00 04:33:00 Abbie Patel 2016-12-15 2016-12-16 Out[facility] [id number] 21:18:00 00:50:00 Daeun 00 2015-05-12 2015-05-12 Outpatient [facility] [id number] eClinic 13:34:00 13:34:00 [facility] Podiatry 2015-04-09 2015-04-09 Outpatient [facility] [id number] eClinic 17:51:00 17:51:00 [facility] Podiatry 2015-02-27 2015-02-27 Outpatient [facility] [id number] eClinic 11:00:00 11:00:00 [facility] Podiatry Results Test Description Test Time Test Comments Results Result Comments Source BASIC METABOLIC PANEL 2019-01-08 06:51:00 Test Item Value Reference Range Interpretation Comme nts SODIUM (BEAKER) (test code 138 meq/L 136-145 = 381) POTASSIUM (BEAKER) (test 3.8 meq/L 3.5-5.1 code = 379) CHLORIDE (BEAKER) (test 106 meq/L 98-107 code = 382) CO2 (BEAKER) (test code = 23 meq/L - 355) BLOOD UREA NITROGEN 8 mg/dL 7-21 (BEAKER) (test code = 354) CREATININE (BEAKER) (test 0.79 mg/dL 0.57-1.25 code = 358) GLUCOSE RANDOM (BEAKER) 98 mg/dL 70-105 (test code = 652) CALCIUM (BEAKER) (test 9.0 mg/dL 8.4-10.2 code = 697) EGFR (BEAKER) (test code = 122 mL/min/1.73 sq m ESTIMATED GFR IS NOT 1092) ACCURATE CRE ATININE CLEARANCE IN RI EDICTING GLOMERULAR FILT RATION RATE. ESTIMATED GFR [...] (BEAKER) (test code = 413) BASIC METABOLIC [id number] 10:29:00 Test Item Value Reference Range Interpretation [...] (BEAKER) (test code = 413) BASIC METABOLIC [id number] 07:16:00 Test Item Value Reference Range Interpretation [...] (BEAKER) (test code = 413) BASIC METABOLIC [id number] 06:42:00 Test Item Value Reference Range Interpretation [...] (BEAKER) (test code = 413) [place], CYSTOGRAM, [id number] 15:59:00Reason for exam:->concern for urine leakFINAL REPORT [...] MDReport Verified Date/Time: 01/03/2019 15:59:13 Reading Location: [address] Ortho Consult Reading Room [id number] 08:26:00 Test Item Value Reference Range Interpretation Comments PHOSPHORUS (BEAKER) (test code = 3.1 mg/dL 2.3-4.7 604) [id number] 08:26:00 Test Item Value Reference Range Interpretation Comments MAGNESIUM (BEAKER) (test code = 1.9 mg/dL 1.6-2.6 627) BASIC METABOLIC [id number] 08:26:00 Test Item Value Reference Range Interpretation [...] 0-0 (BEAKER) (test code = 413) TISSUE [id number] 17:00:00Surgical Pathology Report Case: [id number] Authorizing Provider: Blas Murillo MD Collected: 12/27/2018 1005 Ordering Location: [facility] Received: 12/27/2018 1445 SERVICES Pathologist: Nikita [...] PATHOLOGIC DIAGNOSIS Signing Pathologist Direct Phone Line: [phone] signed by Nikita Mahajan MD on 01/02/2019 [...] (cm)TUMOR Histologic Type: Acinar adenocarcinoma Histologic Grade: [place] Pattern:Percentage of Pattern 4: 30 % Percentage of Pattern 5: 1 % Primary [place] Pattern: Pattern 3 Secondary [place] Pattern: Pattern 4 Tertiary Imani Pattern: Pattern [...] (PIN) Additional Pathologic Findings: Nodular prostatic hyperplasia 81518, 38192 x 2, 03781 X 2Prostate cancerA. Periprostatic lymph node. B. [...] patient's name (Christen Harkins) with accession number [id number] is a prostate with bilateral seminal vesicles [...] deferentia are submitted in cassette E13. SDH/ewPerformed.CT, [id number] 13:19:00Patient with significant scrotal swelling and subcutaneous [...] MDReport Verified Date/Time: 01/02/2019 13:19:12 Reading Location: [address] Body ReadingRoom [id number] 07:00:00 Test Item Value Reference Range Interpretation Comments PHOSPHORUS (BEAKER) (test code = 3.3 mg/dL 2.3-4.7 604) [id number] 07:00:00 Test Item Value Reference Range Interpretation Comments MAGNESIUM (BEAKER) (test code = 1.9 mg/dL 1.6-2.6 627) BASIC METABOLIC [id number] 07:00:00 Test Item Value Reference Range Interpretation [...] S NOT APPLICABLE FOR DIALYSIS PATIEN TS. [id number] 04:40:00 Test Item Value Reference Range Interpretation Comments PHOSPHORUS (BEAKER) (test code = 2.9 mg/dL 2.3-4.7 604) [id number] 04:40:00 Test Item Value Reference Range Interpretation Comments MAGNESIUM (BEAKER) (test code = 1.8 mg/dL 1.6-2.6 627) BASIC METABOLIC [id number] 04:40:00 Test Item Value Reference Range Interpretation [...] PATIEN TS. CBC W/PLT COUNT & AUTO [id number] 04:10:00 Test Item Value Reference Range Interpretation [...] code = 2801) URINALYSIS W/ REFLEX URINE [id number] 18:55:00 Test Item Value Reference Range Interpretation [...] 516) SOURCE(BEAKER) (test code = 2795) CT, [id number] 18:21:00Reason for exam:->ABDOMINAL PAINWhat is the patient's [...] Archie Gibbs MDReport Verified Date/Time: 12/31/2018 18:21:28 [facility] 2018-12-31 18:15:00 Test [...] PATIEN TS. CBC W/PLT COUNT & AUTO [id number] 17:59:00 Test Item Value Reference Range Interpretation [...] = 2801) UA RFLX MICR CULT IF [id number] 08:59:00 Test Item Value Reference Range Interpretation [...] OF URINE: CLEAN CATCHIndication for culture: Dysuria/FrequencyUA [id number] 08:59:00 Test Item Value Reference Range Interpretation Comments UA RBC (test code = RBCU) 20-30 RBC/HPF 0-3 A UA WBC (test code = XWBCU) 20-30 WBC/HPF 0-5 A UA EPITHELIAL CELLS (test code FEW EPI/HPF FEW = EPIU) UA BACTERIA (test code = XBACU) FEW NONE SOURCE OF URINE: CLEAN CATCHIndication for culture: Dysuria/FrequencyUA RFLX MICR CULT IF [id number] 08:50:00 Test Item Value Reference Range Interpretation [...] OF URINE: CLEAN CATCHIndication for culture: Dysuria/FrequencyUA [id number] 08:50:00 Test Item Value Reference Range Interpretation Comments UA RBC (test code = RBCU) RBC/HPF 0-3 UA WBC (test code = XWBCU) WBC/HPF 0-5 UA EPITHELIAL CELLS (test code = EPI/HPF FEW EPIU) UA BACTERIA (test code = XBACU) NONE SOURCE OF URINE: CLEAN CATCHIndication for culture: Dysuria/FrequencyUA RFLX MICR CULT IF [id number] 08:50:00 Test Item Value Reference Range Interpretation [...] OF URINE: CLEAN CATCHIndication for culture: Dysuria/FrequencyUA [id number] 08:50:00 Test Item Value Reference Range Interpretation Comments UA RBC (test code = RBCU) RBC/HPF 0-3 UA WBC (test code = XWBCU) WBC/HPF 0-5 UA EPITHELIAL CELLS (test code = EPI/HPF FEW EPIU) UA BACTERIA (test code = XBACU) NONE SOURCE OF URINE: CLEAN CATCHIndication for culture: Dysuria/Frequency CREATININE, BODY [id number] 12:28:00 Test Item Value Reference Range Interpretation Comments CREATININE FLUID (BEAKER) (test 0.60 mg/dL code = 677) Reference Range: No Normals Assay performance has not been validated for this type of specimen.BASIC METABOLIC [id number] 06:24:00 Test Item Value Reference Range Interpretation [...] APPLICABLE FOR DIALYSIS PATIEN TS. HEMOGLOBIN AND [id number] 05:28:00 Test Item Value Reference Range Interpretation Comments HEMOGLOBIN (BEAKER) (test code = 10.5 GM/DL 13.7-17.5 L 410) HEMATOCRIT (BEAKER) (test code = 31.9 % 40.1-51.0 L 411) BASIC METABOLIC [id number] 07:27:00 Test Item Value Reference Range Interpretation [...] APPLICABLE FOR DIALYSIS PATIEN TS. HEMOGLOBIN AND [id number] 06:44:00 Test Item Value Reference Range Interpretation Comments HEMOGLOBIN (BEAKER) (test code = 10.8 GM/DL 13.7-17.5 L 410) HEMATOCRIT (BEAKER) (test code = 32.2 % 40.1-51.0 L 411) BASIC METABOLIC [id number] 07:35:00 Test Item Value Reference Range Interpretation [...] APPLICABLE FOR DIALYSIS PATIEN TS. HEMOGLOBIN AND [id number] 06:43:00 Test Item Value Reference Range Interpretation Comments HEMOGLOBIN (BEAKER) (test code = 11.8 GM/DL 13.7-17.5 L 410) HEMATOCRIT (BEAKER) (test code = 36.2 % 40.1-51.0 L 411) HEMOGLOBIN AND [id number] 15:37:00 Test Item Value Reference Range Interpretation Comments HEMOGLOBIN (BEAKER) (test code = 13.6 GM/DL 13.7-17.5 L 410) HEMATOCRIT (BEAKER) (test code = 41.9 % 40.1-51.0 411) BASIC METABOLIC [id number] 15:25:00 Test Item Value Reference Range Interpretation [...] APPLICABLE FOR DIALYSIS PATIEN TS. BASIC METABOLIC [id number] 07:20:00 Test Item Value Reference Range Interpretation [...] GFR I S NOT APPLICABLE FOR DIALYSIS PATIBRI TS. COMPREHENSIVE METABOLIC [id number] 15:49:00 Test Item Value Reference Range Interpretation [...] APPLICABLE FOR DIALYSIS PATIEN TS. Specimen slightly [id number] 13:53:00 Test Item Value Reference Range Interpretation Comments PARTIAL THROMBOPLASTIN TIME 25.8 seconds 22.5-36.0 (BEAKER) (test code = 760) PROTHROMBIN [id number] 13:52:00 Test Item Value Reference Range Interpretation [...] for patients wiht mechanical heart valves.BASIC METABOLIC [id number] 13:51:00 Test Item Value Reference Range Interpretation [...] PATIEN TS. CBC W/PLT COUNT & AUTO [id number] 13:35:00 Test Item Value Reference Range Interpretation [...] PERCENT (BEAKER) (test code = 2801) CARDIAC [id number] 07:54:47890Ckuurzhp HermannCARDIAC [id number] 07:54:00<0.02[facility] HermannCARDIAC [id number] 07:54:001.8[facility] HermannCARDIAC [id number] 07:54:00 Test Item Value Reference Range Interpretation Comments CK MB Index (test 1.0 1 See_Comment [Automate d message] The code = CK MB Index) system w [employer] generated this result transmit maxwell reference range : <=2.5. The reference range was not used to interpr et this result as anthony l/abnormal. [facility] [id number] 04:53:003.68[facility] HermannHEMATOLOGY 2017-11-02 04:53:0035.4[facility] [id number] 04:53:00 Test Item Value Reference Range Interpretation Comments MCH (test code = MCH) 36.0 pg 27.0-31.0 [facility] [id number] 04:53:36072Yunpsbzd HermannHEMATOLOGY 2017-11-02 04:53:007.8[facility]orial [id number] 04:53:0013.3[facility] HermannCARDIAC [id number] 04:53:00 Test Item Value Reference Range Interpretation Comments CK MB Index (test 0.9 1 See_Comment [Automate d message] The code = CK MB Index) system w [facility] generated this result transmit maxwell reference range : <=2.5. The reference range was not used to interpr et this result as anthony l/abnormal. [facility] HermannCARDIAC [id number] 04:53:89400Nlimtviv HermannCARDIAC [id number] 04:53:001.9[facility] HermannCARDIAC [id number] 04:53:00 <0.02[facility] HermannCHEM [id number] 04:53:0080[facility] HermannCHEM [id number] 04:53:00 Test Item Value Reference Range Interpretation Comments A/G Ratio (test code = A/G Ratio) 0.9 1 0.7-1.6 [facility] HermannCHEM [id number] 04:53:0030[facility] HermannCHEM PANEL 2017-11-02 04:53:003.7[facility] HermannCHEM [id number] 04:53:008.3[facility] HermannCHEM [id number] 04:53:007.6[facility] HermannCHEM [id number] 04:53:0024[facility] HermannCHEM [id number] 04:53:20910Yvotjjng HermannCHEM [id number] 04:53:003.9[facility] HermannCHEM [id number] 04:53:0012.9 [facility] HermannCHEM [id number] 04:53:00 Test Item Value Reference Range Interpretation Comments B/C Ratio (test code = B/C Ratio) 16 1 6-25 [facility] HermannCHEM [id number] 04:53:0057[facility] HermannCHEM PANEL 2017-11-02 04:53:000.2[facility] HermannCHEM [id number] 04:53:0033[facility] HermannCHEM [id number] 04:53:0019[facility] HermannCHEM [id number] 04:53:93799Klmbcehq HermannCHEM [id number] 04:53:001.17[facility] HermannCHEM [id number] 04:53:39504Ashezqwm HermannCHEM [id number] 04:53:003.9 [facility] [id number] 04:53:002.1[facility] HermannHEMATOLOGY 2017-11-02 04:53:002.6[facility] [id number] 04:53:004.6[facility] EgrqjuzFIGJNSADUY5949-12-32 04:53:000.9[facility] [id number] 04:53:007.4[facility] ZqidranPMLIDEQNOV7081-29-75 04:53:000.2[facility] [place] [id number] 04:53:000.6[facility] XycevstNDQKCEQSMP8877-21-40 04:53:001+ *ABN*(11/01/17 11:53 PM)[facility] PmacsaeEUOKUBJGBB3290-51-03 04:53:000.1[facility] [id number] 04:53:0060.6[facility] FeldpqaXZRBETMPNG9686-56-77 04:53:0028.5[facility] IyrdufcKBUEEYCLYM7921-95-60 04:53:27088.7[facility] [place] RGVYWLJXAL0771-57-48 04:53:0013.2[facility] RwemquwPMVZMDEXKS5596-44-36 04:53:00 37.4[facility] YpzvjchIKSZZPGFHD0950-05-03 04:53:007.5[facility] [place]
--- NOTE | 2020-08-20 09:51 | RAD REPORT ---
EXAM DESCRIPTION: Hortencia Single View08/20/2020 9:29 am CLINICAL HISTORY: Chest pain COMPARISON: 2015 FINDINGS: The lungs appear clear of acute infiltrate. The heart is normal size IMPRESSION: No acute abnormalities displayed
[2020-08-20 10:05] LABS: Absolute Lymphocytes (CBC) 1.4 K/uL (0.7-4.9); Hematocrit 37.7 % (39.6-49.0); Lymphocytes % 27.1 % (15.3-44.8); RBC Red Blood Cell Count 3.64 M/uL (4.33-5.43)
[2020-08-20 11:05] LABS: Protime INR 1.06
[2020-08-20 11:43] LABS: ALT/SGPT 27 U/L (12-78); Albumin 3.5 g/dL (3.4-5.0); Alkaline Phosphatase 60 U/L (45-117); BUN Blood Urea Nitrogen 17 mg/dL (7-18); Bicarbonate 24 mmol/L (21-32); Bilirubin Direct < 0.1 mg/dL (0-0.2); Bilirubin Total 0.3 mg/dL (0.2-1.0); Glucose Level 101 mg/dL (74-106); NT PRO-BNP 13 pg/mL (<125); Protein, Total 7.3 g/dL (6.4-8.2); Sodium Level 141 mmol/L (136-145); Troponin (Emerg Dept Use Only) < 0.02 ng/mL (0.0-0.045)
[2020-08-20 11:44] LABS: AST/SGOT 37 U/L (15-37); Potassium 4.3 mmol/L (3.5-5.1)
[2020-08-20 11:45] LABS: Magnesium 2.2 mg/dL (1.8-2.4)
[2020-08-20 12:01] LABS: HDL Cholesterol 32 mg/dL (40-60)
[2020-08-20 12:14] LABS: LDL, Direct 73 mg/dL (100-129)
--- NOTE | 2020-08-20 13:22 | EDPHYS ---
Physician Documentation [facility] Name: Arturo Harkins Age: 59 yrs Sex: Male : 1960 Arrival Date: 08/20/2020 Time: 08:31 Bed 16 Private MD: Negro Harkins E ED Physician Darryl Hester HPI: 08/20 09:18 This 59 yrs old Black Male presents to ER via Ambulatory with complaints of Chest Pain. ps1 09:18 Onset was Tuesday however patient states a week. Localized to right chest and into right ps1 shoulder. Feels dull. Intermittent course, worse this morning. No exertional activities known to patient. Hx of HTN, not on medications. No known CAD, HLD, or DM. No previous cardiology evaluation. No stress test. . Historical: - Allergies: 08:33 No Known Allergies; sv - PMHx: 08:33 cancer, prostate; Hypertension; sv - PSHx: 08:33 back sx, prostate sx; sv ROS: 09:18 Constitutional: Negative for fever, chills, and weight loss. ps1 09:18 Constitutional: Negative for body aches, chills, fever, poor PO intake. 09:18 Cardiovascular: Positive for chest pain, Negative for edema, orthopnea, palpitations, paroxysmal nocturnal dyspnea. 09:18 Respiratory: Negative for cough, hemoptysis, shortness of breath. 09:18 Abdomen/GI: Negative for abdominal pain, nausea, vomiting, and diarrhea. 09:18 : Negative for urinary symptoms. 09:18 Neuro: Negative for headache, syncope. Exam: 09:18 Constitutional: This is a well developed, well nourished patient who is awake, alert, ps1 and in no acute distress. Head/Face: Normocephalic, atraumatic. Eyes: Pupils equal round and reactive to light, extra-ocular motions intact. Lids and lashes normal. Conjunctiva and sclera are non-icteric and not injected. Chest/axilla: Normal chest wall appearance and motion. Nontender with no deformity. No lesions are appreciated. Cardiovascular: Regular rate and rhythm. No gallops, murmurs, or rubs. Normal PMI, no JVD. No pulse deficits. Respiratory: Lungs have equal breath sounds bilaterally, clear to auscultation and percussion. No rales, rhonchi or wheezes noted. No increased work of breathing, no retractions or nasal flaring. Skin: Warm, dry with normal turgor. Normal color with no rashes, no lesions, and no evidence of cellulitis. Neuro: Awake and alert, GCS 15, oriented to person, place, time, and situation. Cranial nerves II-XII grossly intact. Sensory grossly intact. Vital Signs: 08:33 BP 155 / 86; Pulse 80; Resp 16; Temp 98.5; Pulse Ox 99% ; Weight 83.91 kg; Height 5 ft. sv 11 in. (180.34 cm); Pain 5/10; 08:45 BP 145 / 83; Pulse 85; Resp 16; Pulse Ox 98% on R/A; vg1 09:00 BP 138 / 73; Pulse 84; Resp 18; Pulse Ox 100% on R/A; vg1 10:00 BP 130 / 86; Pulse 83; Resp 20; Pulse Ox 100% on R/A; vg1 11:24 BP 141 / 82; Pulse 78; Resp 18; Pulse Ox 97% on R/A; vg1 12:00 BP 148 / 87; Pulse 84; Resp 14; Pulse Ox 100% on R/A; vg1 08:33 Body Mass Index 25.80 (83.91 kg, 180.34 cm) sv MDM: 09:18 Patient medically screened. ps1 09:18 Differential diagnosis: acute myocardial infarction, coronary artery disease chest wall ps1 pain, cholecystitis, costochondritis, pulmonary embolus, unstable angina. 08/20 09:07 Order name: Basic Metabolic Panel ps1 08/20 09:07 Order name: CBC with Diff ps1 08/20 09:07 Order name: LFT's; Complete Time: 12:48 ps1 08/20 09:07 Order name: Magnesium; Complete Time: 12:48 ps1 08/20 09:07 Order name: NT PRO-BNP; Complete Time: 12:48 ps1 08/20 09:07 Order name: PT-INR; Complete Time: 11:24 ps1 08/20 09:07 Order name: Troponin (emerg Dept Use Only); Complete Time: 12:48 ps1 08/20 09:07 Order name: XRAY Chest (1 view); Complete Time: 09:55 ps1 08/20 09:07 Order name: Cardiac monitoring; Complete Time: 09:12 ps1 08/20 09:07 Order name: Basic Metabolic Panel; Complete Time: 12:48 EDRI 08/20 09:07 Order name: CBC with Automated Diff; Complete Time: 10:29 EDRI 08/20 11:24 Order name: Lipid Profile; Complete Time: 12:48 [facility] 08/20 12:04 Order name: LDL, Direct; Complete Time: 12:48 [facility] 08/20 09:07 Order name: EKG - Nurse/Tech; Complete Time: 09:12 [facility] 08/20 09:07 Order name: IV Saline Lock; Complete Time: 09:52 [facility] 08/20 09:07 Order name: Labs collected and sent; Complete Time: 09:52 [facility] 08/20 09:07 Order name: O2 Per Protocol; Complete Time: 09:12 [facility] 08/20 09:07 Order name: O2 Sat Monitoring; Complete Time: 09:12 [facility] 08/20 10:08 Order name: Labs - recollect needed; Complete Time: 10:37 mt EC:08 Rate is 82 beats/min. Rhythm is regular. QRS [place] is Normal. CT interval is normal. QRS ps1 interval is normal. QT interval is normal. No Q waves. T waves are Normal. No ST changes noted. Clinical impression: Normal ECG. Administered Medications: No medications were administered Disposition: 08/20/20 13:21 Patient has left against medical advice. - Patients states they are going to Home. - Condition is Fair. Signatures: Dispatcher [employer] Torrie Herrera, LIOR [place], Darryl Manzo mt, MD MD ps1 Emily Terrazas RN RN vg1
--- NOTE | 2020-08-20 13:22 | ER ---
Nurse's Notes [facility] Name: Arturo Harkins Age: 59 yrs Sex: Male : 1960 Arrival Date: 08/20/2020 Time: 08:31 Bed 16 Private MD: Negro Harkins E Diagnosis: Presentation: 08/20 08:32 Chief complaint: Patient states: right sided chest pain x 2 days with dyspnea. sv Coronavirus screen: Client denies travel out of the [place] in the last 14 days. At this time, the client does not indicate any symptoms associated with coronavirus-19. Ebola Screen: No symptoms or risks identified at this time. Risk Assessment: Do you want to hurt yourself or someone else? Patient reports no desire to harm self or others. Onset of symptoms was August 2020. 08:32 Method Of Arrival: Ambulatory sv 08:32 Acuity: RICHAR 3 sv 08:33 Initial Sepsis Screen: Does the patient meet any 2 criteria? No. Patient's initial sv sepsis screen is negative. Does the patient have a suspected source of infection? No. Patient's initial sepsis screen is negative. Historical: - Allergies: 08:33 No Known Allergies; sv - PMHx: 08:33 cancer, prostate; Hypertension; sv - PSHx: 08:33 back sx, prostate sx; sv Screenin:48 Abuse screen: Denies threats or abuse. Nutritional screening: No deficits noted. tw2 Tuberculosis screening: No symptoms or risk factors identified. Fall Risk None identified. Assessment: 08:45 General: Appears in no apparent distress. comfortable, Behavior is calm, cooperative. vg1 Pain: Complains of pain in Right anterior side of chest Pain radiates to right arm Pain began Tuesday, . Neuro: Level of Consciousness is awake, alert, obeys commands, Oriented to person, place, time, situation. Cardiovascular: Patient's skin is warm and dry. Rhythm is sinus rhythm. Respiratory: Airway is patent Respiratory effort is even, unlabored. GI: No signs and/or symptoms were reported involving the gastrointestinal system. : No signs and/or symptoms were reported regarding the genitourinary system. EENT: No signs and/or symptoms were reported regarding the EENT system. Derm: Skin is intact, is healthy with good turgor. Musculoskeletal: Circulation, motion, and sensation intact. 11:22 Reassessment: Patient appears in no apparent distress at this time. No changes from vg1 previously documented assessment. Patient and/or family updated on plan of care and expected duration. Pain level reassessed. Patient is alert, oriented x 3, equal unlabored respirations, skin warm/dry/pink. 12:49 Reassessment: Patient appears in no apparent distress at this time. Patient and/or vg1 family updated on plan of care and expected duration. Pain level reassessed. Patient is alert, oriented x 3, equal unlabored respirations, skin warm/dry/pink. 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 Vital Signs: 08:33 BP 155 / 86; Pulse 80; Resp 16; Temp 98.5; Pulse Ox 99% ; Weight 83.91 kg; Height 5 ft. sv 11 in. (180.34 cm); Pain 5/10; 08:45 BP 145 / 83; Pulse 85; Resp 16; Pulse Ox 98% on R/A; vg1 09:00 BP 138 / 73; Pulse 84; Resp 18; Pulse Ox 100% on R/A; vg1 10:00 BP 130 / 86; Pulse 83; Resp 20; Pulse Ox 100% on R/A; vg1 11:24 BP 141 / 82; Pulse 78; Resp 18; Pulse Ox 97% on R/A; vg1 12:00 BP 148 / 87; Pulse 84; Resp 14; Pulse Ox 100% on R/A; vg1 08:33 Body Mass Index 25.80 (83.91 kg, 180.34 cm) sv ED Course: 08:31 Patient arrived in ED. mr 08:31 Negro Harkins MD is Private Physician. mr 08:32 Arm band placed on. sv 08:33 Triage completed. sv 08:45 Emily Terrazas, LIOR is Primary Nurse. vg1 08:45 Darryl Hester MD is Attending Physician. ps1 08:48 Bed in low position. Call light in reach. crab steamer on. Pulse ox on. NIBP on. tw2 08:48 Patient maintains SpO2 saturation greater than 95% on room air. tw2 09:29 XRAY Chest (1 view) In Process Unspecified. EDMS 09:52 Initial lab(s) drawn, by me, sent to lab. Inserted saline lock: 20 gauge in left vg1 antecubital area, using aseptic technique. Blood collected. 10:38 Lab(s) recollected, by me, sent to lab. vg1 10:44 CBC with Diff Sent. sv 10:44 Basic Metabolic Panel Sent. sv 13:20 No provider procedures requiring assistance completed. IV discontinued, intact, vg1 bleeding controlled, No redness/swelling at site. Pressure dressing applied. Administered Medications: No medications were administered Outcome: 13:20 AMA AMA form signed vg1 13:20 Condition: unchanged 13:21 Patient left the ED. vg1 Signatures: Dispatcher [employer] EDSC Torrie Manzo, RN RN Karen Valencia, Aida, RN RN tw2 Darryl Hester MD MD ps1 Garcia, Victoria, RN RN vg1
[2020-08-20 13:43] VITALS: TEMP 98.5
[2020-08-20 13:50] VITALS: BP 148/87; O2SAT 100
== END 2020-08-20 13:21 | disposition left against medical advice (07) ==
LOC: ER 08:27
DX: R07.9 Chest pain, unspecified (principal); Z53.20 Procedure and treatment not carried out because of patient's decision for unspecified reasons; I10 Essential (primary) hypertension; Z85.46 Personal history of malignant neoplasm of prostate
CPT/HCPCS: 36415; 71045; 80048; 80061; 80076; 83735; 83880; 84484; 85025; 85610; 93005; 99285

== ENCOUNTER 2021-01-31 14:35 | Emergency (ER) | payer OTHER ==
--- OUTSIDE RECORDS SUMMARY | 2021-01-31 14:39 | XMS REPORT | Continuity of Care Document ---
:1960 Author Organization [facility] t Address [address] [place] [address] Care Team Providers Name Role Phone Darien [...] Penile Disease Active [facility] Urinary Urinary Disease Active [facility] tract tract [facility]24 [facility] - infection infection 00:00: Medi radha without without 00 Center hematuria, hematuria, site site unspecifie unspecifie d d Malignant Malignant Disease Active [facility] neoplasm neoplasm 7[facility] - of of 00:00: Medical prostate prostate 00 Center ARM PAIN Diagnosis Active 2018-1 2018-04-19 M emoria 1-13 15:03:00 l ARM PAIN 00:00: Spencer n 00 Active 04/18/2018 [facility] Noe CHEST PAIN Diagnosis Active 2017-11-02 Memoria 11-01 01:31:00 l CHEST 00:00: [place] PAIN 00 Active 11/01/[address] [facility] HAND AND Diagnosis Active 2017-01-04 M emoria KNEE PAIN -12 15:35:00 l HAND AND 00:00: [place] n KNEE PAIN 00 Active 12/15/2016 [facility] Noe Localized Problem 2018-11-05 Me moria swelling, 14:05:51 l mass and [place] lump, left Localized lower limb swelling, mass and lump, left lower limb 11/05/2018 Mateusz Essential Problem 2018-11-05 Me moria (primary) 14:05:51 l hypertensi Spencer n on Essential (primary) hypertensi on 11/05/2018 [place] Personal Problem 2018-11-05 Mem oria history of 14:05:51 l malignant Personal Her garcia neoplasm history of of malignant prostate neoplasm of prostate 11/05/2018 [facility] Ingrowing Problem Active 2015-05-13 [place] moria nail 03:05:35 l Noe Ingrowing nail Active Problem 05/13/2015 [facility] Onychomyco Problem Active 2015-05-13 M emoria sis 03:05:35 l Noe Onychomyco sis Active Problem 05/13/2015 [facility] Abscess/ce Problem Active 2015-05-13 M emoria llulitis-t 03:05:35 l oe Noe Abscess/ce llulitis-t oe Active Problem [address] [place] [address] Podiatry Contusion/ Problem Active 2015-05-13 M emoria hematoma-t 03:05:35 l oe Noe Contusion/ hematoma-t oe Active Problem [address] [place] [address] Podiatry History of Past Illness Condition Condition Condition Status Onset Resolution Last Treating Co mments Source Name Details Category Date Date Treatment Clinician Date Lesion of Problem 2017-062018-11-05 2018-11-05 Memoria ulnar - 14:05:51 14:05:51 l nerve, Lesion 06:00: [place] left upper of ulnar 00 limb nerve, left upper limb 04/18/2018 11/05/2018 [place] Chest Problem 2017-11-05 2017-11-05 M emoria pain, 11-02 03:37:57 03:37:57 l unspecifie Chest 05:00: Babita nn d pain, 00 unspecifie d 11/02/2017 11/05/[address] [facility] Nicotine Problem 2017-11-05 2017-11-05 Memoria dependence 11-02 03:37:57 03:37:57 l , Nicotine 05:00: [place] n unspecifie dependence 00 d, , uncomplica unspecifie maxwell d, uncomplica maxwell 11/02/2017 11/05/[address] [facility] Anemia, Problem 2017-11-05 2017-11-05 Memoria unspecifie 11-02 03:37:57 03:37:57 l d Anemia, 05:00: [place] unspecifie 00 d 11/02/2017 11/05/[address] [facility] Other Problem 2017-11-05 2017-11-05 M emoria chest pain 11-02 03:37:57 03:37:57 l Other 05:00: [place] chest pain 00 11/02/2017 11/05/[address] [facility] Radial Problem 2016-12-19 2016-12-19 M emoria styloid 12-16 03:21:57 03:21:57 l tenosynovi Radial 05:00: Herm janey tis [de styloid 00 Quervain] tenosynovi tis [de Quervain] 12/16/2016 12/19/2016 [facility] Allergies, Adverse Reactions, Alerts Allergy Allergy Status Severity Reaction(s) Onset Inactive Treating Comm ents Source Name Type Date Date Clinician No Known DA Active [facility] Allergie 12-31 [place] 00:[place]: [address] Social History Social Habit Start Date Stop Date Quantity Comments Source Sex Assigned At [facility] Cigarettes smoked 2018-12-31 2018-12-31 [facility] - current (pack per 00:00:00 00:00:00 [facility] Center day) - Reported Cigarette 2018-12-31 2018-12-31 [facility]3][employer] - pack-years 00:00:00 00:00:00 [facility] Tobacco use and 2018-12-31 2018-12-[address] [facility] kes - exposure 00:00:00 00:00:00 [facility] Alcohol intake 2018-12-31 2018-12-31 Current drinker [facility]ELLE S [facility] 00:[facility]:00 00:00:00 of alcohol [facility] (finding) TobaccoUse: 2015-02-27 2015-02-27 [facility] 00:[facility] 00:00:00 Smoking Status Start Date Stop Date Source Current every day smoker 2018-12-31 00:00:[address] [facility] Social History [facility] Medications Ordered Filled Start Stop Current Ordering Indication Dosage Frequency Signature Comments Components Source Medication Medication Date Date Medication? Clinician (SIG) Name Name losartan Yes 50mg QD Take [address] [address] (COZAAR) 50 8-05 by mouth Luke s - MG tablet 10:59: daily. Medica l [address] [place] omeprazole Yes 40mg QD Take [address] (PRILOSEC) 8-05 by mouth [facility] - 40 MG 10:59: daily. Medical capsule [address] [place] tadalafil Yes 5mg QD Take [address] (CIALIS) 5 7-02 by mouth [facility] - MG tablet 00:00: daily. Medica l [address] [place] Acetaminoph 2017-06 No 1 tab, PO, Memoria en 300 MG / -14 Q6H, PRN l Codeine 03:19: Pain, X [...] a 1-14 (Same as: l 01:48: Motrin) [place] 00 "Do Not Crush" Take with food. [...] TID, l Oral Tablet 09:13: PRN Muscle [place] [Robaxin] 00 Spasms, X 5 day, # 20 tab, 0 Refill(s) Acetaminoph No 1 tab, Dane victor hugo en 325 MG / 5-30 Route: PO, l Hydrocodone 08:16: Drug Form: Noe Bitartrate 00 TAB, 5 MG Oral Dosing Tablet Weight [[place] 79.955, 5/325] kg, ONCE, STAT, Start date: 11/02/17 3:16:00 CDT, Stop date: 11/02/17 3:16:00 CDT Robaxin No Notes: Memoria 5-30 (Same l 07:44: as:Robaxin ) Omnipaque No 100 mL, Memor ia 350 5-30 Route: IV, l 07:27: Dosing Weight 79.955, kg, ONCE, Start date: [...] Notes: Memoria 5-30 (Same l 06:06: as:MORPhin [place] 00 e Sulfate) Sodium No 500 mL, Memoria Chloride 5-30 500 ml/hr, l 0.9% 06:06: Infuse [place] (Bolus) IV 00 Over: 1 hr, Route: [...] tab, PO, l tablet 05:11: Q8H, PRN [place] 00 Pain, Take with food, X 7 day, # 21 tab, 0 Refill(s) Hydrocodone 2014-06 Yes Ugo Unknown Memoria -Acetaminop 1-13 John l hen 03:00: [place] 06 Lyrica 2014-06 Yes Ugo Unknown Memor ia 1-13 John l 03:00: Noe 06 Lamisil Yes Ugo 1 tablet Mem oria 9-24 John l 00:00: [place] 00 Vital Signs Vital Name Observation Time Observation Value Comments Source Systolic (mm Hg) 2018-04-19 03:12:00 Dane rial Noe Diastolic (mm Hg) 2018-04-19 03:12:00 Mem orial [place] Heart Rate 2018-04-19 03:12:00 [facility] [place] Respitory Rate 2018-04-19 03:12:00 Memori al [place] Temperature Oral (F) 2018-04-19 03:12:00 98.5 F [facility] Noe Weight 2018-04-19 01:46:00 [facility] Temperature Oral (F) 2018-04-19 01:46:00 98.3 F [facility] [place] Respitory Rate 2018-04-19 01:46:00 Memori al Noe Heart Rate 2018-04-19 01:46:00 [facility] Noe Systolic (mm Hg) 2018-04-19 01:46:00 Dane rial Noe Diastolic (mm Hg) 2018-04-19 01:46:00 Mem orial [place] Systolic (mm Hg) 2017-11-02 09:31:00 Dane rial [place] Diastolic (mm Hg) 2017-11-02 09:31:00 Mem orial Noe Temperature Oral (F) 2017-11-02 09:31:00 98.2 F [facility] Respitory Rate 2017-11-02 09:31:00 Memori al [place] Respitory Rate 2017-11-02 08:48:00 Memori al Noe Systolic (mm Hg) 2017-11-02 08:48:00 Dane rial [place] Diastolic (mm Hg) 2017-11-02 08:48:00 Mem orial Noe Systolic (mm Hg) 2017-11-02 08:25:00 Dane rial [place] Diastolic (mm Hg) 2017-11-02 08:25:00 Mem orial [place] Respitory Rate 2017-11-02 08:25:00 Memori al Noe Temperature Oral (F) 2017-11-02 04:29:00 98.3 F [facility] Noe Weight 2017-11-02 04:29:00 [facility] Heart Rate 2017-11-02 04:29:00 [facility] Heart Rate 2016-12-16 05:46:00 [facility] Respitory Rate 2016-12-16 05:46:00 Memori al Noe Systolic (mm Hg) 2016-12-16 05:46:00 Dane rial Noe Diastolic (mm Hg) 2016-12-16 05:46:00 Mem orial Noe Systolic (mm Hg) 2016-12-16 02:23:00 Dane rial [place] Diastolic (mm Hg) 2016-12-16 02:23:00 Mem orial Noe Heart Rate 2016-12-16 02:23:00 [facility] Noe Temperature Oral (F) 2016-12-16 02:23:00 98.2 F [facility] [place] Respitory Rate 2016-12-16 02:23:00 Memori al [place] Weight 2016-12-16 02:23:00 [facility] Noe Weight 2015-02-27 17:00:00 [facility] Noe Height 2015-02-27 17:00:00 [facility] [place] Heart Rate 2015-02-27 17:00:00 [facility] Noe Diastolic (mm Hg) 2015-02-27 17:00:00 Mem orial [place] Systolic (mm Hg) 2015-02-27 17:00:00 Dane rial [place] Procedures This patient has no known procedures. [...] Test 00:00:00 (procedure) [code = Medical Center 73982234] Future Scheduled [address] [facility] - Test 00:00:00 0-64 YRS (1 of 1 - Medical C enter PPSV23) [code = PNEUMOCOCCAL VACCINE 0-64 YRS (1 of 1 - PPSV23)] Future Scheduled [address] [facility] - Test 00:00:00 malignant neoplasm of Medica l Center colon (procedure) [code = 745468165] Encounters Start End Encounter Admission Attending Care Care Encounter Source Date/Time Date/Time Type Type Clinicians Facility Department ID 2020-08-01 2020-08-01 [facility] [id number] 10:49:11 23:59:00 [facility]counter [facility] [id number] Surgical 4.2.7.2.686 Specialti [id number] es 809 [place] 2020-08-01 2020-08-01 Office [facility] [id number] 10:30:23 10:45:23 Visit [facility] [id number] Surgical 4.2.7.2.686 Specialti [id number] es 198 [place] 2019-01-19 2019-01-19 Office Blas Murillo [id number] 09:27:34 10:39:25 Visit AMBULATOR 350.1.13.21 Y 0.2.7.2.686 [id number] 2019-01-15 2019-01-15 Office Blas Murillo [id number] 15:22:05 16:02:23 Visit AMBULATOR 350.1.13.21 Y 0.2.7.2.686 [id number] 2018-04-19 2018-04-19 Emergency nullFlavo [facility] [id number] Memoria 01:27:00 03:48:[address] Noe [address] [facility] 2018-04-18 2018-04-[address] [facility] [id number] 19:27:00 21:48:00 R 02 2017-11-02 2017-11-02 Emergency nullFlavo [facility] [id number] Memoria 04:07:00 09:33:00 r Noe 01 l [facility] 2017-11-01 2017-11-02 [id number] 23:07:00 04:33:00 Abbie Patel 2016-12-16 2016-12-16 Emergency nullFlavo [facility] [id number] Memoria 02:18:00 05:50:[address] [facility] 2016-12-15 2016-12-[address] [facility] [id number] 21:18:00 00:50:00 Daeun 00 2015-05-12 2015-05-12 Re-Check: nullFlavo [place] [id number] 0e-d Memoria 19:34:00 19:34:00 LFT's r Branch 0h2-67yb-6 l (Round 3) Podiatry [id number] [facility] [id number] 6469-12-07 2015-05-12 Outpatient [facility] [id number] eClinic 13:34:00 13:34:00 Branch Branch alWork s Podiatry Podiatry 2015-04-09 2015-04-09 Results: nullFlavo [place] 4tv0esk b-4 Memoria 23:51:00 23:51:00 LFT's r Branch ed2-450a-9 l (Round 2) Podiatry [id number] [facility] [id number] 2015-04-09 2015-04-09 Results: nullFlavo [place] nou2l59 d-0 Memoria 23:51:00 23:51:00 LFT's r Branch ed5-410c-8 l (Round 2) Podiatry [id number] [facility] [id number] 2015-04-09 2015-04-09 Results: nullFlavo [place] [id number] 6-b Memoria 23:51:00 23:51:00 LFT's r Branch g38-6u6q-b l (Round 2) Podiatry [id number] [facility] [id number] 2015-04-09 2015-04-09 Outpatient [facility] [id number] eClinic 17:51:00 17:51:00 Branch Branch alWork s Podiatry Podiatry 2015-04-02 2015-04-02 Re-Check: nullFlavo [place] [id number] 21-8 Memoria 21:23:00 21:23:00 LFT's r Branch a58-6l62-h l (Round 2) [id number] [facility] 2015-04-02 2015-04-02 Re-Check: nullFlavo [place] 01a3c2 2c-2 Memoria 21:23:00 21:23:00 LFT's r Branch 6j6-945j-t l (Round 2) Podiatry [id number] [facility] [id number] 3074-10-28 2015-04-02 Re-Check: nullFlavo [place] [id number] 8a-5 Memoria 21:23:00 21:23:00 LFT's r Branch f32-5u67-1 l (Round 2) Podiatry [id number] [facility] f680ff 2015-03-03 2015-03-03 Results: nullFlavo [place] [id number] 2-6 Memoria 14:49:00 14:49:00 LFT's r Branch 45a-4acd-a l (Round 1) Podiatry [id number] [facility] [id number] 2015-03-03 2015-03-03 Results: nullFlavo [place] [id number] e-3 Memoria 14:49:00 14:49:00 LFT's r Branch eea-4f14-a l (Round 1) Podiatry [id number] [facility] [id number] 2015-03-03 2015-03-03 Results: nullFlavo [place] [id number] 5-f Memoria 14:49:00 14:49:00 LFT's r Branch i5c-19bj-t l (Round 1) Podiatry [id number] [facility] [id number] 8349-09-24 2015-02-27 NEW PT: [facility] ([place], [place]) [id number] -0 Memoria 17:00:00 17:00:00 Possible r Branch 60e-4090-9 l Infection, Podiatry [id number] H ermann Rt [place] [id number] 2015-02-27 2015-02-27 NEW PT: [facility] ([place], [place]) [id number] -6 Memoria 17:00:00 17:00:00 Possible r Branch a0d-818f-4 l Infection, Podiatry v40-endb32 H ermann [facility] [place] [id number] 2015-02-27 2015-02-27 NEW PT: [facility] ([place], [place]) 927r9kk5 -3 Memoria 17:00:00 17:00:00 Possible r Branch a91-2t41-j l Infection, Podiatry n05-p4sml3 H ermann [facility] [place] i4g481 2015-02-27 2015-02-27 Outpatient [facility] [id number] eClinic 11:00:00 11:00:00 Branch Branch alWork s [...] NOT 1092) ACCURATE CRE ATININE CLEARANCE IN ME EDICTING GLOMERULAR FILT RATION RATE. ESTIMATED GFR [...] (BEAKER) (test code = 413) BASIC METABOLIC [id number] 10:29:00 Test Item Value Reference Range Interpretation [...] (BEAKER) (test code = 413) BASIC METABOLIC [id number] 07:16:00 Test Item Value Reference Range Interpretation [...] (BEAKER) (test code = 413) BASIC METABOLIC [id number] 06:42:00 Test Item Value Reference Range Interpretation [...] (BEAKER) (test code = 413) FL, CYSTOGRAM, [id number] 15:59:00Reason for exam:->concern for urine leakFINAL REPORT [...] MDReport Verified Date/Time: 01/03/2019 15:59:13 Reading Location: [address] Consult Reading Room [id number] 08:26:00 Test Item Value Reference Range Interpretation Comments PHOSPHORUS (BEAKER) (test code = 3.1 mg/dL 2.3-4.7 604) [id number] 08:26:00 Test Item Value Reference Range Interpretation Comments MAGNESIUM (BEAKER) (test code = 1.9 mg/dL 1.6-2.6 627) BASIC METABOLIC [id number] 08:26:00 Test Item Value Reference Range Interpretation [...] 0-0 (BEAKER) (test code = 413) TISSUE [id number] 17:00:00Surgical Pathology Report Case: [id number] Authorizing Provider: Blas Murillo MD Collected: 12/27/2018 1005 Ordering Location: [facility] PERIOPERATIVE Received: 12/27/2018 1445 SERVICES [...] PATHOLOGIC DIAGNOSIS Signing Pathologist Direct Phone Line: [phone] signed by Nikita Mahajan MD on 01/02/2019 [...] (cm)TUMOR Histologic Type: Acinar adenocarcinoma Histologic Grade: Tatum Pattern:Percentage of Pattern 4: 30 % Percentage of Pattern 5: 1 % Primary Tatum Pattern: Pattern 3 Secondary Tatum Pattern: Pattern 4 Tertiary Tatum Pattern: Pattern 5 Total Imani Score: 7 [...] (PIN) Additional Pathologic Findings: Nodular prostatic hyperplasia 00446, 14709 x 2, 31953 X 2Prostate cancerA. Periprostatic lymph node. B. [...] patient's name (Christen Harkins) with accession number [id number] is a prostate with bilateral seminal vesicles [...] deferentia are submitted in cassette E13. SDH/ewPerformed.CT, [id number] 13:19:00Patient with significant scrotal swelling and subcutaneous [...] MDReport Verified Date/Time: 01/02/2019 13:19:12 Reading Location: [facility] C013Y CT Body ReadingRoom [id number] 07:00:00 Test Item Value Reference Range Interpretation Comments PHOSPHORUS (BEAKER) (test code = 3.3 mg/dL 2.3-4.7 604) [id number] 07:00:00 Test Item Value Reference Range Interpretation Comments MAGNESIUM (BEAKER) (test code = 1.9 mg/dL 1.6-2.6 627) BASIC METABOLIC [id number] 07:00:00 Test Item Value Reference Range Interpretation [...] S NOT APPLICABLE FOR DIALYSIS PATIEN TS. [id number] 04:40:00 Test Item Value Reference Range Interpretation Comments PHOSPHORUS (BEAKER) (test code = 2.9 mg/dL 2.3-4.7 604) [id number] 04:40:00 Test Item Value Reference Range Interpretation Comments MAGNESIUM (BEAKER) (test code = 1.8 mg/dL 1.6-2.6 627) BASIC METABOLIC [id number] 04:40:00 Test Item Value Reference Range Interpretation [...] PATIEN TS. CBC W/PLT COUNT & AUTO [id number] 04:10:00 Test Item Value Reference Range Interpretation [...] code = 2801) URINALYSIS W/ REFLEX URINE [id number] 18:55:00 Test Item Value Reference Range Interpretation [...] 516) SOURCE(BEAKER) (test code = 2795) CT, [id number] 18:21:00Reason for exam:->ABDOMINAL PAINWhat is the patient's [...] Archie Gibbs MDReport Verified Date/Time: 12/31/2018 18:21:28 [facility] 2018-12-31 18:15:00 Test Item [...] PATIEN TS. CBC W/PLT COUNT & AUTO [id number] 17:59:00 Test Item Value Reference Range Interpretation [...] = 2801) UA RFLX MICR CULT IF [id number] 08:59:00 Test Item Value Reference Range Interpretation [...] OF URINE: CLEAN CATCHIndication for culture: Dysuria/FrequencyUA [id number] 08:59:00 Test Item Value Reference Range Interpretation Comments UA RBC (test code = RBCU) 20-30 RBC/HPF 0-3 A UA WBC (test code = XWBCU) 20-30 WBC/HPF 0-5 A UA EPITHELIAL CELLS (test code FEW EPI/HPF FEW = EPIU) UA BACTERIA (test code = XBACU) FEW NONE SOURCE OF URINE: CLEAN CATCHIndication for culture: Dysuria/FrequencyUA RFLX MICR CULT IF [id number] 08:50:00 Test Item Value Reference Range Interpretation [...] OF URINE: CLEAN CATCHIndication for culture: Dysuria/FrequencyUA [id number] 08:50:00 Test Item Value Reference Range Interpretation Comments UA RBC (test code = RBCU) RBC/HPF 0-3 UA WBC (test code = XWBCU) WBC/HPF 0-5 UA EPITHELIAL CELLS (test code = EPI/HPF FEW EPIU) UA BACTERIA (test code = XBACU) NONE SOURCE OF URINE: CLEAN CATCHIndication for culture: Dysuria/FrequencyUA RFLX MICR CULT IF [id number] 08:50:00 Test Item Value Reference Range Interpretation [...] OF URINE: CLEAN CATCHIndication for culture: Dysuria/FrequencyUA [id number] 08:50:00 Test Item Value Reference Range Interpretation Comments UA RBC (test code = RBCU) RBC/HPF 0-3 UA WBC (test code = XWBCU) WBC/HPF 0-5 UA EPITHELIAL CELLS (test code = EPI/HPF FEW EPIU) UA BACTERIA (test code = XBACU) NONE SOURCE OF URINE: CLEAN CATCHIndication for culture: Dysuria/Frequency CREATININE, BODY [id number] 12:28:00 Test Item Value Reference Range Interpretation Comments CREATININE FLUID (BEAKER) (test 0.60 mg/dL code = 677) Reference Range: No Normals Assay performance has not been validated for this type of specimen.BASIC METABOLIC [id number] 06:24:00 Test Item Value Reference Range Interpretation [...] APPLICABLE FOR DIALYSIS PATIEN TS. HEMOGLOBIN AND [id number] 05:28:00 Test Item Value Reference Range Interpretation Comments HEMOGLOBIN (BEAKER) (test code = 10.5 GM/DL 13.7-17.5 L 410) HEMATOCRIT (BEAKER) (test code = 31.9 % 40.1-51.0 L 411) BASIC METABOLIC [id number] 07:27:00 Test Item Value Reference Range Interpretation [...] APPLICABLE FOR DIALYSIS PATIEN TS. HEMOGLOBIN AND [id number] 06:44:00 Test Item Value Reference Range Interpretation Comments HEMOGLOBIN (BEAKER) (test code = 10.8 GM/DL 13.7-17.5 L 410) HEMATOCRIT (BEAKER) (test code = 32.2 % 40.1-51.0 L 411) BASIC METABOLIC [id number] 07:35:00 Test Item Value Reference Range Interpretation [...] APPLICABLE FOR DIALYSIS PATIEN TS. HEMOGLOBIN AND [id number] 06:43:00 Test Item Value Reference Range Interpretation Comments HEMOGLOBIN (BEAKER) (test code = 11.8 GM/DL 13.7-17.5 L 410) HEMATOCRIT (BEAKER) (test code = 36.2 % 40.1-51.0 L 411) HEMOGLOBIN AND [id number] 15:37:00 Test Item Value Reference Range Interpretation Comments HEMOGLOBIN (BEAKER) (test code = 13.6 GM/DL 13.7-17.5 L 410) HEMATOCRIT (BEAKER) (test code = 41.9 % 40.1-51.0 411) BASIC METABOLIC [id number] 15:25:00 Test Item Value Reference Range Interpretation [...] APPLICABLE FOR DIALYSIS PATIEN TS. BASIC METABOLIC [id number] 07:20:00 Test Item Value Reference Range Interpretation [...] APPLICABLE FOR DIALYSIS PATIEN TS. COMPREHENSIVE METABOLIC [id number] 15:49:00 Test Item Value Reference Range Interpretation [...] APPLICABLE FOR DIALYSIS PATIEN TS. Specimen slightly [id number] 13:53:00 Test Item Value Reference Range Interpretation Comments PARTIAL THROMBOPLASTIN TIME 25.8 seconds 22.5-36.0 (BEAKER) (test code = 760) PROTHROMBIN TIME/[id number] 13:52:00 Test Item Value Reference Range Interpretation [...] for patients wiht mechanical heart valves.BASIC METABOLIC [id number] 13:51:00 Test Item Value Reference Range Interpretation [...] PATIEN TS. CBC W/PLT COUNT & AUTO [id number] 13:35:00 Test Item Value Reference Range Interpretation [...] PERCENT (BEAKER) (test code = 2801) CARDIAC [id number] 07:54:37575Kwbscrgk HermannCARDIAC [id number] 07:54:00<0.02[facility] HermannCARDIAC [id number] 07:54:001.8[facility] HermannCARDIAC [id number] 07:54:00 Test Item Value Reference Range Interpretation Comments CK MB Index (test 1.0 1 See_Comment [Automate d message] The code = CK MB Index) system w [employer] generated this result transmit maxwell reference range : <=2.5. The reference range was not used to interpr et this result as anthony l/abnormal. [facility] [id number] 04:53:00 Test Item Value Reference Range Interpretation Comments MCH (test code = MCH) 36.0 pg 27.0-31.0 [facility] [id number] 04:53:66119Spdjypxd HermannHEMATOLOGY 2017-11-02 04:53:007.8[facility] [id number] 04:53:0013.3[facility] HermannCARDIAC [id number] 04:53:00 Test Item Value Reference Range Interpretation Comments CK MB Index (test 0.9 1 See_Comment [Automate d message] The code = CK MB Index) system w [facility] generated this result transmit maxwell reference range : <=2.5. The reference range was not used to interpr et this result as anthony l/abnormal. [facility] HermannCARDIAC [id number] 04:53:63765Jjpdyluo HermannCARDIAC [id number] 04:53:001.9[facility] HermannCARDIAC [id number] 04:53:00 <0.02[facility] HermannCHEM [id number] 04:53:0080[facility] HermannCHEM [id number] 04:53:00 Test Item Value Reference Range Interpretation Comments A/G Ratio (test code = A/G Ratio) 0.9 1 0.7-1.6 [facility] HermannCHEM [id number] 04:53:0030[facility] HermannCHEM PANEL 2017-11-02 04:53:003.7[facility] HermannCHEM [id number] 04:53:008.3[facility] HermannCHEM [id number] 04:53:007.6[facility] HermannCHEM [id number] 04:53:0024[facility] HermannCHEM [id number] 04:53:68934Prtepgsu HermannCHEM [id number] 04:53:003.9[facility] HermannCHEM [id number] 04:53:0012.9 [facility] HermannCHEM [id number] 04:53:00 Test Item Value Reference Range Interpretation Comments B/C Ratio (test code = B/C Ratio) 16 1 6-25 [facility] HermannCHEM [id number] 04:53:0057[facility] HermannCHEM PANEL 2017-11-02 04:53:000.2[facility] HermannCHEM [id number] 04:53:0033[facility] [id number] 04:53:0019[facility] [id number] 04:53:32745Rpaoupfe HermannCHEM IRCDO7164-31-27 04:53:001.17[facility] AGMGE4383-18-64 04:53:09256Hrmovwww HermannCHEM AANEM1780-72-85 04:53:003.9 [facility] VbcntfbXZQFBGDMIH0656-42-33 04:53:002.1[facility]annHEMATOLOGY 2017-11-02 04:53:002.6[facility] DnoawlnMEEPSQCZCZ2566-61-62 04:53:004.6[facility] VmlimhdPLNSUBLUDC0927-50-80 04:53:000.9[facility] VayqjdwXJWHUMSCRV7772-31-46 04:53:007.4[facility] WsbfsgtWYQSQLDHTI0925-32-94 04:53:000.2[facility] [place] PPIAWYQCKY7936-96-53 04:53:000.6[facility] NtwdnadUNTZIGKNSA4463-71-28 04:53:001+ *ABN*(11/01/17 11:53 PM)[facility] [id number] 04:53:000.1[facility] [id number] 04:53:0060.6[facility] [id number] 04:53:0028.5[facility] [id number] 04:53:09986.7[facility] Noe [id number] 04:53:0013.2[facility] UlxdbseGCQXHCPLZD1348-10-48 04:53:00 37.4[facility] [id number] 04:53:007.5[facility]annHEMATOLOGY 2017-11-02 04:53:003.68[facility] XmgtycsGQCYKLYEKZ8901-38-85 04:53:0035.4[facility] [place]
[2021-01-31 15:49] LABS: Absolute Lymphocytes (CBC) 1.3 K/uL (0.7-4.9); Lymphocytes % 19.5 % (15.3-44.8); MPV 7.5 fL (7.6-11.3); RBC Red Blood Cell Count 3.52 M/uL (4.33-5.43)
[2021-01-31] MEDS ORDERED: KETOROLAC 30 MG/ML INJ ONE (15:57)
[2021-01-31] MEDS ORDERED: MORPHINE 4 MG/ML SYR ONE (15:57)
[2021-01-31] MEDS ORDERED: ONDANSETRON 4 MG/2 ML VIAL ONE (15:57)
[2021-01-31] MEDS ORDERED: NA CHLORIDE 0.9% 1,000 ML ONE (15:57)
[2021-01-31 16:12] LABS: BUN Blood Urea Nitrogen 7 mg/dL (7-18); Bicarbonate 21 mmol/L (21-32); Glucose Level 97 mg/dL (74-106); Potassium 3.8 mmol/L (3.5-5.1); Sodium Level 139 mmol/L (136-145)
--- NOTE | 2021-01-31 16:50 | RAD REPORT ---
EXAM DESCRIPTION: CT - Head C Spine Cap Jen Jiang - 01/31/2021 4:25 pm CLINICAL HISTORY: Trauma, head and neck injury. Chest, abdomen and pelvis pain. right forearm pain;Pain COMPARISON: No comparisons TECHNIQUE: CT head without contrast. CT cervical spine without contrast with coronal and sagittal reformatted images. CT chest, abdomen and pelvis with IV contrast (approximately 100 mL nonionic IV contrast) with flood l and sagittal reformatted images of the spine. All CT scans are performed using dose optimization technique as appropriate and may include automated exposure control or mA/KV adjustment according to patient size. FINDINGS: CT HEAD WITHOUT CONTRAST: No intracranial hemorrhage, hydrocephalus or extra-axial fluid collection. No areas of brain edema o r midline shift. The paranasal sinuses and mastoids are clear. The calvarium is intact. CT CERVICAL SPINE WITHOUT CONTRAST: No fracture or subluxation. The prevertebral soft tissues are normal in thickness. CT CHEST, ABDOMEN, PELVIS WITH CONTRAST: The lungs are clear.No pneumothorax or pericardial/pleural fluid. There is irregularly-shaped rim enhancing mass in the inferior anterior right lobe of the liver measu ring 4.2 x 3.2 cm. The spleen, pancreas, adrenal glands and kidneys are within normal limits. There is right lateral irregular wall thickening is seen involving the rectum. This measures up to 2 cm. No acute fracture is evident. IMPRESSION: An irregular rim enhancing 4.2 cm mass is seen in the inferior anterior right lobe of th e liver. This lesion has an aggressive appearance. Recommend MRI liver protocol for followup assessme nt. Asymmetric rectal wall thickening is present measuring up to 20 mm along the right lateral rectal wal l region. Recommend followup colonoscopy for further assessment. No acute trauma related abnormality is seen.
--- NOTE | 2021-01-31 16:51 | RAD REPORT ---
EXAM DESCRIPTION: RAD - Elbow Right 3 View - 01/31/2021 4:19 pm CLINICAL HISTORY: PAIN COMPARISON: No comparisons FINDINGS: No acute fracture or dislocation seen.
--- NOTE | 2021-01-31 16:52 | RAD REPORT ---
EXAM DESCRIPTION: RAD - Wrist Right 3 View - 01/31/2021 4:19 pm CLINICAL HISTORY: PAIN Pain COMPARISON: No comparisons FINDINGS: Oblique fracture is present involving the distal shaft of the ulna. No dislocation is carole dent.
--- NOTE | 2021-01-31 16:52 | RAD REPORT ---
EXAM DESCRIPTION: RAD - Forearm Right - 01/31/2021 4:19 pm CLINICAL HISTORY: PAIN COMPARISON: No comparisons FINDINGS: Oblique fracture involves the distal shaft of the ulna. No dislocation is evident.
--- NOTE | 2021-01-31 17:15 | ER ---
Nurse's Notes [facility] Name: Arturo Harkins Age: 60 yrs Sex: Male : 1960 Arrival Date: 01/31/2021 Time: 14:36 Bed 19 Private MD: Diagnosis: Fall (on) (from) other stairs and steps-10 STEPS;Left sided colitis without complications;Displaced segmental fracture of shaft of ulna, right arm, initial encounter for open fracture type IIIA, IIIB, or IIIC;Liver disease, unspecified-4.2 CM ENHANCING MASS RIGHT LOBE OF THE LIVER Presentation: 01/31 14:56 Chief complaint: Patient states: ladder slipped while he was on roof,. fell about 8 iw feet, fell on right side , pain to right arm, elbow down to hand, does not think he hit his head, did not pass out, not on blood thinners , happened about an hour ago. Coronavirus screen: At this time, the client does not indicate any symptoms associated with coronavirus-19. Ebola Screen: Patient negative for fever greater than or equal to 101.5 degrees Fahrenheit, and additional compatible Ebola Virus Disease symptoms Patient denies exposure to infectious person. Patient denies travel to an Ebola-affected area in the 21 days before illness onset. No symptoms or risks identified at this time. Initial Sepsis Screen: Does the patient meet any 2 criteria? No. Patient's initial sepsis screen is negative. Does the patient have a suspected source of infection? No. Patient's initial sepsis screen is negative. Risk Assessment: Do you want to hurt yourself or someone else? Patient reports no desire to harm self or others. Onset of symptoms was January 31, 2021. 14:56 Method Of Arrival: Ambulatory iw 14:56 Acuity: RICHAR 2 iw Historical: - Allergies: 14:58 No Known Allergies; iw - Home Meds: 14:58 None [Active]; iw - PMHx: 14:58 cancer, prostate; Hypertension; iw - PSHx: 14:58 back; prostate; iw - Immunization history:: Client reports receiving the 2nd dose of the Covid vaccine. - Social history:: Smoking status: Patient reports the use of cigarette tobacco products, smokes one pack cigarettes per day. - Family history:: not pertinent. Screenin:37 Abuse screen: Denies threats or abuse. Denies injuries from another. Nutritional tr6 screening: No deficits noted. Tuberculosis screening: No symptoms or risk factors identified. Fall Risk Fall in past 12 months (25 points). Assessment: 16:36 General: Appears uncomfortable, Behavior is agitated, restless. Pain: Complains of pain tr6 in right arm. Neuro: No deficits noted. Cardiovascular: No deficits noted. Respiratory: No deficits noted. GI: No deficits noted. : No deficits noted. EENT: No deficits noted. Derm: No deficits noted. Musculoskeletal: Range of motion: limited in right arm. 18:05 Reassessment: pt placed in sling and reviewed discharge instructions with pt. pt tr6 verbalized understanding. per doctor of podiatry pt was drinking alcohol prior to arrival. This RN checked with pt to ensure that pt is not driving home. pt states that he "has someone in the car that will drive him home.". Vital Signs: 14:56 BP 109 / 67; Pulse 87; Resp 16; Temp 98.7; Pulse Ox 97% on R/A; Weight 83.91 kg; Height iw 5 ft. 11 in. (180.34 cm); Pain 10/10; 14:56 Body Mass Index 25.80 (83.91 kg, 180.34 cm) iw ED Course: 14:36 Patient arrived in ED. mr 14:58 Triage completed. iw 14:59 Arm band placed on. iw 15:01 Anthony Kee MD is Attending Physician. adrienne 15:29 Smiley Onofre, RN is Primary Nurse. tr6 16:19 Elbow Right 3 View XRAY In Process Unspecified. EDMS 16:19 Forearm Right XRAY In Process Unspecified. EDMS 16:19 Wrist Right 3 View XRAY In Process Unspecified. EDMS 16:25 CT Traumagram (Head C Spine CAP W Con) In Process Unspecified. EDMS 16:37 Patient has correct armband on for positive identification. Placed in gown. Bed in low tr6 position. Call light in reach. Side rails up X 1. Pulse ox on. NIBP on. Door closed. Noise minimized. Visitors limited. Lights dimmed. Moved to private room. 16:38 Appears angry. Appears restless. Awaiting for x-ray. tr6 16:38 No provider procedures requiring assistance completed. Inserted saline lock: 20 gauge tr6 in left forearm, using aseptic technique. ,using aseptic technique. by other LIOR Miner. 17:09 Manpreet Zamudio MD is Referral Physician. [facility] 17:09 Maximo Mcgarry MD is Referral Physician. [facility] 18:07 IV discontinued, intact, bleeding controlled, No redness/swelling at site. Pressure tr6 dressing applied. 18:09 Orthoglass splint: Sugar tong splint applied on Sling applied to. 5 Administered Medications: 15:37 Drug: Zofran (Ondansetron) 4 mg Route: IVP; Site: left forearm; tr6 16:39 Follow up: Response: No adverse reaction tr6 15:38 Drug: NS 0.9% 1000 ml Route: IV; Rate: 1 bolus; Site: left forearm; tr6 15:38 Drug: Ketorolac 30 mg Route: IVP; Site: left forearm; tr6 16:39 Follow up: Response: No adverse reaction; Pain is unchanged, physician notified tr6 15:38 Drug: morphine 4 mg Route: IVP; Site: left forearm; tr6 16:39 Follow up: Response: No adverse reaction; Pain is unchanged, physician notified tr6 18:05 Drug: Cipro (ciprofloxacin) 500 mg Route: PO; tr6 Outcome: 17:14 Discharge ordered by . [facility] 18:06 Discharged to home ambulatory, pt refused wheelchair at this time tr6 18:06 Condition: stable 18:06 Discharge instructions given to patient, Instructed on discharge instructions, no drinking with medication, medication usage, safety practices, Demonstrated understanding of instructions, follow-up care, medications, Prescriptions given X 4. 18:23 Patient left the ED. [facility] Signatures: Dispatcher [employer] Anthony Clarke MD MD cha Rivera, Mary mr Williams, Irene, Lucila Coto RN [facility] Smilye Onofre RN RN tr6
--- NOTE | 2021-01-31 17:15 | EDPHYS ---
Physician Documentation [facility] Name: Atruro Harkins Age: 60 yrs Sex: Male : 1960 Arrival Date: 01/31/2021 Time: 14:36 Bed 19 Private MD: SHAHRZAD Physician Anthony Kee HPI: 01/31 15:10 This 60 yrs old Black Male presents to ER via Ambulatory with complaints of Fell off adrienne ladder. 15:10 The patient or guardian complains of decreased range of motion, injury, pain, that is adrienne acute. The complaints affect the right antecubital area, dorsal aspect of right forearm, right wrist, right elbow and palmar aspect of right forearm. Context: The problem was sustained at home, resulted from a fall, 10 foot ladder. Onset: The symptoms/episode began/occurred just prior to arrival. Treatment prior to arrival includes: no previous treatment. Modifying factors: The symptoms are alleviated by nothing. the symptoms are aggravated by nothing. Details of fall: The patient fell from a height, from a ladder. Onset: The symptoms/episode began/occurred acutely. Associated injuries: The patient sustained , decreased range of motion, painful injury. Associated signs and symptoms: Pertinent positives: pain, of the right arm. Historical: - Allergies: 14:58 No Known Allergies; iw - Home Meds: 14:58 None [Active]; iw - PMHx: 14:58 cancer, prostate; Hypertension; iw - PSHx: 14:58 back; prostate; iw - Immunization history:: Client reports receiving the 2nd dose of the Covid vaccine. - Social history:: Smoking status: Patient reports the use of cigarette tobacco products, smokes one pack cigarettes per day. - Family history:: not pertinent. ROS: 15:10 Constitutional: Negative for fever, chills, and weight loss, Eyes: Negative for injury, adrienne pain, redness, and discharge, ENT: Negative for injury, pain, and discharge, Neck: Negative for injury, pain, and swelling, Cardiovascular: Negative for chest pain, palpitations, and edema, Respiratory: Negative for shortness of breath, cough, wheezing, and pleuritic chest pain, Abdomen/GI: Negative for abdominal pain, nausea, vomiting, diarrhea, and constipation, Back: Negative for injury and pain, : Negative for injury, bleeding, discharge, and swelling, Skin: Negative for injury, rash, and discoloration, Neuro: Negative for headache, weakness, numbness, tingling, and seizure, Psych: Negative for depression, anxiety, suicide ideation, homicidal ideation, and hallucinations, Allergy/Immunology: Negative for hives, rash, and allergies, Endocrine: Negative for neck swelling, polydipsia, polyuria, polyphagia, and marked weight changes, Hematologic/Lymphatic: Negative for swollen nodes, abnormal bleeding, and unusual bruising. 15:10 MS/extremity: Positive for decreased range of motion, pain, swelling, tenderness. Exam: 15:10 Constitutional: This is a well developed, well nourished patient who is awake, alert, adrienne and in no acute distress. Head/Face: Normocephalic, atraumatic. Eyes: Pupils equal round and reactive to light, extra-ocular motions intact. Lids and lashes normal. Conjunctiva and sclera are non-icteric and not injected. Cornea within normal limits. Periorbital areas with no swelling, redness, or edema. ENT: Nares patent. No nasal discharge, no septal abnormalities noted. Tympanic membranes are normal and external auditory canals are clear. Oropharynx with no redness, swelling, or masses, exudates, or evidence of obstruction, uvula midline. Mucous membranes moist. Neck: Trachea midline, no thyromegaly or masses palpated, and no cervical lymphadenopathy. Supple, full range of motion without nuchal rigidity, or vertebral point tenderness. No Meningismus. Chest/axilla: Normal chest wall appearance and motion. Nontender with no deformity. No lesions are appreciated. Cardiovascular: Regular rate and rhythm with a normal S1 and S2. No gallops, murmurs, or rubs. Normal PMI, no JVD. No pulse deficits. Respiratory: Lungs have equal breath sounds bilaterally, clear to auscultation and percussion. No rales, rhonchi or wheezes noted. No increased work of breathing, no retractions or nasal flaring. Abdomen/GI: Soft, non-tender, with normal bowel sounds. No distension or tympany. No guarding or rebound. No evidence of tenderness throughout. Back: No spinal tenderness. No costovertebral tenderness. Full range of motion. Male : Normal genitalia with no discharge or lesions. Skin: Warm, dry with normal turgor. Normal color with no rashes, no lesions, and no evidence of cellulitis. Neuro: Awake and alert, GCS 15, oriented to person, place, time, and situation. Cranial nerves II-XII grossly intact. Motor strength 5/5 in all extremities. Sensory grossly intact. Cerebellar exam normal. Normal gait. Psych: Awake, alert, with orientation to person, place and time. Behavior, mood, and affect are within normal limits. 15:10 Musculoskeletal/extremity: ROM: limited active range of motion due to pain, limited passive range of motion due to pain, in the right arm, Circulation is intact in all extremities. Sensation intact. Compartment Syndrome exam of affected extremity: is normal. Joints: the right elbow displays limited range of motion, pain at rest, painful range of motion, tenderness, Weight bearing: able to fully bear weight, DVT Exam: negative Homans' sign noted on exam, no appreciated bluish discoloration, no erythema, no increased warmth, pain, swelling, tenderness. 16:37 ECG was reviewed by the Attending Physician. adrienne Vital Signs: 14:56 BP 109 / 67; Pulse 87; Resp 16; Temp 98.7; Pulse Ox 97% on R/A; Weight 83.91 kg; Height iw 5 ft. 11 in. (180.34 cm); Pain 10/10; 14:56 Body Mass Index 25.80 (83.91 kg, 180.34 cm) iw MDM: 15:01 Patient medically screened. adrienne 15:14 Differential diagnosis: closed fracture, contusion, abrasion, tendonitis. Differential adrienne diagnosis: abrasion, closed head injury, contusion, fracture, multiple trauma, sprain, strain. Data reviewed: vital signs, nurses notes, lab test result(s), EKG, radiologic studies, CT scan, plain films. Data interpreted: wafer slicer: rate is 87 beats/min, rhythm is regular, Pulse oximetry: on room air is 97 %. Test interpretation: by ED physician or midlevel provider: plain radiologic studies. Counseling: I had a detailed discussion with the patient and/or guardian regarding: the historical points, exam findings, and any diagnostic results supporting the discharge/admit diagnosis, lab results, radiology results. 01/31 15: Order name: Basic Metabolic Panel; Complete Time: 17:05 [facility] 01/31 15: Order name: CBC with Diff [facility] 01/31 15:07 Order name: Type And Screen [facility] 01/31 15:07 Order name: CT Traumagram (Head C Spine CAP W Con); Complete Time: 17:05 [facility] 01/31 15:07 Order name: Elbow Right 3 View XRAY; Complete Time: 17:05 [facility] 01/31 15:07 Order name: Forearm Right XRAY; Complete Time: 17:05 [facility] 01/31 15:07 Order name: Labs collected and sent; Complete Time: 15:29 [facility] 01/31 15:07 Order name: Wrist Right 3 View XRAY; Complete Time: 17:05 [facility] 01/31 15:07 Order name: Ice pack; Complete Time: 16:35 [facility] 01/31 17:08 Order name: Splint - Sugar Tong - Forearm; Complete Time: 17:59 [facility] 01/31 17:08 Order name: Sling; Complete Time: 17:59 [facility] EC:37 Rate is 45 beats/min. Rhythm is regular. QRS [place] is Normal. SD interval is normal. QRS adrienne interval is normal. QT interval is normal. No Q waves. T waves are Normal. No ST changes noted. Clinical impression: Sinus bradycardia and No evidence of ischemia. Interpreted by me. Reviewed by me. Administered Medications: 15:37 Drug: Zofran (Ondansetron) 4 mg Route: IVP; Site: left forearm; tr6 16:39 Follow up: Response: No adverse reaction tr6 15:38 Drug: NS 0.9% 1000 ml Route: IV; Rate: 1 bolus; Site: left forearm; tr6 15:38 Drug: Ketorolac 30 mg Route: IVP; Site: left forearm; tr6 16:39 Follow up: Response: No adverse reaction; Pain is unchanged, physician notified tr6 15:38 Drug: morphine 4 mg Route: IVP; Site: left forearm; tr6 16:39 Follow up: Response: No adverse reaction; Pain is unchanged, physician notified tr6 18:05 Drug: Cipro (ciprofloxacin) 500 mg Route: PO; tr6 Disposition Summary: 01/31/21 17:14 Discharge Ordered Location: Home adrienne Problem: new adrienne Symptoms: have improved adrienne Condition: Stable adrienne Diagnosis - Fall (on) (from) other stairs and steps - 10 STEPS adrienne - Left sided colitis without complications adrienne - Displaced segmental fracture of shaft of ulna, right arm, initial encounter for adrienne open fracture type IIIA, IIIB, or IIIC - Liver disease, unspecified - 4.2 CM ENHANCING MASS RIGHT LOBE OF THE LIVER adrienne Followup: adrienne - With: Private Physician - When: 1 - 2 days - Reason: Recheck today's complaints, Continuance of care, Re-evaluation by your physician Followup: adrienne - With: Manpreet Zamudio MD - When: 2 - 3 days - Reason: Recheck today's complaints, Continuance of care, Re-evaluation by your physician Followup: adrienne - With: Maximo Mcgarry MD - When: 2 - 3 days - Reason: Recheck today's complaints, Continuance of care, Re-evaluation by your physician Discharge Instructions: - Discharge Summary Sheet [facility] - Fall Prevention in the Home, Adult adrienne - Ulnar Fracture adrienne - Fall Prevention in the Home, Adult, Jwem-at-Ptes adrienne - Colitis [facility] - Liver Biopsy [facility] Forms: - Medication Reconciliation Form [facility] - Thank You Letter [facility] - Antibiotic Education [facility] - Prescription Opioid Use [facility] Prescriptions: - acetaminophen-codeine 300-15 mg Oral tablet - take 2 tablet by ORAL route every 4-6 hours; 24 tablet; Refills: 0, Product [facility] Selection Permitted - Flagyl 500 mg Oral Tablet - take 1 tablet by ORAL route every 8 hours for 10 days; 30 tablet; Refills: 0, [facility] Product Selection Permitted - Ibuprofen 600 mg Oral Tablet - take 1 tablet by ORAL route every 6 hours As needed take with food; 30 tablet; [facility] Refills: 0, Product Selection Permitted - Cipro 500 mg Oral Tablet - take 1 tablet by ORAL route every 12 hours for 7 days; 14 tablet; Refills: 0, [facility] Product Selection Permitted Signatures: Dispatcher [employer] Anthony Clarke MD MD cha Williams, Irene, RN LIOR Smiley Onofre RN RN tr6
[2021-01-31] MEDS ORDERED: CIPROFLOXACIN HCL 500 MG TAB ONE (18:24)
[2021-01-31 18:30] VITALS: BP 109/67; TEMP 98.7; O2SAT 97
[2021-01-31 20:13] LABS: Blood Morphology Comment NOTED (NOT SEEN); Macrocytosis 1+; Platelet Estimate ADEQ; White Blood Cell Scan OK (OK)
== END 2021-01-31 18:23 | disposition home or self-care (01) ==
LOC: ER 14:35
PROC: 2W3CX1Z Immobilization of Right Lower Arm using Splint (ICD-10-PCS; principal; 2021-01-31)
DX: S52.26 Segmental fracture of shaft of ulna (principal); R16.0 Hepatomegaly, not elsewhere classified; K51.50 Left sided colitis without complications; W11.XXXA Fall on and from ladder, initial encounter; I10 Essential (primary) hypertension; F17.210 Nicotine dependence, cigarettes, uncomplicated
CPT/HCPCS: 93005; 85025; 80048; 36415; 86900; 86850; 82565; 86901; 70450; 72125; 71260; 74177; 73080; 73090; 73110; 96375; 96374; 99284; 29125; Q9967; J7030; J2405

== ENCOUNTER 2021-09-23 06:33 | Day surgery (SDC) | payer OTHER ==
[2021-09-23] MEDS ORDERED: Ringers Lactate 1,000 ML IV ONE (06:41)
[2021-09-23] MEDS ORDERED: propofoL 200 MG/20 ML VIAL IV ONE ×2 (07:20→07:39)
--- NOTE | 2021-09-23 08:00 | ENDO RPT ---
[address], [address] COLONOSCOPY PROCEDURE REPORT EXAM DATE: 09/23/2021 PATIENT NAME: Arturo Harkins MR #: [id number] BIRTHDATE: 1960 ATTENDING: Juan A Dia MD STATUS: outpatient [employer]OADBAND INSTALLER: Julia Murray and Martha Zepeda RN INDICATIONS: The patient is a 60 yr old Male here for a colonoscopy due to Rectal thickening, Liver mass PROCEDURE PERFORMED: Colonoscopy with biopsy - cold polypectomy MEDICATIONS: Per Anesthesia. ESTIMATED BLOOD LOSS: None CONSENT: The patient understands the risks and benefits of the procedure and understands that these risks include, but are not limited to: sedation, allergic reaction, infection, perforation and/or bleeding. Alternative means of evaluation and treatment include, among others: physical exam, x-rays, and/or surgical intervention. The patient elects to proceed with this endoscopic procedure. DESCRIPTION OF PROCEDURE: During intra-op preparation period all mechanical medical equipment was checked for proper function. Hand hygiene and appropriate measures for infection prevention was taken. Procedure, possible complications, alternatives including, but not limited to possibility of bleeding, perforation, tear, infection, sepsis, need for surgery, need for blood transfusion, were explained to the patient. After the risks, benefits and alternatives of the procedure were thoroughly explained, Informed consent was verified, confirmed and timeout was successfully executed by the treatment team. The patient was placed in the left lateral position. A digital rectal exam was performed and revealed external hemorrhoids. After appropriate level of anesthesia, the scope was passed. The EC-[id number] ([id number]) endoscope was introduced through the anus and advanced to the cecum, which was identified by transillumination from the light source, the appendix, and the ileocecal valve. The quality of the prep was fair. The instrument was then slowly withdrawn as the colon was fully examined. Scope withdrawal time was . COLON FINDINGS: Multiple smooth sessile polyps ranging between 3-5mm in size were found in the ascending colon, sigmoid colon, and rectum. Multiple biopsies were performed using hot forceps. Located approximately at 120, 30 and 20. Retroflexed views revealed no abnormalities. The scope was then completely withdrawn from the patient and the procedure terminated. ADVERSE EVENTS: There were no complications. IMPRESSIONS: 1. Multiple sessile polyps ranging between 3-5mm in size were found in the ascending colon, sigmoid colon, and rectum; multiple biopsies were performed using hot forceps 2. External hemorrhoids 3. Internal hemorrhoids RECOMMENDATIONS: 1. await biopsy results 2. continue surveillance 3. Continue with liver mass biopsy plans 4. hemorrhoidal hygiene RECALL: for Colonoscopy, pending biopsy results. Juan A Dia MD eSigned: Juan A Dia MD 09/23/2021 8:00 AM cc: Negro Harkins M.D. CPT CODES: ICD9 CODES: PATIENT NAME: Arturo HarkinsMeliton MR#: [id number]
[2021-09-23 08:38] VITALS: BP 127/72; TEMP 96.9; O2SAT 99
== END 2021-09-23 08:49 | disposition home or self-care (01) ==
LOC: OR 06:33
PROVIDERS: ATTEND Surgery
PROC: 0DBN8ZX Excision of Sigmoid Colon, Via Natural or Artificial Opening Endoscopic, Diagnostic (ICD-10-PCS; 2021-09-23)
PROC: 0DBP8ZX Excision of Rectum, Via Natural or Artificial Opening Endoscopic, Diagnostic (ICD-10-PCS; 2021-09-23)
PROC: 0DBK8ZX Excision of Ascending Colon, Via Natural or Artificial Opening Endoscopic, Diagnostic (ICD-10-PCS; principal; 2021-09-23 07:30)
DX: K62.89 Other specified diseases of anus and rectum (principal); R16.0 Hepatomegaly, not elsewhere classified; E11.9 Type 2 diabetes mellitus without complications; I10 Essential (primary) hypertension; F17.210 Nicotine dependence, cigarettes, uncomplicated; K64.4 Residual hemorrhoidal skin tags; K64.8 Other hemorrhoids; D12.7 Benign neoplasm of rectosigmoid junction; D12.2 Benign neoplasm of ascending colon; D12.5 Benign neoplasm of sigmoid colon; Z85.46 Personal history of malignant neoplasm of prostate; Z20.822 Contact with and (suspected) exposure to COVID-19
CPT/HCPCS: 88305; 45380; U0003; J2704 ×2; J7120

== ENCOUNTER 2021-10-07 08:25 | Day surgery (SDC) | payer OTHER ==
[2021-10-07] MEDS ORDERED: NA CHLORIDE 0.9% 1,000 ML ONE (08:56)
[2021-10-07 09:26] LABS: Protime INR 1.07
[2021-10-07] MEDS ORDERED: MIDAZOLAM HCL 2 MG/2 ML INJ ONE (09:29)
[2021-10-07] MEDS ORDERED: FENTANYL CITR 100 MCG/2 ML ONE ×2 (09:30→11:40)
[2021-10-07] MEDS ORDERED: NALOXONE 0.4 MG/ML VIAL ONE (09:30)
[2021-10-07] MEDS ORDERED: HYDROCODONE/APAP 7.5/325 MG TAB ONE (11:50)
--- NOTE | 2021-10-07 13:44 | RAD REPORT ---
EXAM DESCRIPTION: US - Liver Biopsy Procedure - 10/07/2021 11:09 am CLINICAL HISTORY: MASSright lobe liver COMPARISON: Abdomen Pelvis W/Wo Contrast dated 09/14/2021 TECHNIQUE: Patient presents for image guided biopsy of right lobe liver mass. Prior CT study of 09/04 was reviewed. The ultrasound-guided liver biopsy procedure, risks and alternatives were discussed with the patient in detail. After answering all questions both oral and written consent were obtained. Time-out proced ure was performed. IV access and physiologic monitors were in place. Patient was medicated with 1.0 milligrams Versed at IV and fentanyl 150 micrograms IV. Preliminary imaging identified abnormal anterior inferior right lobe liver. The access site was selec kris and skin prepped and draped in the usual sterile fashion. Skin and deeper tissues were anesthetiz ed with 1% lidocaine. Under direct sonographic visualization a 17 gauge introducer needle was advance d into the inferior anterior right lobe. An 18 gauge biopsy needle was advanced through the introduce r needle. A total of 3 core biopsies were obtained through the abnormal heterogeneous hypoechoic live r mass. All obtained material was given to pathology for histologic assessment. Introducer needle was withdrawn. Direct pressure was applied to the liver and puncture site. Hemostas is was obtained at the puncture site. A sterile bandage was placed. Post biopsy imaging showed no sub capsular or pericapsular hematoma. Conscious sedation time was 30 minutes. Vital signs were stable throughout the procedure. Patient delta erated procedure well without immediate complication. Patient was transferred back to the same day [facility] area for post biopsy monitoring. IMPRESSION: Ultrasound-guided biopsy was performed of the right lobe liver mass. All obtained materi al was given to pathology for histologic assessment. Patient tolerated procedure well without immediate complication and was being monitored in the same d surgical area at the time of this dictation.
[2021-10-07 14:53] VITALS: BMI 24.4
[2021-10-07 15:12] VITALS: BP 141/81; TEMP 97.5; O2SAT 100
== END 2021-10-07 14:27 | disposition home or self-care (01) ==
LOC: DS 08:25
PROVIDERS: ATTEND Surgery
DX: C22.0 Liver cell carcinoma (principal)
CPT/HCPCS: 36415; 85610; 88307; 85730; 47000; J2310; J2250; J3010 ×2; J7030

== ENCOUNTER 2022-01-07 10:21 | Observation (INO) | payer OTHER ==
--- OUTSIDE RECORDS SUMMARY | 2022-01-07 10:25 | XMS REPORT | Clinical Summary ---
:1960 Author Organization [facility] MD [facility] Address [address] [place] [address] Care Team Providers Name Role Phone Unavailable Primary Care Provider Unavailable Allergies No known active allergies Medications Medication Sig Dispensed Refills Start Date End Date Status traMADol (ULTRAM) 50 mg Take 50 mg by 0 Active tablet mouth every 6 (six) hours as needed. Active Problems Not on file Encounters Date Type Specialty Care Team Description 12/28/2021 - Emergency Emergency Medicine Abbie Arguello, Abdomin al pain (Primary Dx); 12/29/2021 Chest pain, not otherwise specified; Dhaval Crawley, Liver mass 12/28/2021 Orders Only Radiology Avinash Rondon NP 12/28/2021 Travel after 01/07/2021 Social History Tobacco Use Types Packs/Day Years Used Date Never Assessed Sex Assigned at Date Recorded Not on file Job Start Date Occupation Industry Not on file Not on file Not on file COVID-19 Exposure Response Date Recorded In the last 10 days, have you been in contact with No / Unsu re 12/28/2021 3:21 PM CDT someone who was confirmed or suspected to have Coronavirus/COVID-19? Last Filed Vital Signs Vital Sign Reading Time Taken Comments Blood Pressure 147/87 12/29/2021 12:35 AM CDT Pulse 76 12/29/2021 12:35 AM CDT Temperature 37 C (98.6 F) 12/29/2021 12:35 AM CDT Respiratory Rate 19 12/29/2021 12:35 AM CDT Oxygen Saturation 95% 12/29/2021 12:35 AM CDT Inhaled Oxygen Concentration - - Weight 78 kg (171 lb 15.3 oz) 12/28/2021 3:39 PM CDT Height 182 cm (5' 11.65") 12/28/2021 3:31 PM CDT Body Mass Index 23.55 12/28/2021 3:31 PM CDT Plan of Treatment Not on file Procedures Procedure Name Priority Date/Time Associated Comments Diagnosis EKG, 12-LEAD (PORTABLE) STAT 12/29/2021 CT ABDOMEN PELVIS W WO STAT 12/28/2021 11:23 R esults for this CONTRAST PM CDT procedure are i n the results section. CT CHEST PULMONARY STAT 12/28/2021 11:23 Resul ts for this EMBOLISM W CONTRAST PM CDT procedur e are in the results section. NT PRO BNP Now 12/28/2021 9:13 Results for this PM CDT procedure are i n the results section. POC TROPONIN I Routine 12/28/2021 9:12 Results fo r this PM CDT procedure are i n the results section. FRACTIONATED BILIRUBIN Now 12/28/2021 8:15 Re sults for this PM CDT procedure are i n the results section. TOTAL PROTEIN Now 12/28/2021 8:15 Results for this PM CDT procedure are i n the results section. ASPARTATE Now 12/28/2021 8:15 Results for this AMINOTRANSFERASE PM CDT procedure a re in the results section. ALANINE AMINOTRANSFERASE Now 12/28/2021 8:15 Results for this PM CDT procedure are i n the results section. ALKALINE PHOSPHATASE Now 12/28/2021 8:15 Resu lts for this PM CDT procedure are i n the results section. ALBUMIN LEVEL Now 12/28/2021 8:15 Results for this PM CDT procedure are i n the results section. CALCIUM LEVEL TOTAL Now 12/28/2021 8:15 Resul ts for this PM CDT procedure are i n the results section. .GLOMERULAR FILTRATION Now 12/28/2021 8:15 Re sults for this RATE PM CDT procedure are i n the results section. SERUM CREATININE Now 12/28/2021 8:15 Results for this PM CDT procedure are i n the results section. ELECTROLYTE PANEL Now 12/28/2021 8:15 Results for this PM CDT procedure are i n the results section. BLOOD UREA NITROGEN Now 12/28/2021 8:15 Resul ts for this PM CDT procedure are i n the results section. GLUCOSE LEVEL Now 12/28/2021 8:15 Results for this PM CDT procedure are i n the results section. MANUAL DIFFERENTIAL STAT 12/28/2021 8:15 Resul ts for this PM CDT procedure are i n the results section. Results CBC STAT 12/28/2021 8:15 Results for this PM CDT procedure are i n the results section. LIPASE LEVEL Routine 12/28/2021 8:15 Results for this PM CDT procedure are i n the results section. AMYLASE LEVEL Routine 12/28/2021 8:15 Results for this PM CDT procedure are i n the results section. APTT Now 12/28/2021 8:15 Results for this PM CDT procedure are i n the results section. PROTHROMBIN TIME Now 12/28/2021 8:15 Results for this PM CDT procedure are i n the results section. PHOSPHORUS LEVEL Now 12/28/2021 8:15 Results for this PM CDT procedure are i n the results section. MAGNESIUM LEVEL Now 12/28/2021 8:15 Results f or this PM CDT procedure are i n the results section. COMPREHENSIVE METABOLIC Now 12/28/2021 8:15 PANEL PM CDT COMPLETE BLOOD COUNT W/ Now 12/28/2021 8:15 DIFFERENTIAL PM CDT after 01/07/2021 Results EKG, 12-Lead (Portable) (12/29/2021) Specimen (Source) Anatomical Location Collection Method / Collectio n Time Received Time / Laterality Volume Narrative This result has an attachment that is no t available. Abbie Arguello MD ECG ORDERABLES Performing Organization Address City/State/ZIP Code Phon e Number RAKEL IECG CT Chest Pulmonary Embolism with Contrast (12/28/2021 11:23 PM CDT) Anatomical Region Laterality Modality Chest Computed Tomography Specimen (Source) Anatomical Collection Method Collection Time Re ceived Time Location / / Volume Laterality 12/29/2021 12:55 AM CDT Impressions 12/29/2021 9:03 AM CDT 1. No findings of pulmonary emboli. 2. Nonspecific bilateral pulmonary nod ules. Recommend CT follow-up. I personally reviewed these image(s) merlene durand with the resident's/fellow's interpretations, certify that if a procedure was performed I was physically present, and agree with the final report. Narrative 12/29/2021 9:03 AM CDT FULL RESULT: Examination: CT CHEST PULMONARY EMBOLISM W CONTRAST, 12/28/2021 11:23 PM Clinical History: Abdominal pain Chest pain, not otherwise specified Indication: Chest pain, pleuritic, Activ e cancer treatment or palliation, Pulmonary embolism is leading diagnosis, Chest pain pleuritic with hx cancer Comparison: None Technique: CT of the chest was performed with intravenous contrast. Findings: Lines and tubes: None Lungs and airways: Bibasilar subsegmenta l atelectasis is present. No pulmonary emboli. Multiple pulmonary nodules are noted. For example, a 4 mm nodule is noted within the right upper lobe (series 16, i mage 21). A 4 mm nodule is noted within the left upper lobe (series 16, image 33). A pulmonary nodule within the right lower lobe measures 7 mm (series 16, image 63). A right lower lobe nodule measures 5 mm (series 16, image 94). Additional n odules are annotated on series 16. Pleural spaces: No pleural effusions or pneumothorax. Lymph nodes: No suspicious lymphadenopat hy. Cardiovascular: The heart is normal in s ize. The RV to LV ratio is less than 1.. No pericardial effusion. Coronary artery calcifications are present. The thoracic aorta and main pulmonary artery are normal in diameter. Other Mediastinum: The thyroid gland is unremarkable. Bones and soft tissues: No suspicious os seous lesions. The soft tissues are unremarkable. Mild degenerative changes of the cervical and thoracic spine are noted. Mild bilateral gynecomastia. Lipoma in t he right posterior chest wall (image 61 series 11) measuring 5.2 cm. Upper abdomen: Please refer to abdominal CT obtained on same day for abdominal findings. Procedure Note Dain Judd MD - 12/29/2021Form atting of this note might be different from the original. FULL RESULT: Examination: CT CHEST PULMONARY EMBOLISM W CONTRAST, 12/28/2021 11:23 PM Clinical History: Abdominal pain Chest pain, not otherwise specified Indication: Chest pain, pleuritic, Activ e cancer treatment or palliation, Pulmonary embolism is leading diagnosis, Chest pain pleuritic with hx cancer Comparison: None Technique: CT of the chest was performed with intravenous contrast. Findings: Lines and tubes: None Lungs and airways: Bibasilar subsegmenta l atelectasis is present. No pulmonary emboli. Multiple pulmonary nodules are noted. For example, a 4 mm nodule is noted within the right upper lobe (series 16, image 21). A 4 mm nodule is noted within the left upper lobe (series 16, image 33). A pulmonary nodule within the right lower lobe measures 7 mm (series 16, image 63). A right lower lobe nodule measures 5 mm (series 16, image 94). Additional nodules are annotated on seri es 16. Pleural spaces: No pleural effusions or pneumothorax. Lymph nodes: No suspicious lymphadenopat hy. Cardiovascular: The heart is normal in s ize. The RV to LV ratio is less than 1.. No pericardial effusion. Coronary artery calcifications are present. The thoracic aorta and main pulmonary artery are normal in diameter. Other Mediastinum: The thyroid gland is unremarkable. Bones and soft tissues: No suspicious os seous lesions. The soft tissues are unremarkable. Mild degenerative changes of the cervical and thoracic spine are noted. Mild bilateral gynecomastia. Lipoma in the right posterior chest wall (image 61 series 11 ) measuring 5.2 cm. Upper abdomen: Please refer to abdominal CT obtained on same day for abdominal findings. IMPRESSION: 1. No findings of pulmonary emboli. 2. Nonspecific bilateral pulmonary nodul es. Recommend CT follow-up. I personally reviewed these image(s) merlene durand with the resident's/fellow's interpretations, certify that if a procedure was performed I was physically present, and agree with the final report. Abbie Arguello MD [facility] ORDERABLES CT Abdomen Pelvis with and without Contrast (12/28/2021 11:23 PM CDT) Anatomical Region Laterality Modality Abdomen, Pelvis Computed Tomography Specimen (Source) Anatomical Collection Method Collection Time Re ceived Time Location / / Volume Laterality 12/29/2021 12:42 AM CDT Impressions 12/29/2021 11:05 AM CDT 1. Innumerable hypodense liver lesions with hepatomegaly and small volume abdominal and pelvic ascites., concerning for metastatic disease. I personally reviewed these image(s) merlene durand with the resident's/fellow's interpretations, certify that if a procedure was performed I was physically present, and agree with the final report. Narrative 12/29/2021 11:05 AM CDT Examination: CT ABDOMEN PELVIS W WO CONT RAST, 12/28/2021 11:23 PM Clinical History: Abdominal pain Chest pain, not otherwise specified Indication: abdominal pain Comparison: None Technique: CT of the abdomen and pelvis was performed with intravenous contrast, preceded by CT of the abdomen without intravenous contrast. Findings: Lower thorax: Scattered groundglass opac ities are noted within the bilateral lower lobes. A right lower lobe pulmonary nodule is present measuring up to 7 mm (series 4, image 22). A small left lower lob e subpleural nodule measures 3 mm (serie s 4, image 32). An additional right lower lobe nodule measures 4 mm (series 4, image 19). No pleural effusions or pneumothorax. Liver and biliary tree: Hepatomegaly. In numerable hypodense liver lesions are noted, with the largest conglomerate of lesions measuring 9.8 x 5.1 cm (series 4, image 195). The biliary tree is unremarkable. Gallbladder: The gallbladder is decompre ssed. Spleen: Small calcified granuloma is not ed. Otherwise, unremarkable. Pancreas: No suspicious pancreatic lesio ns or pancreatic ductal dilation. Adrenal glands: Unremarkable Kidneys and ureters: No suspicious renal masses or hydronephrosis. Stomach/Bowel: Normal caliber. No evid ence of wall thickening. No evidence of bowel obstruction. Peritoneal cavity: Perihepatic small vol ume ascites is noted. Small amount of free fluid is noted within the pelvis region as well as tracking along the left lower abdominal region. No free intraperiton eal air. Areas of soft tissue stranding are noted along the perihepatic region. Bladder: Normal. Pelvic organs: Unremarkable. Vasculature: Patent. Atherosclerosis of the abdominal aorta noted. Lymph nodes: A portal node measures 1.4 x 2.7 cm image 57 series 5. Soft tissues and bones: No focal suspici ous lesion identified. The soft tissues are unremarkable. Mild degenerative changes of the thoracolumbar spine. Procedure Note Shamar Tucker MD - 12/29/2021 Examination: CT ABDOMEN PELVIS W WO CONT RAST, 12/28/2021 11:23 PM Clinical History: Abdominal pain Chest pain, not otherwise specified Indication: abdominal pain Comparison: None Technique: CT of the abdomen and pelvis was performed with intravenous contrast, preceded by CT of the abdomen without intravenous contrast. Findings: Lower thorax: Scattered groundglass opac ities are noted within the bilateral lower lobes. A right lower lobe pulmonary nodule is present measuring up to 7 mm (series 4, image 22). A small left lower lobe subpleural nodule measures 3 mm (series 4, image 32). An additional right lower lobe nodule measures 4 mm (series 4, image 19). No pleural effusions or pneumothorax. Liver and biliary tree: Hepatomegaly. In numerable hypodense liver lesions are noted, with the largest conglomerate of lesions measuring 9.8 x 5.1 cm (series 4, image 195). The biliary tree is unremarkable. Gallbladder: The gallbladder is decompre ssed. Spleen: Small calcified granuloma is not ed. Otherwise, unremarkable. Pancreas: No suspicious pancreatic lesio ns or pancreatic ductal dilation. Adrenal glands: Unremarkable Kidneys and ureters: No suspicious renal masses or hydronephrosis. Stomach/Bowel: Normal caliber. No eviden ce of wall thickening. No evidence of bowel obstruction. Peritoneal cavity: Perihepatic small vol ume ascites is noted. Small amount of free fluid is noted within the pelvis region as well as tracking along the left lower abdominal region. No free intraperitoneal air. Areas of soft tissue stranding are noted along th e perihepatic region. Bladder: Normal. Pelvic organs: Unremarkable. Vasculature: Patent. Atherosclerosis of the abdominal aorta noted. Lymph nodes: A portal node measures 1.4 x 2.7 cm image 57 series 5. Soft tissues and bones: No focal suspici ous lesion identified. The soft tissues are unremarkable. Mild degenerative changes of the thoracolumbar spine. IMPRESSION: 1. Innumerable hypodense liver lesions w ith hepatomegaly and small volume abdominal and pelvic ascites., concerning for metastatic disease. I personally reviewed these image(s) merlenemarlene durand with the resident's/fellow's interpretations, certify that if a procedure was performed I was physically present, and agree with the final report. Debra Madrigal MD IMG CT ORDERABLES NT-Pro BNP (In-House) (12/28/2021 9:13 PM CDT) P athologist Signature NT ProBNP 124 <=125 pg/mL [facility] [place] Specimen Anatomical Collection Method Collection Time Receive d Time (Source) Location / / Volume Laterality Blood 12/28/2021 9:13 PM 2 9:27 CDT PM CDT Abbie Arguello MD LAB BLOOD ORDERABLES Performing Organization Address City/[facility]/ZIP Code Phon e Number [facility] Unless otherwise noted, [place] [address] CENTER all lab tests performed by: Division of Pathology and Laboratory Medicine [address] [place] [address] POC Troponin I (12/28/2021 9:12 PM CDT) athologist Signature POC CTNI 0.00 0.00 - 0.08 POC TELCOR ng/mL Comment: This cTnI test is performed by the Point -of-Care analyzer method, and the result may be different from the Clinical Laboratory Method. Abnormal test results are recomm ended for confirmatory test by Clinical laboratory method. Christy ents with normal test results but clinically suspicious for ac bad river band myocardial infarction should be tested by Clinical Laboratory method. Method description: The Troponin I (cTnI ) uses a two-site enzyme-linked immunosorbent assay (LEONA) method. Antibodies specific for human cardiac troponin I (cTnI) are located on an electrochemical sens or fabricated on a silicon chip. The who le blood is brought into contact with the sensors al lowing the enzyme conjugate to dissolve into the sample. The enzyme bound to the antibody/antigen/antibody sandwich cleaves the substrate releasing an electrochemically detectable product. The electrochemical (amperometric) sensor measures this enzy me product which is proportional to the concentration of cTnI within the sample. POC Clean Dev Yes POC TELCOR Performing Lab [facility] POC TELCO R Comment: [facility], [address] [place] [address], [place] [address]; Lab Direct or: Belgica Myers MD Specimen Anatomical Collection Method Collection Time Receive d Time (Source) Location / / Volume Laterality Blood 12/28/2021 9:12 PM 2 9:12 CDT PM CDT Abbie Arguello MD POCT ORDERABLES - DEVICE Performing Organization Address City/State/ZIP Code Phon e Number POC TELCOR .Serum Creatinine (12/28/2021 8:15 PM CDT) athologist Signature Creatinine 0.81 0.67 - 1.17 [facility] mg/dL [facility]ER CENTER Specimen Anatomical Collection Method Collection Time Receive d Time (Source) Location / / Volume Laterality Blood 12/28/2021 8:15 PM 2 8:25 CDT PM CDT Debra Madrigal MD LAB BLOOD ORDERABLES Performing Organization Address City/State/ZIP Code Phon e Number [facility] Unless otherwise noted, [address] all lab tests performed by: Division of Pathology and Laboratory Medicine [facility] Zafar Britton (ABNORMAL) .CBC (12/28/2021 8:15 PM CDT) athologist Signature WBC 9.1 4.0 - 11.0 PA MD K/[facility] RBC 4.99 4.50 - PA MD 6.00 M/[facility] Hgb 14.2 14.0 - PA MD 18.0 gm/dL [facility] Hct 42.8 40.0 - PA MD 54.0 % [facility] MCV 86 82 - 98 [facility] MCH 28.5 27.0 - PA MD 31.0 pg [facility] MCHC 33.2 31.0 - PA MD 36.0 gm/dL [facility] RDW-SD 54.8 (H) 35.1 - PA MD 46.3 [facility] RDW-CV 17.4 (H) 12.0 - PA MD 15.5 % [facility] Platelet count 242 140 - 440 [facility] K/[facility] MPV 9.4 4.0 - 10.4 [facility] INRBC 0.0 <=0.0 % [facility] Comment: The INRBC (instrument NRBC) value reflec ts the enumeration of nucleated red blood cells contained i n a 200uL sample of whole blood analyzed by the instrumen t. This value may differ from the NRBC value reported in a manual differential, which is based on a 100 cell differentia l. Specimen Anatomical Collection Method Collection Time Receive d Time (Source) Location / / Volume Laterality Blood 12/28/2021 8:15 PM 2 8:22 CDT PM CDT Debra Madrigal MD LAB BLOOD ORDERABLES Performing Organization Address City/State/ZIP Code Phon e Number [facility] Unless otherwise noted, [address] all lab tests performed by: Division of Pathology and Laboratory Medicine [address] Glomerular Filtration Rate (12/28/2021 8:15 PM CDT) P athologist Signature eGFR-AA 111 >=60 PA MD CHOW mL/min/1.73 [facility]ER CENTER sq. m Comment: Normal eGFR: >= 60 mL/min/1.73 m2 Note: The eGFR is calculated using the C KD-EPI equation. The eGFR declines with age. eGFR <60 mL/min/1.73 m2 is considered as "decreased". This equation should only be used for patients 18 and older. According to the National Kid[employer] ion's Kidney Disease Outcome Quality Initiative (KDOQI) classification and 2012 Kidney Disease Improving Global Outcomes (KDIGO) Clinical Practice Guideline, the stage of CKD should be categorized based on estimated GFR. Stage Description GFR mL/min/1. 73 m2 1 Normal or high GFR >=90 2 Mildly decreased GFR 60-89 3a Mildly to moderately decreased GFR 45-59 3b Moderately to severely decreased GFR 30-44 4 Severely decreased GFR 15-29 5 Kidney failure <15 eGFR-MYRTLE 96 >=60 mL/min/1.73 sq. m PA MD Gamble [facility] Comment: Normal eGFR: >= 60 mL/min/1.73 m2 Note: The eGFR is calculated using the C KD-EPI equation. The eGFR declines with age. eGFR <60 mL/min/1.73 m2 is considered as "decreased". This equation should only be used for patients 18 and older. According to the National Kidney [employer] ion's Kidney Disease Outcome Quality Initiative (KDOQI) classification and 2012 Kidney Disease Improving Global Outcomes (KDIGO) Clinical Practice Guideline, the stage of CKD should be categorized based on estimated GFR. Stage Description GFR mL/min/1. 73 m2 1 Normal or high GFR >=90 2 Mildly decreased GFR 60-89 3a Mildly to moderately decreased GFR 45-59 3b Moderately to severely decreased GFR 30-44 4 Severely decreased GFR 15-29 5 Kidney failure <15 Specimen Anatomical Collection Method Collection Time Receive d Time (Source) Location / / Volume Laterality Blood 12/28/2021 8:15 PM 2 8:25 CDT PM CDT Debra Madrigal MD LAB BLOOD ORDERABLES Performing Organization Address City/State/ZIP Code Phon e Number [facility] Unless otherwise noted, [address] all lab tests performed by: Division of Pathology and Laboratory Medicine [address] Fractionated Bilirubin (12/28/2021 8:15 PM CDT) athologist Signature Bili Total 0.3 <=1.2 mg/dL [facility] Comment: Indocyanine Green (ICG) may cause falsel y elevated bilirubin results. Total and direct bilirubin must not be measured from samples containing indocyanine green. False elevation of total bilirubin can b e seen in patients with IgG concentrations above 28 g/L. Bili Direct <0.2 <=0.3 mg/dL [facility] Comment: Indocyanine Green (ICG) may cau se falsely elevated bilirubin results. Total and direct bilirubin must not be measure d from samples containing indocyanine green. Bili Indirect See Note 0.0 - 0.9 mg/dL [facility] Comment: Unable to calculate Indirect Bi lirubin result due to some parameters are outside reportable range Specimen Anatomical Collection Method Collection Time Receive d Time (Source) Location / / Volume Laterality Blood 12/28/2021 8:15 PM 2 8:25 CDT PM CDT Debra Madrigal MD LAB BLOOD ORDERABLES Performing Organization Address City/State/ZIP Code Phon e Number [facility] Unless otherwise noted, [address] all lab tests performed by: Division of Pathology and Laboratory Medicine [address] [place] aPTT (12/28/2021 8:15 PM CDT) athologist [facility] aPTT 31.3 22.8 - 34.2 [facility] Specimen Anatomical Collection Method Collection Time Receive d Time (Source) Location / / Volume Laterality Blood 12/28/2021 8:15 PM 2 8:22 CDT PM CDT Debra Madrigal MD LAB BLOOD ORDERABLES Performing Organization Address City/State/ZIP Code Phon e Number [facility] Unless otherwise noted, [address] all lab tests performed by: Division of Pathology and Laboratory Medicine [address] (ABNORMAL) Differential (12/28/2021 8:15 PM CDT) [facility] Neutrophil % 73.2 (H) 42.0 - [facility] 66.0 % CAN[facility]ER CENTER Lymphocyte % 14.9 (L) 24.0 - [facility] 44.0 % [facility] CENTER Monocyte % 10.5 (H) 2.0 - 7.0 [facility] CENTER Eosinophil % 0.7 (L) 1.0 - 4.0 [facility] Basophil % 0.5 0.0 - 1.0 [facility] IGRE % 0.2 0.0 - 0.4 [facility] C[facility] Comment: IGRE % count includes Metamyelo cytes, Myelocytes, and Promyelocytes. Neutrophil Abs 6.67 1.70 - 7.30 K/uL [facility] Lymphocyte Abs 1.36 1.00 - 4.80 K/uL [facility] Monocyte Abs 0.96 (H) 0.08 - 0.70 K/uL [facility] Eosinophil Abs 0.06 0.04 - 0.40 K/uL [facility] Basophil Abs 0.05 0.00 - 0.10 K/uL [facility] IG Abs 0.02 0.00 - 0.04 K/uL [facility] Specimen Anatomical Collection Method Collection Time Receive d Time (Source) Location / / Volume Laterality Blood 12/28/2021 8:15 PM 8:22 CDT PM CDT Debra Madrigal MD LAB BLOOD ORDERABLES Performing Organization Address City/State/ZIP Code Phon e Number [facility] Unless otherwise noted, [place] [address] [place] all lab tests performed by: Division of Pathology and Laboratory Medicine [address] (ABNORMAL) Prothrombin Time with INR (12/28/2021 8:15 PM CDT) athologist [facility] PT 14.3 (H) 11.9 - 14.1 [facility] second(s) [facility]ENTER INR 1.16 (H) 0.89 - 1.10 [facility] [place] Specimen Anatomical Collection Method Collection Time Receive d Time (Source) Location / / Volume Laterality Blood 12/28/2021 8:15 PM 2 8:22 CDT PM CDT Debra Madrigal MD LAB BLOOD ORDERABLES Performing Organization Address City/[facility]/ZIP Code Phon e Number [facility] CANCER Unless otherwise noted, [address] all lab tests performed by: Division of Pathology and Laboratory Medicine [address] [place], [place] [address] BUN (12/28/2021 8:15 PM CDT) P athologist Signature BUN 6 6 - 23 [facility] mg/dL [facility] CENTER Specimen Anatomical Collection Method Collection Time Receive d Time (Source) Location / / Volume Laterality Blood 12/28/2021 8:15 PM 2 8:25 CDT PM CDT Debra Madrigal MD LAB BLOOD ORDERABLES Performing Organization Address [facility] Code Phon e Number [facility] Unless otherwise noted, [address] all lab tests performed by: Division of Pathology and Laboratory Medicine [address] [place] [address] ALT (12/28/2021 8:15 PM CDT) P athologist Signature ALT 16 <=41 U/L [facility] [place] Specimen Anatomical Collection Method Collection Time Receive d Time (Source) Location / / Volume Laterality Blood 12/28/2021 8:15 PM 2 8:25 CDT PM CDT Debra Madrigal MD LAB BLOOD ORDERABLES Performing Organization Address City/[facility]/ZIP Code Phon e Number [facility] CANCER Unless otherwise noted, [address] all lab tests performed by: Division of Pathology and Laboratory Medicine [address] [place] [address] (ABNORMAL) Aspartate Aminotransferase (12/28/2021 8:15 PM CDT) P athologist Signature AST 51 (H) <=40 U/L [facility] [place] Specimen Anatomical Collection Method Collection Time Receive d Time (Source) Location / / Volume Laterality Blood 12/28/2021 8:15 PM 2 8:25 CDT PM CDT Debra Madrigal MD LAB BLOOD ORDERABLES Performing Organization Address City/[facility]/ZIP Code Phon e Number [facility] CANCER Unless otherwise noted, [address] all lab tests performed by: Division of Pathology and Laboratory Medicine [address] [place] Total Protein (12/28/2021 8:15 PM CDT) athologist Signature Total Protein 7.6 6.4 - 8.3 [facility] g/dL [facility] Specimen Anatomical Collection Method Collection Time Receive d Time (Source) Location / / Volume Laterality Blood 12/28/2021 8:15 PM 2 8:25 CDT PM CDT Debra Madrigal MD LAB BLOOD ORDERABLES Performing Organization Address City/State/ZIP Code Phon e Number [facility] CANCER Unless otherwise noted, [address] all lab tests performed by: Division of Pathology and Laboratory Medicine [address] [place] Phosphorus Level (12/28/2021 8:15 PM CDT) athologist Signature Phosphorus 2.6 2.5 - 4.5 [facility] mg/dL [facility] Specimen Anatomical Collection Method Collection Time Receive d Time (Source) Location / / Volume Laterality Blood 12/28/2021 8:15 PM 2 8:25 CDT PM CDT Debra Madrigal MD LAB BLOOD ORDERABLES Performing Organization Address City/State/ZIP Code Phon e Number [facility] CANCER Unless otherwise noted, [address] all lab tests performed by: Division of Pathology and Laboratory Medicine [address] [place] (ABNORMAL) Alkaline Phosphatase (12/28/2021 8:15 PM CDT) athologist Signature Alk Phos 173 (H) 40 - 129 [facility] U/L [facility] Specimen Anatomical Collection Method Collection Time Receive d Time (Source) Location / / Volume Laterality Blood 12/28/2021 8:15 PM 2 8:25 CDT PM CDT Debra Madrigal MD LAB BLOOD ORDERABLES Performing Organization Address City/[facility]/ZIP Code Phon e Number [facility] CANCER Unless otherwise noted, [address] all lab tests performed by: Division of Pathology and Laboratory Medicine [address] [place] Magnesium Level (12/28/2021 8:15 PM CDT) athologist Signature Magnesium 1.8 1.6 - 2.6 [facility] mg/dL [facility] Specimen Anatomical Collection Method Collection Time Receive d Time (Source) Location / / Volume Laterality Blood 12/28/2021 8:15 PM 2 8:25 CDT PM CDT Debra Madrigal MD LAB BLOOD ORDERABLES Performing Organization Address City/[facility] Phon e Number [facility]CER Unless otherwise noted, [address] all lab tests performed by: Division of Pathology and Laboratory Medicine [facility] Lip[facility] Level (12/28/2021 8:15 PM CDT) athologist Signature Lipase Lvl 39 13 - 60 U/L [facility] [place] Specimen Anatomical Collection Method Collection Time Receive d Time (Source) Location / / Volume Laterality Blood 12/28/2021 8:15 PM 2 8:25 CDT PM CDT Debra Madrigal MD LAB BLOOD ORDERABLES Performing Organization Address City/[facility] Phon e Number [facility] Unless otherwise noted, [address] all lab tests performed by: Division of Pathology and Laboratory Medicine [facility] [place] (ABNORMAL) Glucose Level (12/28/2021 8:15 PM CDT) athologist Signature Glucose Level 121 (H) 70 - 99 [facility] mg/dL [facility] Comment: Effective 12/31/15, the glucose reference intervals have been updated based on [place] [employer] guidelines (Standards of Medical Care in Diabetes 2016. Diabetes Care 2016; 39: S13-S22). Fasting blood glucose: Normal: 70-99 mg/dL Impaired fasting glucose (increased risk for diabetes or pre-diabetes): 100- 125 mg/dL Diabetes mellitus: >/=126 mg/dL Random blood glucose: Normal: 70-199 mg/dL Note: Random glucose >100 mg/dL is assoc iated with increased risk for diabetes Specimen Anatomical Collection Method Collection Time Receive d Time (Source) Location / / Volume Laterality Blood 12/28/2021 8:15 PM 2 8:25 CDT PM CDT Debra Madrigal MD LAB BLOOD ORDERABLES Performing Organization Address City/State/ZIP Code Phon e Number [facility]ER Unless otherwise noted, [address] all lab tests performed by: Division of Pathology and Laboratory Medicine [address] [place] (ABNORMAL) Calcium Level (12/28/2021 8:15 PM CDT) P athologist Signature Calcium Lvl 12.9 (H) 8.4 - 10.2 [facility] mg/dL [facility] Specimen Anatomical Collection Method Collection Time Receive d Time (Source) Location / / Volume Laterality Blood 12/28/2021 8:15 PM 2 8:25 CDT PM CDT Debra Madrigal MD LAB BLOOD ORDERABLES Performing Organization Address City/[facility]/ZIP Code Phon e Number [facility] Unless otherwise noted, [address] all lab tests performed by: Division of Pathology and Laboratory Medicine [address] [place] Amylase Level (12/28/2021 8:15 PM CDT) P athologist Signature Amylase Lvl 49 28 - 100 [facility] U/L [facility] Specimen Anatomical Collection Method Collection Time Receive d Time (Source) Location / / Volume Laterality Blood 12/28/2021 8:15 PM 2 8:25 CDT PM CDT Debra Madrigal MD LAB BLOOD ORDERABLES Performing Organization Address City/[facility]/ZIP Code Phon e Number [facility] Unless otherwise noted, [address] all lab tests performed by: Division of Pathology and Laboratory Medicine [address] [place] Albumin Level (12/28/2021 8:15 PM CDT) P athologist Signature Albumin Lvl 3.7 3.5 - 5.2 [facility] gm/dL [facility] Specimen Anatomical Collection Method Collection Time Receive d Time (Source) Location / / Volume Laterality Blood 12/28/2021 8:15 PM 2 8:25 CDT PM CDT Debra Madrigal MD LAB BLOOD ORDERABLES Performing Organization Address City/State/ZIP Code Phon e Number [facility] Unless otherwise noted, [address] all lab tests performed by: Division of Pathology and Laboratory Medicine [address] [place] (ABNORMAL) Electrolyte Panel (12/28/2021 8:15 PM CDT) P athologist Signature Sodium Lvl 132 (L) 136 - 145 [facility] mEq/L [facility] Potassium Lvl 4.3 3.5 - 5.1 [facility] mEq/L [facility] Chloride 95 (L) 98 - 107 [facility] mEq/L [facility] CO2 26 22 - 29 [facility] mEq/L [facility] Anion Gap 11 4 - 14 [facility] mEq/L [facility] Specimen Anatomical Collection Method Collection Time Receive d Time (Source) Location / / Volume Laterality Blood 12/28/2021 8:15 PM 8:25 CDT PM CDT Debra Madrigal MD LAB BLOOD ORDERABLES Performing Organization Address City/State/ZIP Code Phon e Number [facility] CAN[facility]ER Unless otherwise noted, [address] all lab tests performed by: Division of Pathology and Laboratory Medicine [address] [place] after 01/07/2021 Insurance Payer Benefit Plan / Subscriber ID Effective Dates Phone Addre ss Type Group HUMANA HUMANA GOLD [id number] 2021-Pres [address] [phone] Medicare MEDICARE PLUS MEDICARE [facility] [id number]
--- OUTSIDE RECORDS SUMMARY | 2022-01-07 10:29 | XMS REPORT | Continuity of Care Document ---
:[address] [facility] t Address [address] [place] [address] Care Team Providers Name Role Phone Negro Harkins Primary Care Physician DHAVAL CRAWLEY Attending Clinician Unavailable Abbie Arguello MD Attending Clinician Dhaval Crawley MD Attending Clinician Avinash Rondon NP Attending Clinician Lab, Ang - Db Attending Clinician Unavailable Emily Hills Attending Clinician Buzz Brown Attending Clinician Daniel Murillo MD Attending Clinician MATTI ANDERSON Attending Clinician Unavailable DANIEL MURILLO Attending Clinician Unavailable DANIEL MURILLO Admitting Clinician Unavailable Payers Payer Name Policy Type Policy Number Effective Date Expiration Date Savanna WELLS PLUS [id number] 2021 MEDICARE HMO 00:00:00 Problems Condition Condition Condition Status Onset Resolution Last Treating Co mments Source Name Details Category Date Date Treatment Clinician Date Penile Penile Disease Active [facility] Malignant Malignant Disease Active [facility] neoplasm neoplasm [facility] of 00[facility] Medical prostate prostate 00 Center Urinary Urinary Disease Active [facility] tract tract [facility]24 [facility] infection infection 00:00: Medi radha without without 00 Center hematuria, hematuria, site site unspecifie unspecifie d d ARM PAIN ARM PAIN Diagnosis Active 2017-062018-04-19 Memoria Active 06-18 15:03:00 l 04/18/2018 00:00: [place] n [place] [id number] Noe CHEST PAIN CHEST Diagnosis Active 2017-11-02 Memoria PAIN - 01:31:00 l Active 00:00: Fisher 11/01/2017 00 [facility] HAND AND HAND AND Diagnosis Active 2017-01-04 Memoria KNEE PAIN KNEE PAIN 12-15 15:35:00 l Active 00:00: Noe 12/15/2016 00 [facility] Noe Localized Localized Problem 2018-11-05 Memoria swelling, swelling, 14:05:51 l mass and mass and Specner n lump, left lump, left lower limb lower limb 11/05/2018 CARLOS Child Essential Essential Problem 2018-11-05 Memoria (primary) (primary) 14:05:51 l hypertensi [facility]ensi [facility] 11/05/2018 Ruma Valentine [facility] Personal Personal Problem 2018-11-05 Memoria history of history of 14:05:51 l malignant malignant Herm janey neoplasm neoplasm of of prostate prostate 11/05/2018 CARLOS Child Ingrowing Ingrowing Problem Active 2015-05-13 Memoria nail nail 03:05:35 l Active Noe Problem 05/13/2015 [facility] Onychomyco Onychomyc Problem Active 2015-05-13 Memoria sis osis 03:05:35 l Active Fisher Problem 05/13/2015 [facility] Abscess/ce Abscess/c Problem Active 2015-05-13 Memoria llulitis-t ellulitis- 03:05:35 l oe toe Active Spencer n Problem 05/13/2015 [facility] Contusion/ Contusion Problem Active 2015-05-13 Memoria hematoma-t /hematoma- 03:05:35 l oe toe Active Spencer n Problem 05/13/2015 [facility] No known No known Disease Unive rs active active ity of problems problems [facility] History of Past Illness Condition Condition Condition Status Onset Resolution Last Treating Co mments Source Name Details Category Date Date Treatment Clinician Date Lesion of Lesion Problem 2017-062018-11-05 2018-11-05 Memoria ulnar of ulnar 06-18 14:05:51 14:05:51 l nerve, nerve, 06:00: Noe left upper left upper 00 limb limb 04/18/2018 11/05/2018 [facility] Chest Chest Problem 2017-11-05 2017-11-05 Memoria pain, pain, 11-02 03:37:57 03:37:57 l unspecifie unspecifie 05:00: Leonidas mae d d 00 11/02/2017 11/05/2017 [facility] Nicotine Nicotine Problem 2017-11-05 2017-11-05 Memoria dependence dependence 11-02 03:37:57 03:37:57 l , , 05:00: Noe unspecifie unspecifie 00 d, d, uncomplica uncomplica kris kris 11/02/2017 11/05/2017 [facility] Anemia, Anemia, Problem 2017-11-05 2017-11-05 Memoria unspecifie unspecifie 11-02 03:37:57 03:37:57 l d d 05:00: Noe 11/02/2017 00 11/05/2017 [facility] Other Other Problem 2017-11-05 2017-11-05 Memoria chest pain chest pain 11-02 03:37:57 03:37:57 l 11/02/2017 05:00: Spencer strauss 11/05/2017 00 [facility] Radial Radial Problem 2016-12-19 2016-12-19 Memoria styloid styloid 12-16 03:21:57 03:21:57 l tenosynovi tenosynovi 05:00: Leonidas mae tis [de tis [de 00 Quervain] Quervain] 12/16/2016 12/19/2016 [facility] Allergies, Adverse Reactions, Alerts Allergy Allergy Status Severity Reaction(s) Onset Inactive Treating Comm ents Source Name Type Date Date Clinician No Known DA Active [facility] Allergie 7-28 [place] 00:[facility]: [address] Social History Social Habit Start Date Stop Date Quantity Comments Source History of tobacco Cigarette Smoker [email or web address] Medicine Alcohol intake [facility] Exposure to 2021-12-18 2021-12-28 Not sure University of SARS-CoV-2 (event) 00:00:00 15:21:00 [place] [facility] Cigarettes smoked 2018-12-31 2018-12-[address] [facility] current (pack per 00:00:00 00:00:00 Medical Center day) - Reported Cigarette 2018-12-31 2018-12-[address] [facility] pack-years 00:00:00 00:00:00 [facility] Tobacco use and 2016-04-01 2016-04-01 Never used Universit y of exposure 00:00:00 00:00:00 [facility] TobaccoUse: 2015-02-27 2015-02-27 Rosemary cho 00:00:00 00:00:00 [birth year] Universit [facility] of 00:00:00 00:00:00 [place] MD [facility] Smoking Status Start Date Stop Date Source Social History [facility] Current every day smoker 2016-04-01 00:00:00 Uni versity of [facility] Medications Ordered Filled Start Stop Current Ordering Indication Dosage Frequency Signature Comments Components Source Medication Medication Date Date Medication? Clinician (SIG) Name Name traMADol Yes 50mg Take 50 mg Uni vers (ULTRAM) 50 7-25 by mouth ity of mg tablet 23:33: every 6 [place] 15 (six) MD hours as Anderso needed. n [facility] acetaminoph Yes 4647 1{tbl} Take 1 Un katlyn en-codeine 9-09 tablet by ity of (TYLENOL-CO 00:00: mouth [place] DEINE #3) 00 every 4 Medical 300-30 mg (four) Branch tablet hours as needed for Pain (scale 4-6) or Pain (scale 7-10). Indication s: acute pain traMADoL 50 Yes 4647 50mg Take 1 Univ ers mg tablet 2-26 tablet by ity o f 00:00: mouth [place] 00 every 4 Medical (four) Branch hours as needed for Pain (scale 7-10). Indication s: acute pain diclofenac Yes 75mg Take 1 Unive rs 75 mg EC 06-26 tablet by ity of tablet 00:00: mouth 2 [place] (two) Medical times Branch daily with meals. losartan 50 Yes 50mg Take 50 mg Univers mg tablet 06-14 by mouth. ity o f 09:22: [place] [facility] Branch omeprazole 0 Yes 40mg Take 40 mg U nivers 40 mg 06-14 by mouth. ity of capsule 09:22: [place] [facility] Branch diclofenac Yes Univers 75 mg EC 06-12 ity of tablet 00:00: [place] [facility] Branch traMADol 50 Yes Univer s mg tablet 06-12 ity of 00:00: [place] [facility] Branch losartan Yes 50mg QD Take [address] (COZAAR) 50 05 by mouth Luke s MG tablet 10:59: daily. Medica l [address] omeprazole Yes 40mg QD Take [address] (PRILOSEC) 05 by mouth [facility] 40 MG 10:59: daily. Medical capsule [address] losartan Yes 25mg Take 25 mg [place] [facility] (COZAAR) 25 7-08 by mouth. Col lege MG tablet 18:57: of Medicin e losartan Yes 25mg Take 25 mg [place] [facility] (COZAAR) 25 7-08 by mouth. Col lege MG tablet 18:57: of Medicin e tadalafil Yes 5mg Take 1 Tab [facility] (CIALIS) 5 7-02 by mouth Colle ge MG tablet 00:00: daily. Medicin e tadalafil 0 Yes 5mg Take 1 Tab Ba ylor (CIALIS) 5 7-02 by mouth Colle ge MG tablet 00:00: daily. Medicin e tadalafil Yes 5mg QD Take [address] (CIALIS) 5 7-02 by mouth [facility]ukes MG tablet 00:00: daily. Medica [address] tadalafil 5 Yes 5mg Take 5 mg U nivers mg tablet 02 by mouth. ity o f 00:00: [address] Branch Acetaminoph 2017-06 No 1 tab, PO, Memoria [...] a 1-14 (Same as: l 01:48: Motrin) Fisher 00 "Do Not Crush" Take with food. [...] TID, l Oral Tablet 09:13: PRN Muscle Fisher [Robaxin] 00 Spasms, X 5 day, # 20 tab, 0 Refill(s) Acetaminoph No 1 tab, Dane victor hugo en 325 MG / 5-30 Route: PO, l Hydrocodone 08:16: Drug Form: Noe Bitartrate 00 TAB, 5 MG Oral Dosing Tablet Weight [Princess Anne 79.955, 5/325] kg, ONCE, STAT, Start date: 11/02/17 3:16:00 CDT, Stop date: 11/02/17 3:16:00 CDT Robaxin No Notes: Memoria 5-30 (Same l 07:44: as:Robaxin Noe 00 ) Omnipaque No 100 mL, Memor ia 350 5-30 Route: IV, l 07:27: Dosing Fisher 00 Weight 79.955, kg, ONCE, Start date: [...] Same as: l 04:24: BD Posiflush Sterile losartan 25 2016-06 Yes 25mg Take 25 mg Univers mg tablet 2-04 by mouth ity of 10:59: daily. [address] Motrin 800 Yes 800 mg = 1 M emoria mg oral 7-13 tab, PO, l tablet 05:11: Q8H, PRN 00 Pain, Take with food, X 7 day, # 21 tab, 0 Refill(s) tiZANidine Yes TK 1 T PO Un katlyn (ZANAFLEX) 9-28 HS PRF ity of 4 mg tablet 00:00: MUSCLE [place] 00 SPASM. Medical Branch LYRICA 75 Yes TK 1 C PO Uni vers mg capsule 9- HS. ity of 00:00: [address] Branch DULoxetine Yes TK 1 C PO Un katlyn (CYMBALTA) 03-03 BID. ity of 60 mg 00:00: [place] capsule 00 Medical Branch Hydrocodone 2014-06 Yes Ugo Unknown Memoria -Acetaminop 06-18 John l hen 03:00: Lyrica 2014-06 Yes Ugo Unknown Memor ia 06-18 John l 03:00: Lamisil Yes Ugo 1 tablet Mem oria 02-27 John l 00:00: Vital Signs Vital Name Observation Time Observation Value Comments Source Diastolic blood 2019-01-15 20:28:00 75 mm[Hg] [facility] pressure Medicine Heart rate 2019-01-15 20:28:00 99 /min [facility] Body height 2019-01-15 20:28:00 [address] [facility] Body weight 2019-01-15 20:28:[address] [facility] BMI 2019-01-15 20:28:00 25.80 kg/m2 [facility] Systolic blood 2019-01-15 20:28:00 134 mm[Hg] [facility] pressure Medicine Diastolic blood 2019-01-15 20:28:00 75 mm[Hg] [facility] Medicine Heart rate 2019-01-15 20:28:00 99 /min [facility] Body height 2019-01-15 20:28:00 [address] [facility] Body weight 2019-01-15 20:28:[address] [facility] BMI 2019-01-15 20:28:00 25.80 kg/m2 [facility] Systolic blood 2019-01-15 20:28:00 134 mm[Hg] [facility] pressure Medicine Systolic blood 2021-12-29 05:35:37 147 mm[Hg] Phuc sity of pressure [facility] Diastolic blood 2021-12-29 05:35:37 87 mm[Hg] Yuliet rsity of pressure [facility] Heart rate 2021-12-29 05:35:37 76 /min [facility] Body temperature 2021-12-29 05:35:37 37 Meri [facility] Respiratory rate 2021-12-29 05:35:37 19 /min [facility] Oxygen saturation in 2021-12-29 05:35:37 95 /min [facility] Arterial blood by Mishel matta Pulse oximetry [facility] Body weight 2021-12-28 20:39:45 78 kg Universi ty [facility] MD [facility] BMI 2021-12-28 20:39:45 23.55 kg/m2 [facility] Body height 2021-12-28 20:31:00 182 cm [facility] Systolic (mm Hg) 2018-04-19 03:12:00 Dane rial Fisher Diastolic (mm Hg) 2018-04-19 03:12:00 Mem orial Fisher Heart Rate 2018-04-19 03:12:00 [facility] Respitory Rate 2018-04-19 03:12:00 Memori al Noe Temperature Oral (F) 2018-04-19 03:12:00 98.5 F [facility] Noe Weight 2018-04-19 01:46:00 [facility] Temperature Oral (F) 2018-04-19 01:46:00 98.3 F [facility] Noe Respitory Rate 2018-04-19 01:46:00 Memori al Fisher Heart Rate 2018-04-19 01:46:00 [facility] Noe Systolic (mm Hg) 2018-04-19 01:46:00 Dane rial Fisher Diastolic (mm Hg) 2018-04-19 01:46:00 Mem orial Noe Systolic (mm Hg) 2017-11-02 09:31:00 Dane rial Noe Diastolic (mm Hg) 2017-11-02 09:31:00 Mem orial Fisher Temperature Oral (F) 2017-11-02 09:31:00 98.2 F [facility] Fisher Respitory Rate 2017-11-02 09:31:00 Memori al Fisher Respitory Rate 2017-11-02 08:48:00 Memori al Noe Systolic (mm Hg) 2017-11-02 08:48:00 Dane rial Noe Diastolic (mm Hg) 2017-11-02 08:48:00 Mem orial Noe Systolic (mm Hg) 2017-11-02 08:25:00 Dane rial Noe Diastolic (mm Hg) 2017-11-02 08:25:00 Mem orial Fisher Respitory Rate 2017-11-02 08:25:00 Memori al Fisher Temperature Oral (F) 2017-11-02 04:29:00 98.3 F [facility] Fisher Weight 2017-11-02 04:29:00 [facility] Fisher Heart Rate 2017-11-02 04:29:00 [facility] Noe Heart Rate 2016-12-16 05:46:00 [facility] Noe Respitory Rate 2016-12-16 05:46:00 Memori al Fisher Systolic (mm Hg) 2016-12-16 05:46:00 Dane rial Noe Diastolic (mm Hg) 2016-12-16 05:46:00 Mem orial Fisher Systolic (mm Hg) 2016-12-16 02:23:00 Dane rial Noe Diastolic (mm Hg) 2016-12-16 02:23:00 Mem orial Fisher Heart Rate 2016-12-16 02:23:00 Memorial Noe Temperature Oral (F) 2016-12-16 02:23:00 98.2 F [facility] Noe Respitory Rate 2016-12-16 02:23:00 Memori al Noe Weight 2016-12-16 02:23:00 [facility] Fisher Weight 2015-02-27 17:00:00 [facility] Noe Height 2015-02-27 17:00:00 [facility] Noe Heart Rate 2015-02-27 17:00:00 [facility] Noe Diastolic (mm Hg) 2015-02-27 17:00:00 Mem orial Fisher Systolic (mm Hg) 2015-02-27 17:00:00 Dane rial Noe Procedures Procedure Date / Time Performing Source Performed Clinician CT CHEST PULMONARY EMBOLISM W 2021-12-29 [facility] [place] CONTRAST 04:23:00 [facility] CT ABDOMEN PELVIS W WO 2021-12-29 Debra Madrigal [facility] CONTRAST 04:23:00 [facility] NT PRO BNP 2021-12-[address] [facility] [place] 02:13:00 [facility] POC TROPONIN I 2021-12-[address] [facility] [place] 02:12:00 [facility] COMPLETE BLOOD COUNT W/ 2021-12-29 Debra Madrigal [facility] DIFFERENTIAL 01:15:00 [facility] COMPREHENSIVE METABOLIC PANEL 2021-12-29 Debra Madrigal [facility] 01:15:00 [facility] MAGNESIUM LEVEL 2021-12-[address] [facility] [place] 01:15:00 [facility] PHOSPHORUS LEVEL 2021-12-29 Debra Madrigal [facility] 01:15:00 [facility] PROTHROMBIN TIME 2021-12-29 Debra Madrigal [facility] 01:15:00 [facility] APTT 2021-12-29 Debra Madrigal [facility] 01:15:00 [facility] AMYLASE LEVEL 2021-12-29 Debra Madrigal [facility] 01:15:00 [facility] LIPASE LEVEL 2021-12-29 Debra Madrigal [facility] 01:15:00 [facility] Results CBC 2021-12-29 Debra Madrigal [facility] 01:15:00 [facility] MANUAL DIFFERENTIAL 2021-12-29 Debra Madrigal [facility] 01:15:00 [facility] GLUCOSE LEVEL 2021-12-29 Debra Madrigal [facility] 01:15:00 [facility] BLOOD UREA NITROGEN 2021-12-29 Debra Madrigal [facility] 01:15:00 [facility] ELECTROLYTE PANEL 2021-12-29 Debra Madrigal [facility] 01:15:00 [facility] SERUM CREATININE 2021-12-29 Debra Madrigal [facility] 01:15:00 [facility] .GLOMERULAR FILTRATION RATE 2021-12-29 Debra Madrigal [facility] 01:15:00 [facility] CALCIUM LEVEL TOTAL 2021-12-29 Debra Madrigal [facility] 01:15:00 [facility] ALBUMIN LEVEL 2021-12-[address] [facility] [place] 01:15:00 [facility] ALKALINE PHOSPHATASE 2021-12-29 Debra Madrigal [facility] 01:15:00 [facility] ALANINE AMINOTRANSFERASE 2021-12-29 Debra Madrigal [facility] 01:15:00 [facility] ASPARTATE AMINOTRANSFERASE 2021-12-29 Debra Madrigal [facility] 01:15:00 [facility] TOTAL PROTEIN 2021-12-[address] [facility] [place] 01:15:00 [facility] FRACTIONATED BILIRUBIN 2021-12-29 Debra Madrigal [facility] 01:15:00 [facility] EKG, 12-LEAD (PORTABLE) 2021-12-29 Abbie Arguello [facility] 00:00:00 [facility] GAMMA GLUTAMYLTRANSFERASE 2021-05-25 Torin Negro [facility] 17:30:00 [facility] LACTATE DEHYDROGENASE 2021-05-25 [facility] 17:30:00 [facility] AMYLASE 2021-05-25 [facility] 17:30:00 [facility] LIPASE 2021-05-25 [facility] 17:30:00 [facility] BILI UNCONJUGATED/BILI CONJUG 2021-05-25 Harkins [facility] 17:30:00 [facility] COMP. METABOLIC PANEL (68850) 2021-05-25 Harkins [facility] 17:30:00 [facility] SEDIMENTATION RATE 2021-05-25 Harkins [facility] 17:30:00 [facility] CBC WITH DIFF 2021-05-25 Torin [facility] 17:30:00 [facility] URINALYSIS 2021-05-25 Torin [facility] 17:30:00 [facility] Plan of Care Planned Activity Planned Date Details Comments Source Future Scheduled 2020-02-[address] [facility] Test 00:00:00 (#1) [code = [facility] INFLUENZA VACCINE (#1)] Future Scheduled 2019-06-[address] [facility] Test 00:00:00 WELLNESS (YEAR 2 or Medical Center FIRST YEAR if no IPPE) [code = MEDICARE ANNUAL WELLNESS (YEAR 2 or FIRST YEAR if no IPPE)] Diagnostic Test 2019-01-19 [place] CYSTOGRAM [code = Expected: [employer] Pending 00:00:00 78054-6] 01/19/2019, of Medicine Expires: 08/16/2019 Future Scheduled 1995-12-[address] [facility] Test 00:00:00 (procedure) [code = Medical Center 92524675] Future Scheduled [address] [facility] Test 00:00:00 0-64 YRS (1 of 1 - Medical C enter PPSV23) [code = PNEUMOCOCCAL VACCINE 0-64 YRS (1 of 1 - PPSV23)] Future Scheduled [address] [facility] Test 00:00:00 malignant neoplasm Medical C enter of colon (procedure) [code = 469386200] Future Scheduled COLON CANCER [facility] Lynne ege Test SCREENING: of Medicine COLONOSCOPY [code = COLON CANCER SCREENING: COLONOSCOPY] Future Scheduled MEDICARE AWV [code = [employer] Test MEDICARE AWV] of Medicine Future Scheduled TETANUS SHOT (ADULT) [employer] Test [code = TETANUS SHOT of Medi cine (ADULT)] Future Scheduled BMI FOLLOW UP PLAN [employer] Test [code = BMI FOLLOW of Medici ne UP PLAN] Future Scheduled HEPATITIS C [facility] [employer] Test SCREENING [code = of Medicin e HEPATITIS C SCREENING] Future Scheduled HIV SCREENING [code [employer] Test = HIV SCREENING] of Medicine Future Scheduled FLU VACCINE > 6 [facility] C [facility]lege Test MONTHS [code = FLU of Medici ne VACCINE > 6 MONTHS] Future Scheduled COLON CANCER [facility] Test SCREENING: of Medicine COLONOSCOPY [code = COLON CANCER SCREENING: COLONOSCOPY] Future Scheduled MEDICARE AWV [code = [employer] Test MEDICARE AWV] of Medicine Future Scheduled TETANUS SHOT (ADULT) [employer] Test [code = TETANUS SHOT of Medi cine (ADULT)] Future Scheduled BMI FOLLOW UP PLAN [employer] Test [code = BMI FOLLOW of Medici ne UP PLAN] Future Scheduled HEPATITIS C [facility] [employer] Test SCREENING [code = of Medicin e HEPATITIS C SCREENING] Future Scheduled HIV SCREENING [code [employer] Test = HIV SCREENING] of Medicine Future Scheduled FLU VACCINE > 6 [facility] Kyle arias Test MONTHS [code = FLU of Medici ne VACCINE > 6 MONTHS] Encounters Start End Encounter Admission Attending Care Care Encounter Source Date/Time Date/Time Type Type Clinicians Facility Department ID 2021-12-28 2021-12-29 Emergency UR YOLANDA CRAWLEY Emergency [id number] 20:19:00 02:05:00 DHAVAL strauss 2021-12-28 2021-12-29 Emergency Abbie Arguello 1.2.840.1 [id number] [facility] 20:19:00 02:05:00 Dhaval Crawley [id number] ity of 3.412.2.7 [place] .3.483321 MD Coelho8 [facility] 2021-12-28 2021-12-28 Orders Nela 1.2.840.1 [id number] Univers 00:00:00 00:00:00 Only Avinash 46421.1.1 ity of 3.412.2.7 [place] .3.569300 MD Coelho8 [facility] 2021-12-28 2021-12-28 Travel 1.2.840.1 [id number] Univers 00:00:00 00:00:00 [id number] 350.1.13.41 ity of 3.412.2.7 2.2.7.3.698 [place] .3.082149 084.8 MD Coelho8 [facility] 2021-05-25 2021-05-25 Patient Scheduling Coordinator Lab, Ang - Db [facility] 1.2.840.1 [id number] Univers 11:30:00 11:51:26 Visit Emily Frey 6APT 350.1.13.10 ity of [place] 4.2.7.2.686 [place] as JULES?BLEA [id number] [address] MEDICAL OFFICE BUILDING 2020-08-01 2020-08-01 [facility] [id number] 10:49:11 23:59:00 Encounter [facility] 350.1.13.10 Surgical 4.2.7.2.686 Specialti [id number] es [address] [place] 2020-08-01 2020-08-01 Office Stoney [facility] 1.2.840.114 [id number] 10:30:23 10:45:23 Visit Buzz Fernandez 350.1.13.10 Surgical 4.2.7.2.686 Specialti [id number] es [address] [place] 2019-01-19 2019-01-19 Office Daniel Murillo BCM 1.2.840.114 [id number] 09:27:34 10:39:25 Visit AMBULATOR 350.1.13.21 Y 0.2.7.2.686 [id number] 2019-01-19 2019-01-19 Office Daniel Murillo BCM 1.2.840.114 [id number] [facility] 09:27:34 10:39:25 Visit AMBULATOR 350.1.13.21 College Y 0.2.7.2.686 of [id number] [facility] rose marie 300 e 2019-01-15 2019-01-15 Office Daniel Murillo BCM 1.2.840.114 [id number] 15:22:05 16:02:23 Visit AMBULATOR 350.1.13.21 Y 0.2.7.2.686 [id number] 300 2019-01-15 2019-01-15 Office Dnaiel Murillo BCM 1.2.840.114 [id number] [facility] 15:22:05 16:02:23 Visit AMBULATOR 350.1.13.21 College Y 0.2.7.2.686 of [id number] [facility] rose marie 300 e 2018-04-19 2018-04-19 Emergency nullFlavo [facility] [id number] Memoria 01:27:00 03:48:00 sarah Liu 02 l [facility] 2017-11-02 2017-11-02 Emergency nullFlavo [facility] [id number] Memoria 04:07:00 09:33:00 sarah Liu 01 l [facility] 2016-12-16 2016-12-16 Emergency nullFlavo [facility] [id number] Memoria 02:18:00 05:50:00 sarah Liu 00 l [facility] 2015-05-12 2015-05-12 Re-Check: nullFlavo Tasia [id number] Memoria 19:34:00 19:34:00 LFT's r Branch [id number] l (Round 3) Podiatry [id number] [facility] [id number] [id number] 2015-04-09 Results: nullFlavo Tasia [id number] Memoria 23:51:00 23:51:00 LFT's r Branch [id number] l (Round 2) Podiatry [id number] [facility] [id number] 2015-04-09 2015-04-09 Results: nullFlavo Tasia [id number] Memoria 23:51:00 23:51:00 LFT's r Branch [id number] l (Round 2) Podiatry [id number] [facility] [place] [id number] 2015-[facility]09 2015-04-09 Results: nullFlavo Tasia [id number] 6-b Memoria 23:51:00 23:51:00 LFT's r Branch [id number] l (Round 2) [facility] [id number] [facility] [id number] 2015-04-02 2015-04-02 Re-Check: nullFlavo Tasia [id number] 8a-5 Memoria 21:23:00 21:23:00 LFT's r Branch [id number] l (Round 2) Podiatry [id number] [facility] [id number] 2015-04-02 2015-04-02 Re-Check: nullFlavo Tasia [id number] 2c-2 Memoria 21:23:00 21:23:00 LFT's r Branch [id number] l (Round 2) Podiatry [id number] [facility] [id number] 6906-10-28 2015-04-02 Re-Check: nullFlavo Tasia [id number] 21-8 Memoria 21:23:00 21:23:00 LFT's r Branch [id number]-[id number] l (Round 2) Podiatry [id number] [facility] [id number] 2015-03-03 2015-03-03 Results: Gracie Dozier [id number] e-3 Memoria 14:49:00 14:49:00 LFT's r Branch eea-[id number]-[id number] l (Round 1) Podiatry [id number] [facility] [id number] 2015-03-03 2015-03-03 Results: wilianFlavo Tasia [id number] 2-6 Memoria 14:49:00 14:49:00 LFT's r Branch 45a-4acd-a l (Round 1) Podiatry [id number] [facility] [id number] 2015-03-03 2015-03-03 Results: wilianFlavo Tasia [id number] 5-f Memoria 14:49:00 14:49:00 LFT's r Branch [id number]-[id number] l (Round 1) Podiatry [id number] [facility] [id number] 9022-09-24 2015-02-27 NEW PT: Gracie Dozier [id number] -[id number] Memoria 17:00:00 17:00:00 Possible r Branch [id number]-[id number] l Infection, Podiatry [id number] [facility] [id number] 2015-02-27 2015-02-27 NEW PT: Gracie Dozier [id number] -6 Memoria 17:00:00 17:00:00 Possible r Branch [id number]-[id number] l Infection, Podiatry [id number] [facility] [id number] 2015-02-27 2015-02-27 NEW PT: Gracie Dozier [id number] -[id number] Memoria 17:00:00 17:00:00 Possible r Branch 60e-4090-9 l Infection, Podiatry [id number] [facility] [id number] Results Test Description Test Time Test Comments Results Result Comments Source NT-Pro BNP (In-House) 2021-12-29 02:40:43 Test Item Value Reference Range Interpretation Comme nts NT ProBNP (test code = 124 pg/mL See_Comment [Aut omated message] The system 15430-1) which generated this result transmitted ref erence range: <=125. The refe rence range was not used to interpr et this result as normal/abnormal . [facility] Troponin [id number] 02:24:13 Test Item Value Reference Range Interpretation Comments POC CTNI (test 0.00 ng/mL 0.00-0.08 This cTnI daniel t is code = 86330-9) performed by the Kcpzv-xq-Gwpx a nalyzer method,and the result may be differen t from the Clinical LaboratoryMetho d. Abnormal test r esults are recommended for confirmatorytes t by Clinical labora tory method. Patient s with normal testresu lts but clinically susp icious for acute myoca rdial infarctionshoul d be tested by Clini radha Laboratory meth od. Method descript ion: The Troponin I (cTn I) uses a two-site enzyme-linked immunosorbent a ssay (LEONA) method. Antibodies spec [facility] t roponin I (cTnI) are lo cated on an electrochemi radha sensor fabricat ed on a silicon chip. T he whole blood is cabrera t into contact with th e sensors allowin g the enzyme conjugat e to dissolve into t he sample. The enz yme bound to the antibody/antige n/antibo dy sandwich katy aves the substrate relea sing an electrochemical ly detectable prod uct. The electrochemical (amperometric) sensor measures this e nzyme product which i s proportional to the concentration o f cTnI within the samp le. POC Clean Dev Yes (test code = 6672) Performing Lab [facility] (test code = [facility] [address] Clinical Lab, [address] [place] [address], [place], [place] [address]; Typing Office Worker: Navya Myers MD [facility] TexasaPTT2022-07-26 01:57:57 Test Item Value Reference Range Interpretation Comments aPTT (test code = 31.3 See_Comment [Automate d message] The 21857-6) system which ge nerated this result transmit kris reference range : 22.8 - 34.2 second(s). The reference range was not used to interpr et this result as anthony l/abnormal. [facility] TexasProthrombin Time with [id number] 01:57:56 Test Item Value Reference Range Interpretation Comments PT (test code = 5902-2) 14.3 See_Comment H [Au tomated message] The system [employer] generated this result transmitted ref erence range: 11.9 - 1 4.1 second(s). The reference range was not used to int erpret this result as normal/abnormal . INR (test code = 6301-6) 1.16 0.89-1.10 H Lab Interpretation (test Abnormal code = 51698-9) [facility] TexasFractionated Tnkhbzbwp2494-71-87 01:55:04 Test Item Value Reference Range Interpretation Comments Bili Total (test 0.3 mg/dL See_Comment Indocyanine Green (ICG) code = 1974-07) may cause fal sely elevated biliru bin results. Total and direct bilirubin must not be measured from s amples containing indo cyanine green. False el evation of total bilirubin can be seen in patient s with IgG concentrations above 28 g/L. [Automated message] The system [employer] generated this result transmitted ref erence range: <=1.2. T he reference range was not used to interpr et this result as normal/abnormal . Bili Direct (test <0.2 See_Comment Indocyanin e Green (ICG) code = 1967-12) may cause fal sely elevated biliru bin results. Total and direct bilirubin must not be measured from s amples containing indo cyanine green. [Automat ed message] The sy stem which generated this result transmitted ref erence range: <=0.3 mg /dL. The reference range was not used to interpr et this result as normal/abnormal . Bili Indirect (test See Note 0.0-0.9 Unable t o calculate code = 1970-06) Indirect Bili sanchez result due to some par ameters are outside rep ortable range [facility] TexasGlomerular Filtration Rate 2021-12-29 01:55:02 Test Item Value Reference Range Interpretation Comments eGFR-AA (test code 111 See_Comment Normal eG FR: >= 60 = 44511-1) mL/min/1.73 m2N ote: The eGFR is calculated u sing the CKD-EPI equatio n. The eGFR declines with a ge. eGFR <60 mL/min/1.73 m2 is considered as "decreased". This equation should only be used for patients 18 and older. According to th e National Kidney Foundati on's Kidney Disease Outcome Quality Initiative (KDO QI) classification and 2012 Kidney Disease Improving Global Outcomes (KDIGO) Clinical Practi ce Guideline, the stage of CK D should be categorized bas ed on estimated GFR. Stage Description GFR mL/min/1.73 m21 Normal or h igh GFR >=902 Mildly decrease d GFR 60-893a Mildly to moder ately decreased GFR 4 5-593b Moderately to s everely decreased GFR 3 0-444 Severely decreased GFR 1 5-295 Kidney failure <15 [Au tomated message] The sy stem which generated this result transmitted ref erence range: >=60 mL/min/1.7 3 sq. m. The reference range was not used to interpret is result as normal/abnormal . eGFR-MYRTLE (test code 96 See_Comment Normal e GFR: >= 60 = 50111-4) mL/min/1.73 m2N ote: The eGFR is calculated u sing the CKD-EPI equatio n. The eGFR declines with a ge. eGFR <60 mL/min/1.73 m2 is considered as "decreased". This equation should only be used for patients 18 and older. According to th e National Kidney Foundati on's Kidney Disease Outcome Quality Initiative (KDO QI) classification and 2012 Kidney Disease Improving Global Outcomes (KDIGO) Clinical Practi ce Guideline, the stage of CK D should be categorized bas ed on estimated GFR. Stage Description GFR mL/min/1.73 m21 Normal or h igh GFR >=902 Mildly decrease d GFR 60-893a Mildly to moder ately decreased GFR 4 5-593b Moderately to s everely decreased GFR 3 0-444 Severely decreased GFR 1 5-295 Kidney failure <15 [Au tomated message] The sy stem which generated this result transmitted ref erence range: >=60 mL/min/1.7 3 sq. m. The reference range was not used to interpret is result as normal/abnormal . [facility] TexasTotal Vjgobxj5856-55-13 01:55:00 Test Item Value Reference Range Interpretation Comments Total Protein (test code = 2885-2) 7.6 g/dL 6.4-8.3 [facility] TexasPhosphorus [id number] 01:54:59 Test Item Value Reference Range Interpretation Comments Phosphorus (test code = 2777-1) 2.6 mg/dL 2.5-4.5 [facility] TexasMagnesium [id number] 01:54:58 Test Item Value Reference Range Interpretation Comments Magnesium (test code = 75356-2) 1.8 mg/dL 1.6-2.6 [facility] TexasCalcium Mlxka5204-50-06 01:54:57 Test Item Value Reference Range Interpretation Comments Calcium Lvl (test code = 87836-2) 12.9 mg/dL 8.4-10.2 H Lab Interpretation (test code = Abnormal 74151-0) [facility] TexasAlkaline Meboijuwhtq6273-63-62 01:54:56 Test Item Value Reference Range Interpretation Comments Alk Phos (test code = 6768-6) 173 U/L 40-129 H Lab Interpretation (test code = Abnormal 64000-9) [facility] TexasAlbumin Wrllh7921-01-37 01:54:55 Test Item Value Reference Range Interpretation Comments Albumin Lvl (test code 3.7 See_Comment [Aut omated message] The = 4763) system which ge nerated this result tra nsmitted reference range : 3.5 - 5.2 gm/dL. The refe rence range was not used to interpret this result as normal/abnormal . [facility] TexasALT2022-07-26 01:54:54 Test Item Value Reference Range Interpretation Comments ALT (test code = 16 U/L See_Comment [Automated message] The 1741-) system which ge nerated this result transmit kris reference range : <=41. The reference range was not used to interpr et this result as anthony l/abnormal. [facility] TexasAspartate Aminotransferase 2021-12-29 01:54:53 Test Item Value Reference Range Interpretation Comments AST (test code = 1920-8) 51 U/L See_Comment H [A utomated message] The system whic h generated this result transmitted ref erence range: <=40. Th e reference range was not used to int erpret this result as normal/abnormal . Lab Interpretation (test Abnormal code = 17039-4) [facility].Serum Emqimrudfx1925-24-07 01:54:52 Test Item Value Reference Range Interpretation Comments Creatinine (test code = 2160-0) 0.81 mg/dL 0.67-1.17 [facility] TexasElectrolyte Rmyhp4717-34-17 01:54:51 Test Item Value Reference Range Interpretation Comments Sodium Lvl (test code = 132 See_Comment L [Au tomated message] 1212-2) The system [employer] generated this result transmitted ref erence range: 136 - 14 5 mEq/L. The refe rence range was not u sed to interpret this result as normal/abnor mal. Potassium Lvl (test code 4.3 See_Comment [A utomated message] = 2593-3) The system [employer] generated this result transmitted ref erence range: 3.5 - 5. 1 mEq/L. The refe rence range was not u sed to interpret this result as normal/abnor mal. Chloride (test code = 95 See_Comment L [Auto mated message] 3500-0) The system [employer] generated this result transmitted ref erence range: 98 - 107 mEq/L. The refe rence range was not u sed to interpret this result as normal/abnor mal. CO2 (test code = 2027-9) 26 See_Comment [A utomated message] The system [employer] generated this result transmitted ref erence range: 22 - 29 mEq/L. The reference r jose francisco was not used to interpret this result as normal/abnor mal. Anion Gap (test code = 11 See_Comment [Aut omated message] 97168-0) The system [employer] generated this result transmitted ref erence range: 4 - 14 m Eq/L. The reference r jose francisco was not used to interpret this result as normal/abnor mal. Lab Interpretation (test Abnormal code = 03249-8) [facility] TexasBUN2022-07-26 01:54:50 Test Item Value Reference Range Interpretation Comments BUN (test code = 3094-0) 6 mg/dL 6-23 [facility] TexasGlucose [id number] 01:54:49 Test Item Value Reference Range Interpretation Comments Glucose Level (test code 121 mg/dL 70-99 H Eff ective 12/31/15, = 2345-7) the glucose reference inter vals have been updat ed based on Americ an Diabetes Associ ation guidelines (Standards of Medical Care in Diabetes 2016. Diabetes Care 2 016; 39: S13-S22).Fa sting blood glucose:Normal: 70-99 mg/dLImpa ired fasting glucose (increased risk for diabetes or pre-diabetes): 100-125 mg/dLDiabetes mellitus: >/=12 6 mg/dL Random bl ood glucose:Normal: 70-199 mg/dLNot e: Random glucose >100 mg/dL is associ ated with increased risk for diabetes Lab Interpretation (test Abnormal code = 83746-6) [facility] TexasLipase Ocaeh8445-31-18 01:50:34 Test Item Value Reference Range Interpretation Comments Lipase Lvl (test code = 3040-3) 39 U/L 13-60 [facility] TexasAmylase Mpuir5978-51-06 01:50:33 Test Item Value Reference Range Interpretation Comments Amylase Lvl (test code = 1798-8) 49 U/L 28-100 [facility] TexasDifferential2022-07-26 01:28:43 Test Item Value Reference Range Interpretation Comments Neutrophil % (test code = 73.2 % 42.0-66.0 H 770-8) Lymphocyte % (test code = 14.9 % 24.0-44.0 L 736-9) Monocyte % (test code = 10.5 % 2.0-7.0 H 5905-5) Eosinophil % (test code = 0.7 % 1.0-4.0 L 713-8) Basophil % (test code = 0.5 % 0.0-1.0 63686-4) IGRE % (test code = 0.2 % 0.0-0.4 IGRE % c ount 45513-9) includes Metamyelocytes, Myelocytes, and Promyelocytes. Neutrophil Abs (test code 6.67 K/uL 1.70-7.30 = 751-8) Lymphocyte Abs (test code 1.36 K/uL 1.00-4.80 = 731-0) Monocyte Abs (test code = 0.96 K/uL 0.08-0.70 H 742-7) Eosinophil Abs (test code 0.06 K/uL 0.04-0.40 = 711-2) Basophil Abs (test code = 0.05 K/uL 0.00-0.10 704-7) IG Abs (test code = 0.02 K/uL 0.00-0.04 59443-6) Lab Interpretation (test Abnormal code = 90792-1) [facility] Cancer Wendel.[id number] 01:28:33 Test Item Value Reference Range Interpretation Comments WBC (test code = 9.1 K/uL 4.0-11.0 6690-2) RBC (test code = 789-8) 4.99 See_Comment [Au tomated message] The system [employer] generated this result transmitted ref erence range: 4.50 - 6 .00 M/uL. The refer ence range was not u sed to interpret this result as normal/abnor mal. Hgb (test code = 718-7) 14.2 See_Comment [Au tomated message] The system [employer] generated this result transmitted ref erence range: 14.0 - 1 8.0 gm/dL. The refe rence range was not u sed to interpret this result as normal/abnor mal. Hct (test code = 42.8 % 40.0-54.0 4544-3) MCV (test code = 787-2) 86 fL 82-98 MCH (test code = 785-6) 28.5 pg 27.0-31.0 MCHC (test code = 33.2 See_Comment [Automate d message] 786-4) The system [employer] generated this result transmitted ref erence range: 31.0 - 3 6.0 gm/dL. The refe rence range was not u sed to interpret this result as normal/abnor mal. RDW-SD (test code = 54.8 fL 35.1-46.3 H 63664-3) RDW-CV (test code = 17.4 % 12.0-15.5 H 788-0) Platelet count (test 242 K/uL 140-440 code = 777-3) MPV (test code = 9.4 fL 4.0-10.4 56582-6) INRBC (test code = 0.0 % See_Comment The INRBC (instrument 50506-1) NRBC) value ref lects the enumeration of nucleated red b lood cells contained in a 200uL sampleof whole blood analyzed by the instrument. Thi s value maydiffer from the NRBC value repo rted in a manual differential,wh ich is based on a 100 cell differential. [Automated mess age] The system [employer] generated this result transmitted ref erence range: <=0.0. T he reference range was not used to int erpret this result as normal/abnormal . Lab Interpretation Abnormal (test code = 92343-8) [facility] Cancer WendelHEPATITIS C [id number] 12:27:11 Test Item Value Reference Range Interpretation Comments HEPATITIS C ANTIBODY (BEAKER) (test Equivocal Nonreactive A code = 367) [employer] ID - DBOperator ID - DBOperator ID - DBOperator ID - MARYANN MOperator ID - MARYANN MHEPATITIS B CORE ANTIBODY, [id number] 22:14:52 Test Item Value Reference Range Interpretation Comments HEPATITIS B CORE TOTAL ANTIBODY Reactive Nonreactive A (BEAKER) (test code = 497) [employer] ID - DBHEPATITIS B SURFACE [id number] 22:11:23 Test Item Value Reference Range Interpretation Comments HEPATITIS B SURFACE ANTIBODY 55.2 mIU/mL <8.0 H (BEAKER) (test code = 647) [employer] ID - DBHEPATITIS B SURFACE [id number] 22:11:18 Test Item Value Reference Range Interpretation Comments HEPATITIS B SURFACE ANTIGEN (2) Nonreactive Nonreactive (BEAKER) (test code = 2585) Specimen is considered negative for HBsAg.SEDIMENTATION [id number] 22:21:46 Test Item Value Reference Range Interpretation Comments ESR (test code = See_Comment H [Automated message] 8585079220) The system [employer] generated this result transmitted ref erence range: 0 - 10 m m/HR. The reference r jose francisco was not used to interpret this result as normal/abnor mal. Lab Interpretation (test Abnormal code = 05716-3) [facility]. METABOLIC PANEL (88788)2021-05-25 21:54:48 Test Item Value Reference Range Interpretation Comments NA (test code = 139 mmol/L 135-145 9320614522) K (test code = 4.4 mmol/L 3.5-5.0 4058047664) CL (test code = 104 mmol/L 98-108 3822280592) CO2 TOTAL (test code = 27 mmol/L 23-31 5474204001) AGAP (test code = 2-16 6153597382) BUN (test code = 9 mg/dL 7-23 3637865146) GLUCOSE (test code = 74 mg/dL 70-110 1036372173) CREATININE (test code = 0.87 mg/dL 0.60-1.25 2198955377) TOTAL BILI (test code = 0.5 mg/dL 0.1-1.7 5962681943) CALCIUM (test code = 9.4 mg/dL 8.6-10.6 8458822231) T PROTEIN (test code = 7.7 g/dL 6.3-8.2 6868764927) ALBUMIN (test code = 4.3 g/dL 3.5-5.0 4641747005) ALK PHOS (test code = 64 U/L 34-122 7873182792) ALTv (test code = 20 U/L 5-50 1742-6) AST(SGOT) (test code = 68 U/L 13-40 H 7918402988) eGFR (test code = mL/min/1.73m2 0347335085) RAMONE (test code = RAMONE) Association of Glomerular Filtration Rate (GFR) and Staging of Kidney Disease* + --+ --+ ------+| GFR (mL/min/1.73 m2) ?| With Kidney Damage ?| ?Without Kidney Damage+ --------+ --------+ +| ?>90 ?| ?Stage one ?| ? Normal ?+ ---+ ---+ -------+| ?60-89 ?| ?Stage two ?| ? Decreased GFR ? + --+ --+ ------+| ?30-59 ?| ?Stage three ?| ? Stage three ? + --+ --+ ------+| ?15-29 ?| ?Stage four ? | ? Stage four ?+ ---+ ---+ -------+| ?<15 (or dialysis) ? ?| ?Stage five ? | ? Stage five ?+ ---+ ---+ -------+ *Each stage assumes the associated GFR level has been in effect for at least three months. ?Stages 1 to 5, with or without kidney disease, indicate chronic kidney disease. Notes: Determination of stages one and two (with eGFR >59mL/min/1.73 m2) requires estimation of kidney damage for at least three months as defined by structural or functional abnormalities of the kidney, manifested by either:Pathological abnormalities or Markers of kidney damage (including abnormalities in the composition of the blood or urine or abnormalities in imaging tests). Lab Interpretation Abnormal (test code = 27879-2) [facility]AM[facility] [id number] 21:54:28 Test Item Value Reference Range Interpretation Comments GGT (test code = 7425283575) 329 U/L 13-58 H Lab Interpretation (test code = Abnormal 45675-5) [facility]LIP[facility]2021-[facility] 21:54:27 Test Item Value Reference Range Interpretation Comments LIPASE (test code = 1465544953) 229 U/L 0-220 H Lab Interpretation (test code = Abnormal 77685-3) [facility]IL[facility] UNCONJUGATED/BILI [id number] 21:53:46 Test Item Value Reference Range Interpretation Comments BILI CONJ (test code = 5907376569) 0.0 mg/dL 0.0-0.3 BILI UNCON (test code = 6827342928) 0.2 mg/dL 0.1-1.1 Lab Interpretation (test code = Normal 28877-9) [facility]AMYLASE20[facility] 21:53:25 Test Item Value Reference Range Interpretation Comments MAL (test code = 7228530464) 53 U/L 35-110 Lab Interpretation (test code = Normal 75893-3) [facility] CenterLACTATE [id number] 21:37:00 Test Item Value Reference Range Interpretation Comments LDH (test code = 3344386320) 521 U/L 300-600 Lab Interpretation (test code = Normal 46581-6) [facility] CenterCBC WITH [id number] 20:45:26 Test Item Value Reference Range Interpretation Comments WBC (test code = See_Comment [Automated 3190-2) message] The sy stem which generated this result transmitted reference range : 4.20 - 10.70 10*3/?L. The reference range was not used to interpret this result as normal/abnormal . RBC (test code = See_Comment L [Automated 789-8) message] The sy stem which generated this result transmitted reference range : 4.26 - 5.52 10*6/?L. The reference range was not used to interpret this result as normal/abnormal . HGB (test code = 12.5 g/dL 12.2-16.4 718-7) HCT (test code = 34.2 % 38.4-49.3 L 4544-3) MCV (test code = 112.9 fL 81.7-95.6 H 787-2) MCH (test code = 41.3 pg 26.1-32.7 H 785-6) MCHC (test code = 36.5 g/dL 31.2-35.0 H 786-4) RDW-SD (test code = 53.4 fL 38.5-51.6 H 40866-0) RDW-CV (test code = 13.2 % 12.1-15.4 788-0) PLT (test code = See_Comment [Automated 777-3) message] The sy stem which generated this result transmitted reference range : 150 - 328 10*3/ ?L. The reference r jose francisco was not used to interpret this result as normal/abnormal . MPV (test code = 10.2 fL 9.8-13.0 76355-6) NRBC/100 WBC (test See_Comment [Automat ed code = 0615370577) message] The system which generated this result transmitted reference range : 0.0 - 10.0 /100 WBCs. The refer ence range was not u sed to interpret th is result as normal/abnormal . NRBC x10^3 (test code <0.01 See_Comment [Auto mated = 7658109363) message] The s ystem which generated this result transmitted reference range : 10*3/?L. The reference range was not used to interpret this result as normal/abnormal . GRAN MAT (NEUT) % 64.6 % (test code = 770-8) IMM GRAN % (test code 0.30 % = 8833148324) LYMPH % (test code = 25.7 % 736-9) MONO % (test code = 8.0 % 5905-5) EOS % (test code = 0.6 % 713-8) BASO % (test code = 0.8 % 706-2) GRAN MAT x10^3(ANC) 4.27 10*3/uL 1.99-6.95 (test code = 3624074911) IMM GRAN x10^3 (test <0.03 0.00-0.06 code = 7161069590) LYMPH x10^3 (test code 1.70 10*3/uL 1.09-3.23 = 731-0) MONO x10^3 (test code 0.53 10*3/uL 0.36-1.02 = 742-7) EOS x10^3 (test code = 0.04 10*3/uL 0.06-0.53 L 711-2) BASO x10^3 (test code 0.05 10*3/uL 0.01-0.09 = 704-7) Lab Interpretation Abnormal (test code = 08231-1) [facility] [id number] 06:51:00 Test Item Value Reference Range Interpretation [...] APPLICABLE FOR DIALYSIS PATIEN TS. CBC (HEMOGRAM ONLY)2019-01-08 05:48:00 Test Item Value [...] (BEAKER) (test code = 413) BASIC METABOLIC [id number] 10:29:00 Test Item Value Reference Range Interpretation [...] (BEAKER) (test code = 413) BASIC METABOLIC [id number] 07:16:00 Test Item Value Reference Range Interpretation [...] (BEAKER) (test code = 413) BASIC METABOLIC [id number] 06:42:00 Test Item Value Reference Range Interpretation [...] (BEAKER) (test code = 413) [place], CYSTOGRAM, [id number] 15:59:00Reason for exam:->concern for urine leakFINAL REPORT [...] grossly normal. No vesicoureteral reflux is noted. Urethrais not evaluated. Note is also made of subcutaneous emphysema in the lower pelvic and perineal region. Fluoro time: 0.55 minutes Number of images obtained: 10 Impression: Contrast extravasation as described. Signed: Janey Iglesias Verified Date/Time: 01/03/2019 15:59:13 Reading Location: [facility] C013X [facility] Consult Reading Room [id number] 08:26:00 Test Item Value Reference Range Interpretation Comments PHOSPHORUS (BEAKER) (test code = 3.1 mg/dL 2.3-4.7 604) [id number] 08:26:00 Test Item Value Reference Range Interpretation Comments MAGNESIUM (BEAKER) (test code = 1.9 mg/dL 1.6-2.6 627) BASIC METABOLIC [id number] 08:26:00 Test Item Value Reference Range Interpretation [...] 0-0 (BEAKER) (test code = 413) TISSUE [id number] 17:00:00Surgical Pathology Report Case: [id number] Authorizing Provider: Daniel Murillo MD Collected: 12/27/2018 1005 Ordering Location: [facility] Received: 12/27/2018 [address] SERVICES Pathologist: Nikita [...] SURGICAL MARGINS POSITIVE AT APEX SEMINAL VESICLES, RADICALRETROPUBIC PROSTATECTOMY: - NO PATHOLOGIC DIAGNOSIS Signing Pathologist Direct Phone Line: [phone] signed by Nikita Mahajan MD on 01/02/2019 [...] (cm)TUMOR Histologic Type: Acinar adenocarcinoma Histologic Grade: [place] Pattern: Percentage of Pattern 4: 30 % Percentage of Pattern 5: 1 % Primary [place] Pattern: Pattern 3 Secondary Imani Pattern: Pattern 4 Tertiary [place] Pattern: Pattern 5 Total Imani Score: 7 Grade Group: 2 Intraductal Carcinoma (IDC): Present Tumor Extent: Tumor Quantitation: Estimated percentage of prostate involved by tumor: 15% % Extraprostatic Extension (EPE): Present, focal Location of Extraprostatic Extension: Left posterior Urinary Bladder Neck Invasion: Not identified Seminal Vesicle Invasion: Not identified Accessory Findings: Treatment Effect: No known presurgical therapy Lymphovascular Invasion: Not Identified Perineural Invasion:Present MARGINS Margins: Involved by invasive carcinoma : Non-limited (>= 3 mm) Linear Length of Positive Margin(s) in Millimeters (mm): 5 Millimeters (mm) Focality: Unifocal Location of Positive Margin(s): Right apical Location of Positive Margin(s): Left apical Margin Positivity in Area of Extraprostatic Extension (EPE): Not identified [place] Pattern at Positive Margin(s): Pattern 3 LYMPH NODESNumber of Lymph Nodes Involved: 0 Number of Lymph Nodes Examined: 16 PATHOLOGIC STAGE CLASSIFICATION(pTNM, AJCC 8th Edition) TNM Descriptors: Not applicable Primary Tumor (pT): pT3a Regional Lymph Nodes (pN): pN0 Distant Metastasis (pM): Not applicable - pM cannot be determined from the submitted specimen(s) ADDITIONAL FINDINGS Additional Pathologic Findings: High-grade prostatic intraepithelial neoplasia (PIN) Additional Pathologic Findings: Nodular prostatic hyperplasia 03706, [id number] x 2, 22342 X 2Prostate cancerA. Periprostatic lymph node. B. [...] cm disclosing multiple lymph nodes. Sections are submittedas follows: B1, one lymph node, bisected; B2, [...] patient's name (Christen Harkins) with accession number [id number] is a prostate with bilateral seminal vesicles [...] dusky, and focally ragged. Ink code: Right-black, left- blue. The prostate is serially sectioned from apex to base in entirety. The total number of slices including seminal vesicles and vas deferentia are 11.The sectioning of the prostate reveals pink-fuller to matos-white, homogeneous, focally nodular prostatic parenchyma throughout. No discrete masses are identified. The sectioning of the seminal vesicles reveals a pink-tanunremarkable cut surface. Section code: Apical margins are [...] deferentia are submitted in cassette E13. SDH/ewPerformed.CT, [id number] 13:19:00Patient with significant scrotal swelling and subcutaneous air, also with ileus. Please perform withIV and PO contrastFINAL REPORT TECHNIQUE: CT of the abdomen and pelvis WITH intravenous contrast and WITHOUT oral contrast. Dose modulation, iterative reconstruction, and/or weight- based adjustment of the mA/kV was utilized to [...] the right colon up to 7.8 cm indiameter without transition point. No bowel wall thickening. [...] the pelvic sidewalls bilaterally, likely seromas or lymphoceles.Distention of the right colon without transition point, suggestive of ileus. Signed: Gayathri Trinh MDReport Verified Date/Time: 01/02/2019 13:19:12 Reading Location: [facility] B1 C013Y CT Body Reading Room [id number] 07:00:00 Test Item Value Reference Range Interpretation Comments PHOSPHORUS (BEAKER) (test code = 3.3 mg/dL 2.3-4.7 604) [id number] 07:00:00 Test Item Value Reference Range Interpretation Comments MAGNESIUM (BEAKER) (test code = 1.9 mg/dL 1.6-2.6 627) BASIC METABOLIC [id number] 07:00:00 Test Item Value Reference Range Interpretation [...] 697) EGFR (BEAKER) (test 90 mL/min/1.73 ESTIMA KRIS GFR IS code = 1092) sq m NOT ACCURATE CREATININE CLEARANCE IN PREDICTING GLOMERULAR FILTRATION RATE . ESTIMATED GFR I S NOT APPLICABLE FOR DIALYSIS PATIEN TS. [id number] 04:40:00 Test Item Value Reference Range Interpretation Comments PHOSPHORUS (BEAKER) (test code = 2.9 mg/dL 2.3-4.7 604) [id number] 04:40:00 Test Item Value Reference Range Interpretation Comments MAGNESIUM (BEAKER) (test code = 1.8 mg/dL 1.6-2.6 627) BASIC METABOLIC [id number] 04:40:00 Test Item Value Reference Range Interpretation [...] PATIEN TS. CBC W/PLT COUNT & AUTO [id number] 04:10:00 Test Item Value Reference Range Interpretation [...] code = 2801) URINALYSIS W/ REFLEX URINE [id number] 18:55:00 Test Item Value Reference Range Interpretation [...] 516) SOURCE(BEAKER) (test code = 2795) CT, [id number] 18:21:00Reason for exam:->ABDOMINAL PAINWhat is the patient's sedation requirement?->No SedationFINAL REPORT CT, ABDOMEN \\T\\ PELVIS, WITHOUT IV CONTRAST CLINICAL HISTORY: Abdominal pain, unspecifiedABDOMINAL PAIN Technique: Multiple axial images of the abdomen and pelvis wereperformed without contrast. Coronal and sagittal reformats obtained. Oral contrast was not administered. This exam was performed according to our departmental dose-optimization program, which includes automated exposure control, adjustment of the mA and/or kV according to patient size and/or use of the iterative reconstruction technique. COMPARISON: None. FINDINGS:LOWER CHEST: By basilar subsegmentalatelectasis. LIVER: No parenchymal abnormality.BILIARY SYSTEM: No abnormal ductal dilatation.PANCREAS: No acute findings. SPLEEN: No acute findings.ADRENAL GLANDS: Unremarkable.KIDNEYS URETERS: No acute findings. GASTROINTESTINAL/MESENTERY: No bowel obstruction or abnormal wall thickening. The stomachis unremarkable. URINARY BLADDER: Decompressed around Shelley catheter.REPRODUCTIVE [...] bilaterally through the inguinal region into the scrotumwith moderate edema.BONES: No suspicious osseous lesion. Other: None IMPRESSION:Intra-abdominal/pelvic complex fluid collections concerning for abscesses. Rectovesicular space complex collection concerning for abscess versus postoperative hematoma/seroma. Subcutaneous edema, emphysema extending into the scrotum concerning for necrotizing fasciitis, gangrene versus postoperative gas. Small volume freefluid and pneumoperitoneum. Absence of IV contrast limits sensitivity of the examination. Findings discussed with the patient's care provider, MATTI ANDERSON, on 12/31/2018 6:18 PM. Signed: Archie Gibbs MDReport Verified Date/Time: 12/31/2018 18:21:28 Electronically signed by: ARCHIE GIBBS MD on12/31/2018 06:[facility] 2018-12-31 18:15:00 Test Item [...] PATIEN TS. CBC W/PLT COUNT & AUTO [id number] 17:59:00 Test Item Value Reference Range Interpretation [...] = 2801) UA RFLX MICR CULT IF [id number] 08:59:00 Test Item Value Reference Range Interpretation [...] OF URINE: CLEAN CATCHIndication for culture: Dysuria/FrequencyUA [id number] 08:59:00 Test Item Value Reference Range Interpretation Comments UA RBC (test code = RBCU) 20-30 RBC/HPF 0-3 A UA WBC (test code = XWBCU) 20-30 WBC/HPF 0-5 A UA EPITHELIAL CELLS (test code FEW EPI/HPF FEW = EPIU) UA BACTERIA (test code = XBACU) FEW NONE SOURCE OF URINE: CLEAN CATCHIndication for culture: Dysuria/FrequencyUA RFLX MICR CULT IF [id number] 08:50:00 Test Item Value Reference Range Interpretation [...] OF URINE: CLEAN CATCHIndication for culture: Dysuria/FrequencyUA [id number] 08:50:00 Test Item Value Reference Range Interpretation Comments UA RBC (test code = RBCU) RBC/HPF 0-3 UA WBC (test code = XWBCU) WBC/HPF 0-5 UA EPITHELIAL CELLS (test code = EPI/HPF FEW EPIU) UA BACTERIA (test code = XBACU) NONE SOURCE OF URINE: CLEAN CATCHIndication for culture: Dysuria/FrequencyUA RFLX MICR CULT IF [id number] 08:50:00 Test Item Value Reference Range Interpretation [...] OF URINE: CLEAN CATCHIndication for culture: Dysuria/FrequencyUA [id number] 08:50:00 Test Item Value Reference Range Interpretation Comments UA RBC (test code = RBCU) RBC/HPF 0-3 UA WBC (test code = XWBCU) WBC/HPF 0-5 UA EPITHELIAL CELLS (test code = EPI/HPF FEW EPIU) UA BACTERIA (test code = XBACU) NONE SOURCE OF URINE: CLEAN CATCHIndication for culture: Dysuria/FrequencyCREATININE, BODY [id number] 12:28:00 Test Item Value Reference Range Interpretation Comments CREATININE FLUID (BEAKER) (test 0.60 mg/dL code = 677) Reference Range: No Normals Assay performance has not been validated for this type of specimen.BASIC METABOLIC [id number] 06:24:00 Test Item Value Reference Range Interpretation [...] APPLICABLE FOR DIALYSIS PATIEN TS. HEMOGLOBIN AND [id number] 05:28:00 Test Item Value Reference Range Interpretation Comments HEMOGLOBIN (BEAKER) (test code = 10.5 GM/DL 13.7-17.5 L 410) HEMATOCRIT (BEAKER) (test code = 31.9 % 40.1-51.0 L 411) BASIC METABOLIC [id number] 07:27:00 Test Item Value Reference Range Interpretation [...] APPLICABLE FOR DIALYSIS PATIEN TS. HEMOGLOBIN AND [id number] 06:44:00 Test Item Value Reference Range Interpretation Comments HEMOGLOBIN (BEAKER) (test code = 10.8 GM/DL 13.7-17.5 L 410) HEMATOCRIT (BEAKER) (test code = 32.2 % 40.1-51.0 L 411) BASIC METABOLIC [id number] 07:35:00 Test Item Value Reference Range Interpretation [...] 697) EGFR (BEAKER) (test 98 mL/min/1.73 ESTIMA KRIS GFR IS code = 1092) sq m NOT ACCURATE CREATININE CLEARANCE IN PREDICTING GLOMERULAR FILTRATION RATE . ESTIMATED GFR I S NOT APPLICABLE FOR DIALYSIS PATIEN TS. HEMOGLOBIN AND [id number] 06:43:00 Test Item Value Reference Range Interpretation Comments HEMOGLOBIN (BEAKER) (test code = 11.8 GM/DL 13.7-17.5 L 410) HEMATOCRIT (BEAKER) (test code = 36.2 % 40.1-51.0 L 411) HEMOGLOBIN AND [id number] 15:37:00 Test Item Value Reference Range Interpretation Comments HEMOGLOBIN (BEAKER) (test code = 13.6 GM/DL 13.7-17.5 L 410) HEMATOCRIT (BEAKER) (test code = 41.9 % 40.1-51.0 411) BASIC METABOLIC [id number] 15:25:00 Test Item Value Reference Range Interpretation [...] 697) EGFR (BEAKER) (test 83 mL/min/1.73 ESTIMA KRIS GFR IS code = 1092) sq m NOT ACCURATE CREATININE CLEARANCE IN PREDICTING GLOMERULAR FILTRATION RATE . ESTIMATED GFR I S NOT APPLICABLE FOR DIALYSIS PATIEN TS. BASIC METABOLIC [id number] 07:20:00 Test Item Value Reference Range Interpretation [...] APPLICABLE FOR DIALYSIS PATIEN TS. COMPREHENSIVE METABOLIC [id number] 15:49:00 Test Item Value Reference Range Interpretation [...] hemolyzed EGFR (BEAKER) (test 88 mL/min/1.73 ESTIMA KRIS GFR IS code = 1092) sq m NOT ACCURATE CREATININE CLEARANCE IN PREDICTING GLOMERULAR FILTRATION RATE . ESTIMATED GFR I S NOT APPLICABLE FOR DIALYSIS PATIEN TS. Specimen slightly [id number] 13:53:00 Test Item Value Reference Range Interpretation Comments PARTIAL THROMBOPLASTIN TIME 25.8 seconds 22.5-36.0 (BEAKER) (test code = 760) PROTHROMBIN TIME/[id number] 13:52:00 Test Item Value Reference Range Interpretation Comments PROTIME (BEAKER) (test code = 13.7 seconds 11.9-14.2 759) INR (BEAKER) (test code = 370) 1.1 <=5.9 Effective 11/01/2018: PT Reference Range ChangeNew: 11.9-14.2 Previous: 11.7- 14.7RECOMMENDED COUMADIN/WARFARIN INR THERAPY RANGESSTANDARD DOSE: 2.0-3.0 Includes: PROPHYLAXIS for venous thrombosis, systemic embolization; TREATMENT for venous thrombosis and/or pulmonary embolus.HIGH RISK: Target INR is 2.5-3.5 for patients wiht mechanical heart valves.BASIC METABOLIC [id number] 13:51:00 Test Item Value Reference Range Interpretation [...] 697) EGFR (BEAKER) (test 89 mL/min/1.73 ESTIMA KRIS GFR IS code = 1092) sq m NOT ACCURATE CREATININE CLEARANCE IN PREDICTING GLOMERULAR FILTRATION RATE . ESTIMATED GFR I S NOT APPLICABLE FOR DIALYSIS PATIEN TS. CBC W/PLT COUNT & AUTO [id number] 13:35:00 Test Item Value Reference Range Interpretation [...] PERCENT (BEAKER) (test code = 2801) CARDIAC [id number] 07:54:00 Test Item Value Reference Range Interpretation Comments Total CK (test code = Total CK) 181 [facility] [id number] 07:54:00 Test Item Value Reference Range Interpretation Comments Troponin-I (test code no gt See_Comment [Auto mated message] The = Troponin-I) system which g enerated this result transmit kris reference range : <=0.40. The reference r jose francisco was not used to interpr et this result as anthony l/abnormal. [facility] [id number] 07:54:00 Test Item Value Reference Range Interpretation Comments CK MB (test code = CK MB) 1.8 0.5-3.6 [facility] [id number] 07:54:00 Test Item Value Reference Range Interpretation Comments CK MB Index (test 1.0 1 See_Comment [Automate d message] The code = CK MB Index) system w [employer] generated this result transmit kris reference range : <=2.5. The reference range was not used to interpr et this result as anthony l/abnormal. [facility]ann[facility]ARD[facility] [id number] 04:53:00 Test Item Value Reference Range Interpretation Comments CK MB Index (test 0.9 1 See_Comment [Automate d message] The code = CK MB Index) system w [employer] generated this result transmit kris reference range : <=2.5. The reference range was not used to interpr et this result as anthony l/abnormal. [facility] [id number] 04:53:00 Test Item Value Reference Range Interpretation Comments Total CK (test code = Total CK) 209 [facility]annCARDIAC [id number] 04:53:00 Test Item Value Reference Range Interpretation Comments CK MB (test code = CK MB) 1.9 0.5-3.6 [facility] [id number] 04:53:00 Test Item Value Reference Range Interpretation Comments Troponin-I (test code no gt See_Comment [Auto mated message] The = Troponin-I) system which g enerated this result transmit kris reference range : <=0.40. The reference r jose francisco was not used to interpr et this result as anthony l/abnormal. [facility]2018-05-30 04:53:00 Test Item Value Reference Range Interpretation Comments eGFR (test code = eGFR) 80 [facility]2018-05-30 04:53:00 Test Item Value Reference Range Interpretation Comments A/G Ratio (test code = A/G Ratio) 0.9 1 0.7-1.6 [facility]2018-05-30 04:53:00 Test Item Value Reference Range Interpretation Comments ALT (test code = ALT) 30 See_Comment [Auto mated message] The system which ge nerated this result transmit kris reference range : <=65. The reference range was not used to interpr et this result as anthony l/abnormal. [facility]2018-05-30 04:53:00 Test Item Value Reference Range Interpretation Comments Albumin Lvl (test code = Albumin Lvl) 3.7 3.5-5.0 [facility]2018-05-30 04:53:00 Test Item Value Reference Range Interpretation Comments Calcium Lvl (test code = Calcium Lvl) 8.3 8.5-10.5 [facility]2018-05-30 04:53:00 Test Item Value Reference Range Interpretation Comments Total Protein (test code = Total 7.6 6.4-8.4 Protein) [facility]2018-05-30 04:53:00 Test Item Value Reference Range Interpretation Comments CO2 (test code = CO2) 24 24-32 [facility]2018-05-30 04:53:00 Test Item Value Reference Range Interpretation Comments Chloride Lvl (test code = Chloride Lvl) 106 95-109 [facility]2018-05-30 04:53:00 Test Item Value Reference Range Interpretation Comments Globulin (test code = Globulin) 3.9 2.7-4.2 [facility]2018-05-30 04:53:00 Test Item Value Reference Range Interpretation Comments AGAP (test code = AGAP) 12.9 10.0-20.0 [place] [id number] 04:53:00 Test Item Value Reference Range Interpretation Comments B/C Ratio (test code = B/C Ratio) 16 1 6-25 [facility]2018-05-30 04:53:00 Test Item Value Reference Range Interpretation Comments Alk Phos (test code = Alk Phos) 57 39-136 [place] [id number] 04:53:00 Test Item Value Reference Range Interpretation Comments Bili Total (test code = Bili Total) 0.2 0.2-1.3 [place] [id number] 04:53:00 Test Item Value Reference Range Interpretation Comments AST (test code = AST) 33 See_Comment [Auto mated message] The system which ge nerated this result transmit kris reference range : <=37. The reference range was not used to interpr et this result as anthony l/abnormal. [facility]2018-05-30 04:53:00 Test Item Value Reference Range Interpretation Comments BUN (test code = BUN) 19 7-22 [facility]2018-05-30 04:53:00 Test Item Value Reference Range Interpretation Comments Glucose Lvl (test code = Glucose Lvl) 103 70-99 [facility]2018-05-30 04:53:00 Test Item Value Reference Range Interpretation Comments Creatinine Lvl (test code = Creatinine 1.17 0.50-1.40 Lvl) [facility]2018-05-30 04:53:00 Test Item Value Reference Range Interpretation Comments Sodium Lvl (test code = Sodium Lvl) 139 135-145 [facility]2018-05-30 04:53:00 Test Item Value Reference Range Interpretation Comments Potassium Lvl (test code = Potassium 3.9 3.5-5.1 Lvl) [id number] 04:53:00 Test Item Value Reference Range Interpretation Comments Lymphocytes # (test code = Lymphocytes 2.1 1.0-5.5 #) [facility] [id number] 04:53:00 Test Item Value Reference Range Interpretation Comments Eosinophils (test code = 2.6 See_Comment [A utomated message] The Eosinophils) system which ge nerated this result tra nsmitted reference range : <=4.0. The reference r jose francisco was not used to int erpret this result as normal/abnormal . [facility] Cent[id number] 04:53:00 Test Item Value Reference Range Interpretation Comments Segs-Bands # (test code = Segs-Bands #) 4.6 1.5-8.1 [facility] [id number] 04:53:00 Test Item Value Reference Range Interpretation Comments Basophils (test code = 0.9 See_Comment [Aut omated message] The Basophils) system which ge nerated this result tra nsmitted reference range : <=1.0. The reference r jose francisco was not used to int erpret this result as normal/abnormal . [facility] CenterVohothjURDCRWOCSV5533-81-20 04:53:00 Test Item Value Reference Range Interpretation Comments Monocytes (test code = Monocytes) 7.4 2.0-12.0 [facility] [id number] 04:53:00 Test Item Value Reference Range Interpretation Comments Eosinophils # (test code 0.2 See_Comment [A utomated message] The = Eosinophils #) system [facility] h generated this result tra nsmitted reference range : <=0.5. The reference r jose francisco was not used to int erpret this result as normal/abnormal . [facility] CenterDfdpelbNSZRPYRTSH5834-76-70 04:53:00 Test Item Value Reference Range Interpretation Comments Monocytes # (test code 0.6 See_Comment [Aut omated message] The = Monocytes #) system which generated this result tra nsmitted reference range : <=0.8. The reference r jose francisco was not used to int erpret this result as normal/abnormal . [facility] CenterCkwwvtyGPDOXCQOHD5807-58-35 04:53:00 Test Item Value Reference Range Interpretation Comments Macrocyte (test code = 1+ *ABN*(11/01/17 Macrocyte) 11:53 PM) [facility] Cent[id number] 04:53:00 Test Item Value Reference Range Interpretation Comments Basophils # (test code 0.1 See_Comment [Aut omated message] The = Basophils #) system which generated this result tra nsmitted reference range : <=0.2. The reference r jose francisco was not used to int erpret this result as normal/abnormal . [facility] CenterQtqorfqBWIBCLMWUF5683-60-12 04:53:00 Test Item Value Reference Range Interpretation Comments Segs (test code = Segs) 60.6 45.0-75.0 [facility] CenterPxnxgjlPPBMBBUFFK4076-98-33 04:53:00 Test Item Value Reference Range Interpretation Comments Lymphocytes (test code = Lymphocytes) 28.5 20.0-40.0 [facility] CenterDbnxcywEEKYCMYVQP6198-79-37 04:53:00 Test Item Value Reference Range Interpretation Comments MCV (test code = MCV) 101.7 80.0-94.0 [facility] CenterMtyynmxAWNBKKQMIE0714-42-81 04:53:00 Test Item Value Reference Range Interpretation Comments Hgb (test code = Hgb) 13.2 14.0-18.0 [facility] CenterVfevkccFBYWKBPOPO2140-03-19 04:53:00 Test Item Value Reference Range Interpretation Comments Hct (test code = Hct) 37.4 42.0-54.0 [facility] CenterMjdrgacNLCBVOQKJK9844-83-76 04:53:00 Test Item Value Reference Range Interpretation Comments WBC (test code = WBC) 7.5 3.7-10.4 [facility] CenterCpqfafqOPSUQGHLKR1687-36-98 04:53:00 Test Item Value Reference Range Interpretation Comments RBC (test code = RBC) 3.68 4.70-6.10 [facility] CenterBveclqkKIHIKPPWAV1064-62-86 04:53:00 Test Item Value Reference Range Interpretation Comments MCHC (test code = MCHC) 35.4 32.0-36.0 [facility] CenterAmjcxjzZBLLDKXICN5184-21-90 04:53:00 Test Item Value Reference Range Interpretation Comments MCH (test code = MCH) 36.0 pg 27.0-31.0 [facility] CenterKvogqqzNADYDALQCI9902-47-41 04:53:00 Test Item Value Reference Range Interpretation Comments Platelet (test code = Platelet) 194 133-450 [facility] CenterWkskvboGJAKTFNBSV2911-46-04 04:53:00 Test Item Value Reference Range Interpretation Comments MPV (test code = MPV) 7.8 7.4-10.4 [facility] CenterAowgkblYQYWMBZNXZ0927-41-81 04:53:00 Test Item Value Reference Range Interpretation Comments RDW (test code = RDW) 13.3 11.5-14.5 [facility]
[2022-01-07] MEDS ORDERED: ONDANSETRON 4 MG/2 ML VIAL ONE (11:46)
[2022-01-07] MEDS ORDERED: MORPHINE 2 MG/ML SYR ONE (11:46)
[2022-01-07] MEDS ORDERED: NA CHLORIDE 0.9% 500 ML ONE (11:46)
--- NOTE | 2022-01-07 12:08 | RAD REPORT ---
EXAM DESCRIPTION: RAD - Chest Single View - 01/07/2022 11:59 am CLINICAL HISTORY: ABDOMINAL DISTENTION Chest pain. COMPARISON: Chest Single View dated 08/20/2020; Chest Pa And Lat (2 Views) dated 10/03/2015 FINDINGS: Portable technique limits examination quality. The lungs are grossly clear. The heart is normal in size. No displaced fractures. IMPRESSION: No acute intrathoracic process suspected.
--- NOTE | 2022-01-07 12:21 | RAD REPORT ---
EXAM DESCRIPTION: CT - Chest Abd Pelvis Wo Con - 01/07/2022 11:47 am CLINICAL HISTORY: Chest and abdomen pain. abdominal pain COMPARISON: Ct Skull/Thigh dated 01/07/2022 TECHNIQUE: A limited noncontrast study was performed. All CT scans are performed using dose optimization technique as appropriate and may include automated exposure control or mA/KV adjustment according to patient size. FINDINGS: Several small nodules are present bilaterally in the lungs, largest in the right lung base measuring 8-9 mm.No pleural or pericardial effusion.No intrathoracic adenopathy. The liver appears enlarged in size and contains numerous liver masses. This is most compatible with m etastatic disease. The spleen, pancreas, adrenal glands and left kidney are normal. Punctate calculus right kidney without hydronephrosis. Mild free fluid is seen in the abdomen and pelvis. No bowel obstruction or free air. No pathologic l ymphadenopathy in the abdomen or pelvis. No worrisome osseous finding. IMPRESSION: The liver is mildly enlarged and demonstrates extensive liver masses. This is compatible with neoplasia.Metastatic disease would be favored. Small nodules in both lung bases are nonspecific and difficult to fully assess enthesitis. Metastatic disease is certainly a possibility. Mild free fluid.
[2022-01-07 12:42] LABS: Absolute Lymphocytes (CBC) 0.9 K/uL (0.7-4.9); Hematocrit 42.4 % (39.6-49.0); Lymphocytes % 8.9 % (15.3-44.8); MCV 86.9 fL (80-100); MPV 7.8 fL (7.6-11.3); RBC Red Blood Cell Count 4.88 M/uL (4.33-5.43)
[2022-01-07 12:56] LABS: SARS-CoV-2 Antigen Rapid Res Negative (Negative)
[2022-01-07 12:58] LABS: Protime INR 1.36
[2022-01-07 13:01] LABS: Potassium 4.4 mmol/L (3.5-5.1); Troponin High Sensitivity 4.6 pg/mL (<58.9)
[2022-01-07] MEDS ORDERED: NA CHLORIDE 0.9% 1,000 ML ONE (13:35)
--- NOTE | 2022-01-07 13:41 | ER ---
Nurse's Notes [facility] Name: Arturo Harkins Age: 61 yrs Sex: Male : 1960 Arrival Date: 01/07/2022 Time: 10:22 Bed 17 Private MD: Diagnosis: Liver disease, unspecified;Abdominal pain, Generalized;Other ascites;Hypercalcemia;Constipation Presentation: 01/07 10:37 Chief complaint: Patient states: abd pain that has been ongoing for 3 months. Pt is ss eating and drinking in ER lobby, verbalizes understanding importance of NPO for any potential test/ treatment. PT states, "I've been in [place] for this before. I've been to [place] once, [place] twice and here once and I still keep hurting." Pt reports he is seeing Dr. Parker for "possible Liver CA." and had a PET scan obtained today. Also c/o constipation. Coronavirus screen: Client denies travel out of the [place] in the last 14 days. Ebola Screen: Patient denies exposure to infectious person. Patient denies travel to an Ebola-affected area in the 21 days before illness onset. Initial Sepsis Screen: Does the patient meet any 2 criteria? No. Patient's initial sepsis screen is negative. Does the patient have a suspected source of infection? No. Patient's initial sepsis screen is negative. Risk Assessment: Do you want to hurt yourself or someone else? Patient reports no desire to harm self or others. Onset of symptoms is unknown. 10:37 Method Of Arrival: Ambulatory ss 10:37 Acuity: RICHAR 3 ss Triage Assessment: 12:56 General: Appears in no apparent distress. Behavior is calm, cooperative. jg9 Historical: - Allergies: 10:44 No Known Allergies; ss - Home Meds: 16:06 tramadol 50 mg Oral tab 1 tab every 6 hours [Active]; jg9 - PMHx: 10:44 cancer, prostate; Hypertension; ss - PSHx: 10:44 back; prostate; ss - Immunization history:: Client reports receiving the 2nd dose of the Covid vaccine. - Social history:: Smoking status: Patient reports the use of cigarette tobacco products, 4 cigarettes/ day. Screenin:56 Abuse screen: Denies threats or abuse. Denies injuries from another. Nutritional jg9 screening: No deficits noted. Tuberculosis screening: No symptoms or risk factors identified. Fall Risk None identified. Assessment: 12:55 Reassessment: No changes from previously documented assessment. Pain: Complains of pain jg9 in head, neck, chest, abdomen, pelvis, right arm, right hand, left arm, left hand, right leg, right foot, left leg, left foot, back of head, back of neck, back of left arm, back of right arm, posterior chest, buttocks, back of left leg, back of right leg, left heel, right heel and back Pain currently is 10 out of 10 on a pain scale. Noted to be. 13:24 GI: Reports constipation, patient requesting medications to assist in having a bowel jg9 movement. 15:55 Reassessment: Patient found outside smoking, advised that was not allowed and if he jg9 needed a nicotine patch I could contact the provider, patient back in bed now on phone reporting pain 8/10. 17:24 Reassessment: NA w/pamidronate \\T\\250mls/hr (500mL bag) started \\T\\1715-unable to chart in jg 9 meditech as given. 19:24 Reassessment: Waiting for Ared[employer] ordered under [employer] to finish infusing before ke1 discharge. Vital Signs: 10:37 BP 123 / 80; Pulse 77; Resp 15; Temp 97.2; Pulse Ox 99% on R/A; Weight 77.11 kg; Height ss 5 ft. 11 in. (180.34 cm); Pain 10/10; 12:45 BP 129 / 80; Pulse 75; Resp 18 S; Pulse Ox 97% on R/A; Pain 10/10; jg9 13:45 BP 134 / 72; Pulse 74; Resp 17 S; Pulse Ox 100% on R/A; jg9 15:45 BP 157 / 82; Pulse 76; Resp 17 S; Pulse Ox 100% on R/A; Pain 8/10; jg9 16:45 BP 130 / 77; Pulse 84; Resp 17 S; Pulse Ox 100% on R/A; jg9 17:30 BP 139 / 76; Pulse 82; Resp 17; Pulse Ox 100% on R/A; jg9 18:30 BP 135 / 84; Pulse 75; Resp 17 S; Pulse Ox 100% on R/A; jg9 19:32 BP 149 / 93; Pulse 73; Resp 17; Pulse Ox 100% on R/A; ke1 10:37 Body Mass Index 23.71 (77.11 kg, 180.34 cm) ED Course: 10:22 Patient arrived in ED. rg4 10:27 Huseyin Victor MD is Attending Physician. kdr 10:44 Triage completed. ss 10:44 Arm band placed on right wrist. ss 11:36 Luna Ro, LIOR is Primary Nurse. jg9 11:49 CT Chest Abdomen Pelvis W/O Contrast In Process Unspecified. EDMS 11:56 XRAY Chest (1 view) In Process Unspecified. EDMS 12:25 Inserted saline lock: 22 gauge in right forearm, using aseptic technique. Blood jg9 collected. 12:56 Patient has correct armband on for positive identification. Bed in low position. Call jg9 light in reach. Side rails up X 1. 12:57 No apparent distress. Resting quietly. jg9 13:40 Jamarcus Murillo MD is Hospitalizing Provider. kdr 17:25 Ruma Song MD is Referral Physician. kdr 19:31 No provider procedures requiring assistance completed. IV discontinued. ke1 Administered Medications: 12:25 Drug: NS 0.9% 500 ml Route: IV; Rate: bolus; Site: right forearm; jg9 13:23 Follow up: IV Status: Completed infusion; IV Intake: 500ml jg9 12:26 Drug: Zofran (Ondansetron) 4 mg Route: IVP; Site: left forearm; jg9 13:24 Follow up: Response: No adverse reaction jg9 12:26 Drug: morphine 2 mg Route: IVP; Infused Over: 4 mins; Site: right forearm; jg9 13:24 Follow up: Response: Pain is decreased jg9 13:38 Drug: NS 0.9% 1000 ml Route: IV; Rate: 1 bolus; Site: right forearm; jg9 15:30 Follow up: IV Status: Completed infusion; IV Intake: 1000ml jg9 Medication: 19:31 VIS not applicable for this client. ke1 Intake: 13:23 IV: 500ml; Total: 500ml. jg9 15:30 IV: 1000ml; Total: 1500ml. jg9 Outcome: 13:41 Decision to Hospitalize by Provider. kdr 17:26 Discharge ordered by . kdr 19:31 Discharged to home ambulatory. ke1 19:31 Condition: good 19:31 Discharge instructions given to patient. 19:33 Patient left the ED. ke1 Signatures: Dispatcher [employer] EDMS Huseyin Victor MD MD kdr Mera Mckeon RN RN ss Adrianna Terrazas rg4 Luna Ro RN RN jg9 Henry Diaz RN RN ke1 Corrections: (The following items were deleted from the chart) 10:45 10:37 Chief complaint: Patient states: abd pain that has been ongoing for 3 months. Pt ss is eating and drinking in ER [facility], verbalizes understanding importance of NPO for any potential test/ treatment. PT states, "I've been in ERs for this before. I've been to [place] once, [place] twice and here once and I still keep hurting." Pt reports he is seeing Dr. Parker for "possible Liver CA." and had a PET scan obtained today. ss 18:46 13:45 BP 134 / 72; Pulse 74bpm; Resp 17bpm; Spontaneous; Pulse Ox 100%; jg9 jg9 18:46 16:45 BP 130 / 77; Pulse 84bpm; Resp 17bpm; Spontaneous; Pulse Ox 100%; jg9 jg9
--- NOTE | 2022-01-07 13:41 | EDPHYS ---
Physician Documentation [facility] Name: Arturo Harkins Age: 61 yrs Sex: Male : 1960 Arrival Date: 01/07/2022 Time: 10:22 Bed 17 Private MD: ED Physician Huseyin Victor HPI: 01/07 19:12 This 61 yrs old Black Male presents to ER via Ambulatory with complaints of Pain All kdr Over. 19:12 Patient has a history of liver cancer and prostate cancer. He also has a history of kdr hypertension. Presents today with increased swelling of his abdomen bowel movement and generally hurting all over.. Onset: The symptoms/episode began/occurred at an unknown time. Severity of symptoms: At their worst the symptoms were mild moderate just prior to arrival, in the emergency department the symptoms are unchanged. The patient has experienced similar episodes in the past, chronically, Patient has had worsening symptoms over the last few months. He is being evaluated and treated by Dr. Parker. The patient has been recently seen by a physician: the patient's primary care provider, Dr. Parker. Historical: - Allergies: 10:44 No Known Allergies; ss - Home Meds: 16:06 tramadol 50 mg Oral tab 1 tab every 6 hours [Active]; jg9 - PMHx: 10:44 cancer, prostate; Hypertension; ss - PSHx: 10:44 back; prostate; ss - Immunization history:: Client reports receiving the 2nd dose of the Covid vaccine. - Social history:: Smoking status: Patient reports the use of cigarette tobacco products, 4 cigarettes/ day. ROS: 19:12 Constitutional: Negative for fever, chills, and weight loss, Eyes: Negative for injury, kdr pain, redness, and discharge, Neck: Negative for injury, pain, and swelling, Cardiovascular: Negative for chest pain, palpitations, and edema, Back: Negative for injury and pain, MS/Extremity: Negative for injury and deformity, Skin: Negative for injury, rash, and discoloration, Neuro: Negative for headache, weakness, numbness, tingling, and seizure activity. Psych: Negative for depression, anxiety, suicide ideation, homicidal ideation, and hallucinations. 19:12 Respiratory: Positive for dyspnea on exertion, shortness of breath, on exertion. Negative for hemoptysis, orthopnea, pleurisy. 19:12 Abdomen/GI: Positive for abdominal pain, abdominal distension, Negative for vomiting, diarrhea, black/tarry stool, rectal pain, rectal bleeding, bowel incontinence. Exam: 12:42 ECG was reviewed by the Attending Physician. kdr 19:12 Constitutional: This is a well developed, well nourished patient who is awake, alert, kdr and in no acute distress. Head/Face: Normocephalic, atraumatic. Eyes: Pupils equal round and reactive to light, extra-ocular motions intact. Lids and lashes normal. Conjunctiva and sclera are non-icteric and not injected. Cornea within normal limits. Periorbital areas with no swelling, redness, or edema. Neck: Trachea midline, no thyromegaly or masses palpated, and no cervical lymphadenopathy. Supple, full range of motion without nuchal rigidity, or vertebral point tenderness. No Meningismus. 19:12 Abdomen/GI: Inspection: distension, that is severe, Bowel sounds: diminished, in all quadrants, Palpation: mild abdominal tenderness, in all quadrants, Liver: is enlarged, tenderness, Hernia: not appreciated. Vital Signs: 10:37 BP 123 / 80; Pulse 77; Resp 15; Temp 97.2; Pulse Ox 99% on R/A; Weight 77.11 kg; Height ss 5 ft. 11 in. (180.34 cm); Pain 10/10; 12:45 BP 129 / 80; Pulse 75; Resp 18 S; Pulse Ox 97% on R/A; Pain 10/10; jg9 13:45 BP 134 / 72; Pulse 74; Resp 17 S; Pulse Ox 100% on R/A; jg9 15:45 BP 157 / 82; Pulse 76; Resp 17 S; Pulse Ox 100% on R/A; Pain 8/10; jg9 16:45 BP 130 / 77; Pulse 84; Resp 17 S; Pulse Ox 100% on R/A; jg9 17:30 BP 139 / 76; Pulse 82; Resp 17; Pulse Ox 100% on R/A; jg9 18:30 BP 135 / 84; Pulse 75; Resp 17 S; Pulse Ox 100% on R/A; jg9 19:32 BP 149 / 93; Pulse 73; Resp 17; Pulse Ox 100% on R/A; ke1 10:37 Body Mass Index 23.71 (77.11 kg, 180.34 cm) ss MDM: 13:41 Patient medically screened. kdr 19:12 Data reviewed: vital signs, nurses notes, lab test result(s), radiologic studies. kdr Counseling: I had a detailed discussion with the patient and/or guardian regarding: the historical points, exam findings, and any diagnostic results supporting the discharge/admit diagnosis, lab results. ED course: The initial evaluation and return of some laboratory data, the patient appear to warrant admission. Based on his elevated calcium. Discussed with the hospitalist, Dr. Murillo, evaluated the patient in the ED as well as discussed the patient's care with Dr. Parker. Based on those discussions, it was determined that the patient should receive fluid bolus here in the ED and other medications (see the nursing notes) and then would be stable for quick follow-up with Dr. Parker. During this time the patient was ambulating in the department and out into the parking lot for smoking. Patient was not in any distress at any time. He appeared to be able to manage his affairs reasonably well. Therefore Dr. Parker in the next few days was determined to be appropriate as opposed to admission. 01/07 11:21 Order name: Flu; Complete Time: 13:04 kdr 01/07 11:29 Order name: Basic Metabolic Panel; Complete Time: 13:04 kdr 01/07 11:29 Order name: CBC with Diff; Complete Time: 13:04 kdr 01/07 11:29 Order name: NT PRO-BNP; Complete Time: 13:04 kdr 01/07 11:29 Order name: PT-INR; Complete Time: 13:04 kdr 01/07 11:29 Order name: Troponin HS; Complete Time: 13:04 kdr 01/07 11:29 Order name: XRAY Chest (1 view); Complete Time: 12:38 kdr 01/07 11:31 Order name: CT Chest Abdomen Pelvis W/O Contrast kdr 01/07 12:31 Order name: SARS RAPID; Complete Time: 13:04 eb 01/07 13:11 Order name: Magnesium; Complete Time: 15:29 kdr 01/07 11:29 Order name: EKG; Complete Time: 11:29 kdr 01/07 11:29 Order name: Cardiac monitoring; Complete Time: 13:24 kdr 01/07 11:29 Order name: EKG - Nurse/Tech; Complete Time: 13:24 kdr 01/07 11:29 Order name: IV Saline Lock; Complete Time: 13:24 kdr 01/07 11:29 Order name: Labs collected and sent; Complete Time: 12:32 kdr 01/07 11:29 Order name: O2 Sat Monitoring; Complete Time: 13:24 kdr EC:42 Rate is 80 beats/min. Rhythm is regular, Sinus Rhythm with No ectopy. QRS [place] is kdr Normal. MD interval is normal. QRS interval is normal. QT interval is normal. Clinical impression: NSR w/ Non-specific ST/T Changes. Administered Medications: 12:25 Drug: NS 0.9% 500 ml Route: IV; Rate: bolus; Site: right forearm; jg9 13:23 Follow up: IV Status: Completed infusion; IV Intake: 500ml jg9 12:26 Drug: Zofran (Ondansetron) 4 mg Route: IVP; Site: left forearm; jg9 13:24 Follow up: Response: No adverse reaction jg9 12:26 Drug: morphine 2 mg Route: IVP; Infused Over: 4 mins; Site: right forearm; jg9 13:24 Follow up: Response: Pain is decreased jg9 13:38 Drug: NS 0.9% 1000 ml Route: IV; Rate: 1 bolus; Site: right forearm; jg9 15:30 Follow up: IV Status: Completed infusion; IV Intake: 1000ml jg9 Disposition Summary: 01/07/22 17:26 Discharge Ordered Location: Home(01/07/22 17:26) kdr Problem: an ongoing problem(01/07/22 17:26) kdr Symptoms: have improved(01/07/22 17:26) kdr Condition: Fair(01/07/22 17:26) kdr Diagnosis - Liver disease, unspecified(01/07/22 17:26) kdr - Abdominal pain, Generalized(01/07/22 17:26) kdr - Other ascites(01/07/22 17:26) kdr - Hypercalcemia(01/07/22 17:26) kdr - Constipation kdr Followup: kdr - With: Private Physician - When: 2 - 3 days - Reason: If symptoms return, Further diagnostic work-up, Recheck today's complaints, Continuance of care, Re-evaluation by your physician Followup: kdr - With: Ruma Song MD - When: 2 - 3 days - Reason: If symptoms return, Further diagnostic work-up, Recheck today's complaints, Continuance of care, Re-evaluation by your physician Discharge Instructions: - Discharge Summary Sheet kdr - Ascites kdr - Hypercalcemia kdr - Constipation, Adult, [id number] kdr - Abdominal Pain, Adult, [id number] kdr Forms: - Medication Reconciliation Form kdr - Thank You Letter kdr Prescriptions: - Miralax - take 1 packet by ORAL route once daily; 2 box; Refills: 0, Product Selection kdr Permitted Signatures: Dispatcher [employer] EDMS Huseyin Victor MD MD kdr Mera Mckeon, LIOR RN ss Luna Ro RN RN jg9 Corrections: (The following items were deleted from the chart) 12:37 11:22 SARS-COV-2 RT PCR+[id number].LAB.BRZ ordered. EDMS EDMS 13:24 11:29 Oxygen Per Protocol ordered. kdr jg9 17:25 13:41 Observation kdr kdr 17:25 13:41 Jamarcus Murillo kdr kdr 17:25 13:41 Telemetry/MedSurg (observation) kdr kdr 17:25 13:41 Fair kdr kdr 17:25 13:41 an ongoing problem kdr kdr 17:25 13:41 have improved kdr kdr 17:25 13:41 Standard kdr kdr 17:25 13:41 kdr kdr 17:25 13:41 Hypercalcemia kdr kdr 17:25 13:41 Liver disease, unspecified kdr kdr 17:25 13:41 Other ascites kdr kdr 17:25 13:41 Abdominal pain, Generalized kdr kdr 17:25 13:41 Myalgia kdr kdr
[2022-01-07] MEDS ORDERED: PAMIDRONATE DISOD 30 MG VIAL IV ONE (16:07)
[2022-01-07] MEDS ORDERED: PAMIDRONATE 90 MG in NA CHLORIDE 0.9% 500 ML IV SCH (17:00)
[2022-01-07 17:44] VITALS: BMI 23.7
[2022-01-07 20:43] VITALS: TEMP 97.2
[2022-01-07 20:48] VITALS: O2SAT 100
[2022-01-07 21:02] VITALS: BP 149/93
--- NOTE | 2022-01-07 22:15 | P.CNS ---
Date of Consult: 01/07/22 Reason for Consult: hypercalcemia, generalized weakness Requesting Physician: Huseyin Victor Primary Care Provider: Torin Chief Complaint: Constipation, generalized weakness, abdominal pain History of Present Illness: 61yo M, PMH: recent diagnosis of likely metastatic liver cancer, long-term alcohol dependence Presents to ED due to ~1 month of progressive abdominal pain, associated with constipation, generalized weakness, decreased appetite. Patient states he has been to several ERs and told the same thing over and over - that his cancer is causing his pain and leading to constipation. He does not believe this and feels alike he is getting worse. Initially reported no BM in 3 weeks, but when questioned further, he has intermittently used milk of mag and an enema with mild relief, had small BM 2-3 days ago. He reports being very weak and not able to get out of bed to the bathroom, having to use a urinal jug. He has seen heme/onc recently, was instructed on bowel regimen and was to get PET scan and medication to help with his hypercalcemia, however, patient was delayed for unknown reasons in getting these done. Patient had PET scan done today, and afterwards decided to go across street to our ER for ongoing issues. In the ED, CT Abd/pelvis noted appearance of metastatic liver cancer. No significant ascites. Labwork notable for moderate hypercalcemia in the 12s. His calcium level was mid 11s a few weeks ago. Moderate stool burden noted on CT, no significant dilatation, no evidence of obstruction or acute process. ED physician has consulted for evaluation for possible observation. Allergies No Known Allergies Allergy (Verified 10/07/21 14:54) Home Medications: Tramadol HCl [Ultram] 1 tab PO Q6HR PRN 01/07/22 - Past Medical/Surgical History -: chronic pain -: liver cancer -: c-scope -: liver biopsy - Social History Smoking Status: Current every day smoker Alcohol use: Yes Place of Residence: Home (with niece) Review of Systems 10-point ROS is otherwise unremarkable Physical Examination Temp Pulse Resp BP Pulse Ox 97.2 F 73 17 149/93 H 01/07/22 20:41 01/07/22 20:59 01/07/22 20:59 01/07/22 20:59 General: Alert, In no apparent distress, Oriented x3 HEENT: PERRLA, EOMI Neck: Supple Respiratory: Clear to auscultation bilaterally, Normal air movement Cardiovascular: No edema, Regular rate/rhythm Gastrointestinal: Other (hepatomegaly, mild diffuse tenderness to palpation, mild distention) Musculoskeletal: No contractures, No erythema Integumentary: No significant lesion Neurological: Normal speech, Normal strength at 5/5 x4 extr, Normal affect Laboratory Data (last 24 hrs) 01/07/22 12:25: Magnesium 1.9 01/07/22 12:25: PT 15.0 H, INR 1.36 01/07/22 12:25: WBC 10.7, Hgb 13.9, Hct 42.4, Plt Count 272 01/07/22 12:25: Sodium 136, Potassium 4.4, BUN 9, Creatinine 0.86, Glucose 123 H Physician Review Additional Text: Problem List acute on chronic pain secondary to liver malignancy constipation secondary to opioid use, liver malignancy moderate hypercalcemia secondary to malignancy Patient explained he was too weak to get up to go to bathroom at home shortly after I left his room, he was seen comfortably walking out of the ER to the parking lot to smoke no evidence of sepsis; no evidence of acute reversible process - no obstruction, no infection, no significant ascites to tap pain is from malignancy asymptomatic from moderate hypercalcemia, possibility could play role in some constipation patient obviously not forthcoming with truth of his BMs and weakness - changed story from no BM in 3 weeks to 2-3 days, ambulated without issue to parking lot contacted patient's oncologist - reports noncompliance with bowel regimen, tried to treat patient's hyperglycemia weeks ago but patient didn't show up for meds, and PET scan rescheduled recommend pamindronate 90mg x now, agree with IVF hydration discharge home Dr. Parker will have her office staff schedule close follow up appointment for next week recommend bowel regimen for soft daily BM - titrate miralax, colace, enema as needed Time Spent Managing Pts care (In Minutes): 55
--- NOTE | 2022-01-08 15:10 | EKG ---
Test Date: 2022-01-07 Test Time: 12:16:18 Outreach Rep: [facility] MEASUREMENT RESULTS: Intervals: Rate: 80 FL: 144 QRSD: 88 QT: 358 QTc: 412 Thompson: P: 50 FL: 144 QRS: 19 T: 33 INTERPRETIVE STATEMENTS: Normal sinus rhythm Nonspecific T wave abnormality Abnormal ECG Compared to ECG 01/31/2021 16:01:13 T-wave abnormality now present Sinus bradycardia no longer present Electronically Signed On 01-08-22 15:08:17 CDT by Delvin Ramos
== END 2022-01-07 19:33 | disposition home or self-care (01) ==
LOC: ER 10:21 → ERHOLD 17:25
PROVIDERS: ADMIT Hospitalist; ATTEND Hospitalist
DX: G89.3 Neoplasm related pain (acute) (chronic) (principal); C22.8 Malignant neoplasm of liver, primary, unspecified as to type; K59.00 Constipation, unspecified; E83.52 Hypercalcemia; R73.9 Hyperglycemia, unspecified; R53.1 Weakness; I10 Essential (primary) hypertension; F10.20 Alcohol dependence, uncomplicated; Z91.19 Patient's noncompliance with other medical treatment and regimen; F17.210 Nicotine dependence, cigarettes, uncomplicated; Z20.822 Contact with and (suspected) exposure to COVID-19
CPT/HCPCS: 93005; 85025; 80048; 36415; 83735; 85610; 84484; 83880; 87804 ×2; 71250; 74176; 71045; 99284; 87811; J2430; J2270; J7040 ×2; J7030; J2405; G0378 ×2